=== PATIENT | female | born 1980 | race Caucasian/White ===

== ENCOUNTER 2022-05-20 01:23 | Emergency (ER) | payer OTHER, SELFPAY ==
[2022-05-20 01:31] VITALS: BP 125/90; PULSE 78; RESP 18; TEMP 36.8; O2SAT 99; BMI 31.7
--- NOTE | 2022-05-20 01:36 | ED_ITS ---
HPI - General Adult General Chief complaint: Sore Throat Stated complaint: Sore throat, lower back pain Time Seen by Provider: 05/20/22 01:31 History of Present Illness HPI narrative: Pt is a 41 year old woman well known to me who presents with pharyngitis and low back pain. Pt has close contacts who have recently tested positive for strep throat and are currently being treated. Pt's symptoms started in the past 24 hours. She also has a history of chronic pain in her back and has a nerve stimulator in place. Pt pain in the lumbar spine and throat are both severe. No fevers, chills, nausea or vomiting. No airway issues. Pt has no rash or neurological symptoms. Related Data Home Medications Medication Instructions Recorded Confirmed furosemide 20 mg tablet 20 mg PO DAILY 11/16/21 05/20/22 sertraline 100 mg tablet 100 mg PO DAILY 11/16/21 05/20/22 Previous Rx's Medication Instructions Recorded venlafaxine 150 mg tablet,extended 150 mg PO QAM Depression #90 tabs 11/16/21 release 24 hr Allergies Allergy/AdvReac Type Severity Reaction Status Date / Time codeine Allergy Severe hives, Verified 11/16/21 09:06 nausea, vomiting hydromorphone Allergy Mild itching Verified 11/16/21 09:06 ibuprofen Allergy Mild hx of Verified 11/16/21 09:06 gastric bypass Review of Systems Status of ROS: Reports: 10 or more systems reviewed and unremarkable except as noted in History and below [facility] Medical History Depression Eczema Rash Surgical History History of section History of cholecystectomy History of gastric bypass History of hysterectomy History of umbilical hernia repair Social History Little interest or pleasure in doing things: several days Feeling down, depressed, or hopeless: more than half the days Exam Narrative: Exam Narrative: EXAM GENERAL: Patient appears comfortable and well. EYES: No scleral icterus. ENT: Tympanic membranes normal with injected pharynx. No midline deviation or exudate. THYROID: no thyroid nodules or thyromegaly. LYMPH: No supraclavicular or cervical lymphadenopathy. SKIN: Visible skin seen during exam normal or with benign process only. EXT: No dependent lower extremity pedal edema. HEART: Regular rate and rhythm with no murmurs, rubs, or gallops. LUNGS: Clear to auscultation bilaterally with no crackles or wheezes. ABD: Soft, non tender, non distended. PSYCH: Good eye contact, speech is not pressured. Const: Vital Signs, click to edit/add: Vital Signs - 24 hr 05/20/22 01:31 Temperature 98.2 F Pulse Rate [Right Pulse Oximeter] 78 Respiratory Rate 18 Blood Pressure [Ri ght Upper Arm] 125/90 H Pulse Oximetry 99 Oxygen Delivery Me thod Room Air Course Course Hospital Course: Pt seen and examined. Vital Signs Vital signs: Initial Vital Signs Temperature 98.2 F 05/20/22 01:31 Temperature Source Temporal Artery Scan 05/20/22 01:31 Pulse Rate 78 05/20/22 01:31 Respiratory Rate 18 05/20/22 01:31 Blood Pressure 125/90 H 05/20/22 01:31 Blood Pressure Mean 101 05/20/22 01:31 Blood Pressure Position Sitting 05/20/22 01:31 Pulse Oximetry 99 05/20/22 01:31 Oxygen Delivery Method 05/20/22 01:31 Vital Signs Temperature 98.2 F 05/20/22 01:31 Pulse Rate 78 05/20/22 01:31 Respiratory Rate 18 05/20/22 01:31 Blood Pressure 125/90 H 05/20/22 01:31 Pulse Oximetry 99 05/20/22 01:31 Oxygen Delivery Method 05/20/22 01:31 Temperature 98.2 F 05/20/22 01:31 Pulse Rate 78 05/20/22 01:31 Respiratory Rate 18 05/20/22 01:31 Blood Pressure 125/90 H 05/20/22 01:31 Pulse Oximetry 99 05/20/22 01:31 Oxygen Delivery Method 05/20/22 01:31 Medical Decision Making MDM Narrative Medical decision making narrative: Pt is a 41 year old woman who sees me in primary care clinic who presents with pharyngitis. Pt has close contact with strep positive family members and I do not believe testing would be helpful. Worsening of chronic back pain also noted. Pt will be treated with amoxicillin plus norco and close follow up. Differential Diagnosis Differential Diagnosis: Strep Throat, Viral Pharyngitis, Sinusitis, Pneumonia, Abscess Discharge Plan Discharge Clinical Impression: Strep throat Patient Disposition: Home, Self-Care Condition: Stable Instructions: Strep Throat (ED) Additional Instructions: Amoxicillin and [facility] as directed Follow up as needed Activity Level: No Restrictions Discharge Diet: Regular Prescriptions: No Action sumatriptan succinate 100 mg tablet 100 mg PO .As Needed as needed PRN Rx Instructions: ONE TAB AT ONSET OF HEADACHE, MAY REPEAT ONCE IN 2 HRS, MAX 200 MG/24 HRS. Patient need f/u apt sertraline 100 mg tablet 100 mg PO DAILY furosemide 20 mg tablet 20 mg PO DAILY venlafaxine 150 mg tablet extended release 24 hr 150 mg PO QAM Qty: 90 3RF Follow Up/Referrals: Stone Martinez MD [Primary Care Provider] - Stand Alone Forms: [employer] Info Instructions
[2022-05-20 01:54] VITALS: BP 125/90; PULSE 78; RESP 18; TEMP 36.8
== END 2022-05-20 01:54 | disposition home or self-care (01) ==
PROVIDERS: Emergency Provider Internal Medicine; PCP Internal Medicine
DX: J02.0 Streptococcal pharyngitis (principal)
CPT/HCPCS: 99282; 99283

== ENCOUNTER 2022-06-26 16:02 | Outpatient (CLI) | payer OTHER, SELFPAY ==
--- OUTSIDE RECORDS SUMMARY | 2022-06-26 16:05 | XMS_ITS | Continuity of Care Document ---
:1980 Author Organization [facility] Address [address] [place] [address] Care Team Providers Name Role Phone [facility] Unavailable Unavailable Procedures Procedure Date INJ FORAMEN EPIDURAL L/S INJ FORAMEN EPIDURAL L/S Advance Directives Directive Yes / No Effective Date File Name No Information Encounters Encounter Practice Location Reason(s) Diagnoses Date Provider Provide rs Description For Visit Copied on Encounter [facility] Provider: Surgery Surgery Surgery [facility], [facility]. Brigette, [address] [place] [place], [place], [facility] [id number], , [place], , [place], [id number], [id number]. . tel:[phone] tel:[phone] Family History Family Member Type Diagnosis Age At Onset No Information Payers Payer name Insurance type Covered democrat ID Authorization(s ) No Information Social History Type Description Quantity Date Captured Comments Sex Female Smoking Status No Information Chief Complaint And Reason For Visit No Information Reason For Referral Reason For Referral No Information Plan Of Treatment Date Type Action Status No Information History Of Present Illness Encounter Date Complaint History Of Present I llness No Information Functional Status Date Functional Assessment No Information Instructions Date Instruction Additional Informati on No Information Assessments Type Assessment Date No Information Patient Care Teams Name Effective Dates (start - stop) Status M embers No Information
--- OUTSIDE RECORDS SUMMARY | 2022-06-26 16:05 | XMS_ITS | Continuity of Care Document ---
:1980 Author Organization [facility] Address [address] [place] [address] [place] [address] Care Team Providers Name Role Phone Ho Watson CRNA Unavailable Unavailable Procedures Procedure Date ANESTH, HEAD/NECK/PTRUNK Percutaneous Image guided neuromodulation or intra August Advance Directives Directive Yes / No Effective Date File Name No Information Encounters Encounter Practice Location Reason(s) Diagnoses Date Provider Provide rs Description For Visit Copied on Encounter [facility] Referring Anesthesia Surgery Information Ho. Provider: Carlos ARRINGTON [place] [address] [place] [address] Jeannie Membreno, [address] [id number], [facility], [facility] [place], [id number] . , [place]. tel:[phone] tel: [phone] [facility] No [facility] Referring Anesthesia Surgery Information Ho. Provider: Carlos ARRINGTON [place] [address] [place], [place] [address] [facility] Jeannie Membreno, [address] [id number], [facility], [facility] [place], [place], [id number] . , [place]. tel:[phone] tel:[phone] Family History Family Member Type Diagnosis Age At Onset No Information Payers Payer name Insurance type Covered libertarian ID Authorization(s ) No Information Social History [...] Effective Dates (start - stop) Status M [email or web address] No Information
--- OUTSIDE RECORDS SUMMARY | 2022-06-26 16:06 | XMS_ITS | Continuity of Care Document ---
:1980 Author Organization [facility] Address [address] [place] [address] Phone Care Team Providers Name Role Phone Darwin Walters Unavailable Unavailable Allergies, Adverse Reactions, Alerts Substance Reaction Status Criticality codeine Hives/Skin RashUpset stomach Active No Information Medications Medication Instructions Dosage Effective Dates Status Comment s (start - stop) oxycodone 5 mg Take 1 tablet every - Active tablet 4-6 hours as needed for post-operative pain ZOLOFT (unknown take 2 tablet by Not Available - Active strength) oral route every day Effexor XR 75 mg take 1 capsule by 75 MG - Active capsule,extended oral route every day release with food Lunesta 3 mg take 1 tablet by 3 MG - Active tablet oral route every day at bedtime Procedures Procedure Date ANALYZE NEUROSTIM, COMPLEX SCS Post Op Satellite OFFICE VISIT, EST TELEMEDICINE SCS Post Op Satellite IMPLANT NEUROELECTRODES [facility] IMPLANT NEUROELECTRODES [facility] INSRT/REDO SPINE N GENERATOR SCS Lead Pull Satellite ORTHOTIC MGMT AND TRAINING IMPLANT NEUROELECTRODES [facility] IMPLANT NEUROELECTRODES [facility] ANALYZE NEUROSTIM, COMPLEX Psych Dx Eval PT EVAL MOD COMPLEX 30 MIN Drug Urine Toxology With Chromatography Foll-up eval q3mo opiod tx OFFICE/OUTPATIENT VISIT, EST OFFICE VISIT, EST TELEMEDICINE Foll-up eval q3mo opiod tx Foll-up eval q3mo opiod tx OFFICE VISIT, EST TELEMEDICINE Foll-up eval q3mo opiod tx OFFICE/OUTPATIENT VISIT, EST INJ FORAMEN EPIDURAL L/S BILATERAL Foll-up eval q3mo opiod tx OFFICE VISIT, EST TELEMEDICINE OFFICE VISIT, EST TELEMEDICINE Foll-up eval q3mo opiod tx Foll-up eval q3mo opiod tx OFFICE VISIT, EST TELEMEDICINE Foll-up eval q3mo opiod tx OFFICE VISIT, EST TELEMEDICINE Foll-up eval q3mo opiod tx OFFICE VISIT, EST TELEMEDICINE Foll-up eval q3mo opiod tx OFFICE/OUTPATIENT VISIT, EST Drug test def 22+ classes Drug Urine Toxology With Chromatography OFFICE CONSULTATION Advance Directives Directive Yes / No Effective Date File Name No Information Encounters Encounter Practice Location Reason(s) Diagnoses Date Provider Provide rs Description For Visit Copied on Encounter Juan Antonio [facility], [facility]. [facility] [place] elsewhere 3 [address] Clinic, [address] [facility] [address] [facility] 11 [facility], 100, [place], [place], [place], [id number] , [place] , [place]. tel: tel: [phone] OFFICE VISIT, Juan Antonio Camacho [facility] (chief syndrome, not Darwin. TELEMEDICINE Pain [place] complaint) elsewhere 2 [address] Clinic, [address] [facility] [address] [place], [address], [place], [place], [place], [id number] , [place] , [place]. tel: tel: [phone] [facility] Postlaminectomy [facility] syndrome, not Tash. Provid er: Pain [place] elsewhere 2 [address] [facility], [address], [address] [place], [address], [place], [place], [place], [place], [place], [place], [place], [phone] , [place] , [place]. . tel: tel: tel: [phone] [facility] Postlaminectomy [facility] syndrome, not Neil. Provider: Pain Center elsewhere 2 [address] [facility], classified [place], Will J, [address] [place] [address] [place], is, [place], [place], [address], [id number] [place], , [place]. [place], [place], [id number] tel:[phone] , [place] [id number] . tel: tel: [phone] [facility] No Information [facility] Neil. [facility] [place] 2 [address] [facility] Clinic, [place], [address] [place], [place], [place], Court, [id number] [place], , [place]. [id number] tel: , [place] [id number] tel: [phone] [facility] Widespread Postlaminectomy August- Arriaga R [facility] pain (chief syndrome, not Darwin. Pr ovider: Pain [place] complaint) elsewhere 2 [address] [facility] [address], [address] back pain, [address] [place], unspecified 100, [place], [place], [place], [place], [place], [place], [place], [phone] , [place] , [place]. . tel: tel: tel: [phone] [facility] Postlaminectomy Nielson Refer [facility] Surgery syndrome, not Neil. Provider: Pain Center elsewhere 2 [address] [facility] Ori Clinic, classified [place], Will J, [address] [place] [address] [place], is, [place], [place], Court, [id number] [place], , [place]. [place], [place], [id number] tel: [phone] , [place] [id number] . 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 [address] [facility], [facility] [address] depressive [place], [place], disorder, [place], recurrent, in [place], [place], [place], partial remission [id number] , [place]. 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 Max [facility] Clinic, lumbar [address], [address] regionPostlaminec [place], [address] [place], gilda syndrome, [place], Court, not elsewhere [place], [place], [place], classified [id number] s, [place], [id number] , [place]. [phone] , [place] tel: . tel: [phone] tel: [phone] [facility] No Information Jul- [facility] Darwin. Pain [place] 2 [address] Clinic, [facility] [address] [place], [address], Court, [place], [place], [place], [id number] , [place] , [place]. tel: tel: [phone] OFFICE/OUTPAT [facility] Widespread Chronic pain Apr- Arriaga Referring IENT VISIT, [facility] pain (chief syndromeSpondylos Luis Angel mcdonald. Provider: EST Pain [place] complaint) is w/o myelopathy 2 1455 [facility], or radiculopathy, [address], [address] lumbar [address] [place], regionOther 100, [place], [place], intervertebral [place], disc [place], [place], [place], [place], [id number] degeneration, [phone] , [place] lumbar regionPain , [place]. . tel: in left kneePain tel: tel : [phone] in right kneeLong [phone] term (current) use of opiate analgesicPostlami nectomy syndrome, not elsewhere classified OFFICE VISIT, [facility] Widespread Other [facility] pain (chief intervertebral Daniel. Sarah gonzáles: TELEMEDICINE Pain [place] complaint) disc 0 1455 [facility], degeneration, [facility] [address] Will [address], [address] lumbar [address] [facility], regionChronic 100, [place], [place], pain syndromePain [place], in left kneePain e, [place], [place], [place], [id number] in right kneeLong [phone] , [place] term (current) , [place]. . tel: use of opiate tel: tel: [phone] analgesicSpondylo [phone] sis w/o myelopathy or radiculopathy, lumbar regionLow back pain OFFICE VISIT, [facility] Widespread Other Arriaga Ref erring [facility] pain (chief intervertebral Daniel. Sarah gonzáles: TELEMEDICINE Pain [place] complaint) disc 0 1455 [facility], degeneration, [facility] [address] [place], [address] lumbar [address] Sushil [place], regionChronic 100, Medical [place], pain syndromePain [place] Cent er [address] [place], in left kneePain e, [place], [place] [phone] in right kneeLong [phone] Dr sorenson , term (current) , [place]. [address] , tel: use of opiate tel: [place], [place], [phone] analgesicSpondylo [phone]. sis w/o tel:[phone] myelopathy or [phone] radiculopathy, lumbar regionLow back pain OFFICE/OUTPAT [facility] Widespread Other Sep-0 Arriaga Ref erring IENT VISIT, [facility] pain (chief intervertebral Edy margarito. Provider: EST Pain [place] complaint) disc 0 1455 [facility], degeneration, [address], [address] lumbar [address] [place], regionChronic [address], Court [place], pain syndromePain [place], in left kneePain e, [place], [place], [place], [id number] in right kneeLong [phone] , [place] term (current) , [place]. . tel: use of opiate tel: tel: [phone] analgesicSpondylo [phone] sis w/o myelopathy or radiculopathy, lumbar regionLow back pain [facility] Other [facility] Referring [facility] intervertebral Shilpa. Provider: Pain Center disc 0 [address] [facility], degeneration, [place], Will J, [address] lumbar region [place] [address] [place], is, [place], [place], [place], [id number] [place], , [place]. [place], [place], [id number] tel:[phone] , [place] [id number] . tel: tel: [phone] OFFICE VISIT, [facility] Widespread Chronic pain Aug Arriaga Referring [facility] pain (chief syndromePain in Darwin. Provider: TELEMEDICINE Pain [place] complaint) left kneePain in 0 1455 [facility], right kneeLong [facility] [address], [address] term (current) [address] [place], use of opiate 100, [place], Court, analgesicOther [place], intervertebral [place], [place], [place], [place], [id number] disc [id number] , [place] degeneration, , [place]. . tel: lumbar tel: tel: [phone] regionSpondylosis [phone] w/o myelopathy or radiculopathy, lumbar region OFFICE VISIT, [facility] Widespread Chronic pain Oct- Arriaga Referring [facility] pain (chief syndromeLow back 0-202 Darwin. Pro vider: TELEMEDICINE Pain complaint) painPain in left 0 1455 [facility], kneePain in right [address], [address] kneeLong term 11 [address] [place], (current) use of 100, [place], [place], opiate analgesic [place], [place], [place], [place], [place], [phone] , [place] , [place]. . tel: tel: tel: [phone] OFFICE VISIT, [facility] Widespread Chronic pain Sep- Arriaga Referring [facility] pain (chief syndromeLow back 2- Darwin. Pro vider: TELEMEDICINE Pain complaint) painPain in left 0 1455 [facility], kneePain in right [address], [address] kneeLong term 11 [address] [place], (current) use of 100, [place], [place], opiate analgesic [place], [place], [place], [place], [place], [phone] , [place] , [place]. . tel: tel: tel: [phone] OFFICE VISIT, [facility] Widespread Chronic pain August- Arriaga Referring [facility] pain (chief syndromeLow back 3- Darwin. Pro vider: TELEMEDICINE Pain complaint) painPain in left 0 1455 [facility], kneePain in right [address], [address] kneeLong term 11 [address] [place], (current) use of 100, [place], [place], opiate analgesic [place], [place], [place], [place], [place], [phone] , [place] , [place]. . tel: tel: tel: [phone] OFFICE VISIT, [facility] Widespread Chronic pain Apr- Arriaga Referring EST [facility] pain (chief syndromeLow back Darwin. Pro vider: TELEMEDICINE Pain complaint) painPain in left 0 1455 [facility], kneePain in right [address], [address] kneeLong term [address] [place], (current) use of 100, [place], Court, opiate analgesic [place], [place], [place], [place], [place], [phone] , [place] , [place]. . tel: tel: tel: [phone] OFFICE/OUTPAT [facility] Widespread Chronic pain Jun- Arriaga Referring IENT VISIT, [facility] pain (chief syndromeLow back 2- Bro iel. Provider: EST Pain [place] complaint) painPain in left [address] [facility], kneePain in right [address], [address] knee [address] [place], 100, [place], [place], [place], [place], [place], [place], [place], [phone] , [place] , [place]. . tel: tel: tel: [phone] OFFICE [facility] Widespread Chronic pain Feb-2 [facility] Refe rring CONSULTATION [facility] pain (chief syndromeLow back Da tamara. Provider: Pain [place] complaint) painPain in left [address] [facility] Clinic, kneePain in right [address], [address] knee [address] [place], 100, [place], [place], [place], [place], [place], [place], [place], [phone] , [place] , [place]. . tel: tel: tel: [phone] [facility] Widespread No Information Feb-2 [facility] pain (chief Darwin. Pain [place] complaint) [address] [place], 100, [place], [place], [place], [id number] , [place] , [place]. tel: tel: [phone] Family History Family Member Type Diagnosis Age At Onset No Information Payers Payer name Insurance type Covered constitution party ID Authorization(s ) [id number] Social History Type Description Quantity Date Captured Comments Alcohol Use Details Unknown Caffeine Use Details Unknown Tobacco Use Status No Information Smoking Status No Information Sex Female Chief Complaint And Reason For Visit No Information Reason For Referral Reason For Referral No Information Plan Of Treatment Date Type Action Status Goal AST (SGOT). Due on d ue Goal POLISHER IMPLANT Scanned. Due on due Goal Order Annual PT. Due on 023 due Goal CREDIT UNION TELLER Paperwork. Due on 3 due Goal ALT (SGPT). Due on d ue Goal UDT. Due on due Goal Creatinine. Due on d ue Goal OARS. Due on due Goal Weight. Due on due Goal PHQ-9. Due on due Goal Update Social History. Due on due Goal Review Allergy List. Due on due Goal Medication Reconciliation. Due o n due Goal Unhealthy drug use screening. Du e on due Goal Hepatitis C screening. Due on due Goal HPV. Due on due Goal Height. Due on due Goal Lipid panel. Due on due Goal Tobacco Use. Due on due Goal Order Annual PT. Due on 022 due Goal AST (SGOT). Due on d ue Goal CREDIT UNION TELLER Paperwork. Due on due Goal Creatinine. Due on d ue Goal UDT. Due on due Goal POLISHER IMPLANT Scanned. Due on due Goal OARS. Due on due Goal ALT (SGPT). Due on d ue Goal Review Allergy List. Due on due Goal Lipid panel. Due on due Goal Weight. Due on due Goal PHQ-9. Due on due Goal Medication Reconciliation. Due o n due Goal Unhealthy drug use screening. Du e on due Goal HPV. Due on due Goal Tobacco Use. Due on due Goal Height. Due on due Goal Hepatitis C screening. Due on due Goal Update Social History. Due on due Goal AST (SGOT). Due on d ue Goal POLISHER IMPLANT Scanned. Due on due Goal CREDIT UNION TELLER Paperwork. Due on due Goal OARS. Due on due Goal ALT (SGPT). Due on d ue Goal Creatinine. Due on d ue Goal Order Annual PT. Due on due Goal UDT. Due on due Goal HPV. Due on due Goal PHQ-9. Due on due Goal Hepatitis C screening. Due on due Goal Unhealthy drug use screening. Du e on due Goal Weight. Due on due Goal Review Allergy List. Due on due Goal Lipid panel. Due on due Goal Update Social History. Due on due Goal Medication Reconciliation. Due o n due Goal Height. Due on due Goal Tobacco Use. Due on due Goal POLISHER IMPLANT Scanned. Due on due Goal OARS. Due on due Goal Creatinine. Due on d ue Goal AST (SGOT). Due on d ue Goal UDT. Due on due Goal Order Annual PT. Due on due Goal ALT (SGPT). Due on d ue Goal CREDIT UNION TELLER Paperwork. Due on 2 due Goal HPV. Due on due Goal Lipid panel. Due on due Goal Height. Due on due Goal Review Allergy List. Due on due Goal Update Social History. Due on due Goal Medication Reconciliation. Due o n due Goal Unhealthy drug use screening. Du e on due Goal Hepatitis C screening. Due on Sandro due Goal Weight. Due on due Goal Tobacco Use. Due on due Goal PHQ-9. Due on due Goal OARS. Due on due Goal CREDIT UNION TELLER Paperwork. Due on 2 due Goal ALT (SGPT). Due on d ue Goal Order Annual PT. Due on 022 due Goal POLISHER IMPLANT Scanned. Due on due Goal Creatinine. Due on d ue Goal AST (SGOT). Due on d ue Goal UDT. Due on due Goal Height. Due on due Goal Weight. Due on due Goal Unhealthy drug use screening. Du e on due Goal HPV. Due on due Goal Hepatitis C screening. Due on due Goal Tobacco Use. Due on due Goal Medication Reconciliation. Due o n due Goal Lipid panel. Due on due Goal Review Allergy List. Due on due Goal PHQ-9. Due on due Goal Update Social History. Due on due Goal ALT (SGPT). Due on d ue Goal POLISHER IMPLANT Scanned. Due on due Goal Order Annual PT. Due on 022 due Goal Creatinine. Due on d ue Goal OARS. Due on due Goal AST (SGOT). Due on d ue Goal CREDIT UNION TELLER Paperwork. Due on due Goal UDT. Due on due Goal Hepatitis C screening. Due on due Goal Tobacco Use. Due on due Goal Weight. Due on due Goal Medication Reconciliation. Due o n due Goal Height. Due on due Goal PHQ-9. Due on due Goal Update Social History. Due on due Goal HPV. Due on due Goal Lipid panel. Due on due Goal Unhealthy drug use screening. Du e on due Goal Review Allergy List. Due on due Goal Creatinine. Due on d ue Goal OARS. Due on due Goal UDT. Due on due Goal Order Annual PT. Due on 022 due Goal ALT (SGPT). Due on d ue Goal CREDIT UNION TELLER Paperwork. Due on due Goal POLISHER IMPLANT Scanned. Due on due Goal AST (SGOT). Due on d ue Goal Medication Reconciliation. Due o n due Goal PHQ-9. Due on due Goal Height. Due on due Goal Review Allergy List. Due on due Goal Update Social History. Due on due Goal Tobacco Use. Due on due Goal Hepatitis C screening. Due on due Goal Weight. Due on due Goal Lipid panel. Due on due Goal Unhealthy drug use screening. Du e on due Goal HPV. Due on due Goal Medication Reconciliation. Due o n due Goal PHQ-9. Due on due Goal Height. Due on due Goal Review Allergy List. Due on due Goal Update Social History. Due on due Goal Tobacco Use. Due on due Goal Hepatitis C screening. Due on Ap due Goal Weight. Due on due Goal Lipid panel. Due on due Goal Unhealthy drug use screening. Du e on due Goal HPV. Due on due Goal Creatinine. Due on d ue Goal OARS. Due on due Goal UDT. Due on due Goal Order Annual PT. Due on 022 due Goal ALT (SGPT). Due on d ue Goal CREDIT UNION TELLER Paperwork. Due on due Goal POLISHER IMPLANT Scanned. Due on due Goal AST (SGOT). Due on d ue Referral Ordered: ordered X-RAY EXAM OF KNEE, 3 Bilateral knee Referral Ordered: ordered MRI LUMBAR SPINE W/O DYE Future Order: Lab Order Drug Test Def [address]+ [address] (G0483), Ordered Ordered on: History Of Present Illness Encounter Date Complaint History Of Present I llness Back Pain Severity level is 5. The problem is improving. It occurs intermittently. Location of pain is lower back. The client describes the pain a s an ache. Symptoms are aggravated by liftin g, twisting, movement and housework. Sympt oms are relieved by ice and spinal cord stim ulator. Comments: Rosio denson esents for virtual followup regarding l ower back pain with radiation into RLE. S/p decompression and fusion from the L4-S [address] Arboleda with [facility] on 02/12/20 20. States pain in lower back and radia ting down her R leg have persisted follo wing surgery. S/p [employer] jasbir harleyar SCS implant on 10/14/2021 with sign ificant pain relief. Not taking any medic ations.Of note she has tested positive for COVID. She is not accompanied and has no other concerns today. Comments: Patient pr esents for lead pull s/p SCS trial on 08/09 04/30. No s/s of infection are presen t or reported. See detailed wound asses sment. Patient reported significant pain imp rovement and was able to perform daily rou tines during the trial.Patient would like to move forward with the implant - o rder created and we will start the PA pr ocess. Widespread pain Duration: chronic. lumbago Patient is a 41 year old female presenting with complaints of c hronic low back pain that has been on goi ng for many years. She notes a history of a lumbar decompression and fusion L4-5 whic h occurred in 2019. She had improvement for around 6 months. She notes that she has h ad a return of many of her symptoms. She me t with Dr. Arboleda who stated that everythi ng is solid with her surgery. He did freddy mmend additional surgery, but she is not interested at this time. Patient's symp toms began insidiously without incident. He r current symptoms are constant across her low back and into her right hip and leg th at does radiate to her foot/ankle. Patient notes associated weakness and instabi lity that is intermittent. Her sy mptoms are constant, severe and are not i ncreased with any specific movement. S ymptoms are somewhat relieved with lying down and medication. She has tried multip le different interventions but lou s not had relief of her pain. She notes that her current level of discomfort limits ev erything she is able to do each day and is c urrently limiting her overall quality of l ac. She would like to decrease her overall discomfort to allow her to perform her d aily, functional activities with less limitation and an improved quality of life. Widespread pain Severity level is 5. Duration: chronic. Location of the pain is lower back and legs. The client aashish cribes it as achy. It occurs persistently. The problem is worsening. Symptom i s aggravated by bending, sitting, springer pine, lifting, housework and prolon ged positioning. Relieving factors in clude cold, changing positions and medica tions. Pertinent negatives include di arrhea, fatigue, fever and incontinence (ur inary). Comments: Rosio is here for follow-up last seen on 020. She is followed for widespread pain. Primary concern today is lower back pain w ith radiation into RLE. S/p decompression an d fusion from the L4-S1 with Dr. Arboleda with [facility] on 02/12/2020. States p ain in lower back and radiating down her R leg have persisted following surgery. M ost of today's OV was spent discussing amy n management options. Patient is intereste d in pain management options that will f ix her problem. Specifically discuss es SCS trial. Patient expresses interest i n [employer] trial and requests t he orders be placed to her insurance. Pre-t rial education was provided and [employer] ns were addresses. Additionally, she re quests a temporary script of pain medic ations whiles she awaits stim trial. S he is not accompanied and has no other con cerns today. Widespread pain (comments) Patient is he re for follow-up and medication refills. She presents with widespread pain most bothersome in her low back. She has an lum bar decompression and fusion from the L4-S [address] Arboleda with [facility] on 02/11. S he believes that Dr. Arboleda will be presc ribing post-procedural medication.Reports c urrent medication regimen provides at least 50% pain relief. Denies side effects from current medication regimen. No other co ncerns today. Widespread pain Duration: chronic. L ocation of the pain is lower back. It occur s persistently. The problem is stable. S ymptom is aggravated by bending, walking ups tairs, walking downstairs, sitting and standing. Relieving factors include rest , heat, cold and Rx Meds. Pertinent nega tives include diarrhea, fatigue, fever and i ncontinence (urinary). Widespread pain (comments) Rosio is he re for follow-up and medication refills. Ongoing back pain is worse. Reports the m edications are not managing her pain as well as they used to. Notes she had to mis s work yesterday d/t the severity of her pain. She is having a consult with [facility] cat on Sunday to discuss surgical options. Re ports current medication regimen p rovides less than 50% pain relief. Denies side effects from current medication r egimen. No other concerns today. Widespread pain Severity level is 7. Duration: chronic. Location of the pain is lower back. The patient describes it as achy. It occurs persistently. The pr oblem is worsening. Symptom is aggravate d by bending, walking upstairs, walking do wnstairs, sitting, standing and walking . Relieving factors include cold, Rx Med s and changing positions. Pertinent negatives include diarrhea, fatigue, f ever and incontinence (urinary). Widespread pain Severity level is 7. Duration: chronic. Location of the pain is lower back and hands. The patient d escribes it as sharp, achy and burning. It occurs persistently. The problem is worse lino. Symptom is aggravated by bendin g, lifting and movement. Relieving factors include heat, cold and Rx Meds. Pe rtinent negatives include diarrhea, fa tigue, fever and incontinence (urinar y). Widespread pain (comments) Rosio is he re for follow-up and medication refills. She presents with low back (L>R) and hands . Her pain is worse and occurs persistently. LISANDRA completed on 11/27 has not provided any relief. Inquire about if chiropractics wou ld be helpful. The current medication m anages her pain most of the time. Reports cu rrent medication regimen provides 50% pain relief. Denies side effects from cu rrent medication regimen. No other co ncerns today. Widespread pain (comments) Rosio is me eting with us today via [facility] for fo llowing up and medication refill. W idespread pain persists this month, tolerabl e with medication. The pain in her low back radiates down her left thigh.Reports curren t medication regimen provides 75% pain re lief and allows for increased functional ity. Denies side effects from current medication regimen.No other concerns today . Widespread pain Severity level is 6. Duration: chronic. Location of the pain is lower back and bilateral hand. The patient describes it as achy and burning. It occurs persistently. The problem is stabl e. Symptom is aggravated by bendin g, lifting. prolonged positioning and twis ting. Relieving factors include supine, rest , heat, cold, Rx Meds and changing positio ns. Pertinent negatives include diarrhea, fa tigue, fever and incontinence (urinar y). Widespread pain Severity level is 8. Duration: chronic. Location of the pain is BL hands, BL knees, BL feet and left shilpa ulder. The patient describes it as hien p, achy, burning and numbness. It occurs persistently. The problem is worsening . Pertinent negatives include diarrhea, fa tigue, fever and incontinence (urinar y). Widespread pain (comments) Patient is he re for follow-up and medication refills. Patient reports widespread pain whic h is most bothersome in BL hands and low larry k. Pain is stable in terms of location an d character.Reports current medication r egimen provides >75% pain relief. Denies side effects from current medication r egimen. No other concerns today. Widespread pain (comments) Rosio is he re today for follow up and medication managemen t. Reports >50% relief with their current r egimen and denies any side effects.Reports that her low back and bilateral hands have been stable this month with her medication regimen. Describes her hand pain has sharp and burning in her joints. She notes th at she is having difficulties schedul ing her lumbar MRI and requests an order to be faxed to [facility] today.Alma nt is not accompanied today and has no oth er questions or concerns. Widespread pain Severity level is 6. Duration: chronic. Location of the pain is lower back and BL hands. The patient d escribes it as sharp and burning. It occu rs intermittently. The problem is stable. S ymptom is aggravated by bending, overuse and lifting. Relieving factors include rest , heat and Rx Meds. Widespread pain Severity level is mi ld-moderate. Duration: chronic. Location of the pain is bilateral hand. The patient de scribes it as achy, burning and tingling . It occurs persistently. The pr oblem is stable. Symptom is aggravate d by lifting, movement and prolonged positi oning. Relieving factors include heat , cold, Rx Meds and changing positions. There are no associated symptoms. Widespread pain (comments) The patient r eturns for followup and medication refill fo r persistent back pain. Prescribed medicatio ns offer 70% pain relief. Denies SE. T he pain medication is working well for her . She uses oxycodone 5mg once at night wh ich greatly helps her pain, especially the pain in her hands. Her back pain persists a nd she states her clinic just reopened and she has a call out to get a lumbar MRI completed.She is not accompanied by anyon e today. No further questions or concern s.Patient presents with #1 oxycodone, 1 tab short. She admits to taking an extra tab after a dental procedure. Widespread pain Severity level is 8. Duration: chronic. The patient describes it as sharp, burning and numbness. It occurs persistently. The problem is fluctuati ng. Denies aggravating factors. Relieving f actors include rest and Rx Meds. Widespread pain (comments) Rosio retur ns for follow up regarding widespread pain.Repo rts she was able to complete bilateral k nee x-rays late last week, but has been u nable to schedule lumbar imaging d/t c urrent events. Recently completed an injecti on in both hands through rheumatology which has been helpful. Ongoing num bness persists. No further questions or concerns. Widespread pain (comments) Rosio is he re today for a followup after initial consult for widespread pain. States her pain today is wo rse, especially in the fingers of her bilat eral hands. States today would be a day she normally would call in sick to work because of the severity of her symp toms. Has rheumatology consult scheduled ea rly next month. States her son was recently sick so she has not been able to complet e imaging ordered last OV. Flexeril has bee n helpful, but causes significant drowsine ss so she only takes it at night. Regarding UDT, positive for THC, she reports having e dible while in [place], [place] a few weeks ago.Current medication regimen p rovides 25% relief and improves daily funct ion. Denies side effects from current medication regimen. Patient is not accom panied today and has no further questions or other concerns. Widespread pain Severity level is 8. Duration: chronic. Location of the pain is bilateral hand and bilateral knee. The patient describes it as achy, burning and ti ngling. It occurs persistently. The pr oblem is worsening. Symptom is aggravate d by bending, lifting, movement, twisting a nd walking. Relieving factors include heat , ice and medications. Pertinent negatives include diarrhea, fatigue, fever and i ncontinence (urinary). Widespread pain (comments) Rosio is he re for an initial consult for multiple sources of pain, referred by a family member/friend . Her primary complaint today is pain locate d in her BL hands, BL knees, and low back. States her pain onset about a year ago wit hout inciting event or injury. She reports no hx of imaging, injections, or physi dianelys therapy and has not consulted with rheum atology.Secondary concerns of abdomina l pain in the setting of multiple c-sectio n births, a cholecystectomy, gas tric bypass, gastric bypass revision, fou r hernia repair surgeries, and panni culectomy. Has been advised pain is like ly r/t adhesions and had some removed las t September. Pain is primarily located in RLQ. She has had several XR's and CT scans of her abdomen [facility]. Currently managing h er pain with ibuprofen and Tylenol. She als o takes amitriptyline for sleep. Has been prescribed hydrocodone, oxycodone, and morph ine in the past for surgeries and tooth pain. Rosio is interested in recomm ended tx modalities and would like [facility] to a [facility] management of pain care. Widespread pain Onset occurred gradu ally. Severity level is 7. Duration: chronic . Location of the pain is lower back, bilat eral hand, bilateral knee and abdomen. Th e patient describes it as achy, burning and numbness. It occurs persistently. Sympto m is aggravated by lifting, standing an d twisting. Relieving factors include heat , cold, rest and lying down. Pertinent nega tives include diarrhea, dyspnea, fever and i ncontinence (urinary). Widespread pain (comments) Rosio is he re for an initial consult for multiple sources of pain, referred by family/friend. Her p rimary pain is located in her abdomen in th e setting of multiple births, a cholecystectomy, gastric bypass, kamar columba bypass revision, four hernia repair s urgeries, and panniculectomy. She also experiences pain in her low back seco ndary to lumbar DDD and BL hands due to arth ritis. She has not undergone physical t herapy or trialed injections to treat her pain. She has had several XR's and CT scans through [facility]. Currently managed on for additional pain relief. Has previously trial ed and failed amitriptyline, NSAID S, Tylenol, hydrocodone, oxycdon e, and morphine. is interested in an d would like [facility] to assume management of pain care. Widespread pain Functional Status Date Functional Assessment No Information Instructions Date Instruction Additional Informati on No Information Assessments Type Assessment Date assessment Postlaminectomy syndrome, not elsewhere classified Patient Care Teams Name Effective Dates (start - stop) Status M sergo No Information
--- OUTSIDE RECORDS SUMMARY | 2022-06-26 16:06 | XMS_ITS | Continuity of Care Document ---
:1980 Author Organization [facility] Address [address] [place] [address] [address] Phone Care Team Providers Name Role Phone [facility] Unavailable Unavailable Procedures Procedure Date IMPLANT NEUROELECTRODES INSRT/REDO SPINE N GENERATOR Implt neurostim elctr each FLUOROGUIDE FOR SPINE INJECT Inj, bupivacaine liposome IMPLANT NEUROELECTRODES Imp neurosti pls gn any type IMPLANT NEUROELECTRODES IMPLANT NEUROELECTRODES Implt neurostim elctr each Advance Directives Directive Yes / No Effective Date File Name No Information Encounters Encounter Practice Location Reason(s) Diagnoses Date Provider Provide rs Description For Visit Copied on Encounter [facility] Surgery Information [facility] [facility] s 110, 11 [facility] 110, [facility], [place], [place], [place], [id number], [id number], [id number] [place]. . tel:[phone] tel:[phone] tel: [phone] [id number] [facility] Ref[facility] Surgery Information [facility] Provider: [facility]. [address] [facility] s 110, [address], [facility], [place], [place], [place], [id number], [id number], [id number] [place]. . tel:[phone] tel:[phone] tel: [phone] Family History Family Member Type Diagnosis Age At Onset No Information Payers Payer name Insurance type Covered alliance party ID Authorization(s ) No Information Social History [...]
== END 2022-06-26 16:03 | disposition home or self-care (01) ==
PROVIDERS: PCP Internal Medicine; Visit Provider Internal Medicine
DX: R61 Generalized hyperhidrosis (principal)
CPT/HCPCS: 80053; 84443

== ENCOUNTER 2022-08-03 17:44 | Emergency (ER) | payer BC, SELFPAY ==
[2022-08-03 18:11] VITALS: BP 123/81; PULSE 89; RESP 18; TEMP 36.2; O2SAT 98; BMI 33.2
--- NOTE | 2022-08-03 18:51 | ED_ITS ---
HPI - General Adult General Stated complaint: Back pain going into both legs Time Seen by Provider: 08/03/22 18:38 History of Present Illness HPI narrative: This 42-year-old female comes in with severe low back pain radiating down both legs now. She has a history of low back pain and has had surgery and the nerve stimulator. Pain is been present over the past 6 months but has worsened recently. She did see a doctor here and received a prescription for oxycodone which she states is not helping at all. She does not describe any recent injury event or strenuous activity. She had pain radiating down her right leg and now it is also radiating down her left leg. She was scheduled for an MRI of the low back today but was unable to sit still enough to complete this test. She does see a provider at a spine clinic and will be able to connect there once the MRI is done. Related Data Home Medications Medication Instructions Recorded Confirmed furosemide 20 mg tablet 20 mg PO DAILY 11/16/21 08/03/22 Previous Rx's Medication Instructions Recorded venlafaxine 150 mg tablet,extended 150 mg PO QAM Depression #90 tabs 11/16/21 release 24 hr sertraline 100 mg tablet 100 mg PO DAILY #90 tabs 06/01/22 cyclobenzaprine 10 mg tablet 10 mg PO TID #21 tabs 08/03/22 gabapentin 100 mg capsule 100 mg PO TID #45 caps 08/03/22 ketorolac 10 mg tablet 10 mg PO Q8H 5 days #15 tabs 08/03/22 Allergies Allergy/AdvReac Type Severity Reaction Status Date / Time codeine Allergy Severe hives, Verified 08/03/22 18:14 nausea, vomiting hydromorphone Allergy Mild itching Verified 08/03/22 18:14 ibuprofen Allergy Mild hx of Verified 08/03/22 18:14 gastric bypass Review of Systems Status of ROS: Reports: 10 or more systems reviewed and unremarkable except as noted in History and below Narrative: Constitutional: No fevers, no weight gain or loss. Eyes: No discharge. No vision changes. HENT: No congestion, no sore throat, no ear pain. Cardiovascular: No chest pain, no palpitations. Respiratory: No shortness of breath, no wheezes, no cough. Gastrointestinal: No abdominal pain, no vomiting, no diarrhea. Genitourinary: No dysuria, no hematuria. Musculoskeletal: Low back pain radiating down both legs now as described above. Skin: No rashes, no pruritis. Neurological: No dizziness, weakness, sensory change, speech change. Endo/Heme/Allergies: No bruising or bleeding. No polydipsia. Pysch: no suicidality, no anxiety, no insomnia. All other systems reviewed and are negative. [facility] Medical History (Updated 08/03/22 @ 18:56 by Carlos A Bravo MD) Back pain ?M54.9 - Dorsalgia, unspecified (ICD-10) Depression ?F32.A - Depression, unspecified (ICD-10) Eczema ?L30.9 - Dermatitis, unspecified (ICD-10) Night sweats ?R61 - Generalized hyperhidrosis (ICD-10) Rash ?R21 - Rash and other nonspecific skin eruption (ICD-10) Strep throat ?J02.0 - Streptococcal pharyngitis (ICD-10) Surgical History History of section ?Z98.891 - History of uterine scar from previous surgery (ICD-10) History of cholecystectomy ?Z90.49 - Acquired absence of other specified parts of digestive tract (ICD- 10) History of gastric bypass ?Z98.84 - Bariatric surgery status (ICD-10) History of hysterectomy ?Z90.710 - Acquired absence of both cervix and uterus (ICD-10) History of umbilical hernia repair ?Z98.890 - Other specified postprocedural states (ICD-10) ?Z87.19 - Personal history of other diseases of the digestive system (ICD-10) Social History Smoking Status: Never smoker Do you use any of these nicotine containing products: None Second hand tobacco smoke exposure: No How often do you have a drink containing alcohol: never How often do you have six or more drinks on one occasion: Never AUDIT-C Alcohol total score: 0 Non-prescribed substance use: denies use Little interest or pleasure in doing things: several days Feeling down, depressed, or hopeless: more than half the days Exam Narrative: Exam Narrative: Constitutional: Well-developed, well-nourished, no acute distress. HEENT: Normocephalic, atraumatic. Neck: Normal range of motion. Nontender. Supple. Heart: Intact distal pulses. Lungs: No chest discomfort. No wheezes, rhonchi, or rales. Abdomen: Nontender. Back: Severe low back pain radiating down both legs. Extremities: Normal range of motion. No injury. Skin: Intact. No rash. Warm. No erythema or pallor. Neurologic: No altered sensation. No weakness. Alert and oriented. Psychiatric: No suicidality. No anxiety or depression. No insomnia. Nursing notes and vitals signs are reviewed. Const: Vital Signs, click to edit/add: Vital Signs - 24 hr 08/03/22 18:11 Temperature 97.2 F L Pulse Rate [Pulse Oximeter] 89 Respiratory Rate 18 Blood Pressure [Ri ght Forearm] 123/81 Pulse Oximetry 98 Oxygen Delivery Me thod Room Air Course Vital Signs Vital signs: Initial Vital Signs Temperature 97.2 F L 08/03/22 18:11 Temperature Source Temporal Artery Scan 08/03/22 18:11 Pulse Rate 89 08/03/22 18:11 Respiratory Rate 18 08/03/22 18:11 Blood Pressure 123/81 08/03/22 18:11 Blood Pressure Mean 95 08/03/22 18:11 Blood Pressure Position Sitting 08/03/22 18:11 Pulse Oximetry 98 08/03/22 18:11 Oxygen Delivery Method Room Air 08/03/22 18:11 Vital Signs Temperature 97.2 F L 08/03/22 18:11 Pulse Rate 89 08/03/22 18:11 Respiratory Rate 18 08/03/22 18:11 Blood Pressure 123/81 08/03/22 18:11 Pulse Oximetry 98 08/03/22 18:11 Oxygen Delivery Method Room Air 08/03/22 18:11 Temperature 97.2 F L 08/03/22 18:11 Pulse Rate 89 08/03/22 18:11 Respiratory Rate 18 08/03/22 18:11 Blood Pressure 123/81 08/03/22 18:11 Pulse Oximetry 98 08/03/22 18:11 Oxygen Delivery Method Room Air 08/03/22 18:11 Medical Decision Making MDM Narrative Medical decision making narrative: This patient has acute on chronic symptoms of low back pain radiating down into the legs. She is in a process of diagnosis and will be seeing a specialist regarding these symptoms. She comes here because the oxycodone she has been taking is not providing any relief. She states that she did finish a steroid about a week ago and did not find any relief with this as well. The focus of the visit here today for this patient is relieve to hopefully better manage her symptoms as she is in the process of a workup and more definitive treatment options. I stated that we typically do not use narcotics but did offer a 1 time intramuscular injection. She agreed to this and did receive morphine 10 mg intramuscularly. I did provide prescriptions for gabapentin, Flexeril, and Toradol. The patient does have a history of gastric bypass and typically NSAIDs are contraindicated. I stated that she will probably be okay to use Toradol sparingly. She understands the risks and the benefits in this regard. Discharge Plan Discharge Clinical Impression: Acute lumbar radiculopathy Patient Disposition: Home w/ Parent or Adult Condition: Unchanged Additional Instructions: Take medication as needed and indicated. Follow up with [facility] for further evaluation and treatment. Return if worsening. Prescriptions: New cyclobenzaprine 10 mg tablet 10 mg PO TID Qty: 21 0RF ketorolac 10 mg tablet 10 mg PO Q8H 5 Days Qty: 15 0RF gabapentin 100 mg capsule 100 mg PO TID Qty: 45 2RF No Action furosemide 20 mg tablet 20 mg PO DAILY venlafaxine 150 mg tablet extended release 24 hr 150 mg PO QAM Qty: 90 3RF sertraline 100 mg tablet 100 mg PO DAILY Qty: 90 0RF Follow Up/Referrals: Stone Martinez MD [Primary Care Provider] - Stand Alone Forms: ReturnHauler Info Instructions
--- OUTSIDE RECORDS SUMMARY | 2022-08-03 19:04 | XMS_ITS | Continuity of Care Document ---
Author Name Unknown Organization [facility] Address [address] [place] [address] Care Team Providers Care Want Ad Clerk Name Role Phone Ho Watson CRNA Unavailable Unavailable Procedures Procedure Date ANESTH, HEAD/NECK/PTRUNK Percutaneous Image guided neuromodulatio n or intra Advance Directives Directive Yes / No Effective Date File Name No Information Encounters Encounter Description Practice Location Reason(s) For Visit Diagnoses Date Provider Providers Copied on Encounter [facility], [address] [place], [place], [id number], [facility] No Information 2 Walter Teague. [address] [place] [address], [id number] , . tel:[phone] Referring Provider: [facility] [employer] [facility] [address], [place], [address]. tel:[phone] [facility], [address], [place], [id number], [facility] No Information 2 Walter Teague. [address] [facility], [place], [place], [id number] , . tel:[phone] Referring Provider: Ben [facility]Loc[facility] [employer] [address], [place], [address]. tel:[phone] Family History Family Member Type Diagnosis Age At Onset No Information Payers Payer name Insurance type Covered constitution party ID Authoriza tion(s) No Information Social History Type Description Quantity Date Captured Comments Sex Female Smoking Status No Information Chief Complaint And Reason For Visit No Information Reason For Referral Reason For Referral No Information Plan Of Treatment Date Type Action Status No Information History Of Present Illness Encounter Date Complaint History Of Prese nt Illness No Information Functional Status Date Functional Assessmen t No Information Instructions Date Instruction Additional Infor mation No Information Assessments Type Assessment Date No Information Patient Care Teams Name Effective Dates (start - stop) Status Members No Information
--- OUTSIDE RECORDS SUMMARY | 2022-08-03 19:04 | XMS_ITS | Continuity of Care Document ---
Author Name Unknown Organization [facility] Address [address] [place] [phone] Phone Care Team Providers Care Customer Support Analyst Name Role Phone [facility] Unavailable Unava ilable Procedures Procedure Date IMPLANT NEUROELECTRODES INSRT/REDO SPINE N GENERATOR Implt neurostim elctr each FLUOROGUIDE FOR SPINE INJECT Inj, bupivacaine liposome IMPLANT NEUROELECTRODES Imp neurosti pls gn any type IMPLANT NEUROELECTRODES IMPLANT NEUROELECTRODES Implt neurostim elctr each Advance Directives Directive Yes / No Effective Date File Name No Information Encounters Encounter Description Practice Location Reason(s) For Visit Diagnoses Date Provider Providers Copied on Encounter [facility], [address] [place] [address], [id number], tel:[phone] [facility] No Information 2 [facility]. [address] [place] [address], [id number], [place]. tel:[phone] Referring Provider: Viviana Lucas [facility] Olga [facility] [address] [facility] [address], [place], [address]. tel:[phone] [facility], [address] [place] [address], [id number], tel:[phone] [facility] No Information 2 [facility]. [address] [place] [address] [address], [place], [place], [id number], [place]. tel:[phone] Referring Provider: Neil Nielson [address], [place], [address]. tel:[phone] Family History Family Member Type Diagnosis Age [...]
--- OUTSIDE RECORDS SUMMARY | 2022-08-03 19:04 | XMS_ITS | Continuity of Care Document ---
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 Name Role Phone Will Ori MARSHALL Unavailable Unavailabl e Allergies, Adverse Reactions, Alerts Substance Reaction Status Criticality codeine Hives/Skin RashUpset stomach Active No Information Medications Medication Instructions Dosage Effective Dates (start - stop) Status Comments oxycodone 5 mg tablet Take 1 tablet every 4-6 hours as needed for post-operative pain - Active ZOLOFT (unknown strength) take 2 tablet by oral route every day Not Available - Active Effexor XR 75 mg capsule,extended release take 1 capsule by oral route every day with food 75 MG - Active Lunesta 3 mg tablet take 1 tablet by oral route every day at bedtime 3 MG - Active Procedures Procedure Date ANALYZE NEUROSTIM, COMPLEX SCS Post Op Satellite OFFICE VISIT, EST TELEMEDICINE SCS Post Op Satellite IMPLANT NEUROELECTRODES [facility] IMPLANT NEUROELECTRODES [facility] INSRT/REDO SPINE N GENERATOR SCS Lead Pull Satellite ORTHOTIC MGMT AND TRAINING IMPLANT NEUROELECTRODES [facility] IMPLANT NEUROELECTRODES [facility] ANALYZE NEUROSTIM, COMPLEX Psych Dx Eval PT EVAL MOD COMPLEX 30 MIN Drug Urine Toxology With Chromatography Foll-up eval q3mo opiod tx OFFICE/OUTPATIENT VISIT, EST OFFICE VISIT, EST TELEMEDICINE Foll-up eval q3mo opiod tx Foll-up eval q3mo opiod tx OFFICE VISIT, EST TELEMEDICINE 20 Foll-up eval q3mo opiod tx OFFICE/OUTPATIENT VISIT, [...] Diagnoses Date Provider Providers Copied on Encounter [facility], [address] [place], [place], [id number] , [place] tel:[phone] [facility] [place] No Information 3 Nolan Rehman. [address] [facility] [place], [id number] , [place]. tel:[phone] [facility], [address] [facility] [place], [id number] , [place] tel:[phone] [facility] [place] Postlaminectomy syndrome, not elsewhere classified 3 Corina Granados. [address] [place] [address] [address], [place], [id number] , [place]. tel: [phone] OFFICE VISIT, EST TELEMEDICINE [facility], [address] [place] [address], [id number] , [place] tel: [phone] [facility] [place] Back Pain (chief complaint) Postlaminectomy syndrome, not elsewhere classified 2 Corina Granados. [address] [facility] [address], [facility], [place], [id number] , [place]. tel: [phone] [facility], [address] [place] [address], [id number] , [place] tel: [phone] [facility] Postlaminectomy syndrome, not elsewhere classified 2 Yosi Bianchi. [address] [facility] [address], [facility], [place], [id number] , [place]. tel: [phone] Referring Provider: Ori Galvan, [address] [place], [place] [address], [address] . tel:[phone] [facility], [address] [place] [address], [id number] , [place] tel: [phone] [facility] [place] Postlaminectomy syndrome, not elsewhere classified 2 Nielson Neil. [employer] [place], [address], [place], [address], [place]. tel: [phone] Referring Provider: Ori Galvan, [address] [place], [place] [address], [address] . tel:[phone] [facility], [address] [place] [address], [id number] , [place] tel: [phone] [facility] [place] No Information 2 Nielson Neil. [employer] [place], [address], [place], [address], [place]. tel: [phone] [facility], [address] [place] [address], [id number] , [place] tel: [phone] [facility] [place] Widespread pain (chief complaint) Postlaminectomy syndrome, not elsewhere classifiedLow back pain, unspecified [address] [facility] [facility] [address], [place], [id number] , [place]. tel: [phone] Referring Provider: Ori Galvan, [address] [place] [address] [place], [address] . tel:[phone] [facility], [address] [place] [address] [place], [id number] , [place] tel: [phone] [facility] Postlaminectomy syndrome, not elsewhere classified 2 Naga Trejo. [facility], [address], [place], [address], [place]. tel: [phone] Referring Provider: Ori Galvan, [address] [place] [address] [place], [address] . tel:[phone] Psych Dx Eval [facility], [address] [place] [address], [id number] , [place] tel: [phone] [facility] Pain disorder with related psychological factorsMajor depressive disorder, recurrent, in partial remission Jul- 2 Lydia Jeong. [address] [place], [place] [address], [place], [id number] , [place]. tel: [phone] [facility], [address] [place] [address], [id number] , [place] tel: [phone] [facility] [place] lumbago (chief complaint) Spondylosis w/o myelopathy or radiculopathy, lumbar regionPostlaminec gilda syndrome, not elsewhere classified Apr-2 2 Dedra Valentine. [address] [place] [address] [place], [id number] , [place]. tel: [phone] Referring Provider: Ori Galvan, [address] [place] [address] [place], [address] . tel:[phone] [facility], [address] [place] [address] [place], [id number] , [place] tel: [phone] [facility] [place] No Information 2 Corina Granados. [address] [place] [address] [address], [place], [id number] , [place]. tel: [phone] OFFICE/OUTPAT IENT VISIT, [facility], [address] [place] [address], [id number] , [place] tel: [phone] [facility] Widespread pain (chief complaint) Chronic pain syndromeSpondylos is w/o myelopathy or radiculopathy, lumbar regionOther intervertebral disc degeneration, lumbar regionPain in left kneePain in right kneeLong term (current) use of opiate analgesicPostlami nectomy syndrome, not elsewhere classified 2 Corina Granados. [address] [place] [address] [address], [place], [id number] , [place]. tel: [phone] Referring Provider: Ori Galvan, [address] [place] [address] [place], [address] . tel:[phone] OFFICE VISIT, [facility], [address] [place] [address], [id number] , [place] tel: [phone] [facility] Widespread pain (chief complaint) Other intervertebral disc degeneration, lumbar regionChronic pain syndromePain in left kneePain in right kneeLong term (current) use of opiate analgesicSpondylo sis w/o myelopathy or radiculopathy, lumbar regionLow back pain 0 Corina Granados. [address] [place] [address] [address], [place], [id number] , [place]. tel: [phone] Referring Provider: Ori Galvan, [address] [place] [address] [place], [address] . tel:[phone] OFFICE VISIT, EST TELEMEDICINE [facility], [address] [place] [address], [id number] , [place] tel: [phone] [facility] Widespread pain (chief complaint) Other intervertebral disc degeneration, lumbar regionChronic pain syndromePain in left kneePain in right kneeLong term (current) use of opiate analgesicSpondylo sis w/o myelopathy or radiculopathy, lumbar regionLow back pain Oct-0 - 0 Corina Granados. [address] [facility] [address], [place], [id number] , [place]. tel: [phone] Referring Provider: Freddie Shay, [facility] [address], [place], [address]. tel:[phone] OFFICE/OUTPAT IENT VISIT, EST [facility], [address], [place], [id number] , [place] tel: [phone] [facility] [place] Widespread pain (chief complaint) Other intervertebral disc degeneration, lumbar regionChronic pain syndromePain in left kneePain in right kneeLong term (current) use of opiate analgesicSpondylo sis w/o myelopathy or radiculopathy, lumbar regionLow back pain Sep-0 0 Arriagaloc Granados. [address] [facility] [address], [place], [id number] , [place]. tel: [phone] Referring Provider: Ori Galvan, [address] [facility] [place], [address] . tel:[phone] [facility], [address] [facility] [place], [place], [id number] , [place] tel: [phone] [facility] Other intervertebral disc degeneration, lumbar region Aug- 0 Vanna Massey. [address] [facility] [place], [place], [id number] , [place]. tel: [phone] Referring Provider: Ori Galvan, [address] [place] [address] [place], [address] . tel:[phone] OFFICE VISIT, EST TELEMEDICINE [facility], [address] [facility] [place], [place], [id number] , [place] tel: [phone] [facility] [place] Widespread pain (chief complaint) Chronic pain syndromePain in left kneePain in right kneeLong term (current) use of opiate analgesicOther intervertebral disc degeneration, lumbar regionSpondylosis w/o myelopathy or radiculopathy, lumbar region Nov- 0 Arriagaloc Granados. [address] [place] [address] [address], [place], [place], [id number] , [place]. tel:[phone] Referring Provider: Ori Galvan, [address] [place] [address] [place], [address] . tel:[phone] OFFICE VISIT, EST TELEMEDICINE [facility], [address] [place] [address], [id number] , [place] tel: [phone] [facility] Widespread pain (chief complaint) Chronic pain syndromeLow back painPain in left kneePain in right kneeLong term (current) use of opiate analgesic 0 Arriaga Darwin. [address] [place] [address] [address], [place], [id number] , [place]. tel: [phone] Referring Provider: Ori Galvan, [address] [place] [address] [place], [address] . tel:[phone] OFFICE VISIT, [facility], [address] [place] [address], [id number] , [place] tel: [phone] [facility] Widespread pain (chief complaint) Chronic pain syndromeLow back painPain in left kneePain in right kneeLong term (current) use of opiate analgesic 0 Corina Granados. [address] [place] [address] [address], [place], [id number] , [place]. tel:[phone] Referring Provider: Ori Galvan, [address] [place] [address] [place], [address] . tel:[phone] OFFICE VISIT, [facility], [address] [place] [address], [id number] , [place] [phone] [facility] Widespread pain (chief complaint) Chronic pain syndromeLow back painPain in left kneePain in right kneeLong term (current) use of opiate analgesic 0 Arriaga Darwin. [address] [place] [address] [address], [place], [id number] , [place]. [phone] Referring Provider: Ori Galvan, [address] [place], [address] . tel:[phone] OFFICE VISIT, [facility] TELEMEDICINE [facility], [address] [place] [address] [place], [place], [id number] , [place] [phone] [facility] Widespread pain (chief complaint) Chronic pain syndromeLow back painPain in left kneePain in right kneeLong term (current) use of opiate analgesic Apr- 0 Corina Granados. [address] [place] [address] [address], [place], [id number] , [place]. [phone] Referring Provider: Ori Galvan, [address] [place], [address] . tel:[phone] OFFICE/OUTPAT IENT VISIT, [facility], [address] [place] [address] [place], [place], [id number] , [place] [phone] [facility] [place] Widespread pain (chief complaint) Chronic pain syndromeLow back painPain in left kneePain in right knee Jun- 0 Corina Granados. [address] [place] [address] [address], [place], [id number] , [place]. [phone] Referring Provider: Ori Galvan, [address] [place] [address] [place], [address] . tel:[phone] OFFICE CONSULTATION [facility], [address] [place] [address] [place], [place], [id number] , [place] [phone] [facility] [place] Widespread pain (chief complaint) Chronic pain syndromeLow back painPain in left kneePain in right knee Fe- 0 Corina Granados. [address] [place] [address] [address], [place], [id number] , [place]. [phone] Referring Provider: Ori Galvan, [address], [address] . tel:[phone] [facility], [address] [place], [id number] , [place] tel: [phone] [facility] [place] Widespread pain (chief complaint) No Information [address] [facility] [facility] [address], [place], [id number] , [place]. tel: [phone] Family History Family Member Type Diagnosis Age At Onset No Information Payers Payer name Insurance type Covered alliance party ID Authoriza tibennie(s) Umr CI [id number] Social History Type Description Quantity Date Captured Comments Sex Female Smoking Status No Information Chief Complaint And Reason For Visit No Information Reason For Referral Reason For Referral No Information Plan Of Treatment Date Type Action Status Goal AST (SGOT). Due on due Goal STORAGE BATTERY CHARGER Scanned. Due on 023 due Goal Order Annual PT. Due on due Goal OSTEOPATHY DOCTOR Paperwork. Due on due Goal ALT (SGPT). Due on due Goal UDT. Due on due Goal Creatinine. Due on due Goal OARS. Due on due Goal Weight. Due on d ue Goal PHQ-9. Due on du e Goal Update Social History. Due o n due Goal Review Allergy List. Due on due Goal Medication Recon ciliation. Due on due Goal Unhealthy drug u se screening. Due on due Goal Hepatitis C screening. Due o n due Goal HPV. Due on due Goal Height. Due on d ue Goal Lipid panel. Due on due Goal Tobacco Use. Due on due Goal Order Annual PT. Due on due Goal AST (SGOT). Due on due Goal OSTEOPATHY DOCTOR Paperwork. Due on due Goal Creatinine. Due on due Goal UDT. Due on due Goal STORAGE BATTERY CHARGER Scanned. Due on due Goal OARS. Due on due Goal ALT (SGPT). Due on due Goal Review Allergy List. Due on due Goal Lipid panel. Due on due Goal Weight. Due on d ue Goal PHQ-9. Due on du e Goal Medication Recon ciliation. Due on due Goal Unhealthy drug u se screening. Due on due Goal HPV. Due on due Goal Tobacco Use. Due on due Goal Height. Due on d ue Goal Hepatitis C screening. Due o n due Goal Update Social History. Due o n due Goal AST (SGOT). Due on due Goal STORAGE BATTERY CHARGER Scanned. Due on due Goal OSTEOPATHY DOCTOR Paperwork. Due on due Goal OARS. Due on due Goal ALT (SGPT). Due on due Goal Creatinine. Due on due Goal Order Annual PT. Due on due Goal UDT. Due on due Goal HPV. Due on due Goal PHQ-9. Due on du e Goal Hepatitis C screening. Due o n due Goal Unhealthy drug u se screening. Due on due Goal Weight. Due on d ue Goal Review Allergy List. Due on due Goal Lipid panel. Due on due Goal Update Social History. Due o n due Goal Medication Recon ciliation. Due on due Goal Height. Due on d ue Goal Tobacco Use. Due on due Goal STORAGE BATTERY CHARGER Scanned. Due on due Goal OARS. Due on due Goal Creatinine. Due on due Goal AST (SGOT). Due on due Goal UDT. Due on due Goal Order Annual PT. Due on due Goal ALT (SGPT). Due on due Goal OSTEOPATHY DOCTOR Paperwork. Due on due Goal HPV. Due on due Goal Lipid panel. Due on due Goal Height. Due on d ue Goal Review Allergy List. Due on due Goal Update Social History. Due o n due Goal Medication Recon ciliation. Due on due Goal Unhealthy drug u se screening. Due on due Goal Hepatitis C screening. Due o n due Goal Weight. Due on d ue Goal Tobacco Use. Due on due Goal PHQ-9. Due on du e Goal OARS. Due on due Goal OSTEOPATHY DOCTOR Paperwork. Due on due Goal ALT (SGPT). Due on due Goal Order Annual PT. Due on due Goal STORAGE BATTERY CHARGER Scanned. Due on due Goal Creatinine. Due on due Goal AST (SGOT). Due on due Goal UDT. Due on due Goal Height. Due on d ue Goal Weight. Due on d ue Goal Unhealthy drug u se screening. Due on due Goal HPV. Due on due Goal Hepatitis C screening. Due o n due Goal Tobacco Use. Due on due Goal Medication Recon ciliation. Due on due Goal Lipid panel. Due on due Goal Review Allergy List. Due on due Goal PHQ-9. Due on du e Goal Update Social History. Due o n due Goal ALT (SGPT). Due on due Goal STORAGE BATTERY CHARGER Scanned. Due on due Goal Order Annual PT. Due on due Goal Creatinine. Due on due Goal OARS. Due on due Goal AST (SGOT). Due on due Goal OSTEOPATHY DOCTOR Paperwork. Due on due Goal UDT. Due on due Goal Hepatitis C screening. Due o n due Goal Tobacco Use. Due on due Goal Weight. Due on d ue Goal Medication Recon ciliation. Due on due Goal Height. Due on d ue Goal PHQ-9. Due on du e Goal Update Social History. Due o n due Goal HPV. Due on due Goal Lipid panel. Due on due Goal Unhealthy drug u se screening. Due on due Goal Review Allergy List. Due on due Goal Creatinine. Due on due Goal OARS. Due on due Goal UDT. Due on due Goal Order Annual PT. Due on due Goal ALT (SGPT). Due on due Goal OSTEOPATHY DOCTOR Paperwork. Due on due Goal STORAGE BATTERY CHARGER Scanned. Due on due Goal AST (SGOT). Due on due Goal Medication Recon ciliation. Due on due Goal PHQ-9. Due on du e Goal Height. Due on d ue Goal Review Allergy List. Due on due Goal Update Social History. Due o n due Goal Tobacco Use. Due on due Goal Hepatitis C screening. Due o n due Goal Weight. Due on d ue Goal Lipid panel. Due on due Goal Unhealthy drug u se screening. Due on due Goal HPV. Due on due Goal Medication Recon ciliation. Due on due Goal PHQ-9. Due on du e Goal Height. Due on d ue Goal Review Allergy List. Due on due Goal Update Social History. Due o n due Goal Tobacco Use. Due on due Goal Hepatitis C screening. Due o n due Goal Weight. Due on d ue Goal Lipid panel. Due on due Goal Unhealthy drug u se screening. Due on due Goal HPV. Due on due Goal Creatinine. Due on due Goal OARS. Due on due Goal UDT. Due on due Goal Order Annual PT. Due on due Goal ALT (SGPT). Due on due Goal OSTEOPATHY DOCTOR Paperwork. Due on due Goal STORAGE BATTERY CHARGER Scanned. Due on due Goal AST (SGOT). Due on due Referral Ordered: X-RAY EXAM OF KNEE, 3 Bilateral knee ordered Referral Ordered: MRI LUMBAR SPINE W/O DYE ordered Future Order: Lab Order Drug Nehal t Def 22+ Classes (G0483), Ordered on: Ordered History Of Present Illness Encounter Date Complaint History Of Prese nt Illness Back Pain Severity level i s 5. The problem is improving. It occurs intermittently. Location of pain is lower back. The client describes the pain as an ache. Symptoms are aggravated by lifting, twisting, movement and housework. Symptoms are relieved by ice and spinal cord stimulator. Comments: Anna bond presents for virtual followup regarding lower back pain with radiation into RLE. S/p decompression and fusion from the L4-S1 with Dr. Arboleda with [facility] on 02/12/2020. States pain in lower back and radiating down her R leg have persisted following surgery. S/p [employer] lumbar SCS implant on 10/14/2021 with significant pain relief. Not taking any medications.Of note she has tested positive for COVID. She is not accompanied and has no other concerns today. Comments: Ptera ledbetter presents for lead pull s/p SCS trial on 09/06/21. No s/s of infection are present or reported. See detailed wound assessment. Patient reported significant pain improvement and was able to perform daily routines during the trial.Patient would like to move forward with the implant - order created and we will start the PA process. Widespread pain Duration: chroni c. lumbago Patient is a 41 year old female presenting with complaints of chronic low back pain that has been on going for many years. She notes a history of a lumbar decompression and fusion L4-5 which occurred in 2019. She had improvement for around 6 months. She notes that she has had a return of many of her symptoms. She met with Dr. Arboleda who stated that everything is solid with her surgery. He did recommend additional surgery, but she is not interested at this time. Patient's symptoms began insidiously without incident. Her current symptoms are constant across her low back and into her right hip and leg that does radiate to her foot/ankle. Patient notes associated weakness and instability that is intermittent. Her symptoms are constant, severe and are not increased with any specific movement. Symptoms are somewhat relieved with lying down and medication. She has tried multiple different interventions but has not had relief of her pain. She notes that her current level of discomfort limits everything she is able to do each day and is currently limiting her overall quality of life. She would like to decrease her overall discomfort to allow her to perform her daily, functional activities with less limitation and an improved quality of life. Widespread pain Severity level i s 5. Duration: chronic. Location of the pain is lower back and legs. The client describes it as achy. It occurs persistently. The problem is worsening. Symptom is aggravated by bending, sitting, supine, lifting, housework and prolonged positioning. Relieving factors include cold, changing positions and medications. Pertinent negatives include diarrhea, fatigue, fever and incontinence (urinary). Comments: Anna bond is here for follow-up last seen on 02/03/2020. She is followed for widespread pain. Primary concern today is lower back pain with radiation into RLE. S/p decompression and fusion from the L4-S1 with Dr. Arboleda with [facility] on 02/12/2020. States pain in lower back and radiating down her R leg have persisted following surgery. Most of today's OV was spent discussing pain management options. Patient is interested in pain management options that will fix her problem. Specifically discusses SCS trial. Patient expresses interest in [employer] trial and requests the orders be placed to her insurance. Pre-trial education was provided and questions were addresses. Additionally, she requests a temporary script of pain medications whiles she awaits stim trial. She is not accompanied and has no other concerns today. Widespread pain (comments) Alma aguilar is here for follow-up and medication refills. She presents with widespread pain most bothersome in her low back. She has an lumbar decompression and fusion from the L4-S1 with Dr. Arboleda with [facility] on 02/11. She believes that Dr. Arboleda will be prescribing post-procedural medication.Reports current medication regimen provides at least 50% pain relief. Denies side effects from current medication regimen. No other concerns today. Widespread pain Duration: chroni c. Location of the pain is lower back. It occurs persistently. The problem is stable. Symptom is aggravated by bending, walking upstairs, walking downstairs, sitting and standing. Relieving factors include rest, heat, cold and Rx Meds. Pertinent negatives include diarrhea, fatigue, fever and incontinence (urinary). Widespread pain (comments) Maggie rhodes is here for follow-up and medication refills. Ongoing back pain is worse. Reports the medications are not managing her pain as well as they used to. Notes she had to miss work yesterday d/t the severity of her pain. She is having a consult with [facility] on Sunday to discuss surgical options. Reports current medication regimen provides less than 50% pain relief. Denies side effects from current medication regimen. No other concerns today. Widespread pain Severity level i s 7. Duration: chronic. Location of the pain is lower back. The patient describes it as achy. It occurs persistently. The problem is worsening. Symptom is aggravated by bending, walking upstairs, walking downstairs, sitting, standing and walking. Relieving factors include cold, Rx Meds and changing positions. Pertinent negatives include diarrhea, fatigue, fever and incontinence (urinary). Widespread pain Severity level i s 7. Duration: chronic. Location of the pain is lower back and hands. The patient describes it as sharp, achy and burning. It occurs persistently. The problem is worsening. Symptom is aggravated by bending, lifting and movement. Relieving factors include heat, cold and Rx Meds. Pertinent negatives include diarrhea, fatigue, fever and incontinence (urinary). Widespread pain (comments) Maggie rhodes is here for follow-up and medication refills. She presents with low back (L>R) and hands. Her pain is worse and occurs persistently. LISANDRA completed on 11/27 has not provided any relief. Inquire about if chiropractics would be helpful. The current medication manages her pain most of the time. Reports current medication regimen provides 50% pain relief. Denies side effects from current medication regimen. No other concerns today. Widespread pain (comments) Maggie rhodes is meeting with us today via [facility] for following up and medication refill. Widespread pain persists this month, tolerable with medication. The pain in her low back radiates down her left thigh.Reports current medication regimen provides 75% pain relief and allows for increased functionality. Denies side effects from current medication regimen.No other concerns today. Widespread pain Severity level i s 6. Duration: chronic. Location of the pain is lower back and bilateral hand. The patient describes it as achy and burning. It occurs persistently. The problem is stable. Symptom is aggravated by bending, lifting. prolonged positioning and twisting. Relieving factors include supine, rest, heat, cold, Rx Meds and changing positions. Pertinent negatives include diarrhea, fatigue, fever and incontinence (urinary). Widespread pain Severity level i s 8. Duration: chronic. Location of the pain is BL hands, BL knees, BL feet and left shoulder. The patient describes it as sharp, achy, burning and numbness. It occurs persistently. The problem is worsening. Pertinent negatives include diarrhea, fatigue, fever and incontinence (urinary). Widespread pain (comments) Alma jeff is here for follow-up and medication refills. Patient reports widespread pain which is most bothersome in BL hands and low back. Pain is stable in terms of location and character.Reports current medication regimen provides >75% pain relief. Denies side effects from current medication regimen. No other concerns today. Widespread pain (comments) Maggie rhodes is here today for follow up and medication management. Reports >50% relief with their current regimen and denies any side effects.Reports that her low back and bilateral hands have been stable this month with her medication regimen. Describes her hand pain has sharp and burning in her joints. She notes that she is having difficulties scheduling her lumbar MRI and requests an order to be faxed to [facility] today.Patient is not accompanied today and has no other questions or concerns. Widespread pain Severity level i s 6. Duration: chronic. Location of the pain is lower back and BL hands. The patient describes it as sharp and burning. It occurs intermittently. The problem is stable. Symptom is aggravated by bending, overuse and lifting. Relieving factors include rest, heat and Rx Meds. Widespread pain Severity level i s mild-moderate. Duration: chronic. Location of the pain is bilateral hand. The patient describes it as achy, burning and tingling. It occurs persistently. The problem is stable. Symptom is aggravated by lifting, movement and prolonged positioning. Relieving factors include heat, cold, Rx Meds and changing positions. There are no associated symptoms. Widespread pain (comments) Lalo rivas returns for followup and medication refill for persistent back pain. Prescribed medications offer 70% pain relief. Denies SE. The pain medication is working well for her. She uses oxycodone 5mg once at night which greatly helps her pain, especially the pain in her hands. Her back pain persists and she states her clinic just reopened and she has a call out to get a lumbar MRI completed.She is not accompanied by anyone today. No further questions or concerns.Patient presents with #1 oxycodone, 1 tab short. She admits to taking an extra tab after a dental procedure. Widespread pain Severity level i s 8. Duration: chronic. The patient describes it as sharp, burning and numbness. It occurs persistently. The problem is fluctuating. Denies aggravating factors. Relieving factors include rest and Rx Meds. Widespread pain (comments) Maggie rhodes returns for follow up regarding widespread pain.Reports she was able to complete bilateral knee x-rays late last week, but has been unable to schedule lumbar imaging d/t current events. Recently completed an injection in both hands through rheumatology which has been helpful. Ongoing numbness persists. No further questions or concerns. Widespread pain (comments) Maggie rhodes is here today for a followup after initial consult for widespread pain. States her pain today is worse, especially in the fingers of her bilateral hands. States today would be a day she normally would call in sick to work because of the severity of her symptoms. Has rheumatology consult scheduled early next month. States her son was recently sick so she has not been able to complete imaging ordered last . Flexeril has been helpful, but causes significant drowsiness so she only takes it at night. Regarding UDT, positive for THC, she reports having edible while in [place], [place] a few weeks ago.Current medication regimen provides 25% relief and improves daily function. Denies side effects from current medication regimen. Patient is not accompanied today and has no further questions or other concerns. Widespread pain Severity level i s 8. Duration: chronic. Location of the pain is bilateral hand and bilateral knee. The patient describes it as achy, burning and tingling. It occurs persistently. The problem is worsening. Symptom is aggravated by bending, lifting, movement, twisting and walking. Relieving factors include heat, ice and medications. Pertinent negatives include diarrhea, fatigue, fever and incontinence (urinary). Widespread pain (comments) Maggie rhodes is here for an initial consult for multiple sources of pain, referred by a family member/friend. Her primary complaint today is pain located in her BL hands, BL knees, and low back. States her pain onset about a year ago without inciting event or injury. She reports no hx of imaging, injections, or physical therapy and has not consulted with rheumatology.Secondary concerns of abdominal pain in the setting of multiple births, a cholecystectomy, gastric bypass, gastric bypass revision, four hernia repair surgeries, and panniculectomy. Has been advised pain is likely r/t adhesions and had some removed last September. Pain is primarily located in RLQ. She has had several XR's and CT scans of her abdomen through [facility]. Currently managing her pain with ibuprofen and Tylenol. She also takes amitriptyline for sleep. Has been prescribed hydrocodone, oxycodone, and morphine in the past for surgeries and tooth pain. Rosio is interested in recommended tx modalities and would like [facility] to assume management of pain care. Widespread pain Onset occurred g radually. Severity level is 7. Duration: chronic. Location of the pain is lower back, bilateral hand, bilateral knee and abdomen. The patient describes it as achy, burning and numbness. It occurs persistently. Symptom is aggravated by lifting, standing and twisting. Relieving factors include heat, cold, rest and lying down. Pertinent negatives include diarrhea, dyspnea, fever and incontinence (urinary). Widespread pain (comments) Maggie rhodes is here for an initial consult for multiple sources of pain, referred by family/friend. Her primary pain is located in her abdomen in the setting of multiple births, a cholecystectomy, gastric bypass, gastric bypass revision, four hernia repair surgeries, and panniculectomy. She also experiences pain in her low back secondary to lumbar DDD and BL hands due to arthritis. She has not undergone physical therapy or trialed injections to treat her pain. She has had several XR's and CT scans through [facility]. Currently managed on for additional pain relief. Has previously trialed and failed amitriptyline, NSAIDS, Tylenol, hydrocodone, oxycdone, and morphine. is interested in and would like [facility] to assume management of pain care. Widespread pain Functional Status Date Functional Assessmen t No Information Instructions Date Instruction Additional Infor mation No Information Assessments Type Assessment Date No Information Patient Care Teams Name Effective Dates (start - stop) Status Members No Information
--- OUTSIDE RECORDS SUMMARY | 2022-08-03 19:04 | XMS_ITS | Continuity of Care Document ---
Author Name Unknown Organization [facility] Address [address] [place] [id number] Care Team Providers Care Car Scrubber Name Role Phone [facility] Unavailable Unav ailable Procedures Procedure Date INJ FORAMEN EPIDURAL L/S INJ FORAMEN EPIDURAL L/S Advance Directives Directive Yes / No Effective Date File Name No Information Encounters Encounter Description Practice Location Reason(s) For Visit Diagnoses Date Provider Providers Copied on Encounter [facility], [address] [place] [address], [id number], [facility] No Information [facility]. [address] [place], [place], [id number], . tel:[phone] Referring Provider: Shilpa Prabhakar, [address] [place], [address]. tel:[phone] Family History Family Member Type Diagnosis Age At Onset No Information Payers Payer name Insurance type Covered republican ID Authoriza tion(s) No Information Social History [...]
[2022-08-03] MEDS: MORPHINE 10 MG/ML inj IM (19:08)
[2022-08-03 19:24] VITALS: PULSE 93; RESP 18; O2SAT 97
== END 2022-08-03 19:20 | disposition home or self-care (01) ==
LOC: ED 19:02
PROVIDERS: Emergency Provider Emergency Medicine Emergency Medical Services; PCP Internal Medicine
DX: M54.16 Radiculopathy, lumbar region (principal)
CPT/HCPCS: 96372; 99283; 99284; J2270

== ENCOUNTER 2022-10-13 13:04 | Outpatient (CLI) | payer SELFPAY ==
--- NOTE | 2022-10-13 13:00 | CRLHL7_ITS ---
For Patients: As a result of the Century Cures Act, medical imaging exams and procedure reports are released immediately into your electronic medical record. You may view this report before your referring provider. If you have questions, please contact your health care provider. INDICATION: Arthrodesis status. TECHNIQUE: Noncontrast CT images acquired through the lumbar spine. COMPARISON: MRI lumbar spine 08/17/2022. FINDINGS: Postsurgical changes of solid anterior and posterior fusion from L4 through S1. The posterior hardware construct consisting of paired pedicle screws and connecting rods is intact and well seated. The lumbar lordosis is preserved. Mild rightward lumbar curvature. Vertebral heights maintained. No acute fracture. Spinal stimulator lead enters the dorsal spinal canal at T12-L1. T12-L1 through L2-3: No spinal canal or neural foraminal narrowing L3-4: Mild retrolisthesis. Mild disc height loss. Left eccentric disc bulge. Mild facet arthropathy. No spinal canal narrowing. Mild left without right neural foraminal narrowing. L4-5: Postsurgical changes of spinal fusion. No spinal canal or neural foraminal stenosis. L5-S1: Postsurgical changes of spinal fusion and laminectomy. Grade 1 anterolisthesis, not significantly changed. Endplate spondylitic ridging. No spinal canal narrowing. Low-grade bilateral neural foraminal narrowing. Sacroiliac joint degenerative changes. Hypoattenuating lesion in the left kidney interpolar region, potentially representing a renal cyst. IMPRESSION: 1. Postsurgical changes of solid anterior and posterior fusion from L4 through S1. 2. At L5-S1, low-grade bilateral neural foraminal narrowing. 3. Stimulator lead enters the dorsal spinal canal at T12-L1 level. Please note that all CT scans at this facility use dose modulation, iterative reconstruction, and/or weight-based dosing when appropriate to reduce radiation dose to as low as reasonably achievable. Dictated by Serge Siddiqi MD @ 10/14/2022 1:22:15 PM (Electronically Signed)
--- OUTSIDE RECORDS SUMMARY | 2022-10-13 13:06 | XMS_ITS | Continuity of Care Document ---
Author Name Unknown Organization [facility] Address [address] [place] [address] Phone Care Team Providers Care Automotive Refinisher Name Role Phone Freddy Arboleda MD Unavailable Unavailable Allergies, Adverse Reactions, Alerts Substance Reaction Status Criticality codeine Everything Active No Information Medications Medication Instructions Dosage Effective Dates (start - stop) Status Comments EFFEXOR XR (unknown strength) Not Available - Active ZOLOFT (unknown strength) Not Available - Active VITAMIN B-12 (unknown strength) Not Available - Active IRON (unknown strength) Not Available - Ac tive CYCLOBENZAPRINE HCL (unknown strength) Not Available - Active Procedures Procedure Date Office/Outpatient Visit,Est, Mod 2022 Office/Outpatient Visit,Est, Mod 2020 Office/Outpatient Visit,Est, Mod 2020 Office/Outpatient Visit,Est, Mod 2020 Postop Followup Visit Postop Followup Visit PSF, Lumbar - PA PSF - Additional Level(s) - PA 20 Lami, Facetectomy/Foraminotomy, Lumbar ( Stenosis) Lami, Facetectomy/Foraminotomy - Additio nal Level(s) - PA Posterior Instrumentation, 3-6 Segments - PA PEEK/ Cage/ Implant, For Interbody Fusio n - PA PSF, Lumbar PSF - Additional Level(s) ALIF / OLIF Anterior Lumbar Interbody Fu lucia - Cosurgeon Anterior Interbody Fusion - Additional L evel(s) Lami, Facetectomy/Foraminotomy, Lumbar ( Stenosis) Lami, Facetectomy/Foraminotomy - Additio nal Level(s) Posterior Instrumentation, 3-6 Segments PEEK/ Cage/ Implant, For Interbody Fusio n Autograft, From Same Incision 0 Allograft, Morcelized, and/or BMP Office/Outpatient Visit,Est, Mod 2019 Office/Outpatient Visit,New, Mod 2019 Advance Directives Directive Yes / No Effective Date File Name No Information Encounters Encounter Description Practice Location Reason(s) For Visit Diagnoses Date Provider Providers Copied on Encounter Office/Outpa tient Visit,Est, Mod [facility], [address], [place], [place], [id number] , [place] [phone] [facility] Arthrodesis status 3 Robles Hayes. [facility], Critical access hospital [address] [place] [address], [address], [id number], [place]. tel:[phone] Referring Provider: Freddy Topete, [facility] [address] [place] [address], [address], [address]. tel:[phone] Office/Outpa tient Visit,Est, Mod [facility], [address], [place], [place], [id number] , [place] tel:[phone] [facility] Arthrodesis status 1 Robles Hayes. [facility], [address] [place] [address], [address], [id number], [place]. tel:[phone] Referring Provider: Stone Martinez, [facility] And [address], [address]. tel:[phone] Office/Outpa tient Visit,Est, Mod [facility], [address], [place], [place], [id number] , [place] tel:[phone] [facility] Arthrodesis status 1 Robles Hayes. [facility], [address], [place] [address], [place], [id number], [place]. tel:[phone] Referring Provider: Stone Martinez, [facility] [address] [place], [address]. tel:[phone] Office/Outpa tient Visit,Est, Mod [facility], [address], [place], [place], [id number] , [place] tel: [phone] [facility] Low back painArthrodes is status 1 No Information Referring [facility]: [facility] [address] [place], [address]. tel:[phone] [facility], [address], [place], [place], [id number] , [place] tel: [phone] [facility] Encounter for other specified surgical aftercare 1 Robles Hayes. [facility], [address], [address], [place], [place], [id number], [place]. tel:[phone] Referring [facility]: [facility] [address] [place], [address]. tel:[phone] [facility], [address], [place], [place], [id number] , [place] tel:[phone] [facility] Arthrodesis status 0 No Information Referring [facility]: [facility] [address] [place], [address]. tel:[phone] [facility], [address], [place], [id number] , [place] tel: [phone] [facility] No Information 0 No Information Referring [facility]: [facility] [address] [place], [address]. tel:[phone] [facility], [address], [place], [place], [id number] , [place] tel:[phone] [facility] No Information 0 Robles Hayes. [facility], [address] [place] [address], [address], [place], [place], [id number], [place]. tel:[phone] Referring Provider: [facility] [address] [place], [address]. tel:[phone] Office/Outpa tient Visit,Est, Mod [facility], [address], [place], [place], [id number] , [place] [phone] [facility] Spinal stenosis, lumbar region with neurogenic claudicationS pondylolisthe sis, lumbar region 0 Robles Freddy. [facility], [address] [place] [address], [facility] [address], [place], [id number], [place]. tel:[phone] Referring Provider: [facility] [address] [place], [address]. tel:[phone] Office/Outpa tient Visit,New, Mod [facility], [address], [place], [place], [id number] , [place] tel:[phone] [facility] Spinal stenosis, lumbar region with neurogenic claudicationS pondylolisthe sis, lumbar region 0 No Information Referring Provider: Stone [facility] [address] [place], [address]. tel:[phone] Family History Family Member Type Diagnosis Age At Onset No Information Payers Payer name Insurance type Covered alliance party ID Authoriza tibennie(s) BS [facility] [employer] [id number] Social History Type Description Quantity Date Captured Comments Alcohol Use Details Unknown Caffeine Use Details Unknown Tobacco Use Status No Information Smoking Status No Information Sex Female Vital Signs Date / Time: Height Weight BMI Pulse Rate Blood Pressure Temperature Respiratory Rate Body Surface Area Head Circumference Head Circ. Percentile Wt./[place]. Percentile BMI percentile Pulse Ox Inhaled Ox 3:27 PM 68.75 in 104.326 kg (230.00 lbs) 34.2 1 kg/m eter (2) Chief Complaint And Reason For Visit No Information Reason For Referral Reason For Referral No Information Plan Of Treatment Date Type Action Status No Information History Of Present Illness Encounter Date Complaint History Of Prese nt Illness No Information Functional Status Date Functional Assessmen t No Information Instructions Date Instruction Additional Infor mation No Information Assessments Type Assessment Date assessment Arthrodesis status Patient Care Teams Name Effective Dates (start - stop) Status Members No Information
--- OUTSIDE RECORDS SUMMARY | 2022-10-13 13:06 | XMS_ITS | Continuity of Care Document ---
Author Name Unknown Organization [facility] Address [address] [place] [address] Care Team Providers Care Hi Lo Driver Name Role Phone [facility] Unavailable Unav ailable Procedures Procedure Date INJ FORAMEN EPIDURAL L/S INJ FORAMEN EPIDURAL L/S Advance Directives Directive Yes / No Effective Date File Name No Information Encounters Encounter Description Practice Location Reason(s) For Visit Diagnoses Date Provider Providers Copied on Encounter [facility], [address] [place] [address], [id number], [facility] No Information [facility]. [address] [place], [place], [id number], . tel:[phone] Referring Provider: Shilpa Prabhakar, [address] [place], [address]. tel:[phone] Family History Family Member Type Diagnosis Age [...]
--- OUTSIDE RECORDS SUMMARY | 2022-10-13 13:06 | XMS_ITS | Continuity of Care Document ---
Author Name Unknown Organization [facility] Address [address] [place] [address] Care Team Providers Care Biomedical Equipment Specialist Name Role Phone Ho Watson CRNA Unavailable Unavailable Procedures Procedure Date ANESTH, HEAD/NECK/PTRUNK Percutaneous Image guided neuromodulatio n or intra Advance Directives Directive Yes / No Effective Date File Name No Information Encounters Encounter Description Practice Location Reason(s) For Visit Diagnoses Date Provider Providers Copied on Encounter [facility], [address] [place], [place], [id number], [facility] No Information 2 [facility]. [address] [place] [address], [id number] , . tel:[phone] Referring Provider: [facility] [address] [facility] [address], [place], [address]. tel:[phone] [facility], [address] [place], [place], [id number], [facility] No Information 2 Walter Teague. [address] [facility], [place], [place], [id number] , . tel:[phone] Referring Provider: [facility] [address], [place], [address]. tel:[phone] Family History Family Member Type Diagnosis Age At Onset No Information Payers Payer name Insurance type Covered alliance party ID Authoriza tion(s) No Information Social [...]
--- OUTSIDE RECORDS SUMMARY | 2022-10-13 13:06 | XMS_ITS | Continuity of Care Document ---
Author Name Unknown Organization [facility] Address [address] [place] [address] [address] [place] [address] Phone Care Team Providers Care Torch Heater Name Role Phone [facility] Unavailable Unava ilable Procedures Procedure Date IMPLANT [...] [facility], [address] [place] [address], [id number], tel:[phone] [place] [address] No Information 2 [facility]. [address] [place] [address], [id number], [place]. tel:[phone] Referring Provider: [facility] [address] [facility] [address], [place], [address]. tel:[phone] [facility], [address] [place] [address], [id number], tel:[phone] [place] [address] No Information 2 [facility]. [address] [facility] [address], [place], [place], [id number], [place]. tel:[phone] Referring Provider: Neil Nielson [facility] [address], [place], [address]. tel:[phone] Family History Family Member Type Diagnosis Age [...]
--- OUTSIDE RECORDS SUMMARY | 2022-10-13 13:07 | XMS_ITS | Continuity of Care Document ---
Author Name Unknown Organization [facility] Address [address] [place] [address] Phone Care Team Providers Care Furniture Sales Associate Name Role Phone Will Ori MARSHALL Unavailable [...] TELEMEDICINE SCS Post Op Satellite IMPLANT NEUROELECTRODES [facility] IMPLANT NEUROELECTRODES [facility] INSRT/REDO SPINE N GENERATOR SCS Lead Pull Satellite ORTHOTIC MGMT AND TRAINING IMPLANT NEUROELECTRODES [facility] IMPLANT NEUROELECTRODES [facility] ANALYZE NEUROSTIM, COMPLEX Psych Dx Eval [...] Diagnoses Date Provider Providers Copied on Encounter [facility], [address] [place], [place], [id number] , [place] tel:[phone] [facility] [place] No Information 3 Nolan Rehman. [address] [facility] [place], [id number] , [place]. tel:[phone] [facility], [address] [facility] [place], [place], [id number] , [place] tel:[phone] [facility] [place] Postlaminectomy syndrome, not elsewhere classified 3 Corina Granados. [address] [place] [address] [address], [place], [id number] , [place]. tel: [phone] OFFICE VISIT, EST TELEMEDICINE [facility], [address] [place] [address], [id number] , [place] tel: [phone] [facility] [place] Back Pain (chief complaint) Postlaminectomy syndrome, not elsewhere classified 2 Corina Granados. [address] [facility] [address], [facility], [place], [id number] , [place]. tel: [phone] [facility], [address] [place] [address], [id number] , [place] tel: [phone] [facility] Postlaminectomy syndrome, not elsewhere classified 2 Yosi Bianchi. [address] [facility] [address], [facility] [place], [place], [id number] , [place]. tel: [phone] Referring Provider: Ori Galvan, [address] [place], [place] [address], [address] . tel:[phone] [facility], [address] [place] [address], [id number] , [place] tel: [phone] [place] [place] Postlaminectomy syndrome, not elsewhere classified 2 Nielson Neil. [place], [address] [employer] [address], [place], [address], [place]. tel: [phone] Referring Provider: Ori Galvan, [address] [place], [place] [address], [address] . tel:[phone] [facility], [address] [place] [address], [id number] , [place] tel: [phone] [facility] [place] No Information 2 Nielson Neil. [place], [address] [employer] [address], [place], [address], [place]. tel: [phone] [facility], [address] [place] [address], [id number] , [place] tel: [phone] [facility] [place] Widespread pain (chief complaint) Postlaminectomy syndrome, not elsewhere classifiedLow back pain, unspecified 2 Corina Granados. [facility] [facility] [address], [place], [id number] , [place]. tel: [phone] Referring Provider: Ori Galvan, [address] [place] [address] [place], [address] . tel:[phone] [facility], [address] [place] [address] [place], [id number] , [place] tel: [phone] [facility] Postlaminectomy syndrome, not elsewhere classified 2 Naga Trejo. [facility], [address], [place], [address], [place]. tel: [phone] Referring Provider: Ori Galvan, [address] [place] [address] [place], [address] . tel:[phone] [facility], [address] [place] [address], [id number] , [place] tel: [phone] [facility] Pain disorder with related psychological factorsMajor depressive disorder, recurrent, in partial remission Jul- 2 Lydia Jeong. [address] [place], [place] [address], [place], [id number] , [place]. tel: [phone] [facility], [address] [place] [address], [id number] , [place] tel: [phone] [facility] [place] lumbago (chief complaint) Spondylosis w/o myelopathy or radiculopathy, lumbar regionPostlaminec gilda syndrome, not elsewhere classified Apr-2 2 Dedra Valentine. [address] [place] [address] [place], [id number] , [place]. tel: [phone] Referring Provider: Ori Galvan, [address] [place] [address] [place], [address] . tel:[phone] [facility], [address] [place] [address] [place], [id number] , [place] tel: [phone] [facility] [place] No Information 2 Corina Granados. [address] [place] [address] [address], [place], [id number] , [place]. tel: [phone] OFFICE/OUTPAT IENT VISIT, [facility], [address] [place] [address], [id number] , [place] tel: [phone] [facility] Widespread pain (chief complaint) Chronic pain syndromeSpondylos is w/o myelopathy or radiculopathy, lumbar regionOther intervertebral disc degeneration, lumbar regionPain in left kneePain in right kneeLong term (current) use of opiate analgesicPostlami nectomy syndrome, not elsewhere classified 2 Corina Granados. [address] [place] [address] [address], [place], [id number] , [place]. tel: [phone] Referring Provider: Ori Galvan, [address] [place] [address] [place], [address] . tel:[phone] OFFICE VISIT, [facility], [address] [place] [address], [id number] , [place] tel: [phone] [facility] Widespread pain (chief complaint) Other intervertebral disc degeneration, lumbar regionChronic pain syndromePain in left kneePain in right kneeLong term (current) use of opiate analgesicSpondylo sis w/o myelopathy or radiculopathy, lumbar regionLow back pain 0 Corina Granados. [address] [place] [address] [address], [place], [id number] , [place]. tel: [phone] Referring Provider: Ori Galvan, [address] [place] [address] [place], [address] . tel:[phone] OFFICE VISIT, EST TELEMEDICINE [facility], [address] [place] [address], [id number] , [place] tel: [phone] [facility] Widespread pain (chief complaint) Other intervertebral disc degeneration, lumbar regionChronic pain syndromePain in left kneePain in right kneeLong term (current) use of opiate analgesicSpondylo sis w/o myelopathy or radiculopathy, lumbar regionLow back pain Oct-0 - 0 Corina Granados. [address] [facility] [address], [place], [id number] , [place]. tel: [phone] Referring Provider: Freddie Shay, [facility] [address], [place], [address]. tel:[phone] OFFICE/OUTPAT IENT VISIT, EST [facility], [address] [place], [place], [id number] , [place] tel: [phone] [facility] [place] Widespread pain (chief complaint) Other intervertebral disc degeneration, lumbar regionChronic pain syndromePain in left kneePain in right kneeLong term (current) use of opiate analgesicSpondylo sis w/o myelopathy or radiculopathy, lumbar regionLow back pain Sep-0 0 Arriagaloc Granados. [address] [facility] [address], [place], [id number] , [place]. tel: [phone] Referring Provider: Ori Galvan, [address] [facility] [place], [address] . tel:[phone] [facility], [address] [facility] [place], [place], [id number] , [place] tel: [phone] [facility] Other intervertebral disc degeneration, lumbar region Aug- 0 Vanna Massey. [address] [facility] [place], [place], [id number] , [place]. tel: [phone] Referring Provider: Ori Galvan, [address] [place] [address] [place], [address] . tel:[phone] OFFICE VISIT, EST TELEMEDICINE [facility], [address] [facility] [place], [place], [id number] , [place] tel: [phone] [facility] [place] Widespread pain (chief complaint) Chronic pain syndromePain in left kneePain in right kneeLong term (current) use of opiate analgesicOther intervertebral disc degeneration, lumbar regionSpondylosis w/o myelopathy or radiculopathy, lumbar region Nov- 0 Arriagaloc Granados. [address] [place] [address] [address], [place], [place], [id number] , [place]. tel:[phone] Referring Provider: Ori Galvan, [address] [place] [address] [place], [address] . tel:[phone] OFFICE VISIT, EST TELEMEDICINE [facility], [address] [place] [address], [id number] , [place] tel: [phone] [facility] Widespread pain (chief complaint) Chronic pain syndromeLow back painPain in left kneePain in right kneeLong term (current) use of opiate analgesic 0 Arriaga Darwin. [address] [place] [address] [address], [place], [id number] , [place]. tel: [phone] Referring Provider: Ori Galvan, [address] [place] [address] [place], [address] . tel:[phone] OFFICE VISIT, [facility], [address] [place] [address], [id number] , [place] tel: [phone] [facility] Widespread pain (chief complaint) Chronic pain syndromeLow back painPain in left kneePain in right kneeLong term (current) use of opiate analgesic 0 Corina Granados. [address] [place] [address] [address], [place], [id number] , [place]. tel:[phone] Referring Provider: Ori Galvan, [address] [place] [address] [place], [address] . tel:[phone] OFFICE VISIT, [facility], [address] [place] [address], [id number] , [place] tel:[phone] [facility] Widespread pain (chief complaint) Chronic pain syndromeLow back painPain in left kneePain in right kneeLong term (current) use of opiate analgesic 0 Arriaga Darwin. [address] [place] [address] [address], [place], [id number] , [place]. [phone] Referring Provider: Ori Galvan, [facility] [place], [address] . tel:[phone] OFFICE VISIT, [facility] TELEMEDICINE [facility], [address] [place] [address] [place], [place], [id number] , [place] [phone] [facility] Widespread pain (chief complaint) Chronic pain syndromeLow back painPain in left kneePain in right kneeLong term (current) use of opiate analgesic Apr- 0 Corina Granados. [address] [place] [address] [address], [place], [id number] , [place]. [phone] Referring Provider: Ori Galvan, [address] [place], [address] . tel:[phone] OFFICE/OUTPAT IENT VISIT, [facility], [address] [place] [address] [place], [place], [id number] , [place] [phone] [facility] [place] Widespread pain (chief complaint) Chronic pain syndromeLow back painPain in left kneePain in right knee Jun- 0 Corina Granados. [address] [place] [address] [address], [place], [id number] , [place]. [phone] Referring Provider: Ori Galvan, [address] [place] [address] [place], [address] . tel:[phone] [facility], [address] [place] [address] [place], [place], [id number] , [place] [phone] [facility] [place] Widespread pain (chief complaint) Chronic pain syndromeLow back painPain in left kneePain in right knee Fe- 0 Corina Granados. [address] [place] [address] [address], [place], [id number] , [place]. [phone] Referring Provider: Ori Galvan, [address], [address] . tel:[phone] [facility], [address] [place], [id number] , [place] tel: [phone] [facility] [place] Widespread pain (chief complaint) No Information 0 Corina Granados. [address] [facility] [address], [place], [id number] , [place]. tel: [phone] Family History Family Member Type Diagnosis Age At Onset No Information Payers Payer name Insurance type Covered alliance party ID Authorizvarun luis(s) Umr CI [id number] Social History Type Description Quantity Date Captured Comments Sex Female Smoking Status No Information Chief Complaint And Reason For Visit No Information Reason For Referral Reason For Referral No Information Plan Of Treatment Date Type Action Status Goal Hepatitis C screening. Due o n due Goal Lipid panel. Due on due Goal AST (SGOT). Due on due Goal PHQ-9. Due on du e Goal ALT (SGPT). Due on due Goal Unhealthy drug u se screening. Due on due Goal Order Annual PT. Due on due Goal Medication Recon ciliation. Due on due Goal Update Social History. Due o n due Goal HPV. Due on due Goal Height. Due on d ue Goal Tobacco Use. 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 Due on due Goal UDT. 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 Due on due Goal Creatinine. Due on due Goal Review Allergy List. Due on due Goal Weight. Due on d ue Goal OARS. Due on due Goal AST (SGOT). Due on due Goal Update Social History. Due o n due Goal Hepatitis C screening. 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 Due on due Goal Order Annual PT. Due on due Goal OARS. Due on due Goal ALT (SGPT). Due on due Goal UDT. Due on due Goal Creatinine. Due on due Goal HPV. Due on due Goal Height. Due on d ue Goal Lipid panel. Due on due Goal Tobacco Use. Due on due Goal Unhealthy drug u se screening. Due on due Goal Review Allergy List. Due on due Goal PHQ-9. Due on du e Goal Medication Recon ciliation. Due on due Goal Weight. Due on d ue Goal Review Allergy List. Due on due Goal Lipid panel. Due on due Goal Weight. Due on d ue Goal PHQ-9. Due on du e Goal HPV. Due on due Goal Order Annual PT. Due on due Goal AST (SGOT). 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 Due on due Goal Unhealthy drug u se screening. Due on due Goal Creatinine. 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 Due on due Goal OARS. Due on due Goal ALT (SGPT). Due on due Goal Hepatitis C screening. Due o n due Goal UDT. Due on due Goal Update Social History. Due o n due Goal Height. Due on d ue Goal Tobacco Use. Due on due Goal Medication Recon ciliation. 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 Due on due Goal UDT. Due on due Goal Tobacco Use. Due on due Goal PHQ-9. Due on du e Goal ASSEMBLER W[employer] Paperwork. Due on due Goal Hepatitis C screening. Due o n due Goal Unhealthy drug u se screening. Due on due Goal Weight. Due on d ue Goal Review Allergy List. Due on due Goal Lipid panel. Due on due Goal Update Social History. Due o n due Goal OARS. Due on due Goal ALT (SGPT). Due on due Goal Creatinine. Due on due Goal Order Annual PT. Due on due Goal Medication Recon ciliation. Due on due Goal Height. Due on d ue Goal HPV. Due on due Goal AST (SGOT). 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 Due on due Goal OARS. Due on due Goal Creatinine. Due on due Goal AST (SGOT). Due on due Goal UDT. Due on due Goal ALT (SGPT). Due on due Goal Unhealthy drug u se screening. Due on due Goal Order Annual PT. Due on due Goal Hepatitis C screening. Due o n due Goal Weight. Due on d ue Goal Tobacco Use. 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 Due on due Goal HPV. Due on due Goal Height. Due on d ue Goal PHQ-9. Due on du e Goal Medication Recon ciliation. Due on due Goal Review Allergy List. Due on due Goal Update Social History. Due o n due Goal Lipid panel. Due on due Goal Height. Due on d ue Goal Review Allergy List. Due on due Goal PHQ-9. Due on du e Goal Update Social History. Due o n due Goal ALT (SGPT). Due on due Goal Weight. Due on d ue Goal Unhealthy drug u se screening. Due on due Goal Order Annual PT. Due on due Goal HPV. Due on due Goal Hepatitis C screening. 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 Due on due Goal Tobacco Use. Due on due Goal Medication Recon ciliation. Due on due Goal Creatinine. Due on due Goal AST (SGOT). Due on due Goal OARS. 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 Due on due Goal UDT. Due on due Goal Lipid panel. 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 Due on due Goal Hepatitis C screening. Due o n due Goal Tobacco Use. Due on due Goal Order Annual PT. Due on due Goal Weight. Due on d ue Goal Medication Recon ciliation. Due on due Goal Height. Due on d ue Goal PHQ-9. Due on du e Goal Creatinine. Due on due Goal Update Social History. Due o n due Goal HPV. Due on due Goal Lipid panel. Due on due Goal OARS. Due on due Goal AST (SGOT). Due on due Goal Unhealthy drug u se screening. 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 Due on due Goal UDT. Due on due Goal Review Allergy List. Due on due Goal ALT (SGPT). Due on due Goal Order Annual PT. Due on due Goal UDT. Due on due Goal OARS. Due on due Goal Creatinine. 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 Due on due Goal ALT (SGPT). Due on due Goal HPV. Due on due Goal Unhealthy drug u se screening. Due on due Goal Lipid panel. Due on due Goal AST (SGOT). Due on due Goal Weight. Due on d ue Goal Hepatitis C screening. Due o n due Goal Tobacco Use. 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 Due on due Goal Update Social History. Due o n due Goal Review Allergy List. Due on due Goal Height. Due on d ue Goal PHQ-9. Due on du e Goal Medication Recon ciliation. Due on due Referral Ordered: X-RAY EXAM OF KNEE, 3 Bilateral knee ordered Referral Ordered: MRI LUMBAR SPINE W/O DYE ordered Future Order: Lab Order Drug Nehal t Def 22+ Classes (G0483), Ordered on: Ordered History Of Present Illness Encounter Date Complaint History Of Prese nt Illness Comments: Anna bond presents for virtual followup regarding lower back pain with radiation into RLE. S/p decompression and fusion from the L4-S1 with Dr. Arboleda with [facility] on 02/12/2020. States pain in lower back and radiating down her R leg have persisted following surgery. S/p [employer] lumbar SCS implant on 10/14/2021 with significant pain relief. Not taking any medications.Of note she has tested positive for COVID. She is not accompanied and has no other concerns today. Back Pain Severity level i s 5. The problem is improving. It occurs intermittently. Location of pain is lower back. The client describes the pain as an ache. Symptoms are aggravated by lifting, twisting, movement and housework. Symptoms are relieved by ice and spinal cord stimulator. Widespread pain Duration: chroni c. Comments: Petra ledbetter presents for lead pull s/p SCS trial on 09/06/21. No s/s of infection are present or reported. See detailed wound assessment. Patient reported significant pain improvement and was able to perform daily routines during the trial.Patient would like to move forward with the implant - order created and we will start the PA process. lumbago Patient is a 41 year old [...] limitation and an improved quality of life. Comments: Anna bond is here for follow-up last seen on 02/03/2020. She is followed for widespread pain. Primary concern today is lower back pain with radiation into RLE. S/p decompression and fusion from the L4-S1 with Dr. Arboleda with Spine on 02/12/2020. States pain in lower back and radiating down her R leg have persisted following surgery. Most of today's OV was spent discussing pain management options. Patient is interested in pain management options that will fix her problem. Specifically discusses SCS trial. Patient expresses interest in [employer] trial and requests the orders be placed to her insurance. Pre-trial education was provided and questions were addresses. Additionally, she requests a temporary script of pain medications whiles she awaits stim trial. She is not accompanied and has no other concerns today. Widespread pain Severity level i s 5. [...] and incontinence (urinary). Widespread pain (comments) Alma aguilar is here [...] (urinary). Widespread pain Severity level i s 6. [...] (urinary). Widespread pain (comments) Maggie rhodes is meeting with us today via [facility] Virtual Visit for following up and medication refill. Widespread pain persists this month, tolerable with medication. The pain in her low back radiates down her left thigh.Reports current medication regimen provides 75% pain relief and allows for increased functionality. Denies side effects from current medication regimen.No other concerns today. Widespread pain Severity level i s 8. [...] rest, heat and Rx Meds. Widespread pain (comments) Maggie rhodes is here [...] no other questions or concerns. Widespread pain (comments) The celeste rivas returns for followup and medication refill [...] procedure. Widespread pain Severity level i s mild-moderate. Duration: chronic. Location of the pain is bilateral hand. The patient describes it as achy, burning and tingling. It occurs persistently. The problem is stable. Symptom is aggravated by lifting, movement and prolonged positioning. Relieving factors include heat, cold, Rx Meds and changing positions. There are no associated symptoms. Widespread pain (comments) Maggie rhodes returns for follow up regarding widespread pain.Reports she was able to complete bilateral knee x-rays late last week, but has been unable to schedule lumbar imaging d/t current events. Recently completed an injection in both hands through rheumatology which has been helpful. Ongoing numbness persists. No further questions or concerns. Widespread pain Severity level i s 8. Duration: chronic. The patient describes it as sharp, burning and numbness. It occurs persistently. The problem is fluctuating. Denies aggravating factors. Relieving factors include rest and Rx Meds. Widespread pain Severity level i s 8. [...] THC, she reports having edible while in [place], [place] a few weeks ago.Current medication regimen provides 25% relief and improves daily function. Denies side effects from current medication regimen. Patient is not accompanied today and has no further questions or other concerns. Widespread pain (comments) Maggie rhodes is [...] and CT scans of her abdomen through [facility]. Currently managing her pain with ibuprofen and Tylenol. She also takes amitriptyline for sleep. Has been prescribed hydrocodone, oxycodone, and morphine in the past for surgeries and tooth pain. Rosio is interested in recommended tx modalities and would like [facility] to assume management of pain care. Widespread [...] dyspnea, fever and incontinence (urinary). Widespread pain Widespread pain (comments) Maggie rhodes is here [...] had several XR's and CT scans through [facility]. Currently managed on for additional pain relief. Has previously trialed and failed amitriptyline, NSAIDS, Tylenol, hydrocodone, oxycdone, and morphine. is interested in and would like [facility] to assume management of pain care. Functional Status Date Functional Assessmen t No Information Instructions Date Instruction Additional Infor mation No Information Assessments Type Assessment Date No Information Patient Care Teams Name Effective Dates (start - stop) Status Members No Information
== END 2022-10-13 13:05 | disposition home or self-care (01) ==
LOC: CT 13:05
PROVIDERS: PCP Internal Medicine; Visit Provider Specialist
DX: Z98.1 Arthrodesis status (principal); M51.27 Other intervertebral disc displacement, lumbosacral region
CPT/HCPCS: 72131

== ENCOUNTER 2022-12-26 07:04 | Outpatient (CLI) | payer OTHER, SELFPAY ==
--- OUTSIDE RECORDS SUMMARY | 2022-12-26 07:07 | XMS_ITS | Continuity of Care Document ---
Author Name Unknown Organization [facility] Address [address] [place] [address] Care Team Providers Care Procurement Buyer Name Role Phone Ho Watson CRNA Unavailable Unavailable Procedures Procedure Date ANESTH, HEAD/NECK/PTRUNK Percutaneous Image guided neuromodulatio n or intra Advance Directives Directive Yes / No Effective Date File Name No Information Encounters Encounter Description Practice Location Reason(s) For Visit Diagnoses Date Provider Providers Copied on Encounter [facility], [address] [place], [place], [id number], [facility] No Information 2 Walter Teague. [address] [place], [place], [id number] , . [phone] Referring Provider: Neil Nielson [facility] [address] [employer] [address] [facility] [address], [address]. tel:[phone] [facility], [address], [place], [id number], [facility] No Information 2 Walter Teague. [address] [facility] [place], [place], [id number] , . tel:[phone] Referring Provider: Neil Nielson [facility] [address] [employer], [place], [address]. tel:[phone] Family History Family Member Type Diagnosis Age At Onset No Information Payers Payer name Insurance type Covered green party ID Authoriza tion(s) No Information Social History Type Description Quantity Date Captured Comments Sex Female Smoking Status No Information Chief Complaint And Reason For Visit No Information Reason For Referral Reason For Referral No Information History Of Present Illness Encounter Date Complaint History Of Prese nt Illness No Information Functional Status Date Functional Assessmen t No Information Instructions Date Instruction Additional Infor mation No Information Assessments Type Assessment Date No Information Patient Care Teams Name Effective Dates (start - stop) Status Members No Information
--- OUTSIDE RECORDS SUMMARY | 2022-12-26 07:07 | XMS_ITS | Continuity of Care Document ---
Author Name Unknown Organization [facility] enter Address [address] [place] [address] [address] [place] [address] Phone Care Team Providers Care Health And Safety Inspector Name Role Phone [facility] Unavailable Unava ilable Procedures Procedure Date IMPLANT [...] Diagnoses Date Provider Providers Copied on Encounter [facility], [address] [place] [address] 11 [facility] [address], [place], [id number], tel:[phone] [place] [address] [facility]. [address] [place] [address] 11 [facility] [address], [place], [id number], . tel:[phone] Referring Provider: Neil Nielson [address], [place], [address]. tel:[phone] [facility], [address] [place] [address] 11 [facility] [address], [place], [id number], tel:[phone] [facility] No Information 2 [facility]. [address] [facility] [address], [place], [place], [id number], [place]. tel:[phone] Referring Provider: Neil Nielson [address], [place], [address]. tel:[phone] Family History Family Member Type Diagnosis Age At Onset No Information Payers Payer name Insurance type Covered democrat ID Authoriza tion(s) No Information Social History [...]
--- OUTSIDE RECORDS SUMMARY | 2022-12-26 07:07 | XMS_ITS | Continuity of Care Document ---
Author Name Unknown Organization [facility] Address [address] [place] [address] Phone Care Team Providers Care Backwinder Name Role Phone Freddy Arboleda MD Unavailable [...] Procedures Procedure Date Office/Outpatient Visit,Est, Mod 2022 HOLD Office/Outpatient Visit,Est, Mod 2022 Office/Outpatient Visit,Est, Mod [...] Visit,Est, Mod [facility], [address], [place], [place], [id number] , tel:[phone] [facility] Radiculopathy , lumbar regionArthrod esis status 3 [address]. [facility], [facility] [address] [place] [address], [address], [id number], [place]. tel:[phone] Referring Provider: Freddy Topete, [facility] [address] [place] [address], [address], [address]. tel:[phone] Office/Outpa tient Visit,Est, Mod [facility], [address], [place], [place], [id number] , [place] tel:[phone] [facility] Arthrodesis status 3 [address]. [facility], [address] [place] [address], [address], [id number], [place]. tel:[phone] Referring Provider: Freddy Topete, [facility] [address] [place] [address], [address], [address]. tel:[phone] Office/Outpa tient Visit,Est, Mod [facility], [address], [place], [place], [id number] , [place] tel:[phone] [facility] Arthrodesis status 1 [address]. [facility], [address] [place] [address], [address], [id number], [place]. tel:[phone] Referring Provider: [facility] [address] [place], [address]. tel:[phone] Office/Outpa tient Visit,Est, Mod [facility], [address], [place], [place], [id number] , [place] tel:[phone] [facility] Arthrodesis status 1 [address]. [facility], [address] [place] [address], [address], [id number], [place]. tel:[phone] Referring Provider: [facility] [address] [place], [address]. tel:[phone] Office/Outpa tient Visit,Est, Mod [facility], [address], [place], [place], [id number] , [place] tel:[phone] [facility] Low back painArthrodes is status 1 No Information Referring Provider: [facility] [address] [place], [address]. tel:[phone] [facility], [address], [place], [place], [id number] , [place] tel:[phone] [facility] Encounter for other specified surgical aftercare 1 [address]. [facility], [address] [place], [address], [id number], [place]. tel:[phone] Referring Provider: [facility] [address] [place], [address]. tel:[phone] [facility], [address], [place], [id number] , [place] tel: [phone] [facility] Arthrodesis status 0 No Information Referring Provider: [facility] [address] [place], [address]. tel:[phone] [facility], [address], [place], [place], [id number] , [place] tel: [phone] [facility] No Information 0 No Information Referring Provider: Ritter [facility] [address] [place], [address]. tel:[phone] [facility], [address], [place], [place], [id number] , [place] tel: [phone] [facility] No Information 0 [address]. [facility], [address] [place] [address], [address], [id number], [place]. tel:[phone] Referring Provider: [facility] [address] [place], [address]. [phone] Office/Outpa tient Visit,Est, Mod [facility], [address], [place], [place], [id number] , [place] tel: [phone] [facility] Spinal stenosis, lumbar region with neurogenic claudicationS pondylolisthe sis, lumbar region 0 [place]. [facility], [address] [place] [address], [facility] [address], [place], [id number], [place]. tel:[phone] Referring Provider: Ritter [facility] [address] [place], [address]. tel:[phone] Office/Outpa tient Visit,New, Mod [facility], [address], [place], [id number] , [place] tel: [phone] [facility] Spinal stenosis, lumbar region with neurogenic claudicationS pondylolisthe sis, lumbar region 0 No Information Referring Provider: [facility] [address] [place], [address]. tel:[phone] Family History Family Member Type Diagnosis Age [...] Percentile BMI percentile Pulse Ox Inhaled Ox 3:57 PM 68.75 in 104.326 kg (230.00 lbs) 34.2 1 kg/m eter (2) Chief Complaint And Reason For Visit No Information Reason For Referral Reason For Referral No Information History Of Present Illness Encounter Date Complaint History Of Prese nt Illness No Information Functional Status Date Functional Assessmen t No Information Instructions Date Instruction Additional Infor mation No Information Assessments Type Assessment Date assessment Radiculopathy, lumbar region Dec assessment Arthrodesis status Patient Care Teams Name Effective Dates (start - stop) Status Members No Information
--- OUTSIDE RECORDS SUMMARY | 2022-12-26 07:07 | XMS_ITS | Continuity of Care Document ---
Author Name Unknown Organization [facility] Address [address] [place] [address] Care Team Providers Care Needle Maker Name Role Phone [facility] Unavailable Unav ailable Procedures Procedure Date INJ FORAMEN EPIDURAL L/S INJ FORAMEN EPIDURAL L/S Advance Directives Directive Yes / No Effective Date File Name No Information Encounters Encounter Description Practice Location Reason(s) For Visit Diagnoses Date Provider Providers Copied on Encounter [facility], [address] [place], [place], [id number], [place] [facility] No Information [facility]. [address] [place], [place], [id number], . tel:[phone] Referring Provider: Shilpa Prabhakar, [address] [place], [address]. tel:[phone] Family History Family Member Type Diagnosis Age [...]
--- OUTSIDE RECORDS SUMMARY | 2022-12-26 07:08 | XMS_ITS | Continuity of Care Document ---
Author Name Unknown Organization [facility] Address [address] [facility] [place] [address] Phone Care Team Providers Care Lpn Or Medical Assistant Name Role Phone Will Ori MARSHALL Unavailable [...] TELEMEDICINE SCS Post Op Satellite IMPLANT NEUROELECTRODES ASC IMPLANT NEUROELECTRODES ASC INSRT/REDO SPINE N GENERATOR SCS Lead Pull Satellite ORTHOTIC MGMT AND TRAINING IMPLANT NEUROELECTRODES ASC IMPLANT NEUROELECTRODES [facility] ANALYZE NEUROSTIM, COMPLEX Psych Dx Eval PT EVAL MOD COMPLEX 30 MIN Drug Urine Toxology With Chromatography Foll-up eval q3mo opiod tx OFFICE/OUTPATIENT VISIT, EST OFFICE VISIT, EST TELEMEDICINE 20 Foll-up eval q3mo opiod tx Foll-up eval [...] Diagnoses Date Provider Providers Copied on Encounter [facility], [address] [place] [address], [id number] , [place] tel:[phone] [facility] [place] No Information 3 Nolan Rehman. [address] [facility] [place], [place], [id number] , [place]. tel:[phone] [facility], [address] [place], [place], [id number] , [place] tel:[phone] [facility] [place] Postlaminectomy syndrome, not elsewhere classified 3 Corina Granados. [address], [place], [place], [id number] , [place]. tel: [phone] OFFICE VISIT, EST TELEMEDICINE [facility], [address] [facility] [place], [place], [id number] , [place] tel: [phone] [facility] [place] Back Pain (chief complaint) Postlaminectomy syndrome, not elsewhere classified 2 Corina Granados. [address] [facility] [address], [place], [place], [id number] , [place]. tel: [phone] [facility], [address] [facility] [place], [id number] , [place] tel: [phone] [facility] [place] Postlaminectomy syndrome, not elsewhere classified 2 Yosi Bianchi. [address] [facility] [address], [place], [place], [id number] , [place]. tel: [phone] Referring Provider: Ori Galvan, [address] [place], [place] [address], [address] . tel:[phone] [facility], [address] [place] [address], [id number] , [place] tel: [phone] [facility] [place] Postlaminectomy syndrome, not elsewhere classified 2 Nielson Neil. [employer], [address], [place], [address], [place]. tel: [phone] Referring Provider: Ori Galvan, [address] [place], [place] [address], [address] . tel:[phone] [facility], [address] [place] [address], [id number] , [place] tel: [phone] [facility] [place] No Information 2 Nielson Neil. [employer], [address], [place], [address], [place]. tel: [phone] [facility], [address] [place] [address], [id number] , [place] tel: [phone] [facility] [place] Widespread pain (chief complaint) Postlaminectomy syndrome, not elsewhere classifiedLow back pain, unspecified 2 Corina Granados. [facility], [place], [id number] , [place]. tel: [phone] Referring Provider: Ori Galvan, [address] [place], [place] [address], [address] . tel:[phone] [facility], [address] [place] [address] [place], [place], [id number] , [place] tel: [phone] [facility] [place] Postlaminectomy syndrome, not elsewhere classified 2 Naga Trejo. [facility], [address] [facility] [address], [place], [address], [place]. tel: [phone] Referring Provider: Ori Galvan, [address] [place] [address] [place], [address] . tel:[phone] Psych Dx Eval [facility], [address] [place] [address] [place], [place], [id number] , [place] tel: [phone] [facility] Pain disorder with related psychological factorsMajor depressive disorder, recurrent, in partial remission Jul- 2 Lydia Jeong. [address] [place], [place] [address], [id number] , [place]. tel: [phone] [facility], [address] [place] [address], [id number] , [place] tel: [phone] [facility] [place] lumbago (chief complaint) Spondylosis w/o myelopathy or radiculopathy, lumbar regionPostlaminec gilda syndrome, not elsewhere classified Jul-2 2 Dedra Valentine. [address] [place] [address] [place], [id number] , [place]. tel: [phone] Referring Provider: Ori Galvan, [address] [place], [place] [address], [address] . tel:[phone] [facility], [address] [place] [address], [id number] , [place] tel: [phone] [facility] [place] No Information 2 Corina Granados. [address] [place] [address] [address], [place], [id number] , [place]. tel: [phone] OFFICE/OUTPAT IENT VISIT, EST [facility], [address] [place] [address], [id number] , [place] tel: [phone] [facility] Widespread pain (chief complaint) Chronic pain syndromeSpondylos is w/o myelopathy or radiculopathy, lumbar regionOther intervertebral disc degeneration, lumbar regionPain in left kneePain in right kneeLong term (current) use of opiate analgesicPostlami nectomy syndrome, not elsewhere classified 2 Corina Granados. [address] [place] [address] [address], [place], [id number] , [place]. tel: [phone] Referring Provider: Ori Galvan, [address] [place], [place] [address], [address] . tel:[phone] OFFICE VISIT, [facility] TELEMEDICINE [facility], [address] [place] [address], [id number] , [place] tel: [phone] [facility] Widespread pain (chief complaint) Other intervertebral disc degeneration, lumbar regionChronic pain syndromePain in left kneePain in right kneeLong term (current) use of opiate analgesicSpondylo sis w/o myelopathy or radiculopathy, lumbar regionLow back pain 0 Corina Granados. [address] [place] [address] [address], [place], [id number] , [place]. tel: [phone] Referring Provider: Ori Galvan, [address] [place] [address] [place], [address] . tel:[phone] OFFICE VISIT, EST TELEMEDICINE [facility], [address] [place] [address], [id number] , [place] tel: [phone] [facility] Widespread pain (chief complaint) Other intervertebral disc degeneration, lumbar regionChronic pain syndromePain in left kneePain in right kneeLong term (current) use of opiate analgesicSpondylo sis w/o myelopathy or radiculopathy, lumbar regionLow back pain Oct-0 2-202 0 Corina Granados. [address], [place], [id number] , [place]. tel: [phone] Referring Provider: Freddie Shay, [facility] [address], [place], [address]. tel:[phone] OFFICE/OUTPAT IENT VISIT, EST [facility], [address] [place] [address], [id number] , [place] tel: [phone] [facility] Widespread pain (chief complaint) Other intervertebral disc degeneration, lumbar regionChronic pain syndromePain in left kneePain in right kneeLong term (current) use of opiate analgesicSpondylo sis w/o myelopathy or radiculopathy, lumbar regionLow back pain Sep-0 4-202 0 Corina Granados. [facility], [place], [id number] , [place]. tel: [phone] Referring Provider: Ori Galvan, [address] [place] [address] [place], [address] . tel:[phone] [facility], [address] [place] [address] [place], [id number] , [place] tel: [phone] [facility] [place] Other intervertebral disc degeneration, lumbar region Nov- 0 Vanna Massey. [address] [facility] [place] [employer] [place], [id number] , [place]. tel: [phone] Referring Provider: Ori Galvan, [address] [place] [address] [place], [address] . tel:[phone] OFFICE VISIT, EST TELEMEDICINE [facility], [address] [facility] [place], [id number] , [place] [phone] [facility] Widespread pain (chief complaint) Chronic pain syndromePain in left kneePain in right kneeLong term (current) use of opiate analgesicOther intervertebral disc degeneration, lumbar regionSpondylosis w/o myelopathy or radiculopathy, lumbar region Nov- 0 Corina Granados. [address] [place] [address] [address], [place], [place], [id number] , [place]. tel:[phone] Referring Provider: Ori Galvan, [address] [place] [address] [place], [address] . tel:[phone] OFFICE VISIT, EST TELEMEDICINE [facility], [address] [place] [address], [id number] , [place] tel:[phone] [facility] Widespread pain (chief complaint) Chronic pain syndromeLow back painPain in left kneePain in right kneeLong term (current) use of opiate analgesic Oct- 0- 0 Arriagaloc Granados. [address] [place] [address] [address], [place], [place], [id number] , [place]. tel:[phone] Referring Provider: Ori Galvan, [address] [place] [address] [place], [address] . tel:[phone] OFFICE VISIT, EST [facility], [address] [place] [address], [id number] , [place] tel:[phone] [facility] Widespread pain (chief complaint) Chronic pain syndromeLow back painPain in left kneePain in right kneeLong term (current) use of opiate analgesic 0 Arriagaloc Granados. [address] [place] [address] [address], [place], [place], [id number] , [place]. tel:[phone] Referring Provider: Ori Galvan, [address] [place] [address] [place], [address] . tel:[phone] OFFICE VISIT, EST [facility], [address] [place] [address], [id number] , [place] [phone] Tele[facility] Widespread pain (chief complaint) Chronic pain syndromeLow back painPain in left kneePain in right kneeLong term (current) use of opiate analgesic 0 Arriaga Darwin. [address] [place] [address] [address], [place], [place], [id number] , [place]. tel:[phone] Referring Provider: Ori Galvan, [address] [place], [address] . tel:[phone] OFFICE VISIT, [facility] TELEMEDICINE [facility], [address] [place] [address] [place], [place], [id number] , [place] tel: [phone] Tele[facility] Widespread pain (chief complaint) Chronic pain syndromeLow back painPain in left kneePain in right kneeLong term (current) use of opiate analgesic 0 Arriaga Darwin. [address] [place] [address] [address], [place], [id number] , [place]. tel: [phone] Referring Provider: Ori Galvan, [address] [place] [address] [place], [address] . tel:[phone] OFFICE/OUTPAT IENT VISIT, [facility], [address] [place] [address] [place], [place], [id number] , [place] tel: [phone] [facility] Widespread pain (chief complaint) Chronic pain syndromeLow back painPain in left kneePain in right knee 0 Arriaga Darwin. [address] [place] [address] [address], [place], [id number] , [place]. tel: [phone] Referring Provider: Ori Galvan, [address] [facility] [place], [address] . tel:[phone] OFFICE CONSULTATION [facility], [address] [place] [address] [place], [id number] , [place] tel:[phone] [facility] [place] Widespread pain (chief complaint) Chronic pain syndromeLow back painPain in left kneePain in right knee Feb- 0 Arriaga Darwin. [address] [place] [address] [address], [place], [place], [id number] , [place]. tel: [phone] Referring Provider: Ori Galvan, [address] [facility] [place], [address] . tel:[phone] [facility], [address] [facility] [address] [place], [id number] , [place] tel: [phone] [facility] Widespread pain (chief complaint) No Information 0 Corina Granados. [facility], [place], [id number] , [place]. tel: [phone] Family History Family Member Type Diagnosis Age At Onset No Information Payers Payer name Insurance type Covered constitution party ID Chet luis(s) Umr CI [id number] Social History Type Description Quantity Date Captured Comments Sex Female Smoking Status No Information Chief Complaint And Reason For Visit No Information Reason For Referral Reason For Referral No Information Plan Of Treatment Date Type Action Status Goal Order Annual PT. Due on due Goal SCOOP MACHINE OPERATOR Paperwork. Due on due Goal ALT (SGPT). [...] Goal Tobacco Use. Due on due Goal AST (SGOT). Due on due Goal RAT EXTERMINATOR Scanned. Due on due Goal AST (SGOT). Due on due Goal SCOOP MACHINE OPERATOR Paperwork. Due on due Goal Creatinine. Due on due Goal UDT. Due on due Goal RAT EXTERMINATOR Scanned. Due on due Goal OARS. Due [...] Goal Lipid panel. Due on due Goal Hepatitis C screening. Due o n due Goal Update Social History. Due o n due Goal SCOOP MACHINE OPERATOR Paperwork. Due on due Goal OARS. Due [...] Goal AST (SGOT). Due on due Goal RAT EXTERMINATOR Scanned. Due on due Goal Medication Recon ciliation. Due on due Goal Height. Due on d ue Goal Tobacco Use. Due on due Goal Update Social History. Due o n due Goal Weight. Due [...] C screening. Due o n due Goal RAT EXTERMINATOR Scanned. Due on due Goal OARS. Due on due Goal Creatinine. Due on due Goal AST (SGOT). Due on due Goal UDT. Due on due Goal Order Annual PT. Due on due Goal ALT (SGPT). Due on due Goal SCOOP MACHINE OPERATOR Paperwork. Due on due Goal HPV. Due on due Goal Lipid panel. Due on due Goal Order Annual PT. Due on due Goal RAT EXTERMINATOR Scanned. Due on due Goal Creatinine. Due on due Goal AST (SGOT). Due on due Goal UDT. Due on due Goal Height. Due on d ue Goal OARS. Due on due Goal Weight. Due on d ue Goal Unhealthy drug u se screening. Due on due Goal HPV. Due on due Goal Hepatitis C screening. Due o n due Goal Tobacco Use. Due on due Goal SCOOP MACHINE OPERATOR Paperwork. Due on due Goal ALT (SGPT). Due on due Goal Medication Recon ciliation. Due on due Goal Lipid panel. Due on due Goal Review Allergy List. Due on due Goal PHQ-9. Due on du e Goal Update Social History. Due o n due Goal Unhealthy drug u se screening. Due on due Goal Review Allergy List. Due on due Goal ALT (SGPT). Due on due Goal RAT EXTERMINATOR Scanned. Due on due Goal Order Annual PT. Due on due Goal Creatinine. Due on due Goal OARS. Due on due Goal AST (SGOT). Due on due Goal SCOOP MACHINE OPERATOR Paperwork. Due on due Goal UDT. Due [...] Goal Lipid panel. Due on due Goal Creatinine. Due on due Goal OARS. Due on due Goal UDT. Due on due Goal Order Annual PT. Due on due Goal ALT (SGPT). Due on due Goal SCOOP MACHINE OPERATOR Paperwork. Due on due Goal RAT EXTERMINATOR Scanned. Due on due Goal AST (SGOT). [...] due Goal HPV. Due on due Goal AST (SGOT). Due on due Goal RAT EXTERMINATOR Scanned. Due on due Goal SCOOP MACHINE OPERATOR Paperwork. Due on due Goal ALT (SGPT). [...] Goal Tobacco Use. Due on due Goal Update Social History. [...] R leg have persisted following surgery. S/p [employer] lumbar SCS implant on 10/14/2021 with [...] by ice and spinal cord stimulator. Comments: Petra ledbetter presents for lead pull [...] discusses SCS trial. Patient expresses interest in [employer] trial and requests the orders be placed to her insurance. Pre-trial education was provided and questions were addresses. Additionally, she requests a temporary script of pain medications whiles she awaits stim trial. She is not accompanied and has no other concerns today. Widespread pain Duration: chroni [...] medication regimen.No other concerns today. Widespread pain (comments) Alma jeff is here [...] heat and Rx Meds. Widespread pain (comments) The celeste rivas returns [...] There are no associated symptoms. Widespread pain Severity level i s 8. [...] been able to complete imaging ordered last OV. Flexeril has been helpful, but causes significant drowsiness so she only takes it at night. Regarding UDT, positive for THC, she reports having edible while in [place], [place] a few weeks ago.Current medication regimen provides 25% relief and improves daily function. Denies side effects from current medication regimen. Patient is not accompanied today and has no further questions or other concerns. Widespread pain Onset occurred g radually. Severity [...] and CT scans of her abdomen through [facility] and [facility]. Currently managing her pain with ibuprofen and Tylenol. She also takes amitriptyline for sleep. Has been prescribed hydrocodone, oxycodone, and morphine in the past for surgeries and tooth pain. Rosio is interested in recommended tx modalities and would like [facility] to assume management of pain care. Widespread pain Widespread pain (comments) Maggie rhodes [...] had several XR's and CT scans through [facility] and [facility]. Currently managed on for additional pain relief. Has previously trialed and failed amitriptyline, NSAIDS, Tylenol, hydrocodone, oxycdone, and morphine. is interested in and would like [facility] to assume management of pain care. Functional Status Date Functional Assessmen t No Information Instructions Date Instruction Additional Infor mation No Information Assessments Type Assessment Date No Information Patient Care Teams Name Effective Dates (start - stop) Status Members No Information
--- NOTE | 2022-12-26 07:15 | CRLHL7_ITS ---
For Patients: As a result of the Century Cures Act, medical imaging exams and procedure reports are released immediately into your electronic medical record. You may view this report before your referring provider. If you have questions, please contact your health care provider. INDICATION: Lower extremity pain. COMPARISON: None. TECHNIQUE: Sagittal T1, T2, and STIR sequences. Axial T2/gradient sequences. FINDINGS: Normal vertebral body facet alignment. No fractures. No vertebral body loss of height. No spondylolisthesis. No ligamentous injury. No suspicious osseous lesions. Normal cord signal. No intradural mass or lesion. Marrow edema of the articular process of T2, T3, T4 and T5 on the right (series 5 images 8-7) may be secondary to stress reaction or inflammation from facet arthritis. Normal cord signal. No intradural mass or lesion. Mild thoracic spondylosis. T5-6: Disc degeneration with a small central disc protrusion or disc osteophyte complex measured approximately 2 millimeters in short axis. Mild narrowing of spinal canal. No neural foraminal narrowing. Spina stimulator lead enters the dorsal epidural space at T12-L1 and extends cephalad and terminates at T7. No spinal canal or neural foraminal narrowing at remaining levels. IMPRESSION: 1. Normal alignment. No fractures. 2. Normal cord signal. 3. Marrow edema of the right articular processes of T2 through T5 may be secondary to stress reaction or inflammation. 4. Mild thoracic spondylosis. 5. Spinal stimulator in place. 6. At T5-6, small central disc protrusion or disc osteophyte complex. Mild narrowing of the spinal canal. No neural foraminal narrowing. 7. No spinal canal or neural foraminal narrowing at the remaining levels Dictated by Madi Ash MD @ 12/26/2022 1:02:01 PM (Electronically Signed)
== END 2022-12-26 07:05 | disposition home or self-care (01) ==
PROVIDERS: PCP Internal Medicine; Visit Provider Specialist
DX: M79.606 Pain in leg, unspecified (principal); M47.894 Other spondylosis, thoracic region; M51.24 Other intervertebral disc displacement, thoracic region
CPT/HCPCS: 72146

== ENCOUNTER 2023-06-20 08:34 | Outpatient (CLI) | payer OTHER, SELFPAY | END 2023-06-20 08:35 | disposition home or self-care (01) | PROVIDERS: PCP Internal Medicine; Visit Provider Internal Medicine | DX: R53.83 Other fatigue (principal) | CPT/HCPCS: 80053; 84443 ==

== ENCOUNTER 2023-07-10 15:19 | Outpatient (CLI) | payer OTHER, SELFPAY ==
--- NOTE | 2023-07-10 15:30 | MR_ITS ---
Patient: JESSICA ALVAREZ Facility:?[facility] Patient ID:?[id number] Site Patient ID:?[id number]. Site :?[id number] Study:?MRI-Spine Lumbar W/O-07/10/2023 5:20:54 PM Ordering Physician:ALEXIS JEFF Final Report: Indication: Radiculopathy Technique: Noncontrast sagittal and axial T1, T2, and sagittal STIR sequences are provided. Comparison: MRI 08/17/2022 Findings: Normal lumbar lordotic curvature. Vertebral body heights are maintained. No fractures. Stable grade 1 anterolisthesis at L5-S1 and slight retrolisthesis at L3-4. Postoperative changes of anterior cage and screw fixation at L4-5 and L5- S1, laminectomies at L5-S1 and posterior instrumented fusion at L4-S1 with pedicle screws on the left side at L4-S1 and on the right side at L4. Abandoned screw tracts noted in the right pedicles at L5 and S1. Benign intraosseous hemangioma in the L3 vertebral body. Bilateral renal cysts. T12-L1: No significant spinal canal stenosis or neural foramen narrowing. L1-2: No significant spinal canal stenosis or neural foramen narrowing. L2-3: No significant spinal canal stenosis or neural foramen narrowing. L3-4: Mild disc bulge and small left intraforaminal disc protrusion. Slight retrolisthesis. No spinal canal stenosis. Mild left neural foramen narrowing. No right neural foramen narrowing. L4-5: Postoperative changes. No significant spinal canal stenosis or neural foramen narrowing. L5-S1: Grade 1 anterolisthesis. Postoperative changes. The spinal canal and neural foramina are adequate. Impression: 1. No evidence of acute osseous or ligamentous abnormality. Stable alignment. Stable grade 1 anterolisthesis at L5-S1. 2. Chronic laminectomy changes at L5-S1. Anterior and posterior instrumented fusion at L4-S1. Interval removal of right-sided pedicle screws at L5 and S1 levels. 3. No significant spinal canal stenosis or neural foramen narrowing. Dictated by Zachariah Sneed MD @ 07/12/2023 10:14:22 AM Signed by:?Zachariah Sneed MD @07/12/2023 10:14:22 AM (Electronic Signature)
== END 2023-07-10 15:20 | disposition home or self-care (01) ==
LOC: MRI 15:19
PROVIDERS: PCP Internal Medicine; Visit Provider Internal Medicine
DX: M54.16 Radiculopathy, lumbar region (principal)
CPT/HCPCS: 72148

== ENCOUNTER 2023-07-29 20:09 | Outpatient (CLI) | payer OTHER, SELFPAY ==
--- OUTSIDE RECORDS SUMMARY | 2023-07-29 20:12 | XMS_ITS | Continuity of Care Document ---
Author Name Unknown Organization [facility] Address [address] [place] [address] Phone Care Team Providers Care Well Drill Operator Cable Tool Name Role Phone Darío Frost MD Unavailable Unavailable Allergies, Adverse Reactions, Alerts Substance Reaction Status Criticality codeine Everything Active No Information Medications Medication Instructions Dosage Effective Dates (start - stop) Status Comments CYCLOBENZAPRINE HCL (unknown strength) Not Available - Active IRON (unknown strength) Not Available - Ac tive VITAMIN B-12 (unknown strength) Not Available - Active ZOLOFT (unknown strength) Not Available - Active EFFEXOR XR (unknown strength) Not Available - Active Procedures Procedure Date Postop Followup Visit Lami, Facetectomy/Foraminotomy, Lumbar ( Stenosis) Lami, Facetectomy/Foraminotomy - Additio nal Level(s) - PA Remove Perc Electrode Lami, Facetectomy/Foraminotomy, Lumbar ( Stenosis) Lami, Facetectomy/Foraminotomy - Additio nal Level(s) Remove Perc Electrode Revise/Remove Spinal Neuroreceiver Feb- OFFICE/OUTPATIENT VISIT EST Phone Office/Outpatient Visit,Est, Mod 2022 Office/Outpatient Visit,Est, Mod 2022 Office/Outpatient Visit,Est, Mod [...] BMP Office/Outpatient Visit,Est, Mod 2019 Office/Outpatient Visit,New, [facility] 2019 Advance Directives Directive Yes / No Effective Date File Name No Information Encounters Encounter Description Practice Location Reason(s) For Visit Diagnoses Date Provider Providers Copied on Encounter [facility], [address], [place], [place], [id number] , [place] tel:[phone] [facility] No Information [address] [facility], [address], [address], [place], [address], [place]. tel:[phone] [facility], [address], [place], [place], [id number] , [place] tel:[phone] [facility] Encounter for other specified surgical aftercare [address] [facility], [address], [address], [place], [place], [id number], [place]. tel:[phone] Referring Provider: Freddy Topete, [facility] [address], [address], [place], [address]. tel:[phone] [facility], [address], [place], [place], [id number] , [place] [phone] [facility] No Information [address] [facility], [address] [place] [address], [facility], [place]. tel:[phone] Referring Provider: Freddy Topete, [facility] [address], [address] [place] [address], [address]. [phone] [facility], [address], [place], [id number] , [place] tel:[phone] [facility] No Information [address] [facility], [address], [address], [place], [place], [id number], [place]. tel:[phone] Referring Provider: Freddy Topete, [facility] [address], [address], [place], [address]. [phone] OFFICE/OUTPA TIENT VISIT EST Phone [facility], [address] [place] [id number] , [place] tel:[phone] [facility] No Information [address] [facility], [address], [address], [place], [id number], [place]. tel:[phone] Referring Provider: Freddy Topete, [facility] [address], [address], [place], [address]. tel:[phone] Office/Outpa tient Visit,Est, Mod [facility], [address], [place], [id number] , [place] [phone] [facility] Radiculopathy , lumbar regionArthrod esis status [address] [facility], [address], [address] [place] [address], [id number], [place]. tel:[phone] Referring Provider: Freddy Topete, [facility] [address], [address], [place], [address]. tel:[phone] Office/Outpa tient Visit,Est, Mod [facility], [address], [place], [place], [id number] , [place] tel:[phone] [facility] Arthrodesis status [address] [facility], [address], [address], [id number], [place]. tel:[phone] Referring Provider: Freddy Topete, [facility] [address], [address] [place] [address], [address]. tel:[phone] Office/Outpa tient Visit,Est, Mod [facility], [address], [place], [place], [id number] , [place] [phone] [facility] Arthrodesis status [address] [facility], [address], [address] [place] [address], [id number], [place]. tel:[phone] Referring Provider: Stone Martinez, [facility] [address] [place], [address]. tel:[phone] Office/Outpa tient Visit,Est, Mod [facility], [address], [place], [place], [id number] , [place] tel:[phone] [facility] Arthrodesis status [address] [facility], [address], [address] [place] [address], [id number], [place]. tel:[phone] Referring Provider: Stone Martinez [facility] [address] [place], [address]. tel:[phone] Office/Outpa tient Visit,Est, Mod [facility], [address], [place], [id number] , [place] tel: [phone] [facility] Low back painArthrodes is status 1 No Information Referring Provider: Ritter [facility] [address] [place], [address]. tel:[phone] [facility], [address], [place], [id number] , [place] tel: [phone] [facility] Encounter for other specified surgical aftercare Robles Hayes. [facility], [address] [place] [address], [address], [id number], [place]. tel:[phone] Referring Provider: Ritter [facility] [address] [place], [address]. tel:[phone] [facility], [address], [place], [id number] , [place] tel: [phone] [facility] Arthrodesis status 0 No Information Referring Provider: Ritter [facility] [address] [place], [address]. tel:[phone] [facility], [address], [place], [id number] , [place] tel: [phone] [facility] No Information 0 No Information Referring Provider: Ritter [facility] [address] [place], [address]. tel:[phone] [facility], [address], [place], [id number] , [place] tel: [phone] [facility] No Information [address] [facility], [facility] [address] [place] [address], [address], [id number], [place]. tel:[phone] Referring [facility]: [facility] [address] [place], [address]. tel:[phone] Office/Outpa tient Visit,Est, Mod [facility], [address], [place], [place], [id number] , [place] tel:[phone] [facility] Spinal stenosis, lumbar region with neurogenic claudicationS pondylolisthe sis, lumbar region [address] [facility], [address], [facility] [address], [place], [place], [id number], [place]. tel:[phone] Referring Provider: Ritter [facility] [address] [place], [address]. tel:[phone] Office/Outpa tient Visit,New, Mod [facility], [address], [place], [place], [id number] , [place] tel:[phone] [facility] Spinal stenosis, lumbar region with neurogenic claudicationS pondylolisthe sis, lumbar region 0 No Information Referring Provider: Ritter [facility] [address] [place], [address]. tel:[phone] Family History Family Member Type Diagnosis Age At Onset No Information Payers Payer name Insurance type Covered libertarian ID Authoriza tibennie(s) [employer] [id number] Social History Type Description Quantity Date Captured Comments Sex Female Smoking Status No Information Chief Complaint And Reason For Visit No Information Reason For Referral Reason For Referral No Information Plan Of Treatment Date Type Action Status Appointment Rosio Garcia BOOKED History Of Present Illness Encounter Date Complaint History Of Prese nt Illness No Information Functional Status Date Functional Assessmen t No Information Instructions Date Instruction Additional Infor mation No Information Assessments Type Assessment Date No Information Patient Care Teams Name Effective Dates (start - stop) Status Members No Information
--- OUTSIDE RECORDS SUMMARY | 2023-07-29 20:12 | XMS_ITS | Continuity of Care Document ---
Author Name Unknown Organization [facility] Address [address] [place] [address] Care Team Providers Care Neonatal Intensive Care Nurse Name Role Phone [facility] Unavailable Unav ailable Procedures Procedure Date INJ FORAMEN EPIDURAL L/S INJ FORAMEN EPIDURAL L/S Advance Directives Directive Yes / No Effective Date File Name No Information Encounters Encounter Description Practice Location Reason(s) For Visit Diagnoses Date Provider Providers Copied on Encounter [facility], [address] [place], [place], [id number], [place] [facility] No Information [facility]. [address] [place], [place], [id number], . tel:[phone] Referring Provider: Shilpa Prabhakar, [address] [place], [address]. tel:[phone] Family History Family Member Type Diagnosis Age [...]
--- OUTSIDE RECORDS SUMMARY | 2023-07-29 20:12 | XMS_ITS | Continuity of Care Document ---
Author Name Unknown Organization [facility] Address [address] [place] [address] Care Team Providers Care Telemetry Monitor Name Role Phone Ho Watson CRNA Unavailable Unavailable Procedures Procedure Date ANESTH, HEAD/NECK/PTRUNK Percutaneous Image guided neuromodulatio n or intra Advance Directives Directive Yes / No Effective Date File Name No Information Encounters Encounter Description Practice Location Reason(s) For Visit Diagnoses Date Provider Providers Copied on Encounter [facility], [address] [place], [place], [id number], [facility] No Information 2 Walter Teague. [address] [place], [place], [id number] , . tel:[phone] Referring Provider: Neil Nielson [facility] [address] [facility] [address], [place], [address]. tel:[phone] [facility], [address] [place], [place], [id number], [facility] No Information 2 Walter Teague. [address] [facility], [place], [place], [id number] , . tel:[phone] Referring Provider: Neil Nielson [facility] [address], [place], [address]. tel:[phone] Family History Family Member Type Diagnosis Age At Onset No Information Payers Payer name Insurance type Covered libertarian ID Authoriza tion(s) No Information Social History [...]
--- OUTSIDE RECORDS SUMMARY | 2023-07-29 20:12 | XMS_ITS | Continuity of Care Document ---
Author Name Unknown Organization [facility] enter Address [address] [place] [address] [address] [place] [address] Phone Care Team Providers Care Student Services Director Name Role Phone [facility] Unavailable Unava ilable Procedures Procedure [...] Diagnoses Date Provider Providers Copied on Encounter [facility], [address] [place] [address] 11 [facility] [address], [place], [id number], tel:[phone] [place] [address] No Information 2 [facility]. [address] [place] [address] 11 [facility] [address], [place], [id number], . tel:[phone] Referring Provider: Neil Nielson [address], [place], [address]. tel:[phone] [facility], [address] [place] [address] 11 [facility] [address], [place], [id number], tel:[phone] [facility] No Information 2 [facility]. [address] [facility] [address], [place], [place], [id number], [place]. tel:[phone] Referring Provider: Neil Nielson [address], [place], [address]. tel:[phone] Family History Family Member Type Diagnosis Age [...]
--- OUTSIDE RECORDS SUMMARY | 2023-07-29 20:13 | XMS_ITS | Referral Summary ---
Author Name Unknown Organization [facility] Address [address] [place] [address] Care Team Providers Care Specimen Processor Name Role Phone Stone Martinez MD Primary Care Provider Allergies Active Allergy Reactions Criticality Noted Date Comments Codeine Anaphylaxis,Hives,Na usea and Vomiting High 05/26/2002 Other reaction(s): GI intolerance, HIVES, NAUSEA, VOMITING Nsaids 02/10/2020 Other reaction(s): *Unknown Avoids D/T Hx GBP Medications Medication Sig Dispensed Refills Start Date End Date Status oxyCODONE (ROXICODONE) 5 MG tablet Take 1 tablet (5 mg) by mouth every 6 hours as needed for pain 5 tablet 08/17/2020 Active lidocaine (LIDODERM) 5 % patch Place 1 patch onto the skin every 24 hours To prevent lidocaine toxicity, patient should be patch free for 12 hrs daily. 10 patch 08/17/2020 Active Immunizations Name Administration Dates Next Due COVID-19 MONOVALENT 12+ (Pfizer) 01/10/2021 Social History Tobacco Use Types Packs/Day Years Used Date Smoking Tobacco: Never Assessed Adolescent Education Answer Date Record ed Getting School Help Needed Not on file 12/29 Sex and Gender Information Value Date Recorded Sex Assigned at Female 07/13/2022 10:41 AM CDT Gender Identity Female 07/13/2022 10:41 AM CDT Sexual Orientation Straight 07/13/2022 10 :41 AM CDT Last Filed Vital Signs Vital Sign Reading Time Taken Comments Blood Pressure 114/69 04/04/2021 11:30 PM SENIOR PHYSICAL THERAPIST Pulse 73 04/04/2021 11:30 PM SENIOR PHYSICAL THERAPIST Temperature 36.9 ??C (98.5 ??F) 04/04/2021 7:18 PM CS T Respiratory Rate 11 04/04/2021 10:35 PM SENIOR PHYSICAL THERAPIST Oxygen Saturation 99% 04/04/2021 10:35 PM SENIOR PHYSICAL THERAPIST Inhaled Oxygen Concentration - - Weight 95.4 kg (210 lb 6.4 oz) 04/04/2021 7:11 P M SENIOR PHYSICAL THERAPIST Height - - Body Mass Index - - Plan of Treatment Not on file Procedures Procedure Name Priority Date/Time Associated Diagnosis Comments GLUCOSE BY METER STAT 04/04/2021 7:09 PM SENIOR PHYSICAL THERAPIST LIPID PROFILE Routine 04/10/2018 from Last 3 Months or Most Recently Relevant to Health Maintenance Results * Glucose by meter (04/04/2021 7:09 PM SENIOR PHYSICAL THERAPIST) GLUCOSE BY METER POCT 80 70 - 99 mg/dL 04/04/2021 7:16 PM SENIOR PHYSICAL THERAPIST LABORATORY POC Blood BLOOD SPECIMEN / Unknown 04/04/2021 7:09 PM SENIOR PHYSICAL THERAPIST 04/04/2021 7:16 PM SENIOR PHYSICAL THERAPIST Linette Davies MD LAB - [facility] POC T LABORATORY POC [facility] [address] Lab (1st floor, no room number) [place] [address], [facility] [phone] * (ABNORMAL) Lipid Profile (04/10/2018) Cholesterol 163 90 - 200 mg/dL [facility] Triglycerides 193 40 - 197 mg/dL [facility] HDL Cholesterol 38(L) >=50 mg/dL [facility] LDL Cholesterol Calculated 86 <100 mg/dL [facility] Blood specimen (specimen) 04/10/[address] [facility] - 04/10/[address] [facility] Provider Outside LAB - BLOOD ORDERABL ES [facility] [address] [place] [address], [facility] [phone] from Last 3 Months or Most Recently Relevant to Health Maintenance Care Teams Specimen Processor Relationship Specialty Start Date End Date Stone Martinez MD [facility] [address] [place] [address] PCP - General Internal Medicine 12/07/15
--- OUTSIDE RECORDS SUMMARY | 2023-07-29 20:13 | XMS_ITS | Continuity of Care Document ---
Author Name Unknown Organization [facility] Address [address] [facility] [place] [address] Phone Care Team Providers Care Stars Coordinator Name Role Phone Will Ori MARSHALL Unavailable [...] route every day Not Available - Active Lunesta 3 mg tablet take 1 tablet by oral route every day at bedtime 3 MG - Active Effexor XR 75 mg capsule,extended release take 1 capsule by oral route every day with food 75 MG - Active Procedures Procedure Date ANALYZE NEUROSTIM, COMPLEX SCS Post Op Satellite OFFICE VISIT, EST TELEMEDICINE SCS Post Op Satellite IMPLANT NEUROELECTRODES ASC IMPLANT NEUROELECTRODES ASC INSRT/REDO SPINE N GENERATOR SCS Lead Pull Satellite ORTHOTIC MGMT AND TRAINING IMPLANT NEUROELECTRODES ASC IMPLANT NEUROELECTRODES [facility] ANALYZE NEUROSTIM, COMPLEX Psych Dx Eval [...] Diagnoses Date Provider Providers Copied on Encounter [facility], [address] [place] [address], [id number] , [place] tel:[phone] [facility] [place] No Information 3 Nolan Rehman. [address] [facility] [place], [place], [id number] , [place]. tel:[phone] [facility], [address] [place], [place], [id number] , [place] tel:[phone] [facility] [place] Postlaminectomy syndrome, not elsewhere classified 3 Corina Granados. [address], [place], [place], [id number] , [place]. tel: [phone] OFFICE VISIT, EST TELEMEDICINE [facility], [address] [facility] [place], [place], [id number] , [place] tel: [phone] [facility] [place] Back Pain (chief complaint) Postlaminectomy syndrome, not elsewhere classified 2 Corina Granados. [address] [facility] [address], [place], [place], [id number] , [place]. tel: [phone] [facility], [address] [facility] [place], [id number] , [place] tel: [phone] [facility] [place] Postlaminectomy syndrome, not elsewhere classified 2 Yosi Bianchi. [address] [facility] [address], [place], [place], [id number] , [place]. tel: [phone] Referring Provider: Ori Galvan, [address] [place], [place] [address], [address] . tel:[phone] [facility], [address] [place] [address], [id number] , [place] tel: [phone] [facility] [place] Postlaminectomy syndrome, not elsewhere classified 2 Nielson Neil. [employer], [address] [employer], [place], [address], [place]. tel: [phone] Referring Provider: Ori Galvan, [address] [place], [place] [address], [address] . tel:[phone] [facility], [address] [place] [address], [id number] , [place] tel: [phone] [facility] [place] No Information 2 Nielson Neil. [employer], [address], [place], [address], [place]. tel: [phone] [facility], [address] [place] [address], [id number] , [place] tel: [phone] [facility] [place] Widespread pain (chief complaint) Postlaminectomy syndrome, not elsewhere classifiedLow back pain, unspecified 2 Corina Granados. [facility] [facility] [address], [place], [id number] , [place]. tel: [phone] Referring Provider: Ori Galvan, [address] [place], [place] [address], [address] . tel:[phone] [facility], [address] [place] [address] [place], [place], [id number] , [place] tel: [phone] [facility] Postlaminectomy syndrome, not elsewhere classified 2 Naga Trejo. [facility], [address] [facility] [address], [place], [address], [place]. tel: [phone] Referring Provider: Ori Galvan, [address] [place] [address] [place], [address] . tel:[phone] Psych Dx Eval [facility], [address] [place] [address] [place], [place], [id number] , [place] tel: [phone] [facility] [address] Pain disorder with related psychological factorsMajor depressive disorder, recurrent, in partial remission Jul- 2 Lydia Jeong. [address] [place], [place] [address], [id number] , [place]. tel: [phone] [facility], [address] [place] [address], [id number] , [place] tel: [phone] [facility] [place] lumbago (chief complaint) Spondylosis w/o myelopathy or radiculopathy, lumbar regionPostlaminec gilda syndrome, not elsewhere classified Jul-2 2 Dedra Valentine. [address] [place] [address] [place], [id number] , [place]. tel: [phone] Referring Provider: Ori Galvan, [address] [place], [place] [address], [address] . tel:[phone] [facility], [address] [place] [address], [id number] , [place] tel: [phone] [facility] [place] No Information 2 Corina Granados. [address] [place] [address] [address], [place], [id number] , [place]. tel: [phone] OFFICE/OUTPAT IENT VISIT, EST [facility], [address] [place] [address], [id number] , [place] tel: [phone] [facility] Widespread pain (chief complaint) Chronic pain syndromeSpondylos is w/o myelopathy or radiculopathy, lumbar regionOther intervertebral disc degeneration, lumbar regionPain in left kneePain in right kneeLong term (current) use of opiate analgesicPostlami nectomy syndrome, not elsewhere classified 2 Corina Granados. [address] [place] [address] [address], [place], [id number] , [place]. tel: [phone] Referring Provider: Ori Galvan, [address] [place], [place] [address], [address] . tel:[phone] OFFICE VISIT, [facility] TELEMEDICINE [facility], [address] [place] [address], [id number] , [place] tel: [phone] [facility] Widespread pain (chief complaint) Other intervertebral disc degeneration, lumbar regionChronic pain syndromePain in left kneePain in right kneeLong term (current) use of opiate analgesicSpondylo sis w/o myelopathy or radiculopathy, lumbar regionLow back pain 0 Corina Granados. [address] [place] [address] [address], [place], [id number] , [place]. tel: [phone] Referring Provider: Ori Galvan, [address] [place] [address] [place], [address] . tel:[phone] OFFICE VISIT, EST TELEMEDICINE [facility], [address] [place] [address], [id number] , [place] tel: [phone] [facility] Widespread pain (chief complaint) Other intervertebral disc degeneration, lumbar regionChronic pain syndromePain in left kneePain in right kneeLong term (current) use of opiate analgesicSpondylo sis w/o myelopathy or radiculopathy, lumbar regionLow back pain Oct-0 2-202 0 Corina Granados. [address] [facility] [address], [place], [id number] , [place]. tel: [phone] Referring Provider: Freddie Shay, [facility] [address], [place], [address]. tel:[phone] OFFICE/OUTPAT IENT VISIT, EST [facility], [address] [place] [address], [id number] , [place] tel: [phone] [facility] Widespread pain (chief complaint) Other intervertebral disc degeneration, lumbar regionChronic pain syndromePain in left kneePain in right kneeLong term (current) use of opiate analgesicSpondylo sis w/o myelopathy or radiculopathy, lumbar regionLow back pain Sep-0 4-202 0 Corina Granados. [facility] [facility] [address], [place], [id number] , [place]. tel: [phone] Referring Provider: Ori Galvan, [address] [place] [address] [place], [address] . tel:[phone] [facility], [address] [place] [address] [place], [id number] , [place] tel: [phone] [facility] [place] Other intervertebral disc degeneration, lumbar region Nov- 0 Vanna Massey. [address] [facility] [place], [place], [id number] , [place]. tel: [phone] Referring Provider: Ori Galvan, [address] [place] [address] [place], [address] . tel:[phone] OFFICE VISIT, EST TELEMEDICINE [facility], [address] [facility] [place], [place], [id number] , [place] tel:[phone] [facility] Widespread pain (chief complaint) Chronic pain syndromePain in left kneePain in right kneeLong term (current) use of opiate analgesicOther intervertebral disc degeneration, lumbar regionSpondylosis w/o myelopathy or radiculopathy, lumbar region Nov- 0 Corina Granados. [address] [place] [address] [address], [place], [place], [id number] , [place]. tel:[phone] Referring Provider: Ori Galvan, [address] [place] [address] [place], [address] . tel:[phone] OFFICE VISIT, EST TELEMEDICINE [facility], [address] [place] [address], [id number] , [place] tel:[phone] Telehealth Widespread pain (chief complaint) Chronic pain syndromeLow back painPain in left kneePain in right kneeLong term (current) use of opiate analgesic Oct- 0- 0 Arriagaloc Granados. [address] [place] [address] [address], [place], [place], [id number] , [place]. tel:[phone] Referring Provider: Ori Galvan, [address] [place] [address] [place], [address] . tel:[phone] OFFICE VISIT, EST [facility], [address] [place] [address], [id number] , [place] tel:[phone] [facility] Widespread pain (chief complaint) Chronic pain syndromeLow back painPain in left kneePain in right kneeLong term (current) use of opiate analgesic 0 Arriagaloc Granados. [address] [place] [address] [address], [place], [place], [id number] , [place]. tel:[phone] Referring Provider: Ori Galvan, [address] [place] [address] [place], [address] . tel:[phone] OFFICE VISIT, EST [facility], [address] [place] [address], [id number] , [place] [phone] Tele[facility] Widespread pain (chief complaint) Chronic pain syndromeLow back painPain in left kneePain in right kneeLong term (current) use of opiate analgesic 0 Arriaga Darwin. [address] [place] [address] [address], [place], [place], [id number] , [place]. tel:[phone] Referring Provider: Ori Galvan, [address] [place], [address] . tel:[phone] OFFICE VISIT, [facility] TELEMEDICINE [facility], [address] [place] [address] [place], [id number] , [place] tel: [phone] Telehealth Widespread pain (chief complaint) Chronic pain syndromeLow back painPain in left kneePain in right kneeLong term (current) use of opiate analgesic 0 Arriaga Darwin. [address] [place] [address] [address], [place], [id number] , [place]. tel: [phone] Referring Provider: Ori Galvan, [address] [place] [address] [place], [address] . tel:[phone] OFFICE/OUTPAT IENT VISIT, [facility], [address] [place] [address] [place], [place], [id number] , [place] tel: [phone] [facility] [place] Widespread pain (chief complaint) Chronic pain syndromeLow back painPain in left kneePain in right knee 0 Arriaga Darwin. [address] [place] [address] [address], [place], [id number] , [place]. tel: [phone] Referring Provider: Ori Galvan, [address] [facility] [place], [address] . tel:[phone] OFFICE CONSULTATION [facility], [address] [place] [address] [place], [id number] , [place] [phone] [facility] [place] Widespread pain (chief complaint) Chronic pain syndromeLow back painPain in left kneePain in right knee Feb- 0 Arriaga Darwin. [address] [place] [address] [address], [place], [place], [id number] , [place]. tel: [phone] Referring Provider: Ori Galvan, [address] [facility] [place], [address] . tel:[phone] [facility], [address] [facility] [address] [place], [id number] , [place] tel: [phone] [facility] [place] Widespread pain (chief complaint) No Information 0 Corina Granados. [facility] [facility] [address], [place], [id number] , [place]. tel: [phone] Family History Family Member Type Diagnosis Age At Onset No Information Payers Payer name Insurance type Covered democrat ID Chet luis(s) Umr CI [id number] Social History Type Description Quantity Date Captured Comments Sex Female Smoking Status No Information Chief Complaint And Reason For Visit No Information Reason For Referral Reason For Referral No Information Plan Of Treatment Date Type Action Status Goal BOILING TUB OPERATOR Scanned. Due on 023 due Goal UDT. Due on due Goal AUTOMOTIVE DIAGNOSTIC TECHNICIAN Paperwork. Due on due Goal Tobacco Use. Due on 023 due Goal Height. Due on d ue Goal HPV. Due on due Goal Update Social History. Due o n due Goal OARS. Due on due Goal Weight. Due on d ue Goal Review Allergy List. Due on due Goal Creatinine. Due on 23 due Goal Medication Recon ciliation. Due on due Goal Order Annual PT. Due on due Goal Unhealthy drug u se screening. Due on due Goal ALT (SGPT). Due on due Goal PHQ-9. Due on du e Goal AST (SGOT). Due on due Goal Lipid panel. Due on due Goal Hepatitis C screening. Due o n due Goal AST (SGOT). Due on due Goal BOILING TUB OPERATOR Scanned. Due on due Goal AUTOMOTIVE DIAGNOSTIC TECHNICIAN Paperwork. Due on due Goal Order Annual [...] Goal Weight. Due on d ue Goal Update Social History. Due o n due Goal Hepatitis C screening. Due o n due Goal Review Allergy List. Due on due Goal Lipid panel. Due on due Goal Weight. Due on d ue Goal PHQ-9. Due on du e Goal HPV. Due on due Goal Order Annual PT. Due on due Goal AST (SGOT). Due on due Goal AUTOMOTIVE DIAGNOSTIC TECHNICIAN Paperwork. Due on due Goal Unhealthy drug u se screening. Due on due Goal Creatinine. Due on due Goal BOILING TUB OPERATOR Scanned. Due on due Goal OARS. Due on due Goal ALT (SGPT). Due on due Goal Hepatitis C screening. Due o n due Goal UDT. Due on due Goal Update Social History. Due o n due Goal Height. Due on d ue Goal Tobacco Use. Due on due Goal Medication Recon ciliation. Due on due Goal HPV. Due on due Goal AST (SGOT). Due on due Goal BOILING TUB OPERATOR Scanned. Due on due Goal PHQ-9. Due on du e Goal AUTOMOTIVE DIAGNOSTIC TECHNICIAN Paperwork. Due on due Goal Hepatitis C [...] Goal Height. Due on d ue Goal UDT. Due on due Goal Tobacco Use. Due on due Goal Height. Due on d ue Goal BOILING TUB OPERATOR Scanned. Due on due Goal OARS. Due [...] Goal Tobacco Use. Due on due Goal AUTOMOTIVE DIAGNOSTIC TECHNICIAN Paperwork. Due on due Goal HPV. Due [...] due Goal OARS. Due on due Goal AUTOMOTIVE DIAGNOSTIC TECHNICIAN Paperwork. Due on due Goal Height. Due on d ue Goal ALT (SGPT). Due on due Goal Weight. Due on d ue Goal Unhealthy drug u se screening. Due on due Goal Order Annual PT. Due on due Goal HPV. Due on due Goal Hepatitis C screening. Due o n due Goal BOILING TUB OPERATOR Scanned. Due on due Goal Tobacco Use. Due on due Goal Medication Recon ciliation. Due on due Goal Creatinine. Due on due Goal AST (SGOT). Due on due Goal UDT. Due on due Goal Lipid panel. Due on due Goal ALT (SGPT). Due on due Goal BOILING TUB OPERATOR Scanned. Due on due Goal Hepatitis C [...] u se screening. Due on due Goal AUTOMOTIVE DIAGNOSTIC TECHNICIAN Paperwork. Due on due Goal UDT. Due on due Goal Review Allergy List. Due on due Goal Medication Recon ciliation. Due on due Goal PHQ-9. Due on du e Goal Height. Due on d ue Goal Review Allergy List. Due on due Goal Update Social History. Due o n due Goal BOILING TUB OPERATOR Scanned. Due on due Goal Tobacco Use. Due on due Goal Hepatitis C screening. Due o n due Goal Weight. Due on d ue Goal AST (SGOT). Due on due Goal Lipid panel. Due on due Goal Unhealthy drug u se screening. Due on due Goal HPV. Due on due Goal ALT (SGPT). Due on due Goal AUTOMOTIVE DIAGNOSTIC TECHNICIAN Paperwork. Due on due Goal Creatinine. Due on due Goal OARS. Due on due Goal UDT. Due on due Goal Order Annual PT. Due on due Referral Ordered: X-RAY EXAM [...] R leg have persisted following surgery. S/p [employer] lumbar SCS implant on 10/14/2021 with significant pain relief. Not taking any medications.Of note she has tested positive for COVID. She is not accompanied and has no other concerns today. Widespread pain Duration: chroni c. Comments: Petra [...] discusses SCS trial. Patient expresses interest in [employer] trial and requests the orders be [...] fatigue, fever and incontinence (urinary). Widespread pain Duration: chroni c. Location of [...] concerns. Widespread pain Severity level i s mild-moderate. Duration: chronic. Location of the pain is bilateral hand. The patient describes it as achy, burning and tingling. It occurs persistently. The problem is stable. Symptom is aggravated by lifting, movement and prolonged positioning. Relieving factors include heat, cold, Rx Meds and changing positions. There are no associated symptoms. Widespread pain (comments) The celeste rivas returns [...] tab after a dental procedure. Widespread pain (comments) Maggie rhodes returns for [...] THC, she reports having edible while in [place], [place] a few weeks ago.Current medication regimen [...] and CT scans of her abdomen through [facility]. Currently managing her pain with ibuprofen and Tylenol. She also takes amitriptyline for sleep. Has been prescribed hydrocodone, oxycodone, and morphine in the past for surgeries and tooth pain. Rosio is interested in recommended tx modalities and would like [facility] to assume management of pain care. Widespread pain (comments) Maggie rhodes is here [...] had several XR's and CT scans through [facility]. Currently managed on for additional pain relief. Has previously trialed and failed amitriptyline, NSAIDS, Tylenol, hydrocodone, oxycdone, and morphine. is interested in and would like [facility] to assume management of pain care. Widespread pain Functional Status Date Functional Assessmen t No Information Instructions Date Instruction Additional Infor mation No Information Assessments Type Assessment Date No Information Patient Care Teams Name Effective Dates (start - stop) Status Members No Information
--- OUTSIDE RECORDS SUMMARY | 2023-07-29 20:13 | XMS_ITS | Clinical Summary ---
Author Name Unknown Organization [facility] Address [address] [place] [address] Care Team Providers Care Card Punching Machine Operator Name Role Phone Stone Martinez MD Primary [...] Comments Blood Pressure 114/69 04/04/2021 11:30 PM TEST AND TURN UP TECHNICIAN Pulse 73 04/04/2021 11:30 PM TEST AND TURN UP TECHNICIAN Temperature 36.9 ??C (98.5 ??F) 04/04/2021 7:18 PM CS T Respiratory Rate 11 04/04/2021 10:35 PM TEST AND TURN UP TECHNICIAN Oxygen Saturation 99% 04/04/2021 10:35 PM TEST AND TURN UP TECHNICIAN Inhaled Oxygen Concentration - - Weight 95.4 kg (210 lb 6.4 oz) 04/04/2021 7:11 P M TEST AND TURN UP TECHNICIAN Height - - Body Mass Index - - Plan of Treatment Health Maintenance Due Date Last Done Comments ADVANCE CARE PLANNING 1978 ANNUAL REVIEW OF HM ORDERS 1978 CT COLONOGRAPHY 1978 FIT 1978 FLEX SIG 1978 MAMMO SCREENING 1978 YEARLY PREVENTIVE VISIT 1978 sDNA (Cologuard) 1978 COLONOSCOPY 1988 COLORECTAL CANCER SCREENING 1988 HIV SCREENING 1993 HEPATITIS C SCREENING 1996 PAP 07/12/1999 HEPATITIS B IMMUNIZATION (2 of 3 - 19+ 3-dose series) 07/25/2010 06/27/2010, 06/27/2010 COVID-19 Vaccine ( season) 2022 01/10/2021, 04/20/2020, 03/31/2020 INFLUENZA VACCINE (#1) 2022 , 01/07/2020, 01/04/2019, Additional history exists DTAP/TDAP/TD IMMUNIZATION (6 - Td or Tdap) 12/22/2022 12/22/2012, 12/22/2012, 08/18/2005, Additional history exists PHQ-2 (once per calendar year) 2023 LIPID 04/10/2023 04/10/2018 GLUCOSE 04/04/2024 04/04/2021, 03/10, 08/17/2020, Additional history exists Pneumococcal Vaccine: Pediatrics (0 to 5 Years) and At-Risk Patients (6 to 64 Years) Aged Out 06/22/2010 No longer eligible based on patient's age to complete this topic HPV IMMUNIZATION Aged Out No longer e ligible based on patient's age to complete this topic IPV IMMUNIZATION Aged Out No longer e ligible based on patient's age to complete this topic MENINGITIS IMMUNIZATION Aged Out No l onger eligible based on patient's age to complete this topic RSV MONOCLONAL ANTIBODY Aged Out No l onger eligible based on patient's age to complete this topic Procedures Procedure Name Priority Date/Time Associated Diagnosis Comments GLUCOSE BY METER STAT 04/04/2021 7:09 PM TEST AND TURN UP TECHNICIAN LIPID PROFILE Routine 04/10/2018 from Last 3 Months or Most Recently Relevant to Health Maintenance Results * Glucose by meter (04/04/2021 7:09 PM TEST AND TURN UP TECHNICIAN) GLUCOSE BY METER POCT 80 70 - 99 mg/dL 04/04/2021 7:16 PM TEST AND TURN UP TECHNICIAN LABORATORY POC Blood BLOOD SPECIMEN / Unknown 04/04/2021 7:09 PM TEST AND TURN UP TECHNICIAN 04/04/2021 7:16 PM TEST AND TURN UP TECHNICIAN Linette Davies MD LAB - BEAKER POC T LABORATORY POC [facility] [address] Lab (1st floor, no room number) [place] [address], [facility] [phone] * (ABNORMAL) Lipid Profile (04/10/2018) Cholesterol 163 90 - 200 mg/dL [facility] Triglycerides 193 40 - 197 mg/dL [facility] HDL Cholesterol 38(L) >=50 mg/dL [facility] LDL Cholesterol Calculated 86 <100 mg/dL [facility] Blood specimen (specimen) 04/10/2018 Narrative [facility] - 04/10/[address] [facility] Provider Outside LAB - BLOOD ORDERABL ES [facility] [address] [place] [address], [facility] [phone] from Last 3 Months or Most Recently Relevant to Health Maintenance Care Teams Card Punching Machine Operator Relationship Specialty Start Date End Date Stone Martinez MD [facility] [address] [place] [address] PCP - General Internal Medicine 12/07/15
--- OUTSIDE RECORDS SUMMARY | 2023-07-29 20:13 | XMS_ITS | Encounter Summary ---
Author Name Unknown Organization [facility] Address [address] [place] [address]. [place] [address] Care Team Providers Care Fire Alarm Mechanic Name Role Phone Stone Martinez MD Primary Care Provider Encounter Details Date Type Department Care Team (Late st Contact Info) Description 04/05/2021 Documentation Only INTERFACED REPORT Unknown, Provider Social History Tobacco Use Types Packs/Day Years Used Date Smoking Tobacco: Never Assessed Sex and Gender Information Value Date Recorded Sex Assigned at Female 07/13/2022 10:41 AM CDT Gender Identity Female 07/13/2022 10:41 AM CDT Sexual Orientation Straight 07/13/2022 10 :41 AM CDT COVID-19 Exposure Response Date Recorded In the last month, have you been in contact with someone who was confirmed or suspected to have Coronavirus / COVID-19? No / Unsure 04/04/2021 7:09 PM LIVE TRUCK TECHNICIAN documented as of this encounter Plan of Treatment Not on file documented as of this encounter Visit Diagnoses Not on filedocumented in this encounter Care Teams Fire Alarm Mechanic Relationship Specialty Start Date End Date Stone Martinez MD [facility] [address] [place] [address] PCP - General Internal Medicine 12/07/15 documented as of this encounter
--- OUTSIDE RECORDS SUMMARY | 2023-07-29 20:13 | XMS_ITS | Clinical Summary ---
Author Name Unknown Organization [facility] Address [place], [place] [address] Care Team Providers Care Food Order Expediter Name Role Phone Glenys Agarwal MD Unavailable + Stone Martinez MD Primary Care Provider Allergies Active Allergy Reactions Criticality Noted Date Comments Codeine Anaphylaxis High 12/11/2014 Codeine Hives,Nausea And Vomiting 02/10/2020 Hydromorphone Itching 02/10/2020 Nsaids (Non-Steroidal Anti-Inflammatory Drug) *Unknown 02/10/2020 Avoids D/T Hx GBP Medications Medication Sig Dispensed Refills Start Date End Date Status SUMAtriptan (IMITREX) 100 mg tabletIndications:In tractable migraine with aura without status migrainosus Take 1 tablet by mouth every 2 hours if needed for Migraine. Max dose: 200mg per 24 hrs. 9 tablet 4 01/31/2016 Active cyanocobalamin, vitamin B-12, (CYANOCOBALAMIN SL) Place 500 mcg under the tongue once daily. Active venlafaxine extended release (VENLAFAXINE XR, [facility],) 150 mg extended release tablet Take 150 mg by mouth once daily with a meal. 07/22/2022 Active triamcinolone 0.5% (ARISTOCORT) 0.5 % cream APPLY TOPICALLY TO THE AFFECTED AREA EVERY DAY FOR RASH 11/16/2021 Active cyclobenzaprine (FLEXERIL) 10 mg tabletIndications:Mi dline low back pain without sciatica, unspecified chronicity Take 1 Tablet (10 mg) by mouth 3 times daily if needed for Muscle Spasm. 30 Tablet 08/02/2022 Active sertraline (ZOLOFT) 100 mg tabletIndications:Dy sthymia Take 1 Tablet (100 mg) by mouth once daily. 90 Tablet 3 09/12/2022 Active oxyCODONE (ROXICODONE) 5 mg immediate release tabletIndications:Ac [place] postoperative pain Take 1-2 Tablets (5-10 mg) by mouth every 4 hours. 30 Tablet 02/18/2023 Active acetaminophen (TYLENOL EXTRA STRGTH) 500 mg tabletIndications:Ac [place] postoperative pain Take 2 Tablets (1,000 mg) by mouth every 6 hours. Max acetaminophen dose: 4000mg in 24 hrs. 90 Tablet 02/18/2023 Active methocarbamoL (ROBAXIN) 500 mg tabletIndications:Ac [place] postoperative pain Take 1 Tablet (500 mg) by mouth every 6 hours. 30 Tablet 02/18/2023 Active ondansetron (ZOFRAN ODT) 4 mg disintegrating tabletIndications:Ac [place] postoperative pain Place 1 Tablet (4 mg) on the tongue every 8 hours if needed for Nausea/Vomiting. 20 Tablet 02/18/2023 Active sennosides-docusate (SENOKOT S) (8.6-50 mg) tabletIndications:Ac [place] postoperative pain Take 1-4 Tablets by mouth two times daily. 40 Tablet 02/18/2023 Active furosemide (LASIX) 20 mg tabletIndications:Ed randal, unspecified type Take 0.5 tablets every morning as needed for leg swelling 0 02/18/2023 Active Active Problems Problem Noted Date Diagnosed Date Back pain 02/16/2023 Depression, acute 02/16/2023 Polyarticular arthritis 02/16/2023 Sleep apnea 02/16/2023 Overview: mild, does not use CPAP MRSA (methicillin resistant staph aureus) cultur e positive 12/02/2015 Overview: abdominal wound History of gastric bypass 01/07/2015 Esophageal stricture 12/23/2014 Dysthymia 12/11/2014 Intractable migraine with aura without status mi grainosus 12/11/2014 Gastroesophageal reflux disease without esophagi tis 12/11/2014 Overview: With restrictions secondary to gastric surgery. Often has yearly dilation last was June 2013 Pyelonephritis 04/09/2014 Overview: Due to E coli with associated sepsis Immunizations Name Administration Dates Next Due COVID-19 vaccine (Imperator NT[employer]wired 30mcg/0.3mL) PF, MDV 01/10/2021,04/20/2020,03/31/2020 DTP 11/22/1983 Hepatitis B (Adult) 06/27/2010 Hepatitis B, Unspecified 06/27/2010 Influenza, IIV3 (Age 6-35 mos) 3,06/06/2012,01/17/2011,2009,02/17/2008 Influenza, IIV4 01/07/2022, 0,01/04/2019,2017,01/20/2017,01/31/2016,02/09/2015 Influenza, IIV4 (=>6mos) MDV 02/01/2021 MMR 08/11/1995 Pneumococcal Poly,23-Valent (Pneumovax) 06/22/2010 TD, UNSPECIFIED 1994 Td (Age >=7 Years) 12/22/2012,1994 Tdap 08/18/2005 Family History * Patient is adopted Medical History Relation Name Comments Good Health Daughter 1 Good Health Daughter 2 Unknown Father Unknown Mother Unknown Sister 1/2 sister Good Health Son Relation Name Status Comments Daughter 1 Daughter 2 Father Mother Sister Son Social History Tobacco Use Types Packs/Day Years Used Date Smoking Tobacco: Former Cigarettes Q uit: 07/08/2013 Smokeless Tobacco: Never Tobacco Cessation:Counseling Given: Yes Alcohol Use Standard Drinks/Week Comments Not Currently 0 (1 standard drink = 0.6 oz pur e alcohol) occ PHQ-2 Answer Date Recorded PHQ-2 TOTAL SCORE 1 07/26/2022 Social Connections Answer Date Recorded Frequency of Communication with Friends and Fami ly Not on file 07/28/2023 Financial Resource Strain Answer Date R ecorded Difficulty of Paying Living Expenses 3 07/25/2022 Difficulty of Paying Living Expenses Not on file 07/25/2022 Food Insecurity Answer Date Recorded Worried About Running Out of Food in the Last Ye ar 1 07/25/2022 Transportation Needs Answer Date Record ed Lack of Transportation (Medical) 1 07/25/2022 Housing Stability Answer Date Recorded Unable to Pay for Housing in the Last Year 1 07/25/2022 Sex and Gender Information Value Date Recorded Sex Assigned at Female 07/07/2022 11:17 AM CDT Gender Identity Female 07/07/2022 11:17 AM CDT Sexual Orientation Straight 07/07/2022 11 :17 AM CDT Obstetrics History Last Filed Vital Signs Vital Sign Reading Time Taken Comments Blood Pressure 110/70 02/18/2023 9:00 AM CRANE ASSEMBLER Pulse 70 02/18/2023 9:00 AM CRANE ASSEMBLER Temperature 36.7 ??C (98 ??F) 02/18/2023 9:00 AM CRANE ASSEMBLER Respiratory Rate 18 02/18/2023 9:00 AM CRANE ASSEMBLER Oxygen Saturation 98% 02/18/2023 9:00 AM CRANE ASSEMBLER Inhaled Oxygen Concentration - - Weight 99.7 kg (219 lb 12.8 oz) 02/16/2023 7:15 AM CRANE ASSEMBLER Height 175.3 cm (5' 9) 02/16/2023 7:15 AM CRANE ASSEMBLER Body Mass Index 32.46 02/16/2023 7:15 AM CRANE ASSEMBLER Plan of Treatment Health Maintenance Due Date Last Done Comments HIV for age 15-65 1993 COVID-19 vaccine series ( season) 2022 01/10/2021, 04/20/2020, 03/31/2020 Tetanus booster 12/22/2022 12/22/2012, 08/07, 1994, Additional history exists Lipids for age 45-75 07/12/2023 Mammogram for age 45-75 07/12/2023 2022 BMI (ht and wt on same day) for age 18+ 07/27/2023 07/26/2022, 01/31/2016 Depression screening for age 12+ 07/27/2023 07/26/2022, 03/20/2016, 01/31/2016, Additional history exists Influenza for age 9-49 12/09/2023 , 02/01/2021, 01/07/2020, Additional history exists Colonoscopy through age 75 01/04/2025 01/04/2015 Tdap Completed 08/18/2005 Pneumococcal series for age 6-64 Aged Out 06/22/2010 No longer eligible based on patient's age to complete this topic Hepatitis C screening for age 18-79 Completed 01/18/2015 Pap test for age 21-65 Discontinued Medical Devices Implanted Type Area International Controller Device Identifier Shelf Expiration Date Model / Serial / Lot Carmela Lmbr 60x5.5mm Tsrh 3d Cvd Titnm - [id number] Implanted:Qty: 2 on 02/12/2020 by Freddy Arboleda MD at [facility] Spine Implants N/A: Spine Medtronic Spine/Ortho [id number] / / [id number] one 1-4mm 30cc Medtronic Chips Canclls Freeze Dried Implanted:Qty: 1 on 02/12/2020 by Freddy Arboleda MD at [facility] Explanted:at [facility] (Quantity not on file) N/A: Spine Medtronic Spine/Ortho 08/06/2024 [id number] / [id number] / Connector 3d Medium Implanted:Qty: 2 on 02/12/2020 by Freddy Arboleda MD at [facility] N/A: Spine [id number] / / Description:CONNECTOR 3D MED IUM Bone Matrix Lg Infuse Bmp - [id number] Implanted:Qty: 1 on 02/12/2020 by Freddy Arboleda MD at [facility] N/A: Spine Medtronic Spine/Ortho 11/07/2020 [id number] / / [id number] A Spacer Lmbr 33x14t10ms 12deg Sm Sovereign Stand Alone - [id number] Implanted:Qty: 1 on 02/12/2020 by Freddy Arboleda MD at [facility] N/A: Spine Medtronic Spine/Ortho 03/19/2026 [id number] / / 68GW Spacer Lmbr [id number] 8 Deg Sm Sovereign Stand Alone - [id number] Implanted:Qty: 1 on 02/12/2020 by Freddy Arboleda MD at [facility] N/A: Spine Medtronic Spine/Ortho 12/23/2027 [id number] / / 38KM Screw Lmbr 5.5x20mm Sovereign Stand Alone - [id number] Implanted:Qty: 6 on 02/12/2020 by Freddy Arboleda MD at [facility] N/A: Spine Medtronic Spine/Ortho [id number] / / Set Screw Lmbr Tsrh 3dx - [id number] Implanted:Qty: 6 on 02/12/2020 by Freddy Arboleda MD at [facility] N/A: Spine Medtronic Spine/Ortho [id number] / / Screw Lmbr Post 6.5x35mm Tsrh 3dx Og Thin Va - [id number] Implanted:Qty: 2 on 02/12/2020 by Freddy Arboleda MD at [facility] N/A: Spine Medtronic Spine/Ortho [id number] / / Screw Lmbr Post 6.5x45mm Tsrh 3dx Og Thin Va - [id number] Implanted:Qty: 4 on 02/12/2020 by Freddy Arboleda MD at [facility] N/A: Spine Medtronic Spine/Ortho [id number] / / Connector 3d Small Implanted:Qty: 4 on 02/12/2020 by Freddy Arboleda MD at [facility] N/A: Spine [id number] / / Description:CONNECTOR 3D SMA LL Explanted Type Area International Controller Device Identifier Shelf Expiration Date Model / Serial / Lot Explant Explanted:Qty: 1 on 02/16/2023 at [facility] Description:SCREWS, SET SCRE WS 3, CARMELA 1, ADAPTER 2 Procedures Procedure Name Priority Date/Time Associated Diagnosis Comments XR MAMMO TISH BILAT SCREEN Routine 2022 4:48 PM CDT Encounter for screening mammogram for malignant neoplasm of breast ANTI HCV Routine 01/18/2015 8:55 AM CDT Need for hepatitis C screening test SCAN-COLONOSCOPY 01/04/2015 12:0 0 AM CDT from Last 3 Months or Most Recently Relevant to Health Maintenance Results * XR MAMMO TISH BILAT SCREEN (2022 4:48 PM CDT) Anatomical Region Laterality Modality BREASTS, Breast Left, Breast Right Bilateral Mammography Impressions 07/12/2022 3:37 PM CDT ??There is no radiographic evidence for malignancy. ??Recommend annual mammograms. MAMMOGRAM ASSESSMENT: ??ACR 1 Negative PATIENTS: You will also receive a letter with your examination results in an easy to read format. ??If you have questions about your results, please contact your referring provider. Narrative 07/12/2022 3:37 PM CDT For Patients: As a result of the Century Cures Act, medical imaging exams and procedure reports are released immediately into your electronic medical record. You may view this report before your referring provider. If you have questions, please contact your health care provider. XR MAMMO TISH BILAT SCREEN [[id number]] CLINICAL HISTORY: ??This is an asymptomatic 42 y.o. patient. INDICATION FOR EXAM: Mammogram Screening. TECHNIQUE: CC & MLO views were obtained. ??This study was evaluated with the assistance of Computer-Aided Detection. Breast Tomosynthesis was used in interpretation. COMPARISON FILM: This is a baseline study. ? FINDINGS: ??The breasts have scattered areas of fibroglandular density. There are no dominant masses, suspicious micro calcifications or areas of architectural distortion. Stone Martinez MD MAMMO * ANTI HCV (01/18/2015 8:55 AM CDT) HEPATITIS C ANTIBODY Non-Reacti ve Non-Reacti ve 01/18/2015 1:43 PM CDT [facility] [employer] [facility] Blood specimen (specimen) BLOOD SPECIMEN / Unknown Venipuncture / Unknown 01/18/2015 8:55 AM CDT 01/18/2015 8:55 AM CDT Narrative [facility] - 01/18/2015 1:43 PM CDT Antibodies to HCV not detected; does not exclude the possibility of exposure to HCV. Efren Eng MD SEND OUTS [facility] [address] [place] [address], [place] * SCAN-COLONOSCOPY (01/04/2015 12:00 AM CDT) Scanner OTHER from Last 3 Months or Most Recently Relevant to Health Maintenance Additional Health Concerns Infection Onset Date Last Indicated MRSA Clearance Comment:Infection Control Note: Hx of MRSA 12/02/15 abdominal wound, surveillance criteria met, no need for further testing or isolation precautions. Do not delete or resolve the infection flag. 02/11/2020 02/11/2020 Advance Directives * Full Code (Latest Code Status on File) Date Activated Date Inactivated Comments 02/16/2023 3:43 PM 02/18/2023 2:31 PM Question Answer Comments Code Status Discussion: Other * Full Code Date Activated Date Inactivated Comments 02/12/2020 7:33 PM 02/14/2020 1:48 PM Question Answer Comments Code Status Discussion: Not DiscussedPer Nicole lamb Order Care Teams Food Order Expediter Relationship Specialty Start Date End Date Stone Martinez MD [address] [place] [id number] PCP - General Internal Medicine 02/12/23 Glenys Agarwal MD [address] [place] [id number] Family Practice 01/23/20
--- NOTE | 2023-08-15 11:29 | W.PM.SLEEP ---
Sleep Study Details Details Interpreting Provider: Deyanira Date of Sleep Study: 07/29/23 Sleep Study Details: STUDY TYPE:? Hospital-based attended ? BMI:? 31.5 ORDERING PROVIDER:Stuart Martinez INDICATION:? Concerns about sleep apnea ? SLEEP SUMMARY:? 381 minutes total sleep time RESPIRATORY SUMMARY:? Mean oxygen awake 97 asleep 94, minimum 87 0.3 minutes oxygen between 80 and 88% AHI 16.5, supine 19.6, nonsupine 7.1 supine REM AHI 0 PERIODIC LIMB MOVEMENTS OF SLEEP:? None noted CARDIAC:? Awake 73, asleep 72. No arrhythmias noted IMPRESSION:? Moderate obstructive sleep apnea with supine position dependency RECOMMENDATION: Treatment options include CPAP AutoSet, dental appliance and/or airway expansion surgery.
== END 2023-07-29 20:10 | disposition home or self-care (01) ==
PROVIDERS: PCP Internal Medicine; Visit Provider Internal Medicine
DX: G47.33 Obstructive sleep apnea (adult) (pediatric) (principal)
CPT/HCPCS: 95810

== ENCOUNTER 2023-08-03 09:09 | Outpatient (CLI) | payer OTHER, SELFPAY ==
--- NOTE | 2023-08-03 10:02 | W.ANESCHARGE ---
Anesthesia Charges Start Date/Time Anesthesia Start Date: 08/03/23 Anesthesia Start Time: 10:15 Stop Date/Time Anesthesia Stop Date: 08/03/23 Anesthesia Stop Time: 10:44
--- NOTE | 2023-08-03 10:21 | W.ANESCHARGE ---
Anesthesia Charges Start Date/Time Anesthesia Start Date: 08/03/23 Stop Date/Time Anesthesia Stop Date: 08/03/23
== END 2023-08-03 09:10 | disposition home or self-care (01) ==
LOC: OP CLINIC 09:10
PROVIDERS: PCP Internal Medicine; Visit Provider Internal Medicine
DX: Z12.11 Encounter for screening for malignant neoplasm of colon (principal); K64.4 Residual hemorrhoidal skin tags; K63.5 Polyp of colon; K64.8 Other hemorrhoids
CPT/HCPCS: 00811; 45380; 88305; J2704

== ENCOUNTER 2023-09-24 12:42 | Emergency (ER) | payer BC, SELFPAY ==
[2023-09-24] VITALS (16 sets, daily range): BP systolic 111–127; BP diastolic 73–88; PULSE 71–101; RESP 16–18; TEMP 36.6; O2SAT 94–97; BMI 32.5
--- NOTE | 2023-09-24 13:11 | ED_ITS ---
HPI - Headache General Time Seen by Provider: 13:11 Date Seen: 09/24/23 Chief Complaint: Headache/Migraine Stated Complaint: Migraine Time Seen by Provider: 09/24/23 12:44 Source: patient and RN notes reviewed Mode of arrival: ambulatory Limitations: no limitations History of Present Illness HPI Narrative: This 43-year-old female is coming in with a migraine that she has had for 5 days now. She states she is just been in bed, gets up to go to the bathroom or get something to eat or drink. Otherwise is been going back to bed. She had 1 day where she had a low-grade temperature but only 1 time. She otherwise really is not been feeling ill. Maybe a little cough but nothing concerning. No subsequent fevers, no chills at all. She does have some photophobia and phonophobia. She has a history of migraines. This is behind her right eye like her normal migraines. No other neurologic symptoms with this. She did try her abortive medicine and it has not worked. She states it frequently does work. This is typical of a migraine for her except that they usually do not last this long. MD elicited complaint: migraine Related Data Previous Rx's ?Medication ?Instructions ?Recorded venlafaxine 150 mg 150 mg PO QAM Anxiety #90 caps 11/28/22 capsule,extended release 24 hr gabapentin 100 mg capsule 100 mg PO QHS #90 caps 04/10/23 nystatin 100,000 unit/gram topical 1 applic topical BID PRN itching 07/04/23 powder or burning perianal pain #60 grams meclizine 25 mg tablet 25 mg PO BID PRN dizziness #10 tabs 08/06/23 ondansetron 4 mg disintegrating 4 mg PO Q8H PRN nausea and 08/06/23 tablet vomiting #10 tabs sertraline 100 mg tablet 150 mg (1.5 x 100 mg) PO QDAY 08/24/23 Anxiety #90 tabs oxycodone 10 mg tablet 10 mg PO Q8H PRN pain #30 tabs 09/19/23 Allergies Allergy/AdvReac Type Severity Reaction Status Date / Time codeine Allergy Severe hives, Verified 08/06/23 12:23 nausea, vomiting hydromorphone Allergy Mild itching Verified 08/06/23 12:23 ibuprofen Allergy Mild hx of Verified 08/06/23 12:23 gastric bypass Review of Systems Status of ROS: Reports: 6 or more systems reviewed and unremarkable except as noted in History and below [facility] Medical History History of abdominal hernia ?Z87.19 - Personal history of other diseases of the digestive system (ICD-10) Radiculopathy ?M54.10 - Radiculopathy, site unspecified (ICD-10) Hemorrhoids ?K64.9 - Unspecified hemorrhoids (ICD-10) Fatigue ?R53.83 - Other fatigue (ICD-10) Sore throat ?J02.9 - Acute pharyngitis, unspecified (ICD-10) Anxiety ?F41.9 - Anxiety disorder, unspecified (ICD-10) Back pain ?M54.9 - Dorsalgia, unspecified (ICD-10) Night sweats ?R61 - Generalized hyperhidrosis (ICD-10) Strep throat ?J02.0 - Streptococcal pharyngitis (ICD-10) Eczema ?L30.9 - Dermatitis, unspecified (ICD-10) Rash ?R21 - Rash and other nonspecific skin eruption (ICD-10) Depression ?F32.A - Depression, unspecified (ICD-10) Surgical History History of umbilical hernia repair ?Z98.890 - Other specified postprocedural states (ICD-10) ?Z87.19 - Personal history of other diseases of the digestive system (ICD-10) History of hysterectomy ?Z90.710 - Acquired absence of both cervix and uterus (ICD-10) History of gastric bypass ?Z98.84 - Bariatric surgery status (ICD-10) History of cholecystectomy ?Z90.49 - Acquired absence of other specified parts of digestive tract (ICD- 10) History of section ?Z98.891 - History of uterine scar from previous surgery (ICD-10) Social History Smoking Status: Never smoker Do you use any of these nicotine containing products: None Second hand tobacco smoke exposure: No How often do you have a drink containing alcohol: never How often do you have six or more drinks on one occasion: Never AUDIT-C Alcohol total score: 0 Non-prescribed substance use: denies use Little interest or pleasure in doing things: nearly every day Feeling down, depressed, or hopeless: nearly every day Exam Const: Vital Signs, click to edit/add: Vital Signs - 24 hr 09/24/23 12:48 09/24/23 14:38 09/24/23 14:44 Temperature 97.9 F Pulse Rate 78 78 Pulse Rate [Right Pulse Oximeter] 101 H Respiratory Rate 18 18 Blood Pressure 116/79 Blood Pressure [Ri ght Upper Arm] 127/88 Pulse Oximetry 97 95 97 Oxygen Delivery Me thod Room Air 09/24/23 14:45 09/24/23 14:45 09/24/23 14:46 Temperature Pulse Rate 77 73 Pulse Rate [Right Pulse Oximeter] Respiratory Rate 16 Blood Pressure 111/76 Blood Pressure [Ri ght Upper Arm] Pulse Oximetry 96 97 96 Oxygen Delivery Me thod 09/24/23 14:47 09/24/23 15:00 09/24/23 15:01 Temperature Pulse Rate 73 75 71 Pulse Rate [Right Pulse Oximeter] Respiratory Rate 16 Blood Pressure 116/77 Blood Pressure [Ri ght Upper Arm] Pulse Oximetry 94 94 95 Oxygen Delivery Me thod 09/24/23 15:15 09/24/23 15:16 09/24/23 15:17 Temperature Pulse Rate 76 73 75 Pulse Rate [Right Pulse Oximeter] Respiratory Rate Blood Pressure 122/73 Blood Pressure [Ri ght Upper Arm] Pulse Oximetry 96 96 96 Oxygen Delivery Me thod 09/24/23 15:30 09/24/23 15:31 09/24/23 15:32 Temperature Pulse Rate 71 73 71 Pulse Rate [Right Pulse Oximeter] Respiratory Rate Blood Pressure 118/74 Blood Pressure [Ri ght Upper Arm] Pulse Oximetry 95 95 96 Oxygen Delivery Me thod 09/24/23 15:45 09/24/23 15:46 Temperature Pulse Rate 73 71 Pulse Rate [Right Pulse Oximeter] Respiratory Rate Blood Pressure 115/78 Blood Pressure [Ri ght Upper Arm] Pulse Oximetry 95 95 Oxygen Delivery Me thod Patient is seen in exam room 1, lytes are out. She is alert, interactive, no apparent distress but looks like she does not feel well. Pupils are equal round reactive, sclerae clear, conjugate gaze. Symmetrical facial function, speech normal. Neck supple, no adenopathy, no thyromegaly masses or nodules. Lungs are clear, good air entry, no wheezing crackles. CV regular rate and rhythm, no murmur, normal S1-S2, no S3-S4. She was ambulatory into the ED of her own accord. Strength is normal and symmetrical, no focal motor or sensory neurologic deficits noted. Documenting provider has reviewed patient's vital signs: yes Course Course ED Course: Patient has had a 5 day course of a migraine headache. There may have been a low-grade fever at the onset of this, do think we should look at some basic labs for her. She has no neurologic change, otherwise seems to be atypical but bad migraine for her. Would not recommend any neuro imaging at this point. Discussed with her that we will place an IV, give her L of IV fluids, start with Toradol, Reglan and Benadryl. We will see how she responds to this and get some basic labs. We did discuss doing a screening COVID test on her, she is in agreement to do so. This could be consistent with infective etiology if COVID. Reevaluation(s) Time of Reevaluation #1: 14:33 Reevaluation #1: Nursing staff notes headache not much improved with the initial medicines. Will add in IV ketamine 20 mg migraine protocol. Time of Reevaluation #2: 15:30 Reevaluation #2: Patient is had absolutely no improvement in her headache. In this case, discussed doing neuro imaging with noncontrast head CT. Patient is in agreement. Can talk to her more after head CT is done about further options. Time of Reevaluation #3: 17:19 Reevaluation #3: We reviewed normal head CT imaging. We really have not made much headway with her headache despite medicines given. Did offer her droperidol, did discuss QT interval monitoring and baseline EKG with this. She decline. She opted for steroids, will give her prednisone from [facility] and will give her a few tablets of oxycodone from [facility]. Vital Signs Vital signs: Initial Vital Signs Temperature 97.9 F 09/24/23 12:48 Temperature Source Temporal Artery Scan 09/24/23 12:48 Pulse Rate 101 H 09/24/23 12:48 Respiratory Rate 18 09/24/23 12:48 Blood Pressure 127/88 09/24/23 12:48 Blood Pressure Mean 101 09/24/23 12:48 Blood Pressure Position Sitting 09/24/23 12:48 Pulse Oximetry 97 09/24/23 12:48 Oxygen Delivery Method Room Air 09/24/23 12:48 Vital Signs Temperature 97.9 F 09/24/23 12:48 Pulse Rate 101 H 09/24/23 12:48 Respiratory Rate 18 09/24/23 12:48 Blood Pressure 127/88 09/24/23 12:48 Pulse Oximetry 97 09/24/23 12:48 Oxygen Delivery Method Room Air 09/24/23 12:48 Temperature 97.9 F 09/24/23 12:48 Pulse Rate 71 09/24/23 15:46 Respiratory Rate 16 09/24/23 15:01 Blood Pressure 115/78 09/24/23 15:46 Pulse Oximetry 95 09/24/23 15:46 Oxygen Delivery Method Room Air 09/24/23 12:48 Medications Administered Medications: Discontinued Medications Generic Name Dose Route Start Last Admin Trade Name Tigist PRN Reason Stop Dose Admin Diphenhydramine HCl 25 mg 09/24/23 13:14 09/24/23 13:43 Diphenhydramine 50 Mg/Ml Inj IVP 09/24/23 13:15 25 mg ONCE ONE Administration Sodium Chloride 1,000 mls @ 1,000 mls/hr 09/24/23 13:15 09/24/23 15:27 0.9 % Sodium Chloride 1000 Ml IV 09/24/23 14:14 Infused .Q1H CLAIRE Infusion Metoclopramide HCl 10 mg/ 102 mls @ 306 mls/hr 09/24/23 13:14 09/24/23 14:25 Sodium Chloride IVPB 09/24/23 13:15 Infused ONCE ONE Infusion Ketamine HCl 20 mg/ Sodium 100.2 mls @ 200.4 mls/hr 09/24/23 14:33 09/24/23 15:17 Chloride IVPB 09/24/23 14:34 Infused ONCE ONE Infusion Ketorolac Tromethamine 15 mg 09/24/23 13:14 09/24/23 13:43 Ketorolac 15 Mg/Ml Inj IVP 09/24/23 13:15 15 mg ONCE ONE Administration MDM - Headache Lab Data Attestation: I reviewed the patient's lab results. Labs: Lab Results 09/24/23 Range/Units 13:25 WBC 8.34 (4.50-11.00) K/uL RBC 4.29 (4.00-5.20) m/uL Hgb 14.7 (12.0-16.0) gm/dL Hct 43.4 (33.0-51.0) % MCV 101 H (80-100) fL MCH 34 (26-34) pg MCHC 34 (32-36) gm/dL RDW Coeff of Reyes 12.9 (11.5-15.5) % Plt Count 320 (140-440) K/uL Neut % (Auto) 83.7 H (42.0-72.0) % Lymph % (Auto) 12.4 L (20-44) % [place] % (Auto) 3.1 (0.0-11.0) % Eos % (Auto) 0.6 (0.0-7.0) % Baso % (Auto) 0.1 (0.0-3.0) % Neut # (Auto) 7.00 (1.7-7.0) K/uL Lymph # (Auto) 1.00 (0.90-2.90) K/uL [place] # (Auto) 0.30 (0.00-0.90) K/UL Eos # (Auto) 0.05 (0.00-0.50) K/uL Baso # (Auto) 0.01 (0.00-0.30) K/uL Abs Immat Gran (auto) 0.01 (0.00-0.30) K/uL Imm/Tot Granulo (auto) 0.1 % Sodium 140 (135-149) mmol/L Potassium 4.0 (3.6-5.1) mmol/L Chloride 103 (96-114) mmol/L Carbon Dioxide 29 (20-32) mmol/L Anion Gap 8 (7-15) mEq/L BUN 14 (5-24) mg/dL Creatinine 0.6 (0.5-1.5) mg/dL Estimated Creat Clear 123.74 Estimated GFR 113 ml/min Glucose 126 H (60-115) mg/dL Calcium 9.8 (8.4-10.6) mg/dL C-Reactive Protein 3.1 H (0.5-1.0) mg/dL SARS-CoV-2 (PCR) Negative SARS-CoV-2 (Negative) Imaging Data CT scan - head: Attestation: I have reviewed the pertinent imaging results. Radiologist's impression: Patient: JESSICA ALVAREZ Facility:?[facility] Patient ID:?[id number] Site Patient ID:?[id number]. Site :?[id number] Study:?CT-Head WITHOUT-09/24/2023 4:13:09 PM Ordering Physician:Narinder Montilla Final Report: Indication: acute on chronic neck pain Technique: CT of the head without contrast. Coronal and sagittal reformats. Bone and soft tissue windows. Comparison: No prior studies available for comparison at this institution. Findings: No acute intracranial hemorrhage or extra-axial collection. No evidence of acute cortical infarction. No mass effect or midline shift. Normal cerebral volume. The ventricles are normal in size, shape and contour. There is normal luna and white matter differentiation. The pituitary gland, optic chiasm, pineal gland, and cerebellar tonsils are unremarkable. The orbital contents are normal. No calvarial fractures. No lytic or sclerotic osseous lesions within the calvarium or skull base. Scalp and other imaged soft tissue structures are normal. Mastoid air cells are clear. Paranasal sinuses are well aerated. Leftward deviation of the nasal septum. Impression: No acute intracranial abnormality. Please note that all CT scans at this facility use dose modulation, iterative reconstruction, and/or weight-based dosing when appropriate to reduce radiation dose to as low as reasonably achievable. Dictated by Zachariah Sneed MD @ 09/24/2023 4:42:10 PM (Electronic Signature) Discharge Plan Discharge Clinical Impression: Migraine headache Qualifiers: Migraine type: unspecified Status migrainosus presence: with status migrainosus Intractability: intractable Qualified Code(s): G43.911 - Migraine, unspecified, intractable, with status migrainosus Patient Disposition: Home, Self-Care Condition: Stable Instructions: Migraine Headache (ED) Additional Instructions: Start prednisone and take as prescribed, take with food to protect your stomach. Can continue with Tylenol and ibuprofen per bottle directions as needed for subsequent pain management. Rest, drink plenty of fluids to stay hydrated. Did write for few tablets of oxycodone 5 mg, four provided. Follow prescription instructions. If you are not improving in the next couple days, feel you are worsening or have subsequent concerns, do recommend re-evaluation. If you are having worsening of your migraine headaches, may need to consider neurology referral through your primary care provider at some point. Activity Level: Activity as Tolerated Prescriptions: No Action nystatin 100,000 unit/gram powder 1 applic topical BID PRN (Reason: itching or burning perianal pain) Qty: 60 0RF meclizine 25 mg tablet 25 mg PO BID PRN (Reason: dizziness) Qty: 10 0RF ondansetron 4 mg tablet,disintegrating 4 mg PO Q8H PRN (Reason: nausea and vomiting) Qty: 10 0RF venlafaxine 150 mg capsule,extended release 24hr 150 mg PO QAM Qty: 90 2RF gabapentin 100 mg capsule 100 mg PO QHS Qty: 90 3RF sertraline 100 mg tablet 150 mg PO QDAY Qty: 90 3RF oxycodone 10 mg tablet 10 mg PO Q8H PRN (Reason: pain) Qty: 30 0RF Follow Up/Referrals: Stone Martinez MD [Primary Care Provider] - Stand Alone Forms: [employer] Info Instructions
[2023-09-24 13:37] LABS: Basophils Absolute Auto 0.01 K/uL (0.00-0.30); Basophils Percent Auto 0.1 % (0.0-3.0); Eosinophils Absolute Auto 0.05 K/uL (0.00-0.50); Eosinophils Percent Auto 0.6 % (0.0-7.0); Hematocrit 43.4 % (33.0-51.0); Hemoglobin* 14.7 gm/dL (12.0-16.0); Immature Granulocytes Abs Auto 0.01 K/uL (0.00-0.30); Immature Granulocytes Pct Auto 0.1 %; Lymphocytes Percent Auto 12.4 % (20-44); Mean Corpuscular HGB Conc 34 gm/dL (32-36); Mean Corpuscular Hemoglobin 34 pg (26-34); Mean Corpuscular Volume 101 fL (80-100); Monocytes Percent Auto 3.1 % (0.0-11.0); Neutrophils Percent Auto 83.7 % (42.0-72.0); Platelet Count* 320 K/uL (140-440); RDW Coefficient of Variation % 12.9 % (11.5-15.5); Red Blood Count 4.29 m/uL (4.00-5.20); White Blood Count* 8.34 K/uL (4.50-11.00)
[2023-09-24] MEDS: KETOROLAC 15 MG/ML inj IVP (13:43)
[2023-09-24] MEDS: diphenhydrAMINE 50 MG/ML inj 25 MG IVP (13:43)
[2023-09-24] MEDS: 0.9 % SODIUM CHLORIDE 1000 ml 1,000 ML IV (13:43)
[2023-09-24 13:44] LABS: Slide Review Reflex No
[2023-09-24] MEDS: METOCLOPRAMIDE HCL 10 MG in 0.9 % SODIUM CHLORIDE 100 ml 100 ML 306 MG IVPB (13:49)
[2023-09-24 13:51] LABS: Chloride* 103 mmol/L (96-114); Sodium* 140 mmol/L (135-149)
[2023-09-24 13:54] LABS: Creatinine* 0.6 mg/dL (0.5-1.5); Est. Creatinine Clearance* 123.74; Estimated Glomerular Filt Rate 113 ml/min
[2023-09-24 13:55] LABS: Anion Gap 8 mEq/L (7-15); Blood Urea Nitrogen* 14 mg/dL (5-24); Calcium* 9.8 mg/dL (8.4-10.6); Carbon Dioxide* 29 mmol/L (20-32); Glucose* 126 mg/dL (60-115)
[2023-09-24 13:59] LABS: C Reactive Protein* 3.1 mg/dL (0.5-1.0)
--- OUTSIDE RECORDS SUMMARY | 2023-09-24 14:01 | XMS_ITS | Continuity of Care Document ---
Author Organization [facility] Address [address] [place] [address] Care Team Providers Care Manager Vehicle Name Role Phone Ho Watson CRNA Unavailable Unavailable Procedures Procedure Date ANESTH, HEAD/NECK/PTRUNK Percutaneous Image guided neuromodulatio n or intra Advance Directives Directive Yes / No Effective Date File Name No Information Encounters Encounter Description Practice Location Reason(s) For Visit Diagnoses Date Provider Providers Copied on Encounter [facility], [address] [place], [place], [id number], [facility] No Information 2 Walter Teague. [address] [place], [place], [id number] , . tel:[phone] Referring Provider: Neil Nielson [facility] [address] [facility] [address], [place], [address]. tel:[phone] [facility], [address] [place], [place], [id number], [facility] No Information 2 Walter Teague. [address] [facility], [place], [place], [id number] , . tel:[phone] Referring Provider: Neil Nielson [facility] [address], [place], [address]. tel:[phone] Family History Family Member Type Diagnosis Age [...]
--- OUTSIDE RECORDS SUMMARY | 2023-09-24 14:01 | XMS_ITS | Continuity of Care Document ---
Author Organization [facility] Address [address] [place] [address] Care Team Providers Care Supervisor Dock Name Role Phone [facility] Unavailable Unav ailable Procedures Procedure Date INJ FORAMEN EPIDURAL L/S INJ FORAMEN EPIDURAL L/S Advance Directives Directive Yes / No Effective Date File Name No Information Encounters Encounter Description Practice Location Reason(s) For Visit Diagnoses Date Provider Providers Copied on Encounter [facility], [address] [place], [place], [id number], [place] [facility] No Information [facility]. [address] [place], [place], [id number], . tel:[phone] Referring Provider: Shilpa Prabhakar, [address] [place], [address]. tel:[phone] Family History Family Member Type Diagnosis Age [...]
--- OUTSIDE RECORDS SUMMARY | 2023-09-24 14:01 | XMS_ITS | Continuity of Care Document ---
Author Organization [facility] enter Address [address] [place] [address] [address] [facility] [address] [place] [address] Phone Care Team Providers Care Upholstery Trimmer Name Role Phone [facility] Unavailable Unava ilable Procedures Procedure Date [...] Diagnoses Date Provider Providers Copied on Encounter [facility], [address] [place] [address] [address] [facility] [address], [place], [id number], tel:[phone] [place] [address] No Information 2 [facility]. [address] [place] [address] [address] [facility] [address], [place], [id number], . tel:[phone] Referring Provider: Neil Nielson [address], [place], [address]. tel:[phone] [facility], [address] [place] [address] [address] [facility] [address], [place], [id number], tel:[phone] [facility] No Information 2 [facility]. [address] [facility] [address], [place], [place], [id number], [place]. tel:[phone] Referring Provider: Neil Nielson [address], [place], [address]. tel:[phone] Family History Family Member Type Diagnosis Age [...]
--- OUTSIDE RECORDS SUMMARY | 2023-09-24 14:02 | XMS_ITS | Continuity of Care Document ---
Author Organization [facility] blayne Address [address] [facility] [place] [address] Phone Care Team Providers Care Applications Instructor Name Role Phone Will Ori MARSHALL Unavailable [...] AND TRAINING IMPLANT NEUROELECTRODES ASC IMPLANT NEUROELECTRODES [facility] ANALYZE NEUROSTIM, COMPLEX Psych Dx Eval [...] Date Provider Providers Copied on Encounter [facility], [address] [place], [place], [id number] , [place] tel:[phone] [facility] [place] No Information 3 Nolan Ori. [address] [place], [place], [id number] , [place]. tel:[phone] [facility], [address] [place], [place], [id number] , [place] tel:[phone] [facility] [place] Postlaminectomy syndrome, not elsewhere classified 3 Corina Granados. [address] [facility] [address], [place], [place], [id number] , [place]. tel: [phone] OFFICE VISIT, EST TELEMEDICINE [facility], [address] [facility] [place], [place], [id number] , [place] tel: [phone] [facility] [place] Back Pain (chief complaint) Postlaminectomy syndrome, not elsewhere classified 2 Corina Granados. [address] [facility] [address], [place], [place], [id number] , [place]. tel: [phone] [facility], [address] [facility] [place], [place], [id number] , [place] tel: [phone] [facility] [place] Postlaminectomy syndrome, not elsewhere classified 2 Yosi Bianchi. [address] [facility] [address], [place], [place], [id number] , [place]. tel: [phone] Referring Provider: Ori Galvan, [address] [place], [place] [address], [address] . tel:[phone] [facility], [address] [place] [address], [id number] , [place] tel: [phone] [place] [facility] [place] Postlaminectomy syndrome, not elsewhere classified 2 Nielson Neil. [employer], [address], [place], [address], [place]. tel: [phone] Referring Provider: Ori Galvan, [address] [place], [place] [address], [address] . tel:[phone] [facility], [address] [place] [address], [id number] , [place] tel: [phone] [facility] [place] No Information 2 Nielson Neil. [employer], [address], [place], [address], [place]. tel: [phone] [facility], [address] [place], [place], [id number] , [place] tel: [phone] [facility] [place] Widespread pain (chief complaint) Postlaminectomy syndrome, not elsewhere classifiedLow back pain, unspecified 2 Corina Granados. [facility] [facility] [address] [facility] [address], [place], [id number] , [place]. tel: [phone] Referring Provider: Ori Galvan, [address] [place] [address] [place], [address] . tel:[phone] [facility], [address] [place] [address], [id number] , [place] tel: [phone] [place] [facility] Postlaminectomy syndrome, not elsewhere classified 2 Nielsonlele Trejo. [facility], [address] [facility] [address], [place], [address], [place]. tel: [phone] Referring Provider: Ori Galvan, [address] [place] [address] [place], [address] . tel:[phone] Psych Dx Eval [facility], [address] [place] [address], [id number] , [place] tel: [phone] [facility] [address] Pain disorder with related psychological factorsMajor depressive disorder, recurrent, in partial remission Jul- 2 Lydia Jeong. [address] [place], [place] [address], [id number] , [place]. tel: [phone] [facility], [address] [place] [address], [id number] , [place] tel: [phone] [facility] Court lumbago (chief complaint) Spondylosis w/o myelopathy or radiculopathy, lumbar regionPostlaminec gilda syndrome, not elsewhere classified Jul-2 2 Dedra Valentine. [address] [place] [address] [facility] [place] [place], [id number] , [place]. tel: [phone] Referring Provider: Ori Galvan, [address] [place], [place] [address], [address] . tel:[phone] [facility], [address] [place] [address], [id number] , [place] tel: [phone] [facility] [place] No Information 2 Corina Granados. [address] [place] [address] [address], [place], [id number] , [place]. tel: [phone] OFFICE/OUTPAT IENT VISIT, [facility], [address] [place] [address] [place], [id number] , [place] tel: [phone] [facility] Widespread pain (chief complaint) Chronic pain syndromeSpondylos is w/o myelopathy or radiculopathy, lumbar regionOther intervertebral disc degeneration, lumbar regionPain in left kneePain in right kneeLong term (current) use of opiate analgesicPostlami nectomy syndrome, not elsewhere classified 2 Corina Granados. [address] [place] [address] [address], [place], [place], [id number] , [place]. tel: [phone] Referring Provider: Ori Galvan, [address] [place], [place] [address], [address] . tel:[phone] OFFICE VISIT, [facility] TELEMEDICINE [facility], [address] [place] [address], [id number] , [place] tel: [phone] [facility] Widespread pain (chief complaint) Other intervertebral disc degeneration, lumbar regionChronic pain syndromePain in left kneePain in right kneeLong term (current) use of opiate analgesicSpondylo sis w/o myelopathy or radiculopathy, lumbar regionLow back pain 0 Corina Granados. [address] [place] [address] [address], [place], [id number] , [place]. tel: [phone] Referring Provider: Ori Galvan, [address] [place] [address] [place], [address] . tel:[phone] OFFICE VISIT, EST TELEMEDICINE [facility], [address] [place] [address], [id number] , [place] tel: [phone] [facility] Widespread pain (chief complaint) Other intervertebral disc degeneration, lumbar regionChronic pain syndromePain in left kneePain in right kneeLong term (current) use of opiate analgesicSpondylo sis w/o myelopathy or radiculopathy, lumbar regionLow back pain Oct-0 2-202 0 Corina Granados. [address] [facility] [address], [place], [id number] , [place]. tel: [phone] Referring Provider: Freddie Shay, [facility] [address], [place], [address]. tel:[phone] OFFICE/OUTPAT IENT VISIT, EST [facility], [address] [place] [address], [id number] , [place] tel: [phone] [facility] Widespread pain (chief complaint) Other intervertebral disc degeneration, lumbar regionChronic pain syndromePain in left kneePain in right kneeLong term (current) use of opiate analgesicSpondylo sis w/o myelopathy or radiculopathy, lumbar regionLow back pain Sep-0 4-202 0 Corina Granados. [facility] [facility] [address], [place], [id number] , [place]. tel: [phone] Referring Provider: Ori Galvan, [address] [facility] [place], [address] . tel:[phone] [facility], [address] [place] [address] [place], [id number] , [place] tel: [phone] [facility] Other intervertebral disc degeneration, lumbar region Nov- 0 Vanna Massey. [address] [facility] [place], [id number] , [place]. tel: [phone] Referring Provider: Ori Galvan, [address] [place] [address] [place], [address] . tel:[phone] OFFICE VISIT, EST TELEMEDICINE [facility], [address] [facility] [place], [id number] , [place] tel: [phone] [facility] Widespread pain (chief complaint) Chronic pain syndromePain in left kneePain in right kneeLong term (current) use of opiate analgesicOther intervertebral disc degeneration, lumbar regionSpondylosis w/o myelopathy or radiculopathy, lumbar region Nov- 0 Corina Granados. [address] [place] [address] [address], [place], [place], [id number] , [place]. tel:[phone] Referring Provider: Ori Galvan, [address] [place] [address] [place], [address] . tel:[phone] OFFICE VISIT, EST TELEMEDICINE [facility], [address] [place] [address], [id number] , [place] tel:[phone] [facility] Widespread pain (chief complaint) Chronic pain syndromeLow back painPain in left kneePain in right kneeLong term (current) use of opiate analgesic Oct- 0 0 Corina Granados. [address] [place] [address] [address], [place], [place], [id number] , [place]. tel:[phone] Referring Provider: Ori Galvan, [address] [place] [address] [place], [address] . tel:[phone] OFFICE VISIT, [facility], [address] [place] [address], [id number] , [place] tel:[phone] [facility] Widespread pain (chief complaint) Chronic pain syndromeLow back painPain in left kneePain in right kneeLong term (current) use of opiate analgesic 0 Corina Granados. [address] [place] [address] [address], [place], [place], [id number] , [place]. tel:[phone] Referring Provider: Ori Galvan, [address] [place] [address] [place], [address] . tel:[phone] OFFICE VISIT, EST [facility], [address] [place] [address], [id number] , [place] [phone] [facility] Widespread pain (chief complaint) Chronic pain syndromeLow back painPain in left kneePain in right kneeLong term (current) use of opiate analgesic 0 Arriagaloc Granados. [address] [place] [address] [address], [place], [place], [id number] , [place]. tel:[phone] Referring Provider: Ori Galvan, [address] [place], [address] . tel:[phone] OFFICE VISIT, [facility] TELEMEDICINE [facility], [address] [place] [address] [place], [id number] , [place] tel:[phone] [facility] Widespread pain (chief complaint) Chronic pain syndromeLow back painPain in left kneePain in right kneeLong term (current) use of opiate analgesic 0 Arriagaloc Granados. [address] [place] [address] [address], [place], [id number] , [place]. tel:[phone] Referring Provider: Ori Galvan, [address] [place], [address] . tel:[phone] OFFICE/OUTPAT IENT VISIT, [facility], [address] [place] [address], [place], [id number] , [place] [phone] [facility] [place] Widespread pain (chief complaint) Chronic pain syndromeLow back painPain in left kneePain in right knee Jun- 0 Arriagaloc Granados. [address] [place] [address] [address], [place], [id number] , [place]. tel:[phone] Referring Provider: Ori Galvan, [address] [facility] [place], [address] . tel:[phone] OFFICE CONSULTATION [facility], [address] [place] [address] [place], [id number] , [place] [phone] [facility] [place] Widespread pain (chief complaint) Chronic pain syndromeLow back painPain in left kneePain in right knee Feb- 0 Arriaga Darwin. [facility] [facility] [address], [place], [place], [id number] , [place]. tel:[phone] Referring Provider: Ori Galvan, [address] [facility] [place], [address] . tel:[phone] [facility], [address] [place], [id number] , [place] tel: [phone] [facility] [place] Widespread pain (chief complaint) No Information May- 0 Corina Granados. [facility] [facility] [address] [facility] [address], [place], [id number] , [place]. tel: [phone] Family History Family Member Type Diagnosis Age At Onset No Information Payers Payer name Insurance type Covered alliance party ID Authorjunaid luis(s) Umr [id number] Social History Type Description Quantity Date Captured Comments Sex Female Smoking Status No Information Chief Complaint And Reason For Visit No Information Reason For Referral Reason For Referral No Information Plan Of Treatment Date Type Action Status Goal Order Annual PT. Due on due Goal CAPTAIN AIRLINE PILOT Paperwork. Due on due Goal ALT (SGPT). [...] Goal AST (SGOT). Due on due Goal LEASE OPERATOR Scanned. Due on due Goal AST (SGOT). Due on due Goal CAPTAIN AIRLINE PILOT Paperwork. Due on due Goal Creatinine. Due on due Goal UDT. Due on due Goal LEASE OPERATOR Scanned. Due on due Goal OARS. [...] Goal Height. Due on d ue Goal CAPTAIN AIRLINE PILOT Paperwork. Due on due Goal OARS. Due [...] Goal AST (SGOT). Due on due Goal LEASE OPERATOR Scanned. Due on due Goal Update Social [...] Goal PHQ-9. Due on du e Goal LEASE OPERATOR Scanned. Due on due Goal OARS. Due on due Goal Creatinine. Due on due Goal AST (SGOT). Due on due Goal UDT. Due on due Goal Order Annual PT. Due on due Goal ALT (SGPT). Due on due Goal CAPTAIN AIRLINE PILOT Paperwork. Due on due Goal HPV. Due on due Goal Lipid panel. Due on due Goal Height. Due on d ue Goal Review Allergy List. Due on due Goal ALT (SGPT). Due on due Goal Order Annual PT. Due on due Goal LEASE OPERATOR Scanned. Due on due Goal Creatinine. Due on due Goal AST (SGOT). Due on due Goal UDT. Due on due Goal Height. Due on d ue Goal OARS. Due on due Goal CAPTAIN AIRLINE PILOT Paperwork. Due on due Goal Weight. Due on [...] Social History. Due o n due Goal Order Annual PT. Due on due Goal Unhealthy drug u se screening. Due on due Goal Review Allergy List. Due on due Goal Creatinine. Due on due Goal OARS. Due on due Goal AST (SGOT). Due on due Goal CAPTAIN AIRLINE PILOT Paperwork. Due on due Goal UDT. Due on due Goal Hepatitis C screening. Due o n due Goal Tobacco Use. Due on due Goal Weight. Due on d ue Goal Medication Recon ciliation. Due on due Goal Height. Due on d ue Goal PHQ-9. Due on du e Goal Update Social History. Due o n due Goal ALT (SGPT). Due on due Goal LEASE OPERATOR Scanned. Due on due Goal HPV. Due on due Goal Lipid panel. Due on due Goal Creatinine. Due on due Goal OARS. Due on due Goal UDT. Due on due Goal Order Annual PT. Due on due Goal ALT (SGPT). Due on due Goal CAPTAIN AIRLINE PILOT Paperwork. Due on due Goal LEASE OPERATOR Scanned. Due on due Goal AST (SGOT). [...] Goal AST (SGOT). Due on due Goal LEASE OPERATOR Scanned. Due on due Goal CAPTAIN AIRLINE PILOT Paperwork. Due on due Goal ALT (SGPT). [...] R leg have persisted following surgery. S/p [employer] lumbar SCS implant on 10/14/2021 with [...] discusses SCS trial. Patient expresses interest in [employer] trial and requests the orders be [...] associated symptoms. Widespread pain (comments) The celeste ataba returns for followup and medication refill for [...] THC, she reports having edible while in [place], [place] a few weeks ago.Current medication regimen [...] and CT scans of her abdomen through [facility]. Currently managing her pain with ibuprofen and Tylenol. She also takes amitriptyline for sleep. Has been prescribed hydrocodone, oxycodone, and morphine in the past for surgeries and tooth pain. Rosio is interested in recommended tx modalities and would like [facility] to assume management of pain care. [...] had several XR's and CT scans through [facility]. Currently managed on for additional pain relief. Has previously trialed and failed amitriptyline, NSAIDS, Tylenol, hydrocodone, oxycdone, and morphine. is interested in and would like [facility] to assume management of pain care. Widespread pain Functional Status Date Functional Assessmen t No Information Instructions Date Instruction Additional Infor mation No Information Assessments Type Assessment Date No Information Patient Care Teams Name Effective Dates (start - stop) Status Members No Information
--- OUTSIDE RECORDS SUMMARY | 2023-09-24 14:02 | XMS_ITS | Encounter Summary ---
Author Organization [place] Address [address] [place] [address]. [place] [address] Care Team Providers Care Ear Machine Operator Name Role Phone Stone Martinez [...] COVID-19? No / Unsure 04/04/2021 7:09 PM CHRONOGRAPH OPERATOR documented as of this encounter Plan of Treatment Not on file documented as of this encounter Visit Diagnoses Not on filedocumented in this encounter Care Teams Ear Machine Operator Relationship Specialty Start Date End Date Stone Martinez MD [facility] [address] [place] [address] PCP - General Internal Medicine 12/07/15 documented as of this encounter
--- OUTSIDE RECORDS SUMMARY | 2023-09-24 14:02 | XMS_ITS | Referral Summary ---
Author Organization [place] Address [address] [place] [address] Care Team Providers Care Territory Manager Name Role Phone Stone Martinez MD Primary [...] Comments Blood Pressure 114/69 04/04/2021 11:30 PM FIELD AUDITOR Pulse 73 04/04/2021 11:30 PM FIELD AUDITOR Temperature 36.9 ??C (98.5 ??F) 04/04/2021 7:18 PM CS T Respiratory Rate 11 04/04/2021 10:35 PM FIELD AUDITOR Oxygen Saturation 99% 04/04/2021 10:35 PM FIELD AUDITOR Inhaled Oxygen Concentration - - Weight 95.4 kg (210 lb 6.4 oz) 04/04/2021 7:11 P M FIELD AUDITOR Height - - Body Mass Index - - Plan of Treatment Not on file Procedures Procedure Name Priority Date/Time Associated Diagnosis Comments GLUCOSE BY METER STAT 04/04/2021 7:09 PM FIELD AUDITOR LIPID PROFILE Routine 04/10/2018 from Last 3 Months or Most Recently Relevant to Health Maintenance Results * Glucose by meter (04/04/2021 7:09 PM FIELD AUDITOR) GLUCOSE BY METER POCT 80 70 - 99 mg/dL 04/04/2021 7:16 PM FIELD AUDITOR LABORATORY POC Blood BLOOD SPECIMEN / Unknown 04/04/2021 7:09 PM FIELD AUDITOR 04/04/2021 7:16 PM FIELD AUDITOR Linette Davies MD LAB - BEAKER POC T LABORATORY POC [facility] Lab [address] [facility] Lab (1st floor, no room number) [place] [address], [place] [phone] * (ABNORMAL) Lipid Profile (04/10/2018) Cholesterol 163 90 - 200 mg/dL [facility] Triglycerides 193 40 - 197 mg/dL [facility] HDL Cholesterol 38(L) >=50 mg/dL [facility] LDL Cholesterol Calculated 86 <100 mg/dL [facility] Blood specimen (specimen) 04/10/2018 Narrative [facility] - 04/10/2018 LAB RESULT [facility] Provider Outside LAB - BLOOD ORDERABL ES [facility] [address] [place] [address], [place] [phone] from Last 3 Months or Most Recently Relevant to Health Maintenance Care Teams Territory Manager Relationship Specialty Start Date End Date Stone Martinez MD [facility] [address] [place] [address] PCP - General Internal Medicine 12/07/15
--- OUTSIDE RECORDS SUMMARY | 2023-09-24 14:02 | XMS_ITS | Continuity of Care Document ---
Author Organization [facility] Address [address] [place] [address] Phone Care Team Providers Care Center Sales And Service Associate Name Role Phone Freddy Arboleda MD Unavailable [...] on Encounter [facility], [address], [place], [place], [id number] , [place] tel:[phone] [facility] No Information 4 Robles Hayes. [facility], [address] [place] [address], [facility] [place] [address], [place], [id number], [place]. tel:[phone] [facility], [address], [place], [place], [id number] , [place] tel:[phone] [facility] Encounter for other specified surgical aftercare 3 Robles Hayes. [facility], [address] [place], [facility] [place] [address], [place], [id number], [place]. tel:[phone] Referring Provider: Freddy Topete, [facility] [address], [place], [place], [address]. tel:[phone] [facility], [address], [place], [id number] , [place] [phone] [facility] No Information 3 Darci Puentes. [facility], [address] [place] [address], [facility], [place]. tel:[phone] Referring Provider: Freddy Topete, [facility] [address], [place] [address] [place] [address], [address]. [phone] [facility], [address], [place], [place], [id number] , [place] tel:[phone] [facility] No Information 3 Robles Hayes. [facility], [address], [address], [place], [place], [id number], [place]. tel:[phone] Referring Provider: Freddy Topete, [facility] [address], [place], [place], [address]. [phone] OFFICE/OUTPA TIENT VISIT EST Phone [facility], [address], [facility] [place], [id number] , [place] tel:[phone] [facility] No Information 3 Robles Hayes. [facility], [address], [place], [place], [id number], [place]. tel:[phone] Referring Provider: Freddy Topete, [facility] [address], [place], [place], [address]. tel:[phone] Office/Outpa tient Visit,Est, Mod [facility], [address], [place], [id number] , [place] [phone] [facility] Radiculopathy , lumbar regionArthrod esis status 3 Robles Hayes. [facility], [address], [place] [address] [place] [address], [id number], [place]. tel:[phone] Referring Provider: Freddy Topete, [facility] [address], [place], [place], [address]. tel:[phone] Office/Outpa tient Visit,Est, Mod [facility], [address], [place], [place], [id number] , [place] tel:[phone] [facility] Arthrodesis status 3 Robles Hayes. [facility], [address], [address], [id number], [place]. tel:[phone] Referring Provider: Freddy Topete, [facility] [address], [place] [address] [place] [address], [address]. tel:[phone] Office/Outpa tient Visit,Est, Mod [facility], [address], [place], [place], [id number] , [place] [phone] [facility] Arthrodesis status 1 Robles Hayes. [facility], [address], [place] [address] [place] [address], [id number], [place]. tel:[phone] Referring Provider: Stone Martinez, [facility] [address] [place], [address]. tel:[phone] Office/Outpa tient Visit,Est, Mod [facility], [address], [place], [place], [id number] , [place] tel:[phone] [facility] Arthrodesis status 1 Robles Hayes. [facility], [address], [place] [address] [place] [address], [id number], [place]. tel:[phone] Referring Provider: Stone Martinez [facility] [address] [place], [address]. tel:[phone] Office/Outpa tient Visit,Est, Mod [facility], [address], [place], [id number] , [place] tel: [phone] [facility] Low back painArthrodes is status 1 No Information Referring Provider: Ritter [facility] [address] [place], [address]. tel:[phone] [facility], [address], [place], [id number] , [place] tel: [phone] [facility] Encounter for other specified surgical aftercare Robles Hayes. [facility], [address] [place] [address], [address], [id number], [place]. tel:[phone] Referring Provider: Ritter [facility] [address] [place], [address]. tel:[phone] [facility], [address], [place], [id number] , [place] tel: [phone] [facility] Arthrodesis status 0 No Information Referring Provider: Ritter [facility] [address] [place], [address]. tel:[phone] [facility], [address], [place], [id number] , [place] tel: [phone] [facility] No Information 0 No Information Referring Provider: Ritter [facility] [address] [place], [address]. tel:[phone] [facility], [address], [place], [id number] , [place] tel: [phone] [facility] No Information 0 Robles Hayes. [facility], [facility] [address] [place] [address], [address], [id number], [place]. tel:[phone] Referring Provider: [facility] [address] [place], [address]. tel:[phone] Office/Outpa tient Visit,Est, Mod [facility], [address], [place], [place], [id number] , [place] tel:[phone] [facility] Spinal stenosis, lumbar region with neurogenic claudicationS pondylolisthe sis, lumbar region 0 Robles Hayes. [facility], [address], [facility] [place] [address], [place], [place], [id number], [place]. tel:[phone] Referring Provider: [facility] [address] [place], [address]. tel:[phone] Office/Outpa tient Visit,New, Mod [facility], [address], [place], [place], [id number] , [place] tel:[phone] [facility] Spinal stenosis, lumbar region with neurogenic claudicationS pondylolisthe sis, lumbar region 0 No Information Referring Provider: Ritter [facility] [address] [place], [address]. tel:[phone] Family History Family Member Type Diagnosis Age At Onset No Information Payers Payer name Insurance type Covered democrat ID Authorchanoa darrylbennie(s) [employer] Individual [employer] Family Plans [id number] Social History Type Description Quantity Date [...]
--- OUTSIDE RECORDS SUMMARY | 2023-09-24 14:02 | XMS_ITS | Clinical Summary ---
Author Organization [facility] Address [place], [place] [address] Care Team Providers Care Drop Wire Operator Name Role Phone Glenys Agarwal MD Unavailable + Stone Martinez MD Primary Care Provider [phone] Allergies Active Allergy Reactions Criticality Noted Date [...] oxyCODONE (ROXICODONE) 5 mg immediate release tabletIndications:Ac [place] postoperative pain Take 1-2 Tablets (5-10 mg) by mouth every 4 hours. 30 Tablet 02/18/2023 Active acetaminophen (TYLENOL EXTRA STRGTH) 500 mg tabletIndications:Ac [place] postoperative pain Take 2 Tablets (1,000 mg) by mouth every 6 hours. Max acetaminophen dose: 4000mg in 24 hrs. 90 Tablet 02/18/2023 Active methocarbamoL (ROBAXIN) 500 mg tabletIndications:Ac [place] postoperative pain Take 1 Tablet (500 mg) by mouth every 6 hours. 30 Tablet 02/18/2023 Active ondansetron (ZOFRAN ODT) 4 mg disintegrating tabletIndications:Ac [place] postoperative pain Place 1 Tablet (4 mg) on the tongue every 8 hours if needed for Nausea/Vomiting. 20 Tablet 02/18/2023 Active sennosides-docusate (SENOKOT S) (8.6-50 mg) tabletIndications:Ac [place] postoperative pain Take 1-4 Tablets by mouth [...] Due to E coli with associated sepsis Encounters Date Type Department Care Team Description 08/03/2023 Lab Requisition [facility] [phone] Stone Martinez MD from Last 3 Months Immunizations Name Administration Dates Next Due COVID-19 vaccine (TDI Bassline NTech 30mcg/0.3mL) PF, MDV 01/10/2021,04/20/2020,03/31/2020 DTP 11/22/1983 Hepatitis [...] Comments Blood Pressure 110/70 02/18/2023 9:00 AM APRON WORKER Pulse 70 02/18/2023 9:00 AM APRON WORKER Temperature 36.7 ??C (98 ??F) 02/18/2023 9:00 AM APRON WORKER Respiratory Rate 18 02/18/2023 9:00 AM APRON WORKER Oxygen Saturation 98% 02/18/2023 9:00 AM APRON WORKER Inhaled Oxygen Concentration - - Weight 99.7 kg (219 lb 12.8 oz) 02/16/2023 7:15 AM APRON WORKER Height 175.3 cm (5' 9) 02/16/2023 7:15 AM APRON WORKER Body Mass Index 32.46 02/16/2023 7:15 AM APRON WORKER Plan of Treatment Health Maintenance Due Date [...] 21-65 Discontinued Medical Devices Implanted Type Area Silk Screen Printing Racker Device Identifier Shelf Expiration Date Model / Serial / Lot Carmela Lmbr 60x5.5mm Tsrh 3d Cvd Titnm - [id number] Implanted:Qty: 2 on 02/12/2020 by Freddy Arboleda MD at [facility] Spine Implants N/A: Spine Medtronic Spine/Ortho [id number] / / [id number] one 1-4mm 30cc Medtronic Chips Canclls Freeze Dried Implanted:Qty: 1 on 02/12/2020 by Freddy Arboleda MD at [facility] Explanted:at [facility] (Quantity not on file) N/A: Spine Medtronic Spine/Ortho 08/06/2024 [id number]# / [id number] / Connector 3d Medium Implanted:Qty: 2 on 02/12/2020 by Freddy Arboleda MD at [facility] N/A: Spine [id number] / / Description:CONNECTOR 3D MED IUM Bone Matrix Lg Infuse Bmp - [id number] Implanted:Qty: 1 on 02/12/2020 by Freddy Arboleda MD at [facility] N/A: Spine Medtronic Spine/Ortho 11/07/2020 [id number]# / / [id number] A Spacer Lmbr [id number] 12deg Sm Sovereign Stand Alone - [id number] Implanted:Qty: 1 on 02/12/2020 by Freddy Arboleda MD at [facility] N/A: Spine Medtronic Spine/Ortho 03/19/2026 [id number]# / / 68GW Spacer Lmbr [id number] 8 Deg Sm Sovereign Stand Alone - [id number] Implanted:Qty: 1 on 02/12/2020 by Freddy Arboleda MD at [facility] N/A: Spine Medtronic Spine/Ortho 12/23/2027 [id number]# / / 38KM Screw Lmbr 5.5x20mm Sovereign Stand Alone - [id number] Implanted:Qty: 6 on 02/12/2020 by Freddy Arboleda MD at [facility] N/A: Spine Medtronic Spine/Ortho [id number]# / / Set Screw Lmbr Tsrh 3dx - [id number] Implanted:Qty: 6 on 02/12/2020 by Freddy Arboleda MD at [facility] N/A: Spine Medtronic Spine/Ortho [id number]# / / Screw Lmbr Post 6.5x35mm Tsrh 3dx Og Thin Va - [id number] Implanted:Qty: 2 on 02/12/2020 by Freddy Arboleda MD at [facility] N/A: Spine Medtronic Spine/Ortho [id number]# / / Screw Lmbr Post 6.5x45mm Tsrh 3dx Og Thin Va - [id number] Implanted:Qty: 4 on 02/12/2020 by Freddy Arboleda MD at [facility] N/A: Spine Medtronic Spine/Ortho [id number] / / Connector 3d Small Implanted:Qty: 4 on 02/12/2020 by Freddy Arboleda MD at [facility] N/A: Spine [id number] / / Description:CONNECTOR 3D SMA LL Explanted Type Area Silk Screen Printing Racker Device Identifier Shelf Expiration Date Model / Serial / Lot Explant Explanted:Qty: 1 on 02/16/2023 at [facility] Description:SCREWS, SET SCRE WS 3, CARMELA 1, ADAPTER 2 Procedures Procedure Name Priority Date/Time Associated Diagnosis Comments LAB TRACKING EVENT Routine 08/03/2023 10 :30 AM CDT PATH TISSUE EXAM Routine 08/03/2023 10:3 0 AM CDT XR MAMMO TISH BILAT SCREEN Routine 2022 4:48 PM CDT Encounter for screening mammogram for malignant neoplasm of breast ANTI HCV Routine 01/18/2015 8:55 AM CDT Need for hepatitis C screening test SCAN-COLONOSCOPY 01/04/2015 12:0 0 AM CDT from Last 3 Months or Most Recently Relevant to Health Maintenance Results * LAB TRACKING EVENT (08/03/2023 10:30 AM CDT) Other (Other) Client Collect / Unknown 08/03/2023 10:30 AM CDT 08/03/2023 9:04 PM CDT Stone Martinez MD LAB BILL ONLY [facility] [address] [place] [address], * PATH TISSUE EXAM (08/03/2023 10:30 AM CDT) Case Report Pathology Report ?Case: [id number] ? Authorizing Provider: ??Stone Martinez MD ?Collected: ? 08/03/2023 1030 ? Ordering Location: ? [facility] ?Received: ?08/04/2023 0842 ? Pathologist: ? Isauro Steiner MD ? Specimen: ? 08/06/2023 11:09 AM CDT [facility] Final Diagnosis A) COLON, TRANSVERSE, POLYPECTOMY: 1. Sessile serrated adenoma 2. Negative for overt dysplasia 3. Per the colonoscopy report: ?? a. Polyp size: 5 mm ?? b. Resection: Complete ?? c. Retrieval: Complete 08/06/2023 11:09 AM CDT [facility] Clinical Information Ms. Garcia is a 43 y.o. who presents for screening colonoscopy. 08/06/2023 11:09 AM CDT [facility] Gross Description A) Received in formalin are 2 bowling mucosal fragments averaging 2 mm in greatest dimension, which are entirely submitted in one cassette. It is labeled with the patient's name and designated transverse colon biopsy. Chau Vizcarra 08/04/2023 10:58 AM 08/06/2023 11:09 AM CDT [facility] Microscopic Description The final diagnosis is based on microscopic examination of appropriate sections of all specimens. 08/06/2023 11:09 AM CDT [facility] Additional Information Interpreted at [facility] [place] [facility] - [address] [facility] [address], [place] [address] 08/06/2023 11:09 AM CDT [facility] Other 08/03/2023 10:3 0 AM CDT 08/04/2023 8:42 AM CDT Stone Martinez MD PATHOLOGY/CYTOLOGY [facility] [address] [place] [address], * XR MAMMO TISH BILAT SCREEN (2022 [...] care provider. XR MAMMO TISH BILAT SCREEN [[id number]] CLINICAL HISTORY: ??This is an asymptomatic 42 [...] ve Non-Reacti ve 01/18/2015 1:43 PM CDT [facility] Blood specimen (specimen) BLOOD SPECIMEN / Unknown Venipuncture / Unknown 01/18/2015 8:55 AM CDT 01/18/2015 8:55 AM CDT Narrative [facility] - 01/18/2015 1:43 PM CDT Antibodies to HCV not detected; does not exclude the possibility of exposure to HCV. Efren Eng MD SEND OUTS [facility] [address] [place] [address], [place] * SCAN-COLONOSCOPY (01/04/2015 12:00 AM CDT) [...] Answer Comments Code Status Discussion: Not DiscussedPer Existin g Order Care Teams Drop Wire Operator Relationship Specialty Start Date End Date Stone Martinez MD [address] [place] [address] PCP - General Internal Medicine 02/12/23 Glenys Agarwal MD [address] [place] [address] Family Practice 01/23/20
--- OUTSIDE RECORDS SUMMARY | 2023-09-24 14:02 | XMS_ITS | Clinical Summary ---
Author Organization [place] [facility] Address [address] [place] [address] Care Team Providers Care Command Center Officer Name Role Phone Stone Martinez MD Primary [...] Comments Blood Pressure 114/69 04/04/2021 11:30 PM CONSULTING PROPERTY MANAGER Pulse 73 04/04/2021 11:30 PM CONSULTING PROPERTY MANAGER Temperature 36.9 ??C (98.5 ??F) 04/04/2021 7:18 PM CS T Respiratory Rate 11 04/04/2021 10:35 PM CONSULTING PROPERTY MANAGER Oxygen Saturation 99% 04/04/2021 10:35 PM CONSULTING PROPERTY MANAGER Inhaled Oxygen Concentration - - Weight 95.4 kg (210 lb 6.4 oz) 04/04/2021 7:11 P M CONSULTING PROPERTY MANAGER Height - - Body Mass Index - [...] Vaccine ( season) 2022 01/10/2021, 04/20/2020, 03/31/2020 DTAP/TDAP/TD IMMUNIZATION (6 - Td or Tdap) 12/22/2022 12/22/2012, 12/22/2012, 08/18/2005, Additional history exists PHQ-2 (once per calendar year) 2023 LIPID 04/10/2023 04/10/2018 INFLUENZA VACCINE (Season Ended) 2023 02/01/2021, 01/07/2020, 01/04/2019, Additional history exists GLUCOSE 04/04/2024 04/04/2021, 1210/2020, 08/17/2020, Additional history exists Pneumococcal Vaccine: Pediatrics [...] GLUCOSE BY METER STAT 04/04/2021 7:09 PM CONSULTING PROPERTY MANAGER LIPID PROFILE Routine 04/10/2018 from Last 3 Months or Most Recently Relevant to Health Maintenance Results * Glucose by meter (04/04/2021 7:09 PM CONSULTING PROPERTY MANAGER) GLUCOSE BY METER POCT 80 70 - 99 mg/dL 04/04/2021 7:16 PM CONSULTING PROPERTY MANAGER LABORATORY POC Blood BLOOD SPECIMEN / Unknown 04/04/2021 7:09 PM CONSULTING PROPERTY MANAGER 04/04/2021 7:16 PM CONSULTING PROPERTY MANAGER Linette Davies MD LAB - BEAKER POC T LABORATORY POC [facility] [address] Lab (1st floor, no room number) [place] [address], [facility] [phone] * (ABNORMAL) Lipid Profile (04/10/2018) Cholesterol 163 90 - 200 mg/dL [facility] Triglycerides 193 40 - 197 mg/dL [facility] HDL Cholesterol 38(L) >=50 mg/dL [facility] LDL Cholesterol Calculated 86 <100 mg/dL [facility] Blood specimen (specimen) 04/10/2018 Narrative [facility] - 04/10/2018 LAB RESULT [facility] Provider Outside LAB - BLOOD ORDERABL ES [facility] [address] [place] [address], [facility] [phone] from Last 3 Months or Most Recently Relevant to Health Maintenance Care Teams Command Center Officer Relationship Specialty Start Date End Date Stone Martinez MD [facility] [address] [place] [address] PCP - General Internal Medicine 12/07/15
[2023-09-24 14:07] LABS: SARS PCR* Negative SARS-CoV-2 (Negative)
[2023-09-24] MEDS: KETAMINE 50 MG/0.5 ML 20 MG in 0.9 % SODIUM CHLORIDE 100 ml 100 ML 200.4 MG IVPB (14:44)
--- NOTE | 2023-09-24 15:31 | CRLHL7_ITS ---
For Patients: As a result of the Century Cures Act, medical imaging exams and procedure reports are released immediately into your electronic medical record. You may view this report before your referring provider. If you have questions, please contact your health care provider. Indication: acute on chronic neck pain Technique: CT of the head without contrast. Coronal and sagittal reformats. Bone and soft tissue windows. Comparison: No prior studies available for comparison at this institution. Findings: No acute intracranial hemorrhage or extra-axial collection. No evidence of acute cortical infarction. No mass effect or midline shift. Normal cerebral volume. The ventricles are normal in size, shape and contour. There is normal luna and white matter differentiation. The pituitary gland, optic chiasm, pineal gland, and cerebellar tonsils are unremarkable. The orbital contents are normal. No calvarial fractures. No lytic or sclerotic osseous lesions within the calvarium or skull base. Scalp and other imaged soft tissue structures are normal. Mastoid air cells are clear. Paranasal sinuses are well aerated. Leftward deviation of the nasal septum. Impression: No acute intracranial abnormality. Please note that all CT scans at this facility use dose modulation, iterative reconstruction, and/or weight-based dosing when appropriate to reduce radiation dose to as low as reasonably achievable. Dictated by Zachariah Sneed MD @ 09/24/2023 4:42:10 PM (Electronically Signed)
[2023-09-24] MEDS: LORazepam 1 MG TABLET PO (17:27)
== END 2023-09-24 17:33 | disposition home or self-care (01) ==
PROVIDERS: Emergency Provider Family Medicine; PCP Internal Medicine
DX: G43.911 Migraine, unspecified, intractable, with status migrainosus (principal)
CPT/HCPCS: 36415; 70450; 80048; 85025; 86140; 87635; 94761; 96365; 96366; 96375; 99284; A9270; J1200; J1885; J2765; J3490; J7030

== ENCOUNTER 2023-12-21 14:24 | Outpatient (RCR) | payer BC, SELFPAY | END 2024-04-19 23:59 | disposition home or self-care (01) | PROVIDERS: PCP Internal Medicine; Visit Provider Internal Medicine | DX: M54.16 Radiculopathy, lumbar region (principal); Z51.89 Encounter for other specified aftercare | CPT/HCPCS: 97110; 97163 ==

== ENCOUNTER 2024-04-13 14:33 | Emergency (ER) | payer BC, SELFPAY ==
[2024-04-13] VITALS (9 sets, daily range): BP systolic 143; BP diastolic 86; PULSE 75–85; RESP 18; TEMP 36.6; O2SAT 95–99; BMI 30.3
--- OUTSIDE RECORDS SUMMARY | 2024-04-13 14:35 | XMS_ITS | Clinical Summary ---
Author Organization [facility] Address [place], [place] [address] Care Team Providers Care Raw Material Planner Name Role Phone Glenys Agarwal MD Unavailable + Stone Martinez MD Primary Care Provider Allergies Active Allergy Reactions Criticality Noted Date Comments Codeine Anaphylaxis High 12/11/2014 Codeine Hives,Nausea And Vomiting 02/10/2020 Hydromorphone Itching 02/10/2020 Nsaids (Non-Steroidal Anti-Inflammatory Drug) *Unknown 02/10/2020 Avoids D/T Hx GBP Medications SUMAtriptan (IMITREX) 100 mg tabletIndications: Intractable migraine with aura without status migrainosus Take 1 tablet by mouth every 2 hours if needed for Migraine. Max dose: 200mg per 24 hrs. 9 tablet 4 01/31/20 16 Active cyanocobalamin, vitamin B-12, (CYANOCOBALAMIN SL) Place 500 mcg under the tongue once daily. Active venlafaxine extended release (VENLAFAXINE XR, [facility],) 150 mg extended release tablet Take 150 mg by mouth once daily with a meal. 07/23/19 23 Active triamcinolone 0.5% (ARISTOCORT) 0.5 % cream APPLY TOPICALLY TO THE AFFECTED AREA EVERY DAY FOR RASH 11/17/19 22 Active cyclobenzaprine (FLEXERIL) 10 mg tabletIndications: Midline low back pain without sciatica, unspecified chronicity Take 1 Tablet (10 mg) by mouth 3 times daily if needed for Muscle Spasm. 30 Tablet 08/03/19 23 Active sertraline (ZOLOFT) 100 mg tabletIndications: Dysthymia Take 1 Tablet (100 mg) by mouth once daily. 90 Tablet 3 09/13/19 23 Active oxyCODONE (ROXICODONE) 5 mg immediate release tabletIndications: Acute postoperative pain Take 1-2 Tablets (5-10 mg) by mouth every 4 hours. 30 Tablet 3 11:42 AM METER SETTER 02/19/20 23 Active acetaminophen (TYLENOL EXTRA STRGTH) 500 mg tabletIndications: Acute postoperative pain Take 2 Tablets (1,000 mg) by mouth every 6 hours. Max acetaminophen dose: 4000mg in 24 hrs. 90 Tablet 3 11:42 AM METER SETTER 02/19/20 23 Active methocarbamoL (ROBAXIN) 500 mg tabletIndications: Acute postoperative pain Take 1 Tablet (500 mg) by mouth every 6 hours. 30 Tablet 3 11:42 AM METER SETTER 02/19/20 23 Active ondansetron (ZOFRAN ODT) 4 mg disintegrating tabletIndications: Acute postoperative pain Place 1 Tablet (4 mg) on the tongue every 8 hours if needed for Nausea/Vomiting. 20 Tablet 3 11:42 AM METER SETTER 02/19/20 23 Active sennosides-docusat e (SENOKOT S) (8.6-50 mg) tabletIndications: Acute postoperative pain Take 1-4 Tablets by mouth two times daily. 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 Often has yearly dilation last was June 2013 Pyelonephritis 04/09/2014 Overview (02/16/2023): Due to E coli with associated sepsis Immunizations Name Administration Dates Next Due COVID-19 vaccine (E-Duction 30mcg/0.3mL) PF, MDV 01/10/2021,04/20/2020,03/31/2020 DTP 11/22/1983 Hepatitis [...] Housing in the Last Year 1 07/25/2022 Comments No Sex and Gender Information Value Date Recorded Sex Assigned at Female 07/07/2022 11:17 AM CDT Legal Sex Female 9:55 AM CDT Gender Identity Female 07/07/2022 11:17 AM CDT Sexual Orientation Straight 07/07/2022 11 :17 AM CDT Obstetrics History Last Filed Vital Signs Vital Sign Reading Time Taken Comments Blood Pressure 110/70 02/18/2023 9:00 AM METER SETTER Pulse 70 02/18/2023 9:00 AM METER SETTER Temperature 36.7 C (98 F) 02/18/2023 9:00 AM METER SETTER Respiratory Rate 18 02/18/2023 9:00 AM METER SETTER Oxygen Saturation 98% 02/18/2023 9:00 AM METER SETTER Inhaled Oxygen Concentration - - Weight 99.7 kg (219 lb 12.8 oz) 02/16/2023 7:15 AM METER SETTER Height 175.3 cm (5' 9) 02/16/2023 7:15 AM METER SETTER Body Mass Index 32.46 02/16/2023 7:15 AM METER SETTER Plan of Treatment Health Maintenance Due Date Last Done Comments HIV for age 15-65 1993 Tetanus booster 12/22/2022 12/22/2012, 08/07, 1994, Additional history exists Lipids for age 45-75 07/12/2023 Mammogram for age 45-75 07/12/2023 2022 BMI (ht and wt on same day) for age 18+ 07/27/2023 07/26/2022, 01/31/2016 Depression screening for age 12+ 07/27/2023 07/26/2022, 03/20/2016, 01/31/2016, Additional history exists COVID-19 vaccine series ( season) 2023 01/10/2021, 04/20/2020, 03/31/2020 Influenza for age 9-49 12/09/2023 , 02/01/2021, 01/07/2020, Additional history exists Colonoscopy through age 75 01/04/2025 01/04/2015 Tdap Completed 08/18/2005 Pneumococcal series for age 6-49 Aged Out 06/22/2010 No longer eligible based on patient's age to complete this topic Hepatitis C screening for age 18-79 Completed 01/18/2015 Pap test for age 21-65 Discontinued Medical Devices Implanted Type Area Resolution Manager Device Identifier Shelf Expiration Date Model / Serial / Lot Carmela Lmbr 60x5.5mm Tsrh 3d Cvd Titnm - [id number] Implanted:Qty: 2 on 02/12/2020 by Freddy Arboleda MD at [facility] Spine Implants N/A: Spine Medtronic Spine/Ortho [id number] / / [id number] one 1-4mm 30cc Medtronic Chips Canclls Freeze Dried Implanted:Qty: 1 on 02/12/2020 by Freddy Arboleda MD at [facility] Explanted:at [facility] (Quantity not on file) N/A: Spine Medtronic Spine/Ortho 08/06/2024 [id number] / [id number] / Connector 3d Medium Implanted:Qty: 2 on 02/12/2020 by Freddy Arboleda MD at [facility] N/A: Spine [id number] / / Description:CONNECTOR 3D MED IUM Bone Matrix Lg Infuse Bmp - [id number] Implanted:Qty: 1 on 02/12/2020 by Freddy Arboleda MD at [facility] N/A: Spine Medtronic Spine/Ortho 11/07/2020 [id number] / / [id number] Spacer Lmbr [id number] 12deg Sm Sovereign Stand Alone - [id number] Implanted:Qty: 1 on 02/12/2020 by Freddy Arboleda MD at [facility] N/A: Spine Medtronic Spine/Ortho 03/19/2026 [id number] / / 68GW Spacer Lmbr [id number] 8 Deg Sm Sovereign Stand Alone - [id number] Implanted:Qty: 1 on 02/12/2020 by Freddy Arboleda MD at [facility] N/A: Spine Medtronic Spine/Ortho 12/23/2027 [id number] / / 38KM Screw Lmbr 5.5x20mm Sovereign Stand Alone - [id number] Implanted:Qty: 6 on 02/12/2020 by Freddy Arboleda MD at [facility] N/A: Spine Medtronic Spine/Ortho [id number] / / Set Screw Lmbr Tsrh 3dx - [id number] Implanted:Qty: 6 on 02/12/2020 by Freddy Arboleda MD at [facility] N/A: Spine Medtronic Spine/Ortho [id number] / / Screw Lmbr Post 6.5x35mm Tsrh 3dx Og Thin Va - [id number] Implanted:Qty: 2 on 02/12/2020 by Freddy Arboleda MD at [facility] N/A: Spine Medtronic Spine/Ortho [id number] / / Screw Lmbr Post 6.5x45mm Tsrh 3dx Og Thin Va - [id number] Implanted:Qty: 4 on 02/12/2020 by Freddy Arboleda MD at [facility] N/A: Spine Medtronic Spine/Ortho [id number] / / Connector 3d Small Implanted:Qty: 4 on 02/12/2020 by Freddy Arboleda MD at [facility] N/A: Spine [id number] / / Description:CONNECTOR 3D SMA LL Explanted Type Area Resolution Manager Device Identifier Shelf Expiration Date Model / Serial / Lot Explant Explanted:Qty: 1 on 02/16/2023 at [facility] Description:SCREWS, SET SCRE WS 3, CARMELA 1, [...] Bilateral Mammography Impressions 07/12/2022 3:37 PM CDT There is no radiographic evidence for malignancy. Recommend annual mammograms. MAMMOGRAM ASSESSMENT: ACR 1 Negative PATIENTS: You will also receive a letter with your examination results in an easy to read format. If you have questions about your results, please contact your referring provider. Narrative 07/12/2022 3:37 PM CDT For Patients: As a result of the Cures Act, medical imaging exams and procedure reports are released immediately into your electronic medical record. You may view this report before your referring provider. If you have questions, please contact your health care provider. XR MAMMO TISH BILAT SCREEN [[id number]] CLINICAL HISTORY: This is an asymptomatic 42 y.o. patient. INDICATION FOR EXAM: Mammogram Screening. TECHNIQUE: CC & MLO views were obtained. This study was evaluated with the assistance of Computer-Aided Detection. Breast Tomosynthesis was used in interpretation. COMPARISON FILM: This is a baseline study. FINDINGS: The breasts have scattered areas of fibroglandular density. There are no dominant masses, suspicious micro calcifications or areas of architectural distortion. us Sotne Martinez MD MAMMO Final Result * ANTI HCV (01/18/2015 8:55 AM CDT) HEPATITIS C ANTIBODY Non-Reacti ve Non-Reacti ve 01/18/2015 1:43 PM CDT [facility] Blood specimen (specimen) BLOOD SPECIMEN / Unknown Venipuncture / Unknown 01/18/2015 8:55 AM CDT 01/18/2015 8:55 AM CDT Narrative [facility] - 01/18/2015 1:43 PM CDT Antibodies to HCV not detected; does not exclude the possibility of exposure to HCV. Efren Eng MD SEND OUTS Final Res ult [facility] [address] [place] [address], [place] * SCAN-COLONOSCOPY (01/04/2015 12:00 AM CDT) us Scanner OTHER Final Result from Last 3 Months or Most Recently Relevant to Health Maintenance Additional Health Concerns Infection Onset Date Last Indicated MRSA Clearance Comment:Infection Control Note: Hx of MRSA 12/02/15 abdominal wound, surveillance criteria met, no need for further testing or isolation precautions. Do not delete or resolve the infection flag. 02/11/2020 02/11/2020 Insurance INDIVIDUAL AND FAMILY PLANS Advance Directives * Full Code (Latest Code Status on File) Date Activated Date Inactivated Comments 02/16/2023 3:43 PM 02/18/2023 2:31 PM Question Answer Comments Code Status Discussion: Other * Full Code Date Activated Date Inactivated Comments 02/12/2020 7:33 PM 02/14/2020 1:48 PM Question Answer Comments Code Status Discussion: Not DiscussedPer Nicole lamb Order Care Teams Raw Material Planner Relationship Specialty Start Date End Date Stone Martinez MD [address] [place] [address] PCP - General Internal Medicine 02/12/23 Glenys Agarwal MD [address] [place] [address] Family Practice 01/23/20
--- OUTSIDE RECORDS SUMMARY | 2024-04-13 14:35 | XMS_ITS | Continuity of Care Document ---
Author Name [email or web address] Address Unknown Organization Unknown Address Unknown Procedures FILTER APPLIED:Only known Procedures with Onset Date within the last 5 years Procedure Date Procedure Provider Additional Inform ation Status COLONOSCOPY AND BIOPSY (12610) Completed ANES LWR INTST NDSC NOS (91839) Completed POLYSOM 6/> YRS 4/> SABI (05507) Completed MRI LUMBAR SPINE W/O DYE (04210) Completed COMPREHEN METABOLIC PANEL (51491) Completed ASSAY THYROID STIM HORMONE (91207) Completed MRI CHEST SPINE W/O DYE (32087) Completed Encounters FILTER APPLIED:Only known Encounters with Admission Date within the last 5 years Encounter Location Admission Discharge Billing Code Parking Inspector [facility] Out[facility] Out[facility] Ritter [facility] Outpatient [facility] Outpatient Leigha Camejo
--- OUTSIDE RECORDS SUMMARY | 2024-04-13 14:35 | XMS_ITS | Encounter Summary ---
Author Organization [facility] Address [address] [place] [address] Care Team Providers Care Trimming Press Operator Name Role Phone Stone Martinez MD Primary Care Provider Encounter Details Date Type Department Care Team ([facility] st Contact Info) Description 04/05/2021 Documentation Only INTERFACED REPORT Unknown, Provider Social History Tobacco Use Types Packs/Day Years Used Date Smoking Tobacco: Never Assessed Comments No Sex and Gender Information Value Date Recorded Sex Assigned at Female 07/13/2022 10:41 AM CDT Legal Sex Female 10:44 AM CDT Gender Identity Female 07/13/2022 10:41 AM CDT Sexual Orientation Straight 07/13/2022 10 :41 AM CDT COVID-19 Exposure Response Date Recorded In the last month, have you been in contact with someone who was confirmed or suspected to have Coronavirus / COVID-19? No / Unsure 04/04/2021 7:09 PM TICKET DISPENSER CHANGER documented as of this encounter Plan of Treatment Not on file documented as of this encounter Visit Diagnoses Not on filedocumented in this encounter Care Teams Trimming Press Operator Relationship Specialty Start Date End Date Stone Martinez MD [facility] [address] [place] [address] PCP - General Internal Medicine 12/07/15 documented as of this encounter
--- OUTSIDE RECORDS SUMMARY | 2024-04-13 14:35 | XMS_ITS | Clinical Summary ---
Author Organization [facility] Address [address] [place] [address] Care Team Providers Care Plater Supervisor Name Role Phone Stone Martinez MD Primary Care Provider Allergies Active Allergy Reactions Criticality Noted Date Comments Codeine Anaphylaxis,Hives,Na usea and Vomiting High 05/26/2002 Other reaction(s): GI intolerance, HIVES, NAUSEA, VOMITING Nsaids 02/10/2020 Other reaction(s): *Unknown Avoids D/T Hx GBP Medications oxyCODONE (ROXICODONE) 5 MG tablet Take 1 tablet (5 mg) by mouth every 6 hours as needed for pain 5 tablet 1 Active lidocaine (LIDODERM) 5 % patch Place 1 patch onto the skin every 24 hours To prevent lidocaine toxicity, patient should be patch free for 12 hrs daily. 10 patch 1 Active Immunizations Name Administration Dates Next Due COVID-19 MONOVALENT 12+ (Pfizer) 01/10/2021 Social History Tobacco Use Types Packs/Day Years Used Date Smoking Tobacco: Never Assessed Adolescent Education Answer Date Record ed Getting School Help Needed Not on file 12/29 Comments No Sex and Gender Information Value Date Recorded Sex Assigned at Female 07/13/2022 10:41 AM CDT Legal Sex Female 10:44 AM CDT Gender Identity Female 07/13/2022 10:41 AM CDT Sexual Orientation Straight 07/13/2022 10 :41 AM CDT Last Filed Vital Signs Vital Sign Reading Time Taken Comments Blood Pressure 114/69 04/04/2021 11:30 PM CERTIFIED SURGICAL FIRST ASSISTANT Pulse 73 04/04/2021 11:30 PM CERTIFIED SURGICAL FIRST ASSISTANT Temperature 36.9 C (98.5 F) 04/04/2021 7:18 PM CERTIFIED SURGICAL FIRST ASSISTANT Respiratory Rate 11 04/04/2021 10:35 PM CERTIFIED SURGICAL FIRST ASSISTANT Oxygen Saturation 99% 04/04/2021 10:35 PM CERTIFIED SURGICAL FIRST ASSISTANT Inhaled Oxygen Concentration - - Weight 95.4 kg (210 lb 6.4 oz) 04/04/2021 7:11 P M CERTIFIED SURGICAL FIRST ASSISTANT Height - - Body Mass Index - - Plan of Treatment Health Maintenance Due Date Last Done Comments ADVANCE CARE PLANNING 1978 ANNUAL REVIEW OF HM ORDERS 1978 CT COLONOGRAPHY 1978 FIT 1978 FLEX SIG 1978 MAMMO SCREENING 1978 sDNA (Cologuard) 1978 YEARLY PREVENTIVE VISIT 1981 COLONOSCOPY 1988 COLORECTAL CANCER SCREENING 1988 HIV SCREENING 1993 HEPATITIS C SCREENING 1996 PAP 07/12/1999 HEPATITIS B IMMUNIZATION (2 of 3 - 19+ 3-dose series) 07/25/2010 06/27/2010, 06/27/2010 DTAP/TDAP/TD IMMUNIZATION (6 - Td or Tdap) 12/22/2022 12/22/2012, 12/22/2012, 08/18/2005, Additional history exists PHQ-2 (once per calendar year) 2023 LIPID 04/10/2023 04/10/2018 COVID-19 Vaccine ( season) 2023 01/10/2021, 04/20/2020, 03/31/2020 INFLUENZA VACCINE (#1) 2023 , 01/07/2020, 01/04/2019, Additional history exists GLUCOSE 04/04/2024 04/04/2021, 03/10, 08/17/2020, Additional history exists RSV VACCINE (1 - 1-dose 75+ series) 2053 Pneumococcal Vaccine: Pediatrics (0 to 5 Years) and At-Risk Patients (6 to 49 Years) Aged Out 06/22/2010 No longer eligible [...] GLUCOSE BY METER STAT 04/04/2021 7:09 PM CERTIFIED SURGICAL FIRST ASSISTANT LIPID PROFILE Routine 04/10/2018 from Last 3 Months or Most Recently Relevant to Health Maintenance Results * Glucose by meter (04/04/2021 7:09 PM CERTIFIED SURGICAL FIRST ASSISTANT) GLUCOSE BY METER POCT 80 70 - 99 mg/dL 04/04/2021 7:16 PM CERTIFIED SURGICAL FIRST ASSISTANT LABORATORY POC Blood BLOOD SPECIMEN / Unknown 04/04/2021 7:09 PM CERTIFIED SURGICAL FIRST ASSISTANT 04/04/2021 7:16 PM CERTIFIED SURGICAL FIRST ASSISTANT us Linette Davies MD LAB - BEAKER POCT Final Result LABORATORY POC [facility] Acute Care Lab [address] Lab (1st floor, no room number) [place] [address], [place] [phone] * (ABNORMAL) Lipid Profile (04/10/2018) Cholesterol 163 90 - 200 mg/dL [facility] Triglycerides 193 40 - 197 mg/dL [facility] HDL Cholesterol 38(L) >=50 mg/dL [facility] LDL Cholesterol Calculated 86 <100 mg/dL [facility] Blood specimen (specimen) 04/10/2018 Narrative [facility] - 04/10/2018 LAB RESULT [facility] us Provider Outside LAB - BLOOD ORDERABLES Final Re sult [facility] [address] [place] [address], [facility] [phone] from Last 3 Months or Most Recently Relevant to Health Maintenance Care Teams Plater Supervisor Relationship Specialty Start Date End Date Stone Martinez MD [facility] [address] [place] [address] PCP - General Internal Medicine 12/07/15
--- OUTSIDE RECORDS SUMMARY | 2024-04-13 14:35 | XMS_ITS | Referral Summary ---
Author Organization [facility] Address [address] [place] [address] Care Team Providers Care Sail Finisher Hand Name Role Phone Stone Martinez MD Primary [...] Comments Blood Pressure 114/69 04/04/2021 11:30 PM RESIDENTIAL MENTAL HEALTH WORKER Pulse 73 04/04/2021 11:30 PM RESIDENTIAL MENTAL HEALTH WORKER Temperature 36.9 C (98.5 F) 04/04/2021 7:18 PM RESIDENTIAL MENTAL HEALTH WORKER Respiratory Rate 11 04/04/2021 10:35 PM RESIDENTIAL MENTAL HEALTH WORKER Oxygen Saturation 99% 04/04/2021 10:35 PM RESIDENTIAL MENTAL HEALTH WORKER Inhaled Oxygen Concentration - - Weight 95.4 kg (210 lb 6.4 oz) 04/04/2021 7:11 P M RESIDENTIAL MENTAL HEALTH WORKER Height - - Body Mass Index - - Plan of Treatment Not on file Procedures Procedure Name Priority Date/Time Associated Diagnosis Comments GLUCOSE BY METER STAT 04/04/2021 7:09 PM RESIDENTIAL MENTAL HEALTH WORKER LIPID PROFILE Routine 04/10/2018 from Last 3 Months or Most Recently Relevant to Health Maintenance Results * Glucose by meter (04/04/2021 7:09 PM RESIDENTIAL MENTAL HEALTH WORKER) GLUCOSE BY METER POCT 80 70 - 99 mg/dL 04/04/2021 7:16 PM RESIDENTIAL MENTAL HEALTH WORKER LABORATORY POC Blood BLOOD SPECIMEN / Unknown 04/04/2021 7:09 PM RESIDENTIAL MENTAL HEALTH WORKER 04/04/2021 7:16 PM RESIDENTIAL MENTAL HEALTH WORKER us Linette Davies MD LAB - BEAKER POCT Final Result LABORATORY POC [facility] Acute Care Lab [address] Lab (1st floor, no room number) [place] [address], [facility] [phone] * (ABNORMAL) Lipid Profile (04/10/2018) Cholesterol 163 90 - 200 mg/dL [facility] Triglycerides 193 40 - 197 mg/dL [facility] HDL Cholesterol 38(L) >=50 mg/dL [facility] LDL Cholesterol Calculated 86 <100 mg/dL [facility] Blood specimen (specimen) 04/10/2018 Narrative [facility] - 04/10/2018 LAB RESULT [facility] us Provider Outside LAB - BLOOD ORDERABLES Final Re sult [facility] [address] [place] [address], [facility] [phone] from Last 3 Months or Most Recently Relevant to Health Maintenance Care Teams Sail Finisher Hand Relationship Specialty Start Date End Date Stone Martinez MD [facility] [address] [place] [address] PCP - General Internal Medicine 12/07/15
--- NOTE | 2024-04-13 16:01 | CRLHL7_ITS ---
For Patients: As a result of the Century Cures Act, medical imaging exams and procedure reports are released immediately into your electronic medical record. You may view this report before your referring provider. If you have questions, please contact your health care provider. INDICATION: Small. Lower back pain. Right parietal quadrant elbow pain. TECHNIQUE: Axial intravenously infused CT cuts performed from above the diaphragm to the ischial tuberosities. 101 mL slightly 370 was injected intravenously. COMPARISON: 10/04/2021. Findings : There is a small hiatal hernia. Gastric bypass changes are noted. There is no evidence solid organ injury. There has been a cholecystectomy. The liver, spleen, pancreas, adrenals appear normal. There are a few renal cysts. The largest is on the left measuring up to 2.8 x 1.9 cm. There are no enlarged retroperitoneal or mesenteric lymph nodes. The colon and small bowel appear normal. The appendix is not inflamed. There has been a hysterectomy. The urinary bladder appears normal. There are no enlarged iliac or inguinal adenopathy. There is been an anterior and posterior fusion from the L4 to the sacrum. There have been wide L5 laminectomies. No fractures are identified. There are no nodules masses at the lung bases. IMPRESSION: 1. Small hiatal hernia with gastric bypass changes. 2. Cholecystectomy and hysterectomy. 3. No acute traumatic abnormality identified 4. Anterior and posterior fusion from L4 to the sacrum with decompressive laminectomies at L5. Please note that all CT scans at this facility use dose modulation, iterative reconstruction, and/or weight-based dosing when appropriate to reduce radiation dose to as low as reasonably achievable. Dictated by Rick Chavis MD @ 04/13/2024 4:57:31 PM (Electronically Signed)
--- NOTE | 2024-04-13 16:02 | CRLHL7_ITS ---
For Patients: As a result of the Century Cures Act, medical imaging exams and procedure reports are released immediately into your electronic medical record. You may view this report before your referring provider. If you have questions, please contact your health care provider. Indication: Fall Technique: Noncontrast axial CT of the cervical spine with coronal and sagittal reformats are provided. Comparison: No prior studies available for comparison at this institution. Findings: Reversal of normal cervical lordosis. No fractures. The craniocervical junction is unremarkable. Mild cerumen in the left external ear canal. No aggressive osseous lesions. No prevertebral or paraspinal edema. The lung apices are clear. C1-2: No spinal canal stenosis. C2-3: No significant spinal canal stenosis or neural foramen narrowing. C3-4: No significant spinal canal stenosis or neural foraminal narrowing. C4-5: No significant spinal canal stenosis or neural foraminal narrowing. C5-6: Moderate interspace narrowing. Shallow disc osteophyte complex. Uncovertebral joint hypertrophy. Moderate neural foramina narrowing bilaterally. No significant spinal canal stenosis. C6-7: No significant spinal canal stenosis or neural foraminal narrowing. C7-T1: No significant spinal canal stenosis or neural foraminal narrowing. Impression: 1. No convincing radiographic evidence of acute osseous injury. 2. Uncovertebral joint hypertrophy at C5-6 results in moderate neural foraminal narrowing bilaterally. No significant spinal canal stenosis. Please note that all CT scans at this facility use dose modulation, iterative reconstruction, and/or weight-based dosing when appropriate to reduce radiation dose to as low as reasonably achievable. Dictated by Zachariah Sneed MD @ 04/13/2024 4:52:13 PM (Electronically Signed)
--- NOTE | 2024-04-13 16:02 | CRLHL7_ITS ---
For Patients: As a result of the Century Cures Act, medical imaging exams and procedure reports are released immediately into your electronic medical record. You may view this report before your referring provider. If you have questions, please contact your health care provider. Indication: FALL Technique: CT of the head without contrast. Coronal and sagittal reformats. Bone and soft tissue windows. Comparison: No prior studies available for comparison at this institution. Findings: No acute intracranial hemorrhage or extra-axial collection. No evidence of acute cortical infarction. No mass effect or midline shift. Normal cerebral volume. The ventricles are normal in size, shape and contour. There is normal luna and white matter differentiation. Partially empty sella. The orbital contents are normal. No calvarial fractures. No lytic or sclerotic osseous lesions within the calvarium or skull base. Scalp and other imaged soft tissue structures are normal. Mastoid air cells are clear. Paranasal sinuses are well aerated. Cerumen in the left external ear canal. Leftward deviation of the nasal septum. Impression: 1. No evidence of acute intracranial abnormality. 2. Partially empty sella raises the possibility of idiopathic intracranial hypertension in the appropriate clinical setting. Please note that all CT scans at this facility use dose modulation, iterative reconstruction, and/or weight-based dosing when appropriate to reduce radiation dose to as low as reasonably achievable. Dictated by Zachariah Sneed MD @ 04/13/2024 4:50:12 PM (Electronically Signed)
--- NOTE | 2024-04-13 16:06 | CRLHL7_ITS ---
For Patients: As a result of the Century Cures Act, medical imaging exams and procedure reports are released immediately into your electronic medical record. You may view this report before your referring provider. If you have questions, please contact your health care provider. INDICATION: Trauma. TECHNIQUE: Right wrist radiographs, 3 views. COMPARISON: None. FINDINGS: No acute fractures or dislocation. The joint spaces are preserved. The scaphoid appears intact. No significant soft tissue edema or radiopaque foreign bodies. IMPRESSION: No acute fractures or dislocation. Dictated by Christian Victoria MD @ 04/13/2024 4:50:46 PM (Electronically Signed)
--- OUTSIDE RECORDS SUMMARY | 2024-04-13 16:09 | XMS_ITS | Clinical Summary ---
Author Organization [facility] Address [place], [place] [address] Care Team Providers Care Die Set Up Worker Name Role Phone Glenys Agarwal MD Unavailable [...] 4 hours. 30 Tablet 3 11:42 AM BOBBIN DUMPER 02/19/20 23 Active acetaminophen (TYLENOL EXTRA STRGTH) 500 mg tabletIndications: Acute postoperative pain Take 2 Tablets (1,000 mg) by mouth every 6 hours. Max acetaminophen dose: 4000mg in 24 hrs. 90 Tablet 3 11:42 AM BOBBIN DUMPER 02/19/20 23 Active methocarbamoL (ROBAXIN) 500 mg tabletIndications: Acute postoperative pain Take 1 Tablet (500 mg) by mouth every 6 hours. 30 Tablet 3 11:42 AM BOBBIN DUMPER 02/19/20 23 Active ondansetron (ZOFRAN ODT) 4 mg disintegrating tabletIndications: Acute postoperative pain Place 1 Tablet (4 mg) on the tongue every 8 hours if needed for Nausea/Vomiting. 20 Tablet 3 11:42 AM BOBBIN DUMPER 02/19/20 23 Active sennosides-docusat e (SENOKOT S) (8.6-50 mg) tabletIndications: Acute postoperative pain Take 1-4 Tablets by mouth two times daily. 40 Tablet 3 11:42 AM BOBBIN DUMPER 02/19/20 23 Active furosemide (LASIX) 20 mg [...] Name Administration Dates Next Due COVID-19 vaccine ([email or web address] 30mcg/0.3mL) PF, MDV 01/10/2021,04/20/2020,03/31/2020 DTP 11/22/1983 Hepatitis [...] Comments Blood Pressure 110/70 02/18/2023 9:00 AM BOBBIN DUMPER Pulse 70 02/18/2023 9:00 AM BOBBIN DUMPER Temperature 36.7 C (98 F) 02/18/2023 9:00 AM BOBBIN DUMPER Respiratory Rate 18 02/18/2023 9:00 AM BOBBIN DUMPER Oxygen Saturation 98% 02/18/2023 9:00 AM BOBBIN DUMPER Inhaled Oxygen Concentration - - Weight 99.7 kg (219 lb 12.8 oz) 02/16/2023 7:15 AM BOBBIN DUMPER Height 175.3 cm (5' 9) 02/16/2023 7:15 AM BOBBIN DUMPER Body Mass Index 32.46 02/16/2023 7:15 AM BOBBIN DUMPER Plan of Treatment Health Maintenance Due Date [...] 21-65 Discontinued Medical Devices Implanted Type Area Manager Completions Device Identifier Shelf Expiration Date Model / Serial / Lot Carmela Lmbr 60x5.5mm Tsrh 3d Cvd Titnm - [id number] Implanted:Qty: 2 on 02/12/2020 by Freddy Arboleda MD at [facility] Spine Implants N/A: Spine Medtronic Spine/Ortho [id number] / / [id number] one 1-4mm 30cc Medtronic Chips Canclls Freeze Dried Implanted:Qty: 1 on 02/12/2020 by Freddy Arboleda MD at [facility] Explanted:at [facility] (Quantity not on file) N/A: Spine Medtronic Spine/Ortho 08/06/2024 [id number] / [id number] / Connector 3d Medium Implanted:Qty: 2 on 02/12/2020 by Freddy Arboleda MD at [facility] N/A: Spine [id number] / / Description:CONNECTOR 3D MED IUM Bone Matrix Lg Infuse Bmp - [id number] Implanted:Qty: 1 on 02/12/2020 by Freddy Arboleda MD at [facility] N/A: Spine Medtronic Spine/Ortho 11/07/2020 [id number] / / [id number] A Spacer Lmbr [id number] 12deg Sm Sovereign Stand Alone - [id number] Implanted:Qty: 1 on 02/12/2020 by Freddy Arboleda MD at [facility] N/A: Spine Medtronic Spine/Ortho 03/19/2026 [id number]# / / 68GW Spacer Lmbr [id number] 8 Deg Sm Sovereign Stand Alone - [id number] Implanted:Qty: 1 on 02/12/2020 by Freddy Arboleda MD at [facility] N/A: Spine Medtronic Spine/Ortho 12/23/2027 [id number] / / 38KM Screw Lmbr 5.5x20mm Sovereign Stand Alone - [id number] Implanted:Qty: 6 on 02/12/2020 by Freddy Arboleda MD at [facility] N/A: Spine Medtronic Spine/Ortho [id number] / / Set Screw Lmbr Tsrh 3dx - [id number] Implanted:Qty: 6 on 02/12/2020 by Freddy Arboleda MD at [facility] N/A: Spine Medtronic Spine/Ortho [id number] / / Screw Lmbr Post 6.5x35mm Tsrh 3dx Og Thin Va - [id number] Implanted:Qty: 2 on 02/12/2020 by Freddy Arboleda MD at [facility] N/A: Spine Medtronic Spine/Ortho [id number] / / Screw Lmbr Post 6.5x45mm Tsrh 3dx Og Thin Va - [id number] Implanted:Qty: 4 on 02/12/2020 by Freddy Arboleda MD at [facility] N/A: Spine Medtronic Spine/Ortho [id number] / / Connector 3d Small Implanted:Qty: 4 on 02/12/2020 by Freddy Arboleda MD at [facility] N/A: Spine [id number] / / Description:CONNECTOR 3D SMA LL Explanted Type Area Manager Completions Device Identifier Shelf Expiration Date Model / Serial / Lot Explant Explanted:Qty: 1 on 02/16/2023 at [facility] Description:SCREWS, SET SCRE WS 3, CARMELA 1, [...] care provider. XR MAMMO TISH BILAT SCREEN [[id number]] CLINICAL HISTORY: This is an asymptomatic 42 [...] calcifications or areas of architectural distortion. us Stone Martinez MD MAMMO Final Result * ANTI HCV (01/18/2015 8:55 AM CDT) HEPATITIS C ANTIBODY Non-Reacti ve Non-Reacti ve 01/18/2015 1:43 PM CDT [facility] Blood specimen (specimen) BLOOD SPECIMEN / Unknown Venipuncture / Unknown 01/18/2015 8:55 AM CDT 01/18/2015 8:55 AM CDT Narrative [facility] - 01/18/2015 1:43 PM CDT Antibodies to HCV not detected; does not exclude the possibility of exposure to HCV. Efren Eng MD SEND OUTS Final Res ult [facility] [address] [place] [address], [place] * SCAN-COLONOSCOPY (01/04/2015 12:00 AM CDT) [...] Not DiscussedPer Nicole lamb Order Care Teams Die Set Up Worker Relationship Specialty Start Date End Date Stone Martinez MD [address] [place] [address] PCP - General Internal Medicine 02/12/23 Glenys Agarwal MD [address] [place] [address] Family Practice 01/23/20
--- OUTSIDE RECORDS SUMMARY | 2024-04-13 16:09 | XMS_ITS | Referral Summary ---
Author Organization [facility] Address [address] [place] [address] Care Team Providers Care Outside Machinist Helper Name Role Phone Stone Martinez MD Primary [...] Comments Blood Pressure 114/69 04/04/2021 11:30 PM FENCE POST DRIVER Pulse 73 04/04/2021 11:30 PM FENCE POST DRIVER Temperature 36.9 C (98.5 F) 04/04/2021 7:18 PM FENCE POST DRIVER Respiratory Rate 11 04/04/2021 10:35 PM FENCE POST DRIVER Oxygen Saturation 99% 04/04/2021 10:35 PM FENCE POST DRIVER Inhaled Oxygen Concentration - - Weight 95.4 kg (210 lb 6.4 oz) 04/04/2021 7:11 P M FENCE POST DRIVER Height - - Body Mass Index - - Plan of Treatment Not on file Procedures Procedure Name Priority Date/Time Associated Diagnosis Comments GLUCOSE BY METER STAT 04/04/2021 7:09 PM FENCE POST DRIVER LIPID PROFILE Routine 04/10/2018 from Last 3 Months or Most Recently Relevant to Health Maintenance Results * Glucose by meter (04/04/2021 7:09 PM FENCE POST DRIVER) GLUCOSE BY METER POCT 80 70 - 99 mg/dL 04/04/2021 7:16 PM FENCE POST DRIVER LABORATORY POC Blood BLOOD SPECIMEN / Unknown 04/04/2021 7:09 PM FENCE POST DRIVER 04/04/2021 7:16 PM FENCE POST DRIVER us Linette Davies MD LAB - BEAKER POCT Final Result LABORATORY POC [facility] [address] Lab (1st floor, no room number) [place] [address], [facility] [phone] * (ABNORMAL) Lipid Profile (04/10/2018) Cholesterol 163 90 - 200 mg/dL [facility] Triglycerides 193 40 - 197 mg/dL [facility] HDL Cholesterol 38(L) >=50 mg/dL [facility] LDL Cholesterol Calculated 86 <100 mg/dL [facility] Blood specimen (specimen) 04/10/2018 Narrative [facility] - 04/10/2018 LAB RESULT [facility] us Provider Outside LAB - BLOOD ORDERABLES Final Re sult [facility] [address] [place] [address], [facility] [phone] from Last 3 Months or Most Recently Relevant to Health Maintenance Care Teams Outside Machinist Helper Relationship Specialty Start Date End Date Stone Martinez MD [facility] [address] [place] [address] PCP - General Internal Medicine 12/07/15
--- OUTSIDE RECORDS SUMMARY | 2024-04-13 16:09 | XMS_ITS | Continuity of Care Document ---
Author Name [email or web address] Address Unknown Organization Unknown Address Unknown Procedures FILTER APPLIED:Only known Procedures with Onset Date within the last 5 years Procedure Date Procedure Provider Additional Inform ation Status COLONOSCOPY AND BIOPSY (68166) Completed ANES LWR INTST NDSC NOS (29913) Completed POLYSOM 6/> YRS 4/> SABI (61311) Completed MRI LUMBAR SPINE W/O DYE (23663) Completed COMPREHEN METABOLIC PANEL (78462) Completed ASSAY THYROID STIM HORMONE (93236) Completed MRI CHEST SPINE W/O DYE (37028) Completed Encounters FILTER APPLIED:Only known Encounters with Admission Date within the last 5 years Encounter Location Admission Discharge Billing Code Jammer Hooker A [facility] Outpatient Philip Arboleda Outpatient Rando lph Reister Outpatient [facility] Outpatient Ritter Reister Outpatient [facility] Outpatient [facility] Outpatient Leigha Camejo
--- OUTSIDE RECORDS SUMMARY | 2024-04-13 16:09 | XMS_ITS | Encounter Summary ---
Author Organization [facility] Address [address] [place] [address] Care Team Providers Care Thermite Bomb Loader Name Role Phone Stone Martinez MD Primary Care Provider Encounter Details Date Type Department Care Team ([facility] st Contact Info) Description 04/05/2021 Documentation Only [...] COVID-19? No / Unsure 04/04/2021 7:09 PM SENIOR CATERING SALES MANAGER documented as of this encounter Plan of Treatment Not on file documented as of this encounter Visit Diagnoses Not on filedocumented in this encounter Care Teams Thermite Bomb Loader Relationship Specialty Start Date End Date Stone Martinez MD [facility] [address] [place] [address] PCP - General Internal Medicine 12/07/15 documented as of this encounter
--- OUTSIDE RECORDS SUMMARY | 2024-04-13 16:09 | XMS_ITS | Clinical Summary ---
Author Organization [facility] Address [address] [place] [address] Care Team Providers Care Plant Engineering Manager Name Role Phone Stone Martinez MD [...] Comments Blood Pressure 114/69 04/04/2021 11:30 PM STEM LEAD FORMER Pulse 73 04/04/2021 11:30 PM STEM LEAD FORMER Temperature 36.9 C (98.5 F) 04/04/2021 7:18 PM STEM LEAD FORMER Respiratory Rate 11 04/04/2021 10:35 PM STEM LEAD FORMER Oxygen Saturation 99% 04/04/2021 10:35 PM STEM LEAD FORMER Inhaled Oxygen Concentration - - Weight 95.4 kg (210 lb 6.4 oz) 04/04/2021 7:11 P M STEM LEAD FORMER Height - - Body Mass Index - [...] GLUCOSE BY METER STAT 04/04/2021 7:09 PM STEM LEAD FORMER LIPID PROFILE Routine 04/10/2018 from Last 3 Months or Most Recently Relevant to Health Maintenance Results * Glucose by meter (04/04/2021 7:09 PM STEM LEAD FORMER) GLUCOSE BY METER POCT 80 70 - 99 mg/dL 04/04/2021 7:16 PM STEM LEAD FORMER LABORATORY POC Blood BLOOD SPECIMEN / Unknown 04/04/2021 7:09 PM STEM LEAD FORMER 04/04/2021 7:16 PM STEM LEAD FORMER us Linette Davies MD LAB - BEAKER POCT Final Result LABORATORY POC [facility] Acute Care Lab [address] Lab (1st floor, no room number) [place] [address], [place] [phone] * (ABNORMAL) Lipid Profile (04/10/2018) Cholesterol 163 90 - 200 mg/dL [facility] Triglycerides 193 40 - 197 mg/dL [facility] HDL Cholesterol 38(L) >=50 mg/dL [facility] LDL Cholesterol Calculated 86 <100 mg/dL [facility] Blood specimen (specimen) 04/10/2018 Narrative [facility] - 04/10/2018 LAB RESULT [facility] us Provider Outside LAB - BLOOD ORDERABLES Final Re sult [facility] [address] [place] [address], [facility] [phone] from Last 3 Months or Most Recently Relevant to Health Maintenance Care Teams Plant Engineering Manager Relationship Specialty Start Date End Date Stone Martinez MD [facility] [address] [place] [address] PCP - General Internal Medicine 12/07/15
[2024-04-13] MEDS: MORPHINE 4 MG/ML INJ IVP (16:18)
--- NOTE | 2024-04-13 16:44 | ED_ITS ---
HPI - Fall General Date Seen: 04/13/24 Chief Complaint: Fall/Minor Trauma Stated Complaint: Fell down stairs Time Seen by Provider: 04/13/24 15:55 Source: patient Mode of arrival: ambulatory Limitations: no limitations History of Present Illness HPI Narrative: Patient is a 43-year-old female presenting to emergency department after a fall. She slipped down about 6 steps she states while she was holding her granddaughter. States she is not sure if she hit her head or not. The granddaughter was uninjured. This occurred about 2 hours prior to arrival. States most her pain seems to be in her tailbone. She is also having pain in her low back and right hip. Has noticed some tenderness to her right wrist to. States she feels like she is having black spots in her vision. She spoke to her primary care provider who told her to come in to get a head CT. She is on oxycodone for chronic back pain. Denies fevers, chills, diarrhea, constipation, headache, vision changes, chest pain, shortness of breath. Has not noticed any abdominal pain until I palpated her right lower quadrant. Denies any nausea or vomiting. No other concerns noted. Related Data Previous Rx's ?Medication ?Instructions ?Recorded nystatin 100,000 unit/gram topical 1 applic topical BID PRN itching 07/04/23 powder or burning perianal pain #60 grams meclizine 25 mg tablet 25 mg PO BID PRN dizziness #10 tabs 08/06/23 ondansetron 4 mg disintegrating 4 mg PO Q8H PRN nausea and 08/06/23 tablet vomiting #10 tabs sertraline 100 mg tablet 150 mg (1.5 x 100 mg) PO QDAY 08/24/23 Anxiety #90 tabs sumatriptan succinate 50 mg tablet 50 mg PO ONCE PRN migraine 09/26/23 (Imitrex) headache #30 tabs hydrocortisone acetate 25 mg 25 mg CA BID #24 ea 11/29/23 rectal suppository (Anusol-HC) buspirone 5 mg tablet 5 mg PO BID #60 tabs 01/08/24 venlafaxine 150 mg 150 mg PO QAM Anxiety #90 caps 02/19/24 capsule,extended release 24 hr oxycodone 10 mg tablet 10 mg PO Q8H PRN pain #30 tabs 04/04/24 Allergies Allergy/AdvReac Type Severity Reaction Status Date / Time codeine Allergy Severe hives, Verified 04/13/24 14:43 nausea, vomiting hydromorphone Allergy Mild itching Verified 04/13/24 14:43 ibuprofen Allergy Mild hx of Verified 04/13/24 14:43 gastric bypass Review of Systems Status of ROS: Reports: 10 or more systems reviewed and unremarkable except as noted in History and below PFSH PFSH Medical History Obstructive sleep apnea ?G47.33 - Obstructive sleep apnea (adult) (pediatric) (ICD-10) History of abdominal hernia ?Z87.19 - Personal history of other diseases of the digestive system (ICD-10) Radiculopathy ?M54.10 - Radiculopathy, site unspecified (ICD-10) Hemorrhoids ?K64.9 - Unspecified hemorrhoids (ICD-10) Fatigue ?R53.83 - Other fatigue (ICD-10) Sore throat ?J02.9 - Acute pharyngitis, unspecified (ICD-10) Anxiety ?F41.9 - Anxiety disorder, unspecified (ICD-10) Back pain ?M54.9 - Dorsalgia, unspecified (ICD-10) Night sweats ?R61 - Generalized hyperhidrosis (ICD-10) Strep throat ?J02.0 - Streptococcal pharyngitis (ICD-10) Eczema ?L30.9 - Dermatitis, unspecified (ICD-10) Rash ?R21 - Rash and other nonspecific skin eruption (ICD-10) Depression ?F32.A - Depression, unspecified (ICD-10) Surgical History History of umbilical hernia repair ?Z98.890 - Other specified postprocedural states (ICD-10) ?Z87.19 - Personal history of other diseases of the digestive system (ICD-10) History of hysterectomy ?Z90.710 - Acquired absence of both cervix and uterus (ICD-10) History of gastric bypass ?Z98.84 - Bariatric surgery status (ICD-10) History of cholecystectomy ?Z90.49 - Acquired absence of other specified parts of digestive tract (ICD- 10) History of section ?Z98.891 - History of uterine scar from previous surgery (ICD-10) Social History Smoking Status: Never smoker Do you use any of these nicotine containing products: None Second hand tobacco smoke exposure: No How often do you have a drink containing alcohol: 2-3 times a week How often do you have six or more drinks on one occasion: Never AUDIT-C Alcohol total score: 3 Non-prescribed substance use: denies use Exam Narrative: Exam Narrative: Const: Well-nourished, Well-developed, in mild distress Eyes: PERRL, no conjunctival injection, and symmetrical lids HENT: Atraumatic external nose and ears. Moist mucous membranes. Neck: Symmetric, trachea midline, No thyromegaly. No cervical spine tenderness CVS: RRR, No murmurs or gallops. Peripheral pulses 2+ and equal in all extremities RESP: Unlabored respiratory effort. Clear to auscultation bilaterally. GI: Tenderness right lower quadrant, Nondistended, No rebound or guarding. MSK:Extremities w/o deformity, Normal Active ROM, tenderness to right hip and right wrist. Tenderness to lumbar spine worse around L4 and coccyx. No other tenderness noted Skin: Warm, Dry. No rashes or lesions. Neuro: Normal Muscle tone, No focal neurological deficits. Psych: Awake, Alert, & Oriented x3. Appropriate mood and affect. Const: Vital Signs, click to edit/add: Vital Signs - 24 hr 04/13/24 14:39 04/13/24 16:58 04/13/24 17:00 Temperature 97.9 F Pulse Rate 85 76 Pulse Rate [Right Pulse Oximeter] 79 Respiratory Rate 18 Blood Pressure [Ri ght Upper Arm] 143/86 H Pulse Oximetry 98 95 99 Oxygen Delivery Me thod Room Air 04/13/24 17:15 04/13/24 17:30 04/13/24 17:45 Temperature Pulse Rate 75 77 79 Pulse Rate [Right Pulse Oximeter] Respiratory Rate Blood Pressure [Ri ght Upper Arm] Pulse Oximetry 98 99 98 Oxygen Delivery Me thod 04/13/24 18:00 04/13/24 18:15 Temperature Pulse Rate 80 82 Pulse Rate [Right Pulse Oximeter] Respiratory Rate Blood Pressure [Ri ght Upper Arm] Pulse Oximetry 99 99 Oxygen Delivery Me thod Course Vital Signs Vital signs: Initial Vital Signs Temperature 97.9 F 04/13/24 14:39 Temperature Source Temporal Artery Scan 04/13/24 14:39 Pulse Rate 79 04/13/24 14:39 Pulse Rhythm Regular 04/13/24 14:39 Pulse Strength 3+ Normal 04/13/24 14:39 Respiratory Rate 18 04/13/24 14:39 Blood Pressure 143/86 H 04/13/24 14:39 Blood Pressure Mean 105 04/13/24 14:39 Blood Pressure Position Sitting 04/13/24 14:39 Pulse Oximetry 98 04/13/24 14:39 Oxygen Delivery Method Room Air 04/13/24 14:39 Vital Signs Temperature 97.9 F 04/13/24 14:39 Pulse Rate 79 04/13/24 14:39 Respiratory Rate 18 04/13/24 14:39 Blood Pressure 143/86 H 04/13/24 14:39 Pulse Oximetry 98 04/13/24 14:39 Oxygen Delivery Method Room Air 04/13/24 14:39 Temperature 97.9 F 04/13/24 14:39 Pulse Rate 82 04/13/24 18:15 Respiratory Rate 18 04/13/24 14:39 Blood Pressure 143/86 H 04/13/24 14:39 Pulse Oximetry 99 04/13/24 18:15 Oxygen Delivery Method Room Air 04/13/24 14:39 Medications Administered Medications: Discontinued Medications Generic Name Dose Route Start Last Admin Trade Name Freq PRN Reason Stop Dose Admin Hydromorphone HCl 0.5 mg 04/13/24 17:08 04/13/24 17:15 Hydromorphone 0.5 Mg/0.5 Ml Inj IVP 04/13/24 17:09 0.5 mg ONCE ONE Administration Morphine Sulfate 4 mg 04/13/24 16:01 04/13/24 16:18 Morphine 4 Mg/Ml Inj IVP 04/13/24 16:02 4 mg ONCE ONE Administration MDM - Fall MDM Narrative Medical decision making narrative: Patient is a 43-year-old female presenting after a fall. Morphine given for pain. Since she does not know she had her head and does have some mild visual disturbance I will do a CT scan of her head and cervical spine. Will also do a CT scan of her abdomen and pelvis as this will see both the abdominal pain, the low back, coccyx, and right hip. Will x-ray right wrist. Patient is still having pain after the morphine and 0.5 of Dilaudid was given. Imaging all reviewed by myself and the radiologist shows no concerning abnormalities. She does have a partially empty sella that could be responsible to idiopathic intracranial hypertension. This seems like the with the concerning the fall. At this point she is feeling well and feels comfortable with discharge. No other concerns. Will be discharged. Lab Data Labs: 1. No evidence of acute intracranial abnormality. 2. Partially empty sella raises the possibility of idiopathic intracranial hypertension in the appropriate clinical setting. Please note that all CT scans at this facility use dose modulation, iterative reconstruction, and/or weight-based dosing when appropriate to reduce radiation dose to as low as reasonably achievable. Dictated by Zachariah Sneed MD @ 04/13/2024 4:50:[address] scan head: Attestation: I have reviewed the pertinent imaging results. Radiologist's impression: 1. No evidence of acute intracranial abnormality. 2. Partially empty sella raises the possibility of idiopathic intracranial hypertension in the appropriate clinical setting. Please note that all CT scans at this facility use dose modulation, iterative reconstruction, and/or weight-based dosing when appropriate to reduce radiation dose to as low as reasonably achievable. Dictated by Zachariah Sneed MD @ 04/13/2024 4:50:[address] scan cervical spine: Attestation: I have reviewed the pertinent imaging results. Radiologist's impression: 1. No convincing radiographic evidence of acute osseous injury. 2. Uncovertebral joint hypertrophy at C5-6 results in moderate neural foraminal narrowing bilaterally. No significant spinal canal stenosis. Please note that all CT scans at this facility use dose modulation, iterative reconstruction, and/or weight-based dosing when appropriate to reduce radiation dose to as low as reasonably achievable. Dictated by Zachariah Sneed MD @ 04/13/2024 4:52:[address] scan abdomen pelvis: Attestation: I have reviewed the pertinent imaging results. Radiologist's impression: 1. Small hiatal hernia with gastric bypass changes. 2. Cholecystectomy and hysterectomy. 3. No acute traumatic abnormality identified 4. Anterior and posterior fusion from L4 to the sacrum with decompressive laminectomies at L5. Please note that all CT scans at this facility use dose modulation, iterative reconstruction, and/or weight-based dosing when appropriate to reduce radiation dose to as low as reasonably achievable. Dictated by Rick Chavis MD @ 04/13/2024 4:57:31 PM X-ray right wrist: Attestation: I have reviewed the pertinent imaging results. Radiologist's impression: No acute fractures or dislocation. Dictated by Christian Victoria MD @ 04/13/2024 4:50:46 PM Discharge Plan Discharge Clinical Impression: Lumbar strain Qualifiers: Encounter type: initial encounter Qualified Code(s): S39.012A - Strain of muscl e, fascia and tendon of lower back, initial encounter Patient Disposition: Home, Self-Care Condition: Stable Instructions: Low Back Strain (ED) Additional Instructions: Continue to take your home pain medication. Return for new or worsening symptoms. Prescriptions: No Action nystatin 100,000 unit/gram powder 1 applic topical BID PRN (Reason: itching or burning perianal pain) Qty: 60 0RF meclizine 25 mg tablet 25 mg PO BID PRN (Reason: dizziness) Qty: 10 0RF ondansetron 4 mg tablet,disintegrating 4 mg PO Q8H PRN (Reason: nausea and vomiting) Qty: 10 0RF sumatriptan succinate [Imitrex] 50 mg tablet 50 mg PO ONCE PRN (Reason: migraine headache) Qty: 30 0RF hydrocortisone acetate [Anusol-HC] 25 mg suppository 25 mg CA BID Qty: 24 0RF buspirone 5 mg tablet 5 mg PO BID Qty: 60 3RF sertraline 100 mg tablet 150 mg PO QDAY Qty: 90 3RF venlafaxine 150 mg capsule,extended release 24hr 150 mg PO QAM Qty: 90 0RF Rx Instructions: Follow up appt needed prior to next refill. oxycodone 10 mg tablet 10 mg PO Q8H PRN (Reason: pain) Qty: 30 0RF Follow Up/Referrals: Stone Martinez MD [Primary Care Provider] - Stand Alone Forms: [employer] Info Instructions
[2024-04-13] MEDS: HYDROmorphone 0.5 mg/0.5 ml inj IVP (17:15)
== END 2024-04-13 18:50 | disposition home or self-care (01) ==
PROVIDERS: Emergency Provider Student in an Organized Health Care Education/Training Program; PCP Internal Medicine
DX: S39.012A Strain of muscle, fascia and tendon of lower back, initial encounter (principal); W10.9XXA Fall (on) (from) unspecified stairs and steps, initial encounter
CPT/HCPCS: 70450; 72125; 73110; 74177; 94761; 96374; 96375; 99284; J1171; J2270; Q9967

== ENCOUNTER 2024-05-05 07:31 | Outpatient (CLI) | payer BC, SELFPAY ==
--- NOTE | 2024-05-05 08:49 | P.ANES_ITS ---
Anesthesia Charges Start Date/Time Anesthesia Start Date: 05/05/24 Anesthesia Start Time: 08:30 Stop Date/Time Anesthesia Stop Date: 05/05/24 Anesthesia Stop Time: 08:41 Coding CPT Codes CPT Codes: ANES UPR GI NDSC PX NOS - 84689 ([id number]) P2 - PATIENT W/MILD SYST DISEASE, QK - DOCUMENT CONTROL COORDINATOR 2-4 CNCRNT ANES PROC, QX - CRANE CHASER SVC W/ MD MED DIRECTION
--- NOTE | 2024-05-05 08:49 | W.ANESCHARGE ---
Anesthesia Charges Start Date/Time Anesthesia Start Date: 05/05/24 Anesthesia Start Time: 08:30 Stop Date/Time Anesthesia Stop Date: 05/05/24 Anesthesia Stop Time: 08:41 Coding CPT Codes CPT Codes: ANES UPR GI NDSC PX NOS - 27634 ([id number]) P2 - PATIENT W/MILD SYST DISEASE, QK - HIGH SCHOOL VICE PRINCIPAL 2-4 CNCRNT ANES PROC, QX - MANAGER CATEGORY SVC W/ MD MED DIRECTION
--- NOTE | 2024-05-05 09:07 | P.ANES_ITS ---
Anesthesia Charges Start Date/Time Anesthesia Start Date: 05/05/24 Anesthesia Start Time: 08:30 Stop Date/Time Anesthesia Stop Date: 05/05/24 Anesthesia Stop Time: 08:41 Coding CPT Codes CPT Codes: ANES UPR GI NDSC PX NOS - 87472 ([id number]) QK - CARD SORTER 2-4 CNCRNT ANES PROC, QX - TOY ELECTRIC TRAIN REPAIRER SVC W/ MD MED DIRECTION, P2 - PATIENT W/MILD SYST DISEASE
--- NOTE | 2024-05-05 09:07 | W.ANESCHARGE ---
Anesthesia Charges Start Date/Time Anesthesia Start Date: 05/05/24 Anesthesia Start Time: 08:30 Stop Date/Time Anesthesia Stop Date: 05/05/24 Anesthesia Stop Time: 08:41 Coding CPT Codes CPT Codes: ANES UPR GI NDSC PX NOS - 65780 ([id number]) QK - CARTOONIST SPECIAL EFFECTS 2-4 CNCRNT ANES PROC, QX - DENTIST SVC W/ MD MED DIRECTION, P2 - PATIENT W/MILD SYST DISEASE
== END 2024-05-05 07:32 | disposition home or self-care (01) ==
PROVIDERS: PCP Internal Medicine; Visit Provider Internal Medicine
DX: R13.10 Dysphagia, unspecified (principal); Z98.84 Bariatric surgery status
CPT/HCPCS: 00731; 43239; 88305; 88312; 88341; 88342; J2704; J3490

== ENCOUNTER 2024-06-18 11:00 | Outpatient (CLI) | payer BC, SELFPAY | END 2024-06-18 11:01 | disposition home or self-care (01) | LOC: NFLDREF 06-21 08:50 | PROVIDERS: PCP Internal Medicine; Referring Provider Internal Medicine; Visit Provider Internal Medicine | DX: Z11.1 Encounter for screening for respiratory tuberculosis (principal) | CPT/HCPCS: 86480 ==

== ENCOUNTER 2024-07-08 19:32 | Inpatient (IN) | payer BC, SELFPAY ==
--- OUTSIDE RECORDS SUMMARY | 2024-07-08 19:34 | XMS_ITS | Clinical Summary ---
Author Organization [facility] Address [address] [place] [address] Care Team Providers Care Director Of Pediatric Rehabilitation Name Role Phone Unavailable Primary Care Provider Unavailabl e Source Comments You are receiving this document as you are listed as the primary care provider,follow-up provider, or the patient has been referred to you for consultation.This is in compliance with the Medicare andSelect [facility] Hospital[facility]id EHR Incentive Program,which states Providers who transition their patient to another setting of careor provider of care or refers their patient to another provider of care shouldprovide summary care record for each transition of care or referral. [facility] Allergies Active Allergy Reactions Criticality Noted Date Comments Codeine 06/13/2019 Medications diclofenac (VOLTAREN) 1 % gel Apply 2 g to skin 4 times daily as needed for Other (hand, knee, other joint pain). 100 g 3 07/16/2019 Active sertraline (ZOLOFT) 50 MG tablet Take 50 mg by mouth. Active venlafaxine (EFFEXORXR) 75 MG 24 hour release capsule Take 1 Capsule by mouth. 01/29/2017 Active cyclobenzaprine (FLEXERIL) 10 MG tablet Take 1 Tablet by mouth at bedtime as needed for Muscle Spasms. 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 04/06/2011 Attention deficit hyperactivity disorder (ADHD) 03/13/2007 Immunizations Immunization Administration Dates Next Due HepB, Unspecified Formulation 06/27/2010 MMR 08/11/1995 PPSV23 (Pneumovax) 06/22/2010 Social History Tobacco Use Types Packs/Day Years Used Date Smoking Tobacco: Never Smokeless Tobacco: Never Alcohol Use Standard Drinks/Week Comments Yes 0 (1 standard drink = 0.6 oz pur e alcohol) Comments Unknown Sex and Gender Information Value Date Recorded Sex Assigned at Not on file 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 Gender Identity Not on file Sexual Orientation Not on file Last Filed Vital Signs Vital Sign Reading Time Taken Comments Blood Pressure 125/82 07/21/2019 3:01 PM CDT Pulse 88 07/21/2019 3:01 PM CDT Temperature 36.7 C (98.1 F) 07/21/2019 3:01 PM CDT Respiratory Rate - - Oxygen Saturation - - Inhaled Oxygen Concentration - - Weight 93.9 kg (207 lb) 07/21/2019 3:01 PM CDT Height - - Body Mass Index - - Plan of Treatment Health Maintenance Due Date Last Done Comments Cervical Cancer Screening Due 1978 Colon Cancer Screening Plan Due 1978 Mammogram 1978 HIV Screening (Preventive Services) 1994 Adult Preventive Visit 1996 HepB (2) 07/25/2010 06/27/2010 DTaP/Tdap/Td (4 - Tdap) 08/19/2015 08/19/19 06, 1994, 11/22/1983 Cholesterol 07/12/2023 COVID-19 Vaccine ( season) 2023 Influenza (#1) 2023 01/20/2017, 01/08, 02/27/2013, Additional history exists Zoster/Shingles (1 of 2) 2028 Pneumococcal Aged Out 06/22/2010 No longer eligi ble based on patient's age to complete this topic Hep C Screening (Preventive Services) Completed 07/16/2019 HPV Vaccine Aged Out No longer eligi ble based on patient's age to complete this topic HepA Aged Out No longer eligi ble based on patient's age to complete this topic Hib Aged Out No longer eligi ble based on patient's age to complete this topic IPV (Polio) Aged Out No longer eligi ble based on patient's age to complete this topic MCV4 Aged Out No longer eligi ble based on patient's age to complete this topic Meningococcal B Aged Out No longer el igible based on patient's age to complete this topic Procedures Procedure Name Priority Date/Time Associated Diagnosis Comments HEPATITIS C ANTIBODY, WITH REFLEX Routine 07/16/2019 2:47 PM CDT Multiple joint pain from Last 3 Months or Most Recently Relevant to Health Maintenance Results * [facility] - Hepatitis C Virus Connie with Reflex In-House (07/16/2019 2:47 PM CDT) Hepatitis C Antibody Negative (Non Reactive) Negative (Non Reactive) 07/16/2019 7:10 PM CDT [facility] Comment:Antibodies to HCV no t detected. Does not exclude the possiblity of exposure to HCV. Blood Venipuncture / Unknown 07/16/2019 2:47 PM CDT 07/16/2019 2:47 PM CDT us Madi Montero MD LAB_1 Final Result [facility] [address] from Last 3 Months or Most Recently Relevant to Health Maintenance
--- OUTSIDE RECORDS SUMMARY | 2024-07-08 19:34 | XMS_ITS | Encounter Summary ---
Author Organization [facility] Address [address] [place] [id number] Care Team Providers Care Application Designer Name Role Phone Stone Martinez MD Primary Care Provider Encounter Details Date Type Department Care Team ([facility] st Contact Info) Description 04/05/2021 Documentation [...] COVID-19? 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 [address] [place] [address] PCP - General Internal Medicine 12/07/15 documented as of this encounter
--- OUTSIDE RECORDS SUMMARY | 2024-07-08 19:34 | XMS_ITS | Clinical Summary ---
Author Organization [facility] Address Formerly [facility] [place] [address] Care Team Providers Care Lunchroom Operator Name Role Phone Glenys Agarwal MD [...] 4 hours. 30 Tablet 3 11:42 AM CEMENT GRINDING MILL OPERATOR 02/19/20 23 Active acetaminophen (TYLENOL EXTRA STRGTH) 500 mg tabletIndications: Acute postoperative pain Take 2 Tablets (1,000 mg) by mouth every 6 hours. Max acetaminophen dose: 4000mg in 24 hrs. 90 Tablet 3 11:42 AM CEMENT GRINDING MILL OPERATOR 02/19/20 23 Active methocarbamoL (ROBAXIN) 500 mg tabletIndications: Acute postoperative pain Take 1 Tablet (500 mg) by mouth every 6 hours. 30 Tablet 3 11:42 AM CEMENT GRINDING MILL OPERATOR 02/19/20 23 Active ondansetron (ZOFRAN ODT) 4 mg disintegrating tabletIndications: Acute postoperative pain Place 1 Tablet (4 mg) on the tongue every 8 hours if needed for Nausea/Vomiting. 20 Tablet 3 11:42 AM CEMENT GRINDING MILL OPERATOR 02/19/20 23 Active sennosides-docusat e (SENOKOT S) (8.6-50 mg) tabletIndications: Acute postoperative pain Take 1-4 Tablets by mouth two times daily. 40 Tablet 3 11:42 AM CEMENT GRINDING MILL OPERATOR 02/19/20 23 Active furosemide (LASIX) 20 mg [...] to E coli with associated sepsis Immunizations Immunization Administration Dates Next Due COVID-19 vaccine ([employer] 30mcg/0.3mL) PF, MDV 01/10/2021,04/20/2020,03/31/2020 DTP 11/22/1983 Hepatitis [...] Comments Blood Pressure 110/70 02/18/2023 9:00 AM CEMENT GRINDING MILL OPERATOR Pulse 70 02/18/2023 9:00 AM CEMENT GRINDING MILL OPERATOR Temperature 36.7 C (98 F) 02/18/2023 9:00 AM CEMENT GRINDING MILL OPERATOR Respiratory Rate 18 02/18/2023 9:00 AM CEMENT GRINDING MILL OPERATOR Oxygen Saturation 98% 02/18/2023 9:00 AM CEMENT GRINDING MILL OPERATOR Inhaled Oxygen Concentration - - Weight 99.7 kg (219 lb 12.8 oz) 02/16/2023 7:15 AM CEMENT GRINDING MILL OPERATOR Height 175.3 cm (5' 9) 02/16/2023 7:15 AM CEMENT GRINDING MILL OPERATOR Body Mass Index 32.46 02/16/2023 7:15 AM CEMENT GRINDING MILL OPERATOR Plan of Treatment Upcoming Encounters Date Type Department Care Team (Latest Contact Info) Description 07/31/2024 8:05 AM CDT Hospital Encounter [facility] [address] [place], [place] [id number] Delvin Khan MD [address] [facility] [address] [place] [address] 07/31/2024 9:05 AM CDT - 07/31/2024 10:[address] 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 07/31/2024 9:05 AM CDT Health Maintenance Due Date Last Done Comments [...] ( season) 2023 01/10/2021, 04/20/2020, 03/31/2020 Influenza Vaccine (#1) 2023 , 02/01/2021, 01/07/2020, Additional history exists Colonoscopy through age 75 01/04/2025 01/04/2015 Tdap Completed 08/18/2005 Pneumococcal series for age 6-49 Aged Out 06/22/2010 No longer eligible based on patient's age to complete this topic Hepatitis C screening for age 18-79 Completed 01/18/2015 Pap test for age 21-65 Discontinued Medical Devices Implanted Type Area Independent Living Specialist Device Identifier Shelf Expiration Date Model / Serial / Lot Carmela Lmbr 60x5.5mm Tsrh 3d Cvd Titnm - [id number] Implanted:Qty: 2 on 02/12/2020 by Freddy Arboleda MD at [facility] Spine Implants N/A: Spine Medtronic Spine/Ortho [id number] / / [id number] one 1-4mm 30cc Medtronic Chips Canclls Freeze Dried Implanted:Qty: 1 on 02/12/2020 by Freddy Arboleda MD at [facility] Explanted:at [facility] (Quantity not on file) N/A: Spine Medtronic Spine/Ortho 08/06/2024 [id number] / [id number] / Connector 3d Medium Implanted:Qty: 2 on 02/12/2020 by Freddy Arboleda MD at [facility] N/A: Spine [id number] / / Description:CONNECTOR 3D MED IUM Bone Matrix Lg Infuse Bmp - [id number] Implanted:Qty: 1 on 02/12/2020 by Freddy Arboleda MD at [facility] N/A: Spine Medtronic Spine/Ortho 11/07/2020 [id number] / / [id number] A Spacer Lmbr [id number] 12deg Sm Sovereign Stand Alone - [id number] Implanted:Qty: 1 on 02/12/2020 by Freddy Arboleda MD at [facility] N/A: Spine Medtronic Spine/Ortho 03/19/2026 [id number] / / 68GW Spacer Lmbr [id number] 8 Deg Sm Sovereign Stand Alone - [id number] Implanted:Qty: 1 on 02/12/2020 by Freddy Arboleda MD at [facility] N/A: Spine Medtronic Spine/Ortho 12/23/2027 [id number] / / 38KM Screw Lmbr 5.5x20mm Sovereign Stand Alone - [id number] Implanted:Qty: 6 on 02/12/2020 by Freddy Arboleda MD at [facility] N/A: Spine Medtronic Spine/Ortho [id number] / / Set Screw Lmbr Tsrh 3dx - [id number] Implanted:Qty: 6 on 02/12/2020 by Freddy Arboleda MD at [facility] N/A: Spine Medtronic Spine/Ortho [id number] / / Screw Lmbr Post 6.5x35mm Tsrh 3dx Og Thin Va - [id number] Implanted:Qty: 2 on 02/12/2020 by Freddy Arboleda MD at [facility] N/A: Spine Medtronic Spine/Ortho [id number] / / Screw Lmbr Post 6.5x45mm Tsrh 3dx Og Thin Va - [id number] Implanted:Qty: 4 on 02/12/2020 by Freddy Arboleda MD at [facility] N/A: Spine Medtronic Spine/Ortho [id number] / / Connector 3d Small Implanted:Qty: 4 on 02/12/2020 by Freddy Arboleda MD at [facility] N/A: Spine [id number] / / Description:CONNECTOR 3D SMA LL Explanted Type Area Independent Living Specialist Device Identifier Shelf Expiration Date Model / Serial / Lot Explant Explanted:Qty: 1 on 02/16/[address] [facility] Description:SCREWS, SET SCRE WS 3, CARMELA 1, [...] care provider. XR MAMMO TISH BILAT SCREEN [[id number]] CLINICAL HISTORY: This is an asymptomatic 42 [...] ve Non-Reacti ve 01/18/2015 1:43 PM CDT [facility] Blood specimen (specimen) BLOOD SPECIMEN / Unknown Venipuncture / Unknown 01/18/2015 8:55 AM CDT 01/18/2015 8:55 AM CDT Narrative [facility] - 01/18/2015 1:43 PM CDT Antibodies to HCV not detected; does not exclude the possibility of exposure to HCV. Efren Eng MD SEND OUTS Final Res [facility] [address] [place] [address], [place] * SCAN-COLONOSCOPY (01/04/2015 12:00 AM CDT) [...] resolve the infection flag. 02/11/2020 02/11/2020 Insurance [facility] [employer]ILY [employer] Advance Directives * Full Code (Latest Code Status on File) Date Activated Date Inactivated Comments 02/16/2023 3:43 PM 02/18/2023 2:31 PM Question Answer Comments Code Status Discussion: Other * Full Code Date Activated Date Inactivated Comments 02/12/2020 7:33 PM 02/14/2020 1:48 PM Question Answer Comments Code Status Discussion: Not DiscussedPer Existin g Order Care Teams Lunchroom Operator Relationship Specialty Start Date End Date Stone Martinez MD [address] [place] [address] PCP - General Internal Medicine 02/12/23 Glenys Agarwal MD [address] [place] [address] Family Practice 01/23/20
--- OUTSIDE RECORDS SUMMARY | 2024-07-08 19:34 | XMS_ITS | Clinical Summary ---
Author Organization [facility] Address [address] [place] [id number] Care Team Providers Care Balance Sheet Analyst Name Role Phone Stone Martinez MD Primary [...] Comments Blood Pressure 114/69 04/04/2021 11:30 PM [employer]PH[employer] Pulse 73 04/04/2021 11:30 PM CLE[employer] UPH[employer]STERY Temperature 36.9 C (98.5 F) 04/04/2021 7:18 PM CLEANER CARPET AND UPHOLSTERY Respiratory Rate 11 04/04/2021 10:35 PM CLEANER CARPET AND UPHOLSTERY Oxygen Saturation 99% 04/04/2021 10:35 PM CLEANER [employer]PET AND UPHOLSTERY Inhaled Oxygen Concentration - - Weight 95.4 kg (210 lb 6.4 oz) 04/04/2021 7:11 P M [employer] UPHOLSTERY Height - - Body Mass Index - - Plan of Treatment Not on file Care Teams Balance Sheet Analyst Relationship Specialty Start Date End Date Stone Martinez MD [facility] [address] [place] [address] PCP - General Internal Medicine 12/07/15
[2024-07-08 19:35] VITALS: BP 120/82; PULSE 118; RESP 18; TEMP 36.5; O2SAT 82; BMI 29.5
--- NOTE | 2024-07-08 19:49 | ED_ITS ---
HPI - General Adult General Chief complaint: Headache/Migraine Stated complaint: migraine, sore throat, nausea Time Seen by Provider: 07/08/24 19:48 History of Present Illness HPI narrative: Patient presents to the [facility] department complaining of a headache. Patient states she has been sick x4 days. Her headache she describes as a migraine which she has a history of. Patient also has been experiencing a sore throat and a cough. Family states over night he thinks the patient was breathing abnormally. 43-year-old woman presenting to the emergency department with concern of headache and some cough. mentions otherwise some difficulty breathing but is describing this as related to sleep apnea. Occurs usually on the heels of an episode of torso itching/pruritus and will take some Benadryl and still have trouble sleeping for a night or 2 subsequently with marked fatigue and poor cognition and then finally crashes into a deep sleep; he said this last night he even counted an episode of 40 seconds of not breathing then she pops awake or kicks her legs. Has actually lost some jobs because of this problematic cycle. This episode occurs maybe once every 2, maybe once every 4 weeks. She has been taking Lunesta regularly for sleep but apparently that is not enough with these episodes. Otherwise has had some cough and some sore throat recently. Does have a history of migraines. Currently still with some residual frontal headache though may have improved a little bit with her Imitrex. She is quite thirsty. Hurts all over. Records show sleep apnea in diagnoses however seems to indicate that not formally diagnosed with this. Does not use CPAP. Related Data Previous Rx's ?Medication ?Instructions ?Recorded nystatin 100,000 unit/gram topical 1 applic topical BID PRN itching 07/04/23 powder or burning perianal pain #60 grams meclizine 25 mg tablet 25 mg PO BID PRN dizziness #10 tabs 08/06/23 ondansetron 4 mg disintegrating 4 mg PO Q8H PRN nausea and 08/06/23 tablet vomiting #10 tabs sumatriptan succinate 50 mg tablet 50 mg PO ONCE PRN migraine 09/26/23 (Imitrex) headache #30 tabs buspirone 5 mg tablet 5 mg PO BID #60 tabs 01/08/24 venlafaxine 150 mg 150 mg PO QAM Anxiety #90 caps 04/29/24 capsule,extended release 24 hr oxycodone 10 mg tablet 10 mg PO Q8H PRN pain #60 tabs 06/30/24 sertraline 100 mg tablet 150 mg (1.5 x 100 mg) PO QDAY 07/03/24 Anxiety #90 tabs [id number]-zqzdojima 3.5 3 drp otic (ear) TID #10 mL 07/05/24 mg-10,000 unit/mL-1 % ear drops,susp eszopiclone 2 mg tablet (Lunesta) 2 mg PO QHS #30 tabs 07/07/24 Allergies Allergy/AdvReac Type Severity Reaction Status Date / Time codeine Allergy Severe hives, Verified 07/08/24 22:25 nausea, vomiting hydromorphone Allergy Mild itching Verified 07/08/24 22:25 ibuprofen Allergy Mild hx of Verified 07/08/24 22:25 gastric bypass Review of Systems Status of ROS: Reports: 6 or more systems reviewed and unremarkable except as noted in History and below PFSH [facility] Medical History Insomnia ?G47.00 - Insomnia, unspecified (ICD-10) Granular cell tumor ?D21.9 - Benign neoplasm of connective and other soft tissue, unspecified (ICD-10) Dysphagia ?R13.10 - Dysphagia, unspecified (ICD-10) Obstructive sleep apnea ?G47.33 - Obstructive sleep apnea (adult) (pediatric) (ICD-10) History of abdominal hernia ?Z87.19 - Personal history of other diseases of the digestive system (ICD-10) Hemorrhoids ?K64.9 - Unspecified hemorrhoids (ICD-10) Anxiety ?F41.9 - Anxiety disorder, unspecified (ICD-10) Back pain ?M54.9 - Dorsalgia, unspecified (ICD-10) Eczema ?L30.9 - Dermatitis, unspecified (ICD-10) Depression ?F32.A - Depression, unspecified (ICD-10) Surgical History History of umbilical hernia repair ?Z98.890 - Other specified postprocedural states (ICD-10) ?Z87.19 - Personal history of other diseases of the digestive system (ICD-10) History of hysterectomy ?Z90.710 - Acquired absence of both cervix and uterus (ICD-10) History of gastric bypass ?Z98.84 - Bariatric surgery status (ICD-10) History of cholecystectomy ?Z90.49 - Acquired absence of other specified parts of digestive tract (ICD- 10) History of section ?Z98.891 - History of uterine scar from previous surgery (ICD-10) Social History Smoking Status: Never smoker Do you use any of these nicotine containing products: None Second hand tobacco smoke exposure: No How often do you have a drink containing alcohol: monthly or less How many standard drinks containing alcohol do you have on a typical day: 1 or 2 How often do you have six or more drinks on one occasion: Never AUDIT-C Alcohol total score: 1 Non-prescribed substance use: denies use service: No Exam Narrative: Exam Narrative: Does appear quite tired. Cranial nerves 2-12 are intact. Subtly slurring her words. Lips and oropharynx are quite dry. Lungs are clear. She is oxygenating 82% on room air and yet is not tachypneic. Heart is with elevated rate in a regular rhythm without murmur. Abdomen is soft nontender. Lower extremities are well perfused without edema. Const: Vital Signs, click to edit/add: Vital Signs - 24 hr 07/08/24 19:35 07/08/24 22:05 07/08/24 23:47 Temperature 97.7 F 98.6 F Pulse Rate [Pulse Oximeter] 118 H 102 H 106 H Respiratory Rate 18 18 16 Blood Pressure [Ri t Upper Arm] 120/82 104/81 116/98 H Pulse Oximetry 82 L 90 96 Oxygen Delivery Me thod Room Air Nasal Cannula Nasal Cannula Oxygen Flow Rate 1 2 Documenting provider has reviewed patient's vital signs: yes Course Vital Signs Vital signs: Initial Vital Signs Temperature 97.7 F 07/08/24 19:35 Temperature Source Temporal Artery Scan 07/08/24 19:35 Pulse Rate 118 H 07/08/24 19:35 Pulse Rhythm Regular 07/08/24 19:35 Pulse Strength 3+ Normal 07/08/24 19:35 Respiratory Rate 18 07/08/24 19:35 Blood Pressure 120/82 07/08/24 19:35 Blood Pressure Mean 94 07/08/24 19:35 Blood Pressure Position Sitting 07/08/24 19:35 Pulse Oximetry 82 L 07/08/24 19:35 Oxygen Delivery Method Room Air 07/08/24 19:35 Vital Signs Temperature 97.7 F 07/08/24 19:35 Pulse Rate 118 H 07/08/24 19:35 Respiratory Rate 18 07/08/24 19:35 Blood Pressure 120/82 07/08/24 19:35 Pulse Oximetry 82 L 07/08/24 19:35 Oxygen Delivery Method Room Air 07/08/24 19:35 Temperature 98.6 F 07/08/24 23:47 Pulse Rate 106 H 07/08/24 23:47 Respiratory Rate 16 07/08/24 23:47 Blood Pressure 116/98 H 07/08/24 23:47 Pulse Oximetry 96 07/08/24 23:47 Oxygen Delivery Method Nasal Cannula 07/08/24 23:47 Oxygen Flow Rate 2 07/08/24 23:47 Medications Administered Medications: Discontinued Medications Generic Name Dose Route Start Last Admin Trade Name Freq PRN Reason Stop Dose Admin Sodium Chloride 1,000 mls @ 1,000 mls/hr 07/08/24 20:11 07/08/24 20:38 0.9 % Sodium Chloride 1000 Ml IV 07/08/24 21:10 1,000 mls/hr .Q1H ONE Administration Lactated Ringer's 1,000 mls @ 1,000 mls/hr 07/08/24 22:45 07/08/24 21:45 Lactated Ringers 1000 Ml IV 07/08/24 23:44 1,000 mls/hr .Q1H ONE Administration Ketorolac Tromethamine 30 mg 07/08/24 20:11 07/08/24 20:37 Ketorolac 30 Mg/Ml Inj IVP 07/08/24 20:12 30 mg ONCE ONE Administration Ondansetron HCl 4 mg 07/08/24 20:11 07/08/24 20:35 Ondansetron 2 Mg/Ml Inj IVP 07/08/24 20:12 4 mg ONCE ONE Administration Medical Decision Making MDM Narrative Medical decision making narrative: She would appreciate treatment to finish off her headache. Will be treating initially with Toradol and Zofran. IV hydration. With all-over body aches/myalgias cough I would presume nonspecific viral etiology. Considering community prevalence recently would screen for COVID but also influenza and RSV. Chest x-ray for pneumonia, pneumothorax. Pulmonary embolus remains in differential though I do not think this explains myalgias. Chest x-ray independently reviewed by me looks to be negative for infiltrate. Maybe a little vascular congestion. Labs returned RSV positive. Creatinine has also bumped to 2.2 from 0.6 about 10 months ago. Presuming some prerenal component - appears to have suffered acute kidney injury. On reassessment headache is improved. Still though noted to be hypoxic. Not tachypneic. Added VBGs do show some uncompensated acidosis CT scan independently reviewed by me shows some right greater than left infiltrate/opacity Radiology over-read below Indication: Hypoxia, high D-dimer, RSV positive Technique: Postcontrast CTA of the chest following 95 mL Isovue 370 IV contrast. Axial MIP images obtained. Comparison: None Findings: Pulmonary arteries: No pulmonary embolism appreciated. Lungs: Patchy pulmonary opacities. Small right effusion. Mediastinum: No acute abnormality appreciated. Lymph nodes: No gross lymphadenopathy. Upper abdomen: Peyton-en-Y gastric bypass. Soft tissues: No acute abnormality appreciated. Bones: No acute abnormality appreciated. Impression: Patchy pulmonary opacities and small right effusion are noted, most consistent with viral pneumonia given reported history of RSV. Please note that all CT scans at this facility use dose modulation, iterative reconstruction, and/or weight-based dosing when appropriate to reduce radiation dose to as low as reasonably achievable. Dictated by Miguel Bateman MD @ 07/08/2024 10:39:10 PM Ambulation with oximetry at 82% on room air. 2 L nasal cannula brings oxygen saturations to 96%. On 1 L is 90% Enquiring about admission. I have discussed this case with our hospitalist though still involved with a few other cases at the moment. Recheck the vbgs - has been on nasal cannula oxygen for 2-1/2 hours. I would anticipate admission for oxygen support and improvement in renal function/status. With these episodes of itching that are limiting sleep I wonder if might benefit from lorazepam however would be concerned without concurrent treatment for sleep apnea. Does have chronic back pain for which she receives an opiate pain medication in the form of oxycodone 10 mg tabs. On review of [facility] 5 days ago did receive a prescription for 60. Discussed with nursing that she has not taken any yet. Certainly these medications could be contributing to this suppressed or altered mental status she is demonstrating as well. Slight improvement in blood gas Urine tox screen consistent only with THC Discussed with on-call hospitalist for admission. Medical Records Medical records reviewed: Yes I reviewed the patient's medical records Lab Data Lab results reviewed: Yes I reviewed the patient's lab results Labs: Lab Results 07/08/24 07/08/24 07/08/24 Range/Units 19:52 20:30 21:10 WBC 7.14 (4.50-11.00) K/uL RBC 4.11 (4.00-5.20) m/uL Hgb 14.2 (12.0-16.0) gm/dL Hct 43.0 (33.0-51.0) % MCV 105 H (80-100) fL MCH 35 H (26-34) pg MCHC 33 (32-36) gm/dL RDW Coeff of Reyes 12.9 (11.5-15.5) % Plt Count 231 (140-440) K/uL Neut % (Auto) 78.4 H (42.0-72.0) % Lymph % (Auto) 12.7 L (20-44) % [place] % (Auto) 7.8 (0.0-11.0) % Eos % (Auto) 0.0 (0.0-7.0) % Baso % (Auto) 0.1 (0.0-3.0) % Neut # (Auto) 5.60 (1.7-7.0) K/uL Lymph # (Auto) 0.90 (0.90-2.90) K/uL [place] # (Auto) 0.60 (0.00-0.90) K/UL Eos # (Auto) 0.00 (0.00-0.50) K/uL Baso # (Auto) 0.01 (0.00-0.30) K/uL Abs Immat Gran (auto) 0.07 (0.00-0.30) K/uL Imm/Tot Granulo (auto) 1.0 % D-Dimer Quant (PE/DVT) 1.63 H (0.00-0.50) ug/ml VBG pH (7.32-7.43) VBG pCO2 (40-50) mmHG VBG pO2 (25-47) mmHG VBG HCO3 (21-28) mmol/L Sodium 139 (135-149) mmol/L Potassium 4.6 (3.6-5.1) mmol/L Chloride 100 (96-114) mmol/L Carbon Dioxide 27 (20-32) mmol/L Anion Gap 12 (7-15) mEq/L BUN 41 H (5-24) mg/dL Creatinine 2.2 H (0.5-1.5) mg/dL Estimated Creat Clear 33.75 Estimated GFR 27 ml/min Glucose 159 H (60-115) mg/dL Lactate (0.5-1.9) mmol/L Calcium 9.9 (8.4-10.6) mg/dL C-Reactive Protein 8.6 H (0.5-1.0) mg/dL Urine Opiates Screen (Negative) Ur Oxycodone Screen (Negative) Urine Methadone Screen (Negative) Ur Barbiturates Screen (Negative) U Tricyclic Antidepress (Negative) Ur Phencyclidine Scrn (Negative) Ur Amphetamines Screen (Negative) U Methamphetamines Scrn (Negative) U Benzodiazepines Scrn (Negative) Urine Cocaine Screen (Negative) U Marijuana (THC) Screen (Negative) Ur Drug Screen Comment Ethyl Alcohol < 0.01 (0.01-0.03) % SARS-CoV-2 (PCR) Negative SARS-CoV-2 (Negative) Influenza Type A (PCR) Negative PCR FLU A (Negative) Influenza Type B (PCR) Negative PCR FLU B (Negative) RSV (PCR) POSITIVE PCR RSV A (Negative) Lab Acknowledgement Test Added 07/08/24 07/08/24 07/08/24 Range/Units 21:20 22:58 23:47 WBC (4.50-11.00) K/uL RBC (4.00-5.20) m/uL Hgb (12.0-16.0) gm/dL Hct (33.0-51.0) % MCV (80-100) fL MCH (26-34) pg MCHC (32-36) gm/dL RDW Coeff of Reyes (11.5-15.5) % Plt Count (140-440) K/uL Neut % (Auto) (42.0-72.0) % Lymph % (Auto) (20-44) % [place] % (Auto) (0.0-11.0) % Eos % (Auto) (0.0-7.0) % Baso % (Auto) (0.0-3.0) % Neut # (Auto) (1.7-7.0) K/uL Lymph # (Auto) (0.90-2.90) K/uL [place] # (Auto) (0.00-0.90) K/UL Eos # (Auto) (0.00-0.50) K/uL Baso # (Auto) (0.00-0.30) K/uL Abs Immat Gran (auto) (0.00-0.30) K/uL Imm/Tot Granulo (auto) % D-Dimer Quant (PE/DVT) (0.00-0.50) ug/ml VBG pH 7.235 L* (7.32-7.43) VBG pCO2 58 H (40-50) mmHG VBG pO2 50.9 H (25-47) mmHG VBG HCO3 25 (21-28) mmol/L Sodium (135-149) mmol/L Potassium (3.6-5.1) mmol/L Chloride (96-114) mmol/L Carbon Dioxide (20-32) mmol/L Anion Gap (7-15) mEq/L BUN (5-24) mg/dL Creatinine (0.5-1.5) mg/dL Estimated Creat Clear Estimated GFR ml/min Glucose (60-115) mg/dL Lactate 1.3 (0.5-1.9) mmol/L Calcium (8.4-10.6) mg/dL C-Reactive Protein (0.5-1.0) mg/dL Urine Opiates Screen Negative (Negative) Ur Oxycodone Screen Negative (Negative) Urine Methadone Screen Negative (Negative) Ur Barbiturates Screen Negative (Negative) U Tricyclic Antidepress Negative (Negative) Ur Phencyclidine Scrn Negative (Negative) Ur Amphetamines Screen Negative (Negative) U Methamphetamines Scrn Negative (Negative) U Benzodiazepines Scrn Negative (Negative) Urine Cocaine Screen Negative (Negative) U Marijuana (THC) Screen POSITIVE A (Negative) Ur Drug Screen Comment See Note Ethyl Alcohol (0.01-0.03) % SARS-CoV-2 (PCR) (Negative) Influenza Type A (PCR) (Negative) Influenza Type B (PCR) (Negative) RSV (PCR) (Negative) Lab Acknowledgement Test Added 07/09/24 Range/Units 00:04 WBC (4.50-11.00) K/uL RBC (4.00-5.20) m/uL Hgb (12.0-16.0) gm/dL Hct (33.0-51.0) % MCV (80-100) fL MCH (26-34) pg MCHC (32-36) gm/dL RDW Coeff of Reyes (11.5-15.5) % Plt Count (140-440) K/uL Neut % (Auto) (42.0-72.0) % Lymph % (Auto) (20-44) % [place] % (Auto) (0.0-11.0) % Eos % (Auto) (0.0-7.0) % Baso % (Auto) (0.0-3.0) % Neut # (Auto) (1.7-7.0) K/uL Lymph # (Auto) (0.90-2.90) K/uL [place] # (Auto) (0.00-0.90) K/UL Eos # (Auto) (0.00-0.50) K/uL Baso # (Auto) (0.00-0.30) K/uL Abs Immat Gran (auto) (0.00-0.30) K/uL Imm/Tot Granulo (auto) % D-Dimer Quant (PE/DVT) (0.00-0.50) ug/ml VBG pH 7.291 L (7.32-7.43) VBG pCO2 52 H (40-50) mmHG VBG pO2 53.0 H (25-47) mmHG VBG HCO3 25 (21-28) mmol/L Sodium (135-149) mmol/L Potassium (3.6-5.1) mmol/L Chloride (96-114) mmol/L Carbon Dioxide (20-32) mmol/L Anion Gap (7-15) mEq/L BUN (5-24) mg/dL Creatinine (0.5-1.5) mg/dL Estimated Creat Clear Estimated GFR ml/min Glucose (60-115) mg/dL Lactate (0.5-1.9) mmol/L Calcium (8.4-10.6) mg/dL C-Reactive Protein (0.5-1.0) mg/dL Urine Opiates Screen (Negative) Ur Oxycodone Screen (Negative) Urine Methadone Screen (Negative) Ur Barbiturates Screen (Negative) U Tricyclic Antidepress (Negative) Ur Phencyclidine Scrn (Negative) Ur Amphetamines Screen (Negative) U Methamphetamines Scrn (Negative) U Benzodiazepines Scrn (Negative) Urine Cocaine Screen (Negative) U Marijuana (THC) Screen (Negative) Ur Drug Screen Comment Ethyl Alcohol (0.01-0.03) % SARS-CoV-2 (PCR) (Negative) Influenza Type A (PCR) (Negative) Influenza Type B (PCR) (Negative) RSV (PCR) (Negative) Lab Acknowledgement Discharge Plan Discharge Clinical Impression: RSV infection, Respiratory failure, Acute kidney injury Patient Disposition: Admitted As Observation Condition: Improved
--- NOTE | 2024-07-08 20:11 | CRLHL7_ITS ---
For Patients: As a result of the Century Cures Act, medical imaging exams and procedure reports are released immediately into your electronic medical record. You may view this report before your referring provider. If you have questions, please contact your health care provider. INDICATION: Cough. TECHNIQUE: Chest radiograph, 1 view. COMPARISON: None. FINDINGS: Cardiovascular/Mediastinum: Normal heart size. Unremarkable. Lungs: No focal consolidation. Airways: Trachea remains midline. Pleura: No pleural effusions or pneumothorax. Bones: No acute osseous abnormalities. Upper abdomen: Unremarkable. IMPRESSION: No acute cardiopulmonary process. Dictated by Pedrito Ribera MD @ 07/09/2024 11:39:08 AM (Electronically Signed)
[2024-07-08] MEDS: ONDANSETRON 2 MG/ML inj 4 MG IVP (20:35)
[2024-07-08] MEDS: KETOROLAC 30 MG/ML inj IVP (20:37)
[2024-07-08 20:38] LABS: Basophils Absolute Auto 0.01 K/uL (0.00-0.30); Basophils Percent Auto 0.1 % (0.0-3.0); Hemoglobin* 14.2 gm/dL (12.0-16.0); Immature Granulocytes Abs Auto 0.07 K/uL (0.00-0.30); Lymphocytes Percent Auto 12.7 % (20-44); Mean Corpuscular HGB Conc 33 gm/dL (32-36); Mean Corpuscular Hemoglobin 35 pg (26-34); Mean Corpuscular Volume 105 fL (80-100); Monocytes Percent Auto 7.8 % (0.0-11.0); Neutrophils Percent Auto 78.4 % (42.0-72.0); Platelet Count* 231 K/uL (140-440); RDW Coefficient of Variation % 12.9 % (11.5-15.5); Red Blood Count* 4.11 m/uL (4.00-5.20); White Blood Count* 7.14 K/uL (4.50-11.00)
[2024-07-08] MEDS: 0.9 % SODIUM CHLORIDE 1000 ml 1,000 ML IV (20:38)
[2024-07-08 20:39] LABS: Slide Review Reflex No
[2024-07-08 20:43] LABS: PCR FLU A Negative PCR FLU A (Negative); PCR FLU B Negative PCR FLU B (Negative); PCR RSV POSITIVE PCR RSV (Negative); SARS PCR* Negative SARS-CoV-2 (Negative)
[2024-07-08 20:55] LABS: Chloride* 100 mmol/L (96-114)
[2024-07-08 20:56] LABS: Potassium* 4.6 mmol/L (3.6-5.1); Sodium* 139 mmol/L (135-149)
--- OUTSIDE RECORDS SUMMARY | 2024-07-08 20:58 | XMS_ITS | Encounter Summary ---
Author Organization [place] Address [address] [place] [id number] Care Team Providers Care Concrete Pipe Machine Operator Name Role Phone Stone Martinez MD Primary Care Provider Encounter Details Date Type Department Care Team ([facility] st Contact Info) Description 04/05/2021 Documentation Only [...] COVID-19? No / Unsure 04/04/2021 7:09 PM COMMERCIAL LINES ACCOUNT MANAGER documented as of this encounter Plan of Treatment Not on file documented as of this encounter Visit Diagnoses Not on filedocumented in this encounter Care Teams Concrete Pipe Machine Operator Relationship Specialty Start Date End Date Stone Martinez MD [facility] [address] [place] [address] PCP - General Internal Medicine 12/07/15 documented as of this encounter
--- OUTSIDE RECORDS SUMMARY | 2024-07-08 20:58 | XMS_ITS | Clinical Summary ---
Author Organization [facility] Address [address] [place] [address] Care Team Providers Care Enterprise Business Architect Name Role Phone Unavailable Primary Care Provider Unavailabl e Source Comments You are receiving this document as you are listed as the primary care provider,follow-up provider, or the patient has been referred to you for consultation.This is in compliance with the Medicare and[facility] Hospital[facility] EHR Incentive Program,which states Providers who transition their patient to another setting of careor provider of care or refers their patient to another provider of care shouldprovide summary care record for each transition of care or referral. 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
--- OUTSIDE RECORDS SUMMARY | 2024-07-08 20:58 | XMS_ITS | Clinical Summary ---
Author Organization [place] Address [address] [place] [address] Care Team Providers Care Low Vision Therapist Name Role Phone Stone Martinez MD Primary [...] Comments Blood Pressure 114/69 04/04/2021 11:30 PM WATER JET OPERATOR Pulse 73 04/04/2021 11:30 PM WATER JET OPERATOR Temperature 36.9 C (98.5 F) 04/04/2021 7:18 PM WATER JET OPERATOR Respiratory Rate 11 04/04/2021 10:35 PM WATER JET OPERATOR Oxygen Saturation 99% 04/04/2021 10:35 PM WATER JET OPERATOR Inhaled Oxygen Concentration - - Weight 95.4 kg (210 lb 6.4 oz) 04/04/2021 7:11 P M WATER JET OPERATOR Height - - Body Mass Index - - Plan of Treatment Not on file Care Teams Low Vision Therapist Relationship Specialty Start Date End Date Stone Martinez MD [facility] [address] [place] [address] PCP - General Internal Medicine 12/07/15
--- OUTSIDE RECORDS SUMMARY | 2024-07-08 20:58 | XMS_ITS | Clinical Summary ---
Author Organization [facility] Address [facility] [place] [address] Care Team Providers Care Geoscientist Name Role Phone Glenys Agarwal MD Unavailable [...] 4 hours. 30 Tablet 3 11:42 AM AUTO BODY SERVICE MECHANIC 02/19/20 23 Active acetaminophen (TYLENOL EXTRA STRGTH) 500 mg tabletIndications: Acute postoperative pain Take 2 Tablets (1,000 mg) by mouth every 6 hours. Max acetaminophen dose: 4000mg in 24 hrs. 90 Tablet 3 11:42 AM AUTO BODY SERVICE MECHANIC 02/19/20 23 Active methocarbamoL (ROBAXIN) 500 mg tabletIndications: Acute postoperative pain Take 1 Tablet (500 mg) by mouth every 6 hours. 30 Tablet 3 11:42 AM AUTO BODY SERVICE MECHANIC 02/19/20 23 Active ondansetron (ZOFRAN ODT) 4 mg disintegrating tabletIndications: Acute postoperative pain Place 1 Tablet (4 mg) on the tongue every 8 hours if needed for Nausea/Vomiting. 20 Tablet 3 11:42 AM AUTO BODY SERVICE MECHANIC 02/19/20 23 Active sennosides-docusat e (SENOKOT S) (8.6-50 mg) tabletIndications: Acute postoperative pain Take 1-4 Tablets by mouth two times daily. 40 Tablet 3 11:42 AM AUTO BODY SERVICE MECHANIC 02/19/20 23 Active furosemide (LASIX) 20 mg [...] Immunization Administration Dates Next Due COVID-19 vaccine (Gotuit 30mcg/0.3mL) PF, MDV 01/10/2021,04/20/2020,03/31/2020 DTP 11/22/1983 Hepatitis [...] Comments Blood Pressure 110/70 02/18/2023 9:00 AM AUTO BODY SERVICE MECHANIC Pulse 70 02/18/2023 9:00 AM AUTO BODY SERVICE MECHANIC Temperature 36.7 C (98 F) 02/18/2023 9:00 AM AUTO BODY SERVICE MECHANIC Respiratory Rate 18 02/18/2023 9:00 AM AUTO BODY SERVICE MECHANIC Oxygen Saturation 98% 02/18/2023 9:00 AM AUTO BODY SERVICE MECHANIC Inhaled Oxygen Concentration - - Weight 99.7 kg (219 lb 12.8 oz) 02/16/2023 7:15 AM AUTO BODY SERVICE MECHANIC Height 175.3 cm (5' 9) 02/16/2023 7:15 AM AUTO BODY SERVICE MECHANIC Body Mass Index 32.46 02/16/2023 7:15 AM AUTO BODY SERVICE MECHANIC Plan of Treatment Upcoming Encounters Date Type Department Care Team (Latest Contact Info) Description 07/31/2024 8:05 AM CDT Hospital Encounter [facility] [address] [place], [place] [id number] Delvin Khan MD [address] [facility] [address] [place] [address] 07/31/2024 9:05 AM CDT - 07/31/2024 10:05 AM CDT Surgery [facility] [address] [place] [address] Delvin Khan MD [address] [facility] [address] [place], [place] [address] ESOPHAGOGASTRODUODENOSCOPY WITH ENDOSCOPIC RESECTION MUCOSA Scheduled Procedures [...] 21-65 Discontinued Medical Devices Implanted Type Area Business Intelligence Analyst Device Identifier Shelf Expiration Date Model / Serial / Lot Carmela Lmbr 60x5.5mm Tsrh 3d Cvd Titnm - [id number] Implanted:Qty: 2 on 02/12/2020 by Freddy Arboleda MD at [facility] Spine Implants N/A: Spine Medtronic Spine/Ortho [id number]# / / [id number] one 1-4mm 30cc Medtronic Chips Canclls Freeze Dried Implanted:Qty: 1 on 02/12/2020 by Freddy Arboleda MD at [facility] Explanted:at [facility] (Quantity not on file) N/A: Spine Medtronic Spine/Ortho 08/06/2024 [id number]# / [id number] / Connector 3d Medium Implanted:Qty: 2 on 02/12/2020 by Freddy Arboleda MD at [facility] N/A: Spine [id number] / / Description:CONNECTOR 3D MED IUM Bone Matrix Lg Infuse Bmp - [id number] Implanted:Qty: 1 on 02/12/2020 by Freddy Arboleda MD at [facility] N/A: Spine Medtronic Spine/Ortho 11/07/2020 [id number]# / / [id number] A Spacer Lmbr [id number] 12deg Sm Sovereign Stand Alone - [id number] Implanted:Qty: 1 on 02/12/2020 by Freddy Arboleda MD at [facility] N/A: Spine Medtronic Spine/Ortho 03/19/2026 [id number]# / / 68GW Spacer Lmbr [id number] 8 Deg Sm Sovereign Stand Alone - [id number] Implanted:Qty: 1 on 02/12/2020 by Freddy Arboleda MD at [facility] N/A: Spine Medtronic Spine/Ortho 12/23/2027 [id number]# / / 38KM Screw Lmbr 5.5x20mm Sovereign Stand Alone - [id number] Implanted:Qty: 6 on 02/12/2020 by Freddy Arboleda MD at [facility] N/A: Spine Medtronic Spine/Ortho [id number]# / / Set Screw Lmbr Tsrh 3dx - [id number] Implanted:Qty: 6 on 02/12/2020 by Freddy Arboleda MD at [facility] N/A: Spine Medtronic Spine/Ortho [id number]# / / Screw Lmbr Post 6.5x35mm Tsrh 3dx Og Thin Va - [id number] Implanted:Qty: 2 on 02/12/2020 by Freddy Arboleda MD at [facility] N/A: Spine Medtronic Spine/Ortho [id number]# / / Screw Lmbr Post 6.5x45mm Tsrh 3dx Og Thin Va - [id number] Implanted:Qty: 4 on 02/12/2020 by Freddy Arboleda MD at [facility] N/A: Spine Medtronic Spine/Ortho [id number] / / Connector 3d Small Implanted:Qty: 4 on 02/12/2020 by Freddy Arboleda MD at [facility] N/A: Spine [id number] / / Description:CONNECTOR 3D SMA LL Explanted Type Area Business Intelligence Analyst Device Identifier Shelf Expiration Date Model / Serial / Lot Explant Explanted:Qty: 1 on 02/16/2023 at [facility] Description:SCREWS, SET SCRE WS 3, CARMELA 1, [...] care provider. XR MAMMO TISH BILAT SCREEN [[id number]] CLINICAL HISTORY: This is an asymptomatic 42 [...] ve 01/18/2015 1:43 PM CDT [facility] Blood specimen (specimen) BLOOD SPECIMEN / Unknown Venipuncture / Unknown 01/18/2015 8:55 AM CDT 01/18/2015 8:55 AM CDT Narrative [facility] - 01/18/2015 1:43 PM CDT Antibodies to HCV not detected; does not exclude the possibility of exposure to HCV. Efren Eng MD SEND OUTS Final Res ult [facility] [address] [place] [address], [place] * SCAN-COLONOSCOPY (01/04/2015 12:00 AM CDT) [...] resolve the infection flag. 02/11/2020 02/11/2020 Insurance [facility] [employer]ILY [employer] Advance Directives * Full Code (Latest Code Status on File) Date Activated Date Inactivated Comments 02/16/2023 3:43 PM 02/18/2023 2:31 PM Question Answer Comments Code Status Discussion: Other * Full Code Date Activated Date Inactivated Comments 02/12/2020 7:33 PM 02/14/2020 1:48 PM Question Answer Comments Code Status Discussion: Not DiscussedPer Existin g Order Care Teams Geoscientist Relationship Specialty Start Date End Date Stone Martinez MD [address] [place] [address] PCP - General Internal Medicine 02/12/23 Glenys Agarwal MD [address] [place] [address] Family Practice 01/23/20
[2024-07-08 20:59] LABS: Anion Gap 12 mEq/L (7-15); Blood Urea Nitrogen* 41 mg/dL (5-24); Calcium* 9.9 mg/dL (8.4-10.6); Carbon Dioxide* 27 mmol/L (20-32); Creatinine* 2.2 mg/dL (0.5-1.5); Est. Creatinine Clearance* 33.75; Estimated Glomerular Filt Rate 27 ml/min; Glucose* 159 mg/dL (60-115)
[2024-07-08 21:00] LABS: D Dimer Quantitative* 1.63 ug/ml (0.00-0.50)
[2024-07-08 21:02] LABS: C Reactive Protein* 8.6 mg/dL (0.5-1.0)
[2024-07-08 21:27] LABS: HCO3 VBG 25 mmol/L (21-28); PCO2 VBG 58 mmHG (40-50); PO2 VBG 50.9 mmHG (25-47)
--- NOTE | 2024-07-08 21:28 | CRLHL7_ITS ---
For Patients: As a result of the Cures Act, medical imaging exams and procedure reports are released immediately into your electronic medical record. You may view this report before your referring provider. If you have questions, please contact your health care provider. Indication: Hypoxia, high D-dimer, RSV positive Technique: Postcontrast CTA of the chest following 95 mL Isovue 370 IV contrast. Axial MIP images obtained. Comparison: None Findings: Pulmonary arteries: No pulmonary embolism appreciated. Lungs: Patchy pulmonary opacities. Small right effusion. Mediastinum: No acute abnormality appreciated. Lymph nodes: No gross lymphadenopathy. Upper abdomen: Peyton-en-Y gastric bypass. Soft tissues: No acute abnormality appreciated. Bones: No acute abnormality appreciated. Impression: Patchy pulmonary opacities and small right effusion are noted, most consistent with viral pneumonia given reported history of RSV. Please note that all CT scans at this facility use dose modulation, iterative reconstruction, and/or weight-based dosing when appropriate to reduce radiation dose to as low as reasonably achievable. Dictated by Miguel Bateman MD @ 07/08/2024 10:39:10 PM (Electronically Signed)
[2024-07-08 21:39] LABS: pH VBG 7.235 (7.32-7.43)
[2024-07-08] MEDS: LACTATED RINGERS 1000 ML 1,000 ML IV (21:45)
[2024-07-08 21:55] LABS: Lactate* 1.3 mmol/L (0.5-1.9)
[2024-07-08 22:05] VITALS: BP 104/81; PULSE 102; RESP 18; O2SAT 90
[2024-07-08 23:47] VITALS: BP 116/98; PULSE 106; RESP 16; TEMP 37; O2SAT 96
[2024-07-09] VITALS (8 sets, daily range): BP systolic 110–139; BP diastolic 79–93; PULSE 82–96; RESP 15–20; TEMP 36.6–36.9; O2SAT 90–96; BMI 31.4
[2024-07-09 00:01] LABS: Amphetamine Screen Urine Negative (Negative); Barbiturate Screen Urine Negative (Negative); Benzodiazepines Screen Urine Negative (Negative); Cannabinoid Screen Urine POSITIVE (Negative); Cocaine Screen Urine Negative (Negative); Methadone Screen Urine Negative (Negative); Methamphetamines Screen Urine Negative (Negative); Opiate Screen Urine Negative (Negative); Oxycodone Screen Urine Negative (Negative); Phencyclidine Screen Urine Negative (Negative); Tricyclic Antidepressant Urine Negative (Negative)
[2024-07-09 00:08] LABS: HCO3 VBG 25 mmol/L (21-28); PCO2 VBG 52 mmHG (40-50); pH VBG 7.291 (7.32-7.43)
[2024-07-09 00:10] LABS: Ethanol* < 0.01 % (0.01-0.03)
--- NOTE | 2024-07-09 01:59 | W.PM.THH&P_ITS ---
Telehealth- H&P: HPI History of Present Illness Date Seen: 07/09/24 Chief complaint: migraine, sore throat, nausea Narrative: Rosio Garcia is seen as an Interactive Telehealth visit. Rosio Garcia is a 43 year old female who is [facility]. Patient is a 43-year-old female with a past medical history significant for chronic who was brought to the emergency room by her and during she essentially did not have any she denied any chest pain or shortness of breath. She denied any nausea vomiting or diarrhea. Patient noted that she was having increasing weakness and fatigue over the past 24 hours. She denied any fevers or chills. The patient's noted that she had an episode of apnea that lasted approximately 40 seconds. This made him concerned and brought the patient to the emergency room. When she was brought to the emergency room, she was noted to be hypoxic with respiratory rate in the 20s and O2 saturations in the low 80s. She underwent lab evaluation which showed a elevated WBC, elevated creatinine, elevated BUN. She.denies any NSAID use she subsequently underwent a CT of the chest to rule out pulmonary embolism. Patient did not have any evidence of pulmonary embolism but did have patchy infiltrates in the lung. The rest of her CT was negative. Due to persistent hypoxia and elevated creatinine, I was requested to admit this patient to the hospital. Review of Systems Status of ROS: Reports: 10 or more systems reviewed and unremarkable except as noted in History and below Const: Denies: fever or chills ENMT: Denies: throat pain, difficulty swallowing or hoarseness Cardio: Reports: shortness of breath with exertion; Denies: chest pain Resp: Reports: shortness of breath GI: Denies: difficulty swallowing Musculo: Reports: back pain; Denies: extremity swelling Neuro: Reports: headache PFSH PFS Medical History Insomnia ?G47.00 - Insomnia, unspecified (ICD-10) Granular cell tumor ?D21.9 - Benign neoplasm of connective and other soft tissue, unspecified (ICD-10) Dysphagia ?R13.10 - Dysphagia, unspecified (ICD-10) Obstructive sleep apnea ?G47.33 - Obstructive sleep apnea (adult) (pediatric) (ICD-10) History of abdominal hernia ?Z87.19 - Personal history of other diseases of the digestive system (ICD-10) Hemorrhoids ?K64.9 - Unspecified hemorrhoids (ICD-10) Anxiety ?F41.9 - Anxiety disorder, unspecified (ICD-10) Back pain ?M54.9 - Dorsalgia, unspecified (ICD-10) Eczema ?L30.9 - Dermatitis, unspecified (ICD-10) Depression ?F32.A - Depression, unspecified (ICD-10) Surgical History History of umbilical hernia repair ?Z98.890 - Other specified postprocedural states (ICD-10) ?Z87.19 - Personal history of other diseases of the digestive system (ICD-10) History of hysterectomy ?Z90.710 - Acquired absence of both cervix and uterus (ICD-10) History of gastric bypass ?Z98.84 - Bariatric surgery status (ICD-10) History of cholecystectomy ?Z90.49 - Acquired absence of other specified parts of digestive tract (ICD- 10) History of section ?Z98.891 - History of uterine scar from previous surgery (ICD-10) Social History Smoking Status: Never smoker Do you use any of these nicotine containing products: None Second hand tobacco smoke exposure: No How often do you have a drink containing alcohol: monthly or less How many standard drinks containing alcohol do you have on a typical day: 1 or 2 How often do you have six or more drinks on one occasion: Never AUDIT-C Alcohol total score: 1 Non-prescribed substance use: denies use service: No Meds Home Medications and Allergies Allergies Allergy/AdvReac Type Severity Reaction Status Date / Time codeine Allergy Severe hives, Verified 07/08/24 22:25 nausea, vomiting hydromorphone Allergy Mild itching Verified 07/08/24 22:25 ibuprofen Allergy Mild hx of Verified 07/08/24 22:25 gastric bypass Exam Narrative Exam Narrative: Physical Exam GENERAL: ?vital signs reviewed, well developed and nourished, in no distress HEENT: pupils are equal round and reactive to light, extraocular movements are grossly within normal limits and oral mucosa is moist. NECK: Supple without lymphadenopathy or thyromegaly according to nursing staff examination observation HEART: Regular rate and rhythm without any rubs, murmurs, or gallops. LUNGS: Clear to auscultation bilaterally with good air movement throughout ABDOMEN: Observation from nurse assisted exam, abdomen appears soft, nontender, and nondistended with Positive bowel sounds noted. EXTREMITIES: Strength and sensation is observed to be grossly within normal limits in the upper and lower extremities.? No focal strength deficit is observed. SKIN:? Observed warm and dry with color normal Const Vital Signs, click to edit/add: Vital Signs - 24 hr 07/08/24 19:35 07/08/24 22:05 07/08/24 23:47 Temperature 97.7 F 98.6 F Pulse Rate [Pulse Oximeter] 118 H 102 H 106 H Respiratory Rate 18 18 16 Blood Pressure [Right Arm] Blood Pressure [Right Upper Arm] 120/82 104/81 116/98 H Pulse Oximetry 82 L 90 96 Oxygen Delivery Method Room Air Nasal Cannula Nasal Cannula Oxygen Flow Rate 1 2 07/09/24 01:05 Temperature Pulse Rate [Pulse Oximeter] 96 Respiratory Rate 18 Blood Pressure [Right Arm] 110/79 Blood Pressure [Right Upper Arm] Pulse Oximetry 96 Oxygen Delivery Method Room Air Oxygen Flow Rate Hospitalist - H&P: Result Labs Labs: Short CBC 07/08/24 Range/Units 20:30 WBC 7.14 (4.50-11.00) K/uL Hgb 14.2 (12.0-16.0) gm/dL Hct 43.0 (33.0-51.0) % Plt Count 231 (140-440) K/uL BMP 07/08/24 20:30 Sodium 139 Potassium 4.6 Chloride 100 Carbon Dioxide 27 BUN 41 H Creatinine 2.2 H Glucose 159 H Calcium 9.9 Assessment and Plan Assessment and plan (1) Acute kidney injury: Status: Acute (2) Respiratory failure: Status: Acute (3) RSV infection: Status: Acute (4) Insomnia: Status: Acute (5) Obstructive sleep apnea: Status: Acute (6) Back pain: Status: Acute Plan This patient appears to have acute kidney injury. Etiology is most likely due to dehydration. Patient does state that she has not been eating or drinking very well. She was given 2 L of normal saline. I will continue normal saline at 125 mL/h. Please note that the patient did receive Toradol and CTA contrast prior. I will provide her methylprednisolone, already being treated for RSV bronchiolitis. I looked at her CT scan I did not see that it reviewed the kidneys. Therefore I will order an ultrasound of the kidneys to rule out any obstruction. Respiratory failure: This patient has acute hypoxic and hypercapnic. Etiology is not clear although I am giving her methylprednisolone and DuoNebs. Etiology is thought to be related to RSV bronchiolitis. RSV bronchiolitis: Supportive cares, methylprednisolone, DuoNebs. Questionable apnea episode: Patient had episode of apnea witnessed by . She has had a formal sleep study done in 2023 that was completely normal. I reviewed this study. In particular there was no evidence of Mikhail-Meade breathing. Will continue to monitor. DVT prophylaxis heparin Code level 1 Chronic pain: Will continue her home medication Telehealth Visit: Todays History and Physical is via interactive telehealth by Dr Matthew Ramsey MD The Patient is located [place] -Physician is located at [facility]. Nursing staff assisted in the patient's exam. The visit being done today meets criteria for a telehealth visit and the patient or patient's parent/guardian is aware the visit is a telehealth visit. Camera Start time 130 Camera End time 200 Telehealth: Statement Statement Telehealth Visit: Today's History and Physical is provided via interactive telehealth by Matthew Ramsey MD.? Patient is located at [facility].? Provider is located at [facility].? Nursing staff assisted with the patient's exam. The visit being done today meets criteria for a telehealth visit and the patient or patient?s parent/guardian is aware the visit is a telehealth visit.
[2024-07-09] MEDS: IPRAT-ALBUT 0.5-2.5 MG/3 ML NEB 1 NEB IH ×4 (02:35→21:02)
[2024-07-09] MEDS: 0.9 % SODIUM CHLORIDE 1000 ml 1,000 ML 125 ML IV ×4 (02:35→19:31)
[2024-07-09] MEDS: METHYLPREDNISOLONE SOD SUCC 40 MG/ML IVP ×2 (02:35→14:23)
--- NOTE | 2024-07-09 06:30 | CRLHL7_ITS ---
For Patients: As a result of the Century Cures Act, medical imaging exams and procedure reports are released immediately into your electronic medical record. You may view this report before your referring provider. If you have questions, please contact your health care provider. Indication: Acute renal injury Technique: Sonography of the kidneys and bladder was performed. Comparison: No prior ultrasounds of this area available for comparison Findings: The kidneys are normal in size. The right kidney measures 11.5 x 6.2 x 6.1 centimeters and the left kidney measures 12.1 by 6.2 x 6.4 centimeters. No hydronephrosis, calculus or solid mass. The cortex on the right measures 1.7 centimeters and the cortex on the left measures 2.1 centimeters. There is a simple cyst on the left measuring 2.1 centimeters in greatest dimension. The bladder volume is 198 milliliters. No endoluminal mass. Wall thickness is normal at 2 millimeters. A right ureteral jet was observed. A left ureteral jet was not identified. Impression: 1. Morphologically normal kidneys other than an incidental simple cyst on the left. Normal echogenicity. No hydronephrosis. 2. A right ureteral jet was observed. A left ureteral jet was not identified. Dictated by Darwin Carlson MD @ 07/09/2024 7:31:26 AM (Electronically Signed)
--- NOTE | 2024-07-09 07:31 | PC.NURSE ---
Pt arrived to floor at 0105, alert, oriented and vitally stable. Pt on 2L o2 due to desats to low 80s without (90s and above with). Cough present though pt states no sputum. Pt states pain rated 7/10 in head and back. Pt NPO prior to ultrasound, tolerates well. Denies nausea. Pt in bed, appears to be resting, call light within reach. ?
[2024-07-09] MEDS: BUSPIRONE 10 MG TABLET 5 MG PO ×2 (08:27→21:02)
[2024-07-09] MEDS: ACETAMINOPHEN 325 MG TABLET 1000 MG PO (08:28)
[2024-07-09] MEDS: VENLAFAXINE ER 75 MG CAPSULE 150 MG PO (08:28)
[2024-07-09] MEDS: SERTRALINE 100 MG TABLET 150 MG PO (08:29)
[2024-07-09] MEDS: HEPARIN 5,000 UNIT/0.5 ML INJ 5000 UNIT SUBCUT ×2 (08:30→21:02)
[2024-07-09 10:18] LABS: Hematocrit* 37.7 % (33.0-51.0); Hemoglobin* 12.2 gm/dL (12.0-16.0); Lymphocytes Percent Auto 6.5 % (20-44); Mean Corpuscular HGB Conc 32 gm/dL (32-36); Mean Corpuscular Hemoglobin 34 pg (26-34); Mean Corpuscular Volume 106 fL (80-100); Monocytes Percent Auto 2.5 % (0.0-11.0); Platelet Count* 159 K/uL (140-440); Red Blood Count* 3.57 m/uL (4.00-5.20); White Blood Count* 3.54 K/uL (4.50-11.00)
[2024-07-09 10:27] LABS: Slide Review Reflex No
[2024-07-09 10:39] LABS: Albumin* 3.8 g/dL (3.3-5.0); Chloride* 102 mmol/L (96-114)
[2024-07-09 10:40] LABS: Potassium* 4.4 mmol/L (3.6-5.1); Sodium* 138 mmol/L (135-149)
[2024-07-09 10:42] LABS: Alanine Aminotransferase* 429 U/L (4-35); Alkaline Phosphatase* 117 U/L (40-150); Anion Gap 7 mEq/L (7-15); Aspartate Amino Transferase* 251 U/L (12-35); Bilirubin Total* 0.6 mg/dL (0.1-1.5); Blood Urea Nitrogen* 26 mg/dL (5-24); Carbon Dioxide* 29 mmol/L (20-32); Creatinine* 0.9 mg/dL (0.5-1.5); Est. Creatinine Clearance* 82.49; Estimated Glomerular Filt Rate 80 ml/min; Glucose* 242 mg/dL (60-115); Total Protein* 6.5 g/dL (6.0-8.3)
--- NOTE | 2024-07-09 12:03 | P.IMPN_ITS ---
Assessment and Plan Assessment and plan (1) Acute hypercapnic respiratory failure: Problem comment: VBG showing elevated CO2 retention, pCO2 at admission was 58 Patient denies any history of cardiac or pulmonary disease, denies alcohol intoxication or illicit drug use, no new medications Will use oxygen as needed Will monitor RT consult Steroids for RSV infection Discussed with the patient the need for complete workup as an outpatient preferably with farm loan inspector to rule out BETZAIDA or any other lung diseases as it seems patient has had in the past multiple episodes of apnea while she is asleep. Status: Acute (2) Acute kidney injury: Problem comment: Improving, likely secondary to dehydration Status: Acute (3) RSV infection: Problem comment: Steroids ordered for treatment of RSV bronchiolitis Status: Acute (4) Elevated liver enzymes: Problem comment: Patient denies alcohol use disorder Trend liver function Ordered right upper quadrant ultrasound and hepatitis panel Status: Acute (5) Insomnia: Status: Acute (6) Obstructive sleep apnea: Problem comment: Discussed with the patient the need for complete workup as an outpatient preferably with farm loan inspector to rule out BETZAIDA or any other lung diseases as it seems patient has had in the past multiple episodes of apnea while she is asleep. Status: Acute (7) Back pain: Status: Acute Total Time Spent Total Time Spent: Today I spent 50 minutes seeing the patient, reviewing Expanse and EPIC notes/diagnostics, discussing the care plan with our care time that includes social work, PT/OT, pharmacy, RT, senior care and documenting my impressions and plan in the medical record. Subjective Date Seen: 07/09/24 Interval history: Patient seen and examined at bedside. She states that she feels much better. She denies chest pain, shortness of breath, abdominal pain, nausea or vomiting, urinary or bowel movement issues. She states that maybe twice a week she would have about 6 beers but no hard liquor. She denies illicit drugs use. Patient denies any history of cardiac, pulmonary or liver disease. She said she had a sleep study here in our hospital and it was normal. Exam Narrative: Exam Narrative: Physical exam GENERAL: Comfortable, no acute distress. HEAD AND NECK: Atraumatic, normocephalic CARDIOVASCULAR: RRR. Normal S1, S2. No murmurs. RESPIRATORY: Clear to auscultation B/L. Reduced air entry on the right side. No wheezes or rhonchi. O2 sat about 88 on room air/off oxygen at rest GASTROINTESTINAL: Not distended, not tender to palpation. NEUROLOGY: Alert, awake, oriented X 3. Normal speech. PSYCH: Normal mood, normal affect. Const: Vital Signs, click to edit/add: Vital Signs - 24 hr 07/08/24 19:35 07/08/24 22:05 07/08/24 23:47 Temperature 97.7 F 98.6 F Pulse Rate [Pulse Oximeter] 118 H 102 H 106 H Respiratory Rate 18 18 16 Blood Pressure [Ri ght Arm] Blood Pressure [Ri ght Upper Arm] 120/82 104/81 116/98 H Pulse Oximetry 82 L 90 96 Oxygen Delivery Me thod Room Air Nasal Cannula Nasal Cannula Oxygen Flow Rate 1 2 07/09/24 01:05 07/09/24 01:05 07/09/24 01:54 Temperature Pulse Rate [Pulse Oximeter] 96 Respiratory Rate 18 18 Blood Pressure [Ri ght Arm] 110/79 Blood Pressure [Ri ght Upper Arm] Pulse Oximetry 96 96 96 Oxygen Delivery Me thod Room Air Room Air Oxygen Flow Rate 2 07/09/24 07:57 07/09/24 07:57 07/09/24 12:00 Temperature 98.5 F 97.8 F Pulse Rate [Pulse Oximeter] 86 87 Respiratory Rate 16 16 Blood Pressure [Ri ght Arm] 114/83 Blood Pressure [Ri ght Upper Arm] Pulse Oximetry 94 90 94 Oxygen Delivery Me thod Nasal Cannula Room Air Room Air Oxygen Flow Rate 1 Labs Labs: Laboratory Results - last 24 hr 07/08/24 07/08/24 07/08/24 19:52 20:30 21:10 WBC 7.14 RBC 4.11 Hgb 14.2 Hct 43.0 MCV 105 H MCH 35 H MCHC 33 RDW Coeff of Reyes 12.9 Plt Count 231 Neut % (Auto) 78.4 H Lymph % (Auto) 12.7 L Gooding % (Auto) 7.8 Eos % (Auto) 0.0 Baso % (Auto) 0.1 Neut # (Auto) 5.60 Lymph # (Auto) 0.90 Gooding # (Auto) 0.60 Eos # (Auto) 0.00 Baso # (Auto) 0.01 Abs Immat Gran (auto) 0.07 Imm/Tot Granulo (auto) 1.0 D-Dimer Quant (PE/DVT) 1.63 H VBG pH VBG pCO2 VBG pO2 VBG HCO3 Sodium 139 Potassium 4.6 Chloride 100 Carbon Dioxide 27 Anion Gap 12 BUN 41 H Creatinine 2.2 H Estimated Creat Clear 33.75 Estimated GFR 27 Glucose 159 H Lactate Calcium 9.9 Magnesium Total Bilirubin AST ALT Alkaline Phosphatase C-Reactive Protein 8.6 H Total Protein Albumin Urine Opiates Screen Ur Oxycodone Screen Urine Methadone Screen Ur Barbiturates Screen U Tricyclic Antidepress Ur Phencyclidine Scrn Ur Amphetamines Screen U Methamphetamines Scrn U Benzodiazepines Scrn Urine Cocaine Screen U Marijuana (THC) Screen Ur Drug Screen Comment Ethyl Alcohol < 0.01 SARS-CoV-2 (PCR) Negative SARS-CoV-2 Influenza Type A (PCR) Negative PCR FLU A Influenza Type B (PCR) Negative PCR FLU B RSV (PCR) POSITIVE PCR RSV A Lab Acknowledgement Test Added 07/08/24 07/08/24 07/08/24 21:20 22:58 23:47 WBC RBC Hgb Hct MCV MCH MCHC RDW Coeff of Reyes Plt Count Neut % (Auto) Lymph % (Auto) Gooding % (Auto) Eos % (Auto) Baso % (Auto) Neut # (Auto) Lymph # (Auto) Gooding # (Auto) Eos # (Auto) Baso # (Auto) Abs Immat Gran (auto) Imm/Tot Granulo (auto) D-Dimer Quant (PE/DVT) VBG pH 7.235 L* VBG pCO2 58 H VBG pO2 50.9 H VBG HCO3 25 Sodium Potassium Chloride Carbon Dioxide Anion Gap BUN Creatinine Estimated Creat Clear Estimated GFR Glucose Lactate 1.3 Calcium Magnesium Total Bilirubin AST ALT Alkaline Phosphatase C-Reactive Protein Total Protein Albumin Urine Opiates Screen Negative Ur Oxycodone Screen Negative Urine Methadone Screen Negative Ur Barbiturates Screen Negative U Tricyclic Antidepress Negative Ur Phencyclidine Scrn Negative Ur Amphetamines Screen Negative U Methamphetamines Scrn Negative U Benzodiazepines Scrn Negative Urine Cocaine Screen Negative U Marijuana (THC) Screen POSITIVE A Ur Drug Screen Comment See Note Ethyl Alcohol SARS-CoV-2 (PCR) Influenza Type A (PCR) Influenza Type B (PCR) RSV (PCR) Lab Acknowledgement Test Added 07/09/24 07/09/24 00:04 09:58 WBC 3.54 L RBC 3.57 L Hgb 12.2 Hct 37.7 MCV 106 H MCH 34 MCHC 32 RDW Coeff of Reyes 13.0 Plt Count 159 Neut % (Auto) 91.0 H Lymph % (Auto) 6.5 L Gooding % (Auto) 2.5 Eos % (Auto) 0.0 Baso % (Auto) 0.0 Neut # (Auto) 3.20 Lymph # (Auto) 0.20 L Gooding # (Auto) 0.10 Eos # (Auto) 0.00 Baso # (Auto) 0.00 Abs Immat Gran (auto) 0.00 Imm/Tot Granulo (auto) 0.0 D-Dimer Quant (PE/DVT) VBG pH 7.291 L VBG pCO2 52 H VBG pO2 53.0 H VBG HCO3 25 Sodium 138 Potassium 4.4 Chloride 102 Carbon Dioxide 29 Anion Gap 7 BUN 26 H Creatinine 0.9 Estimated Creat Clear 82.49 Estimated GFR 80 Glucose 242 H Lactate Calcium 9.0 Magnesium 2.0 Total Bilirubin 0.6 AST 251 H ALT 429 H Alkaline Phosphatase 117 C-Reactive Protein Total Protein 6.5 Albumin 3.8 Urine Opiates Screen Ur Oxycodone Screen Urine Methadone Screen Ur Barbiturates Screen U Tricyclic Antidepress Ur Phencyclidine Scrn Ur Amphetamines Screen U Methamphetamines Scrn U Benzodiazepines Scrn Urine Cocaine Screen U Marijuana (THC) Screen Ur Drug Screen Comment Ethyl Alcohol SARS-CoV-2 (PCR) Influenza Type A (PCR) Influenza Type B (PCR) RSV (PCR) Lab Acknowledgement
[2024-07-09] MEDS: OMEPRAZOLE 20 MG CAPSULE DR PO (12:54)
--- NOTE | 2024-07-09 15:00 | CRLHL7_ITS ---
For Patients: As a result of the Century Cures Act, medical imaging exams and procedure reports are released immediately into your electronic medical record. You may view this report before your referring provider. If you have questions, please contact your health care provider. INDICATION: Transaminitis. TECHNIQUE: Limited right upper quadrant ultrasound examination of the abdomen was performed. Grayscale and color Doppler images were obtained. COMPARISON: CT abdomen pelvis 04/13/2024. FINDINGS: Liver: Normal in size and contour. Increased hepatic echogenicity, compatible with diffuse hepatic steatosis. No suspicious hepatic masses. Gallbladder: Cholecystectomy. Common bile duct: Measures 3 mm. Pancreas: Visualized portions unremarkable. Right kidney: Normal in size. No hydronephrosis. No suspicious renal masses or obstructive urinary calculus. Vascular: Visualized aorta and IVC are unremarkable. Other: Incompletely imaged simple appearing cystic structure adjacent to the left hepatic lobe, poorly evaluated without color Doppler imaging. No measurements were obtained on this structure. IMPRESSION: 1. Mild diffuse hepatic steatosis. 2. Suboptimal examination limits evaluation of a questionable simple appearing cystic structure adjacent to the left hepatic lobe. Consider CT for further evaluation. 3. Status post cholecystectomy. Dictated by Christian Victoria MD @ 07/09/2024 4:12:37 PM (Electronically Signed)
--- NOTE | 2024-07-09 15:01 | PC.NURSE ---
End of shift note: Patient has been up in chair all day. Has walked in room X3 and in rojas X1. Oxygen was removed this morning and patient has maintained an oxygen saturation of >90%. Has dipped a few times when falling asleep, but recovers right away. Used pulse oximeter in hallways and patient went down to 80% but the pleph was not consistent. patient also has acrylic nails. Attempted to get them off but unsuccessful. Unsure how much this is contributing to low saturations or not. Patient denied shortness of breath and dizziness when walking. Patient ate breakfast but has been NPO for RUQ ultrasound. Had US of kidneys this morning, now has elevated liver enzymes so doing ultrasound to look at liver. PIVs are patent and intact. Has NS at 125/hr. Patient is voiding. Urine is dark orange in color. VSS. Lung sounds are diminished. LBM was Sunday. Voiding without difficulty.
--- NOTE | 2024-07-09 19:40 | PC.NURSE ---
Patient alert and oriented all shift. Denied SOB on room air. Vital signs stable.
[2024-07-09] MEDS: OXYCODONE 5 MG TABLET 10 MG PO (21:21)
[2024-07-10 01:54] VITALS: O2SAT 94
[2024-07-10] MEDS: METHYLPREDNISOLONE SOD SUCC 40 MG/ML IVP (02:47)
[2024-07-10] MEDS: IPRAT-ALBUT 0.5-2.5 MG/3 ML NEB 1 NEB IH ×2 (02:48→09:30)
[2024-07-10] MEDS: 0.9 % SODIUM CHLORIDE 1000 ml 1,000 ML 125 ML IV (02:48)
[2024-07-10 03:00] VITALS: BP 143/102; PULSE 74; RESP 16; TEMP 36.7; O2SAT 94
--- NOTE | 2024-07-10 06:12 | PC.NURSE ---
End of shift report [id number]: Pleasant and cooperative with cares. Patient reports chronic back pain that has been exacerbated by continued coughing, pain well managed with current regimen. Denies any shortness of breath or chest pain. Lung sounds diminished in bilateral bases with coarse breath sounds in right mid lobe and expiratory wheezing that is cleared after use of nebulizer. Continuous pulse oximetry with O2 sats 94-98% on room air. Intermittent coarse, productive cough that patient is swallowing sputum. Denies any nausea or vomiting. Transfers and ambulates independently.
[2024-07-10] MEDS: OMEPRAZOLE 20 MG CAPSULE DR PO (06:29)
[2024-07-10 06:37] LABS: Hematocrit* 34.9 % (33.0-51.0); Hemoglobin* 11.5 gm/dL (12.0-16.0); Mean Corpuscular HGB Conc 33 gm/dL (32-36); Mean Corpuscular Hemoglobin 35 pg (26-34); Mean Corpuscular Volume 105 fL (80-100); Platelet Count* 174 K/uL (140-440); Red Blood Count* 3.32 m/uL (4.00-5.20)
[2024-07-10 06:58] LABS: Albumin* 3.5 g/dL (3.3-5.0); Chloride* 107 mmol/L (96-114); Sodium* 140 mmol/L (135-149)
[2024-07-10 07:01] LABS: Alanine Aminotransferase* 339 U/L (4-35); Alkaline Phosphatase* 103 U/L (40-150); Anion Gap 5 mEq/L (7-15); Aspartate Amino Transferase* 119 U/L (12-35); Bilirubin Total* 0.6 mg/dL (0.1-1.5); Blood Urea Nitrogen* 15 mg/dL (5-24); Calcium* 8.7 mg/dL (8.4-10.6); Carbon Dioxide* 28 mmol/L (20-32); Creatinine* 0.6 mg/dL (0.5-1.5); Est. Creatinine Clearance* 123.74; Estimated Glomerular Filt Rate 113 ml/min; Glucose* 165 mg/dL (60-115); Total Protein* 6.3 g/dL (6.0-8.3)
[2024-07-10 07:21] LABS: Slide Review Reflex No
[2024-07-10 07:41] LABS: INR 1.04 (0.91-1.10); Prothrombin Time 14.4 Seconds
[2024-07-10 07:52] VITALS: BP 128/92; PULSE 63; RESP 16; TEMP 36.7; O2SAT 94
[2024-07-10] MEDS: HEPARIN 5,000 UNIT/0.5 ML INJ 5000 UNIT SUBCUT (09:30)
[2024-07-10] MEDS: BUSPIRONE 10 MG TABLET 5 MG PO (09:30)
[2024-07-10] MEDS: SERTRALINE 100 MG TABLET 150 MG PO (09:31)
[2024-07-10] MEDS: VENLAFAXINE ER 75 MG CAPSULE 150 MG PO (09:32)
[2024-07-10] MEDS: SODIUM CHLORIDE 0.9 % (FLUSH) 10 ML SYRINGE 5 ML IVF (09:33)
[2024-07-10 11:00] VITALS: BP 141/93; PULSE 62; RESP 16; TEMP 36.7; O2SAT 94
--- NOTE | 2024-07-10 12:19 | P.DS_ITS ---
DS: Providers Provider Date Seen: 07/10/24 Date of admission: 07/09/24 01:49 Primary care physician: Stone Martinez MD Admitting Clinician: Matthew Ramsey MD Consults: 07/09/24 01:53 Consult to Respiratory Therapy [CONS] Routine Comment: Reason(s) for RT Consult:: Consult Attending Physician on discharge: Vy Mccabe MD DS: Diagnosis Discharge Diagnosis (1) Acute hypercapnic respiratory failure: Status: Resolved Problem details: VBG showing elevated CO2 retention, pCO2 at admission was 58 Patient denies any history of cardiac or pulmonary disease, denies alcohol intoxication or illicit drug use, no new medications Will use oxygen as needed Will monitor RT consult DC Steroids for RSV infection Discussed with the patient the need for complete workup as an outpatient preferably with threat monitoring analyst to rule out BETZAIDA or any other lung diseases as it seems patient has had in the past multiple episodes of apnea while she is asleep. (2) Acute kidney injury: Status: Resolved Problem details: Improving, likely secondary to dehydration (3) RSV infection: Status: Acute Problem details: D/C Steroids (4) Elevated liver enzymes: Status: Acute Problem details: now down trending Patient denies alcohol use disorder Trend liver function Ordered right upper quadrant ultrasound and hepatitis panel Need to follow-up with primary care physician in 1 week to repeat liver function test, now down trending, with unremarkable right upper quadrant ultrasound. (5) Insomnia: Status: Acute (6) Obstructive sleep apnea: Status: Acute Problem details: Discussed with the patient the need for complete workup as an outpatient preferably with threat monitoring analyst to rule out BEZTAIDA or any other lung diseases as it seems patient has had in the past multiple episodes of apnea while she is asleep. (7) Back pain: Status: Acute DS: Summary Hospital Course Hospital Course: Pt presented w/ respiratory distress. VBG showing elevated CO2 /retention. Patient denies any history of cardiac or pulmonary disease, denies alcohol intoxication or illicit drug use, no new medications. Pt received Steroids for RSV bronchiolitis. Liver enz elevated but downtrending. RUQ unremarkable. Pt improved and ready for DC. Discussed with the patient the need for complete workup as an outpatient preferably with threat monitoring analyst to rule out BETZAIDA or any other lung diseases as it seems patient has had in the past multiple episodes of apnea while she is asleep. F/up liver enz w/ PCP in 1 wk. Status at Discharge Functional status at discharge: independent ambulation Overall status at discharge: patient is progressing back to baseline Time Spent with Patient Time attestation: Total time spent providing and/or coordinating discharge services: 52 min Exam Narrative: Exam Narrative: Physical exam GENERAL: Comfortable, no acute distress. HEAD AND NECK: Atraumatic, normocephalic CARDIOVASCULAR: RRR. Normal S1, S2. No murmurs. RESPIRATORY: Clear to auscultation B/L. Good air entry B/L. No wheezes or rhonchi. NEUROLOGY: Alert, awake, oriented X 3. Normal speech. PSYCH: Normal mood, normal affect. Const: Vital Signs, click to edit/add: Vital Signs - 24 hr 07/09/24 15:00 07/09/24 16:08 07/09/24 19:00 Temperature 98.0 F Pulse Rate [Pulse Oximeter] 82 82 Respiratory Rate 15 15 16 Blood Pressure [Ri ght Arm] 118/82 Pulse Oximetry 90 Oxygen Delivery Me thod Room Air 07/09/24 23:00 07/09/24 23:00 07/10/24 01:54 Temperature 98.1 F Pulse Rate [Pulse Oximeter] 85 85 Respiratory Rate 20 20 Blood Pressure [Ri ght Arm] 129/88 Pulse Oximetry 96 94 Oxygen Delivery Me thod Room Air 07/10/24 03:00 07/10/24 07:52 07/10/24 11:00 Temperature 98.0 F 98.0 F 98.1 F Pulse Rate [Pulse Oximeter] 74 63 62 Respiratory Rate 16 16 16 Blood Pressure [Ri ght Arm] 143/102 H 128/92 H 141/93 H Pulse Oximetry 94 94 94 Oxygen Delivery Me thod Room Air Room Air Room Air DS: Data Data Completed and Pending Labs on day of discharge: Labs from last 24 hours 07/10/24 07/09/24 07/09/24 06:14 15:43 09:58 WBC 4.10 L RBC 3.32 L Hgb 11.5 L Hct 34.9 MCV 105 H MCH 35 H MCHC 33 Plt Count 174 INR 1.04 Sodium 140 Potassium 4.0 Chloride 107 Carbon Dioxide 28 Anion Gap 5 L BUN 15 Creatinine 0.6 Estimated Creat Clear 123.74 Estimated GFR 113 Glucose 165 H Calcium 8.7 Total Bilirubin 0.6 AST 119 H ALT 339 H Alkaline Phosphatase 103 Total Protein 6.3 Albumin 3.5 Hepatitis A IgM Ab Pending Hep Bs Antigen Pending Hep B Core IgM Ab Pending Hep C Ab Index (AARON) Pending Hep C Ab Interp AARON Pending Hepatitis Interpret Pending Lab Acknowledgement Test Added Discharge Plan Discharge Disposition: Home, Self-Care Date of Admission: 07/09/24 01:49 Attending Provider on Discharge: Vy Mccabe Primary Care Provider: Stone Martinez Condition: Improved Anticipated Discharge Date/Time: 07/10/24 12:11 Discharge Medications: Continued nystatin 100,000 unit/gram powder 1 applic topical BID PRN (Reason: itching or burning perianal pain) Qty: 60 0RF meclizine 25 mg tablet 25 mg PO BID PRN (Reason: dizziness) Qty: 10 0RF ondansetron 4 mg tablet,disintegrating 4 mg PO Q8H PRN (Reason: nausea and vomiting) Qty: 10 0RF sumatriptan succinate [Imitrex] 50 mg tablet 50 mg PO ONCE PRN (Reason: migraine headache) Qty: 30 0RF buspirone 5 mg tablet 5 mg PO BID Qty: 60 3RF oxlnbejs-[id number]-JE 3.5-10,000-1 mg/mL-unit/mL-% drops,suspension 3 drp otic (ear) BID Rx Instructions: LEFT EAR venlafaxine 150 mg capsule,extended release 24hr 150 mg PO QAM Qty: 90 3RF oxycodone 10 mg tablet 10 mg PO Q8H PRN (Reason: pain) Qty: 60 0RF sertraline 100 mg tablet 150 mg PO QDAY Qty: 90 0RF eszopiclone [Lunesta] 2 mg tablet 2 mg PO QHS Qty: 30 0RF Discharge Orders: Discharge Order (Routine); Ordered 07/10/24 Ordered By: Vy Mccabe Patient Education: RSV (Respiratory Syncytial Virus) Infection (IP) Additional Instructions: -you need to follow-up with your primary care physician in 1 week to repeat liver function test as it was elevated but then started down trending, with unremarkable right upper quadrant ultrasound. -you need to discuss with your primary care physician the need For referral to a threat monitoring analyst for further workup of your witnessed apnea. Activity Level: Activity as Tolerated Discharge Diet: Regular Follow Up Appointments: Stone Martinez MD [Primary Care Provider] - 07/15/24 4:15 pm ([facility] for hospital follow-up.) Forms: [employer] Info Instructions
--- NOTE | 2024-07-10 15:42 | PC.NURSE ---
Pt tolerating room air and activity well. VSS. Denies pain. Pt discharged to home via . Patient belongings and discharge instructions signed. No further questions or concerns at this time.
[2024-07-12 18:21] LABS: Hep A Ab, IgM Negative (Negative); Hep B Core Ab, IgM Negative (Negative); Hep B Surface Antigen Negative (Negative); Hep C Ab by CIA Index 0.05 IV; Hep C Ab by CIA Interp Negative (Negative)
== END 2024-07-10 15:44 | disposition home or self-care (01) | DRG 138 ==
LOC: ED 07-09 00:43 → MEDSURG 07-09 01:00
PROVIDERS: Physician Assistant; Student in an Organized Health Care Education/Training Program; Admitting Provider Student in an Organized Health Care Education/Training Program; Emergency Provider Family Medicine; PCP Internal Medicine; Visit Provider Student in an Organized Health Care Education/Training Program
DX: J21.0 Acute bronchiolitis due to respiratory syncytial virus (principal); J96.22 Acute and chronic respiratory failure with hypercapnia; J96.21 Acute and chronic respiratory failure with hypoxia; N17.9 Acute kidney failure, unspecified; E86.0 Dehydration; R74.01 Elevation of levels of liver transaminase levels; G47.33 Obstructive sleep apnea (adult) (pediatric); G47.00 Insomnia, unspecified; M54.9 Dorsalgia, unspecified; F41.9 Anxiety disorder, unspecified; F32.A Depression, unspecified; Z98.84 Bariatric surgery status
CPT/HCPCS: 36415; 71045; 71275; 76705; 76770; 80048; 80053; 80074; 80306; 82077; 82803; 83605; 83735; 85025; 85027; 85379; 85610; 86140; 87637; 99284; 99285; A9270; J1644; J1885; J2405; J2919; J7030; J7120; Q9967

== ENCOUNTER 2024-07-11 09:08 | Emergency (ER) | payer BC, SELFPAY ==
--- OUTSIDE RECORDS SUMMARY | 2024-07-11 09:11 | XMS_ITS | Clinical Summary ---
Author Organization [employer] Address [address] [place] [address] Care Team Providers Care Health Service Worker Name Role Phone Unavailable Primary Care Provider Unavailabl e Source Comments You are receiving this document as you are listed as the primary care provider,follow-up provider, or the patient has been referred to you for consultation.This is in compliance with the Medicare and[facility] Cent[facility] EHR Incentive Program,which states Providers who transition their patient to another setting of careor provider of care or refers their patient to another provider of care shouldprovide summary care record for each transition of care or referral. 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 Does not exclude the possiblity of exposure to HCV. Blood Venipuncture / Unknown 07/16/2019 2:47 PM CDT 07/16/2019 2:47 PM CDT us Madi Montero MD LAB_1 Final Result [facility] [id number] from Last 3 Months or Most Recently Relevant to Health Maintenance
--- OUTSIDE RECORDS SUMMARY | 2024-07-11 09:11 | XMS_ITS | Encounter Summary ---
Author Organization [facility] Address [address] [place] [id number] Care Team Providers Care Die Repairer Forging Name Role Phone Stone Martinez MD Primary Care Provider Encounter Details Date Type Department Care Team ([facility] st Contact Info) Description 04/05/2021 Documentation [...] COVID-19? No / Unsure 04/04/2021 7:09 PM SITE SURVEYOR documented as of this encounter Plan of Treatment Not on file documented as of this encounter Visit Diagnoses Not on filedocumented in this encounter Care Teams Die Repairer Forging Relationship Specialty Start Date End Date Stone Martinez MD [facility] [address] [place] [address] PCP - General Internal Medicine 12/07/15 documented as of this encounter
--- OUTSIDE RECORDS SUMMARY | 2024-07-11 09:11 | XMS_ITS | Clinical Summary ---
Author Organization [facility] Address [address] [place] [id number] Care Team Providers Care Senior Clinical Data Analyst Name Role Phone Stone Martinez MD [...] Comments Blood Pressure 114/69 04/04/2021 11:30 PM [employer] Pulse 73 04/04/2021 11:30 PM [employer] Temperature 36.9 C (98.5 F) 04/04/2021 7:18 PM [employer] Respiratory Rate 11 04/04/2021 10:35 PM [employer] Oxygen Saturation 99% 04/04/2021 10:35 PM [employer]ER [employer] Inhaled Oxygen Concentration - - Weight 95.4 kg (210 lb 6.4 oz) 04/04/2021 7:11 P M [employer] Height - - Body Mass Index - - Plan of Treatment Not on file Care Teams Senior Clinical Data Analyst Relationship Specialty Start Date End Date Stone Martinez MD [facility] [address] [place] [address] PCP - General Internal Medicine 12/07/15
--- OUTSIDE RECORDS SUMMARY | 2024-07-11 09:11 | XMS_ITS | Clinical Summary ---
Author Organization [facility] Address [facility] [place] [address] Care Team Providers Care Automotive Vehicle Inspector Name Role Phone Glenys Agarwal MD Unavailable [...] 4 hours. 30 Tablet 3 11:42 AM CYBER SECURITY ENGINEER 02/19/20 23 Active acetaminophen (TYLENOL EXTRA STRGTH) 500 mg tabletIndications: Acute postoperative pain Take 2 Tablets (1,000 mg) by mouth every 6 hours. Max acetaminophen dose: 4000mg in 24 hrs. 90 Tablet 3 11:42 AM CYBER SECURITY ENGINEER 02/19/20 23 Active methocarbamoL (ROBAXIN) 500 mg tabletIndications: Acute postoperative pain Take 1 Tablet (500 mg) by mouth every 6 hours. 30 Tablet 3 11:42 AM CYBER SECURITY ENGINEER 02/19/20 23 Active ondansetron (ZOFRAN ODT) 4 mg disintegrating tabletIndications: Acute postoperative pain Place 1 Tablet (4 mg) on the tongue every 8 hours if needed for Nausea/Vomiting. 20 Tablet 3 11:42 AM CYBER SECURITY ENGINEER 02/19/20 23 Active sennosides-docusat e (SENOKOT S) (8.6-50 mg) tabletIndications: Acute postoperative pain Take 1-4 Tablets by mouth two times daily. 40 Tablet 3 11:42 AM CYBER SECURITY ENGINEER 02/19/20 23 Active furosemide (LASIX) 20 mg [...] Immunization Administration Dates Next Due COVID-19 vaccine (Sensum 30mcg/0.3mL) PF, MDV 01/10/2021,04/20/2020,03/31/2020 DTP 11/22/1983 Hepatitis [...] Comments Blood Pressure 110/70 02/18/2023 9:00 AM CYBER SECURITY ENGINEER Pulse 70 02/18/2023 9:00 AM CYBER SECURITY ENGINEER Temperature 36.7 C (98 F) 02/18/2023 9:00 AM CYBER SECURITY ENGINEER Respiratory Rate 18 02/18/2023 9:00 AM CYBER SECURITY ENGINEER Oxygen Saturation 98% 02/18/2023 9:00 AM CYBER SECURITY ENGINEER Inhaled Oxygen Concentration - - Weight 99.7 kg (219 lb 12.8 oz) 02/16/2023 7:15 AM CYBER SECURITY ENGINEER Height 175.3 cm (5' 9) 02/16/2023 7:15 AM CYBER SECURITY ENGINEER Body Mass Index 32.46 02/16/2023 7:15 AM CYBER SECURITY ENGINEER Plan of Treatment Upcoming Encounters Date Type Department Care Team (Latest Contact Info) Description 07/31/2024 8:05 AM CDT Hospital Encounter [facility] [address] [place], [place] [id number] Delvin Khan MD [address] [facility] [address] [place] [address] 07/31/2024 9:05 AM CDT - 07/31/2024 10:05 AM CDT Surgery [facility] [address] [place], [place] [id number] Delvin Khan MD [address] [facility] [address] [place], [place] [address] ESOPHAGOGASTRODUODENOSCOPY WITH ENDOSCOPIC RESECTION MUCOSA Scheduled Procedures [...] season) 2023 01/10/2021, 04/20/2020, 03/31/2020 Influenza Vaccine (Season Ended) 2024 01/07/2022, 02/01/2021, 01/07/2020, Additional history exists Colonoscopy through age 75 01/04/2025 01/04/2015 Tdap Completed 08/18/2005 Pneumococcal series for age 6-49 Aged Out 06/22/2010 No longer eligible based on patient's age to complete this topic Hepatitis C screening for age 18-79 Completed 01/18/2015 Pap test for age 21-65 Discontinued Medical Devices Implanted Type Area Faculty Neuropsychologist Device Identifier Shelf Expiration Date Model / Serial / Lot Carmela Lmbr 60x5.5mm Tsrh 3d Cvd Titnm - [id number] Implanted:Qty: 2 on 02/12/2020 by Freddy Arboleda MD at [facility] Spine Implants N/A: Spine Medtronic Spine/Ortho [id number] / / [id number] one 1-4mm 30cc Medtronic Chips Canclls Freeze Dried Implanted:Qty: 1 on 02/12/2020 by Freddy Arboleda MD at [facility] Explanted:at [facility] (Quantity not on file) N/A: Spine Medtronic Spine/Ortho 08/06/2024 [id number] / [id number] / Connector 3d Medium Implanted:Qty: 2 on 02/12/2020 by Freddy Arboleda MD at [facility] N/A: Spine [id number] / / Description:CONNECTOR 3D MED IUM Bone Matrix Lg Infuse Bmp - [id number] Implanted:Qty: 1 on 02/12/2020 by Freddy Arboleda MD at [facility] N/A: Spine Medtronic Spine/Ortho 11/07/2020 [id number] / / [id number] A Spacer Lmbr [id number] 12deg Sm Sovereign Stand Alone - [id number] Implanted:Qty: 1 on 02/12/2020 by Freddy rAboleda MD at [facility] N/A: Spine Medtronic Spine/Ortho 03/19/2026 [id number]# / / 68GW Spacer Lmbr [id number] 8 Deg Sm Sovereign Stand Alone - [id number] Implanted:Qty: 1 on 02/12/2020 by Freddy Arboleda MD at [facility] N/A: Spine Medtronic Spine/Ortho 12/23/2027 [id number] / / 38KM Screw Lmbr 5.5x20mm Sovereign Stand Alone - [id number] Implanted:Qty: 6 on 02/12/2020 by Freddy Arboleda MD at [facility] N/A: Spine Medtronic Spine/Ortho [id number] / / Set Screw Lmbr Tsrh 3dx - [id number] Implanted:Qty: 6 on 02/12/2020 by Freddy Arboleda MD at [facility] N/A: Spine Medtronic Spine/Ortho [id number] / / Screw Lmbr Post 6.5x35mm Tsrh 3dx Og Thin Va - [id number] Implanted:Qty: 2 on 02/12/2020 by Freddy Arboleda MD at [facility] N/A: Spine Medtronic Spine/Ortho [id number] / / Screw Lmbr Post 6.5x45mm Tsrh 3dx Og Thin Va - [id number] Implanted:Qty: 4 on 02/12/2020 by Freddy Arboleda MD at [facility] N/A: Spine Medtronic Spine/Ortho [id number] / / Connector 3d Small Implanted:Qty: 4 on 02/12/2020 by Freddy Arboleda MD at [facility] N/A: Spine [id number] / / Description:CONNECTOR 3D SMA LL Explanted Type Area Faculty Neuropsychologist Device Identifier Shelf Expiration Date Model / Serial / Lot Explant Explanted:Qty: 1 on 02/16/2023 at [facility] Description:SCREWS, SET SCRE WS 3, CARMELA 1, [...] care provider. XR MAMMO TISH BILAT SCREEN [[id number]] CLINICAL HISTORY: This is an asymptomatic 42 [...] ve Non-Reacti ve 01/18/2015 1:43 PM CDT [facility] Blood specimen (specimen) BLOOD SPECIMEN / Unknown Venipuncture / Unknown 01/18/2015 8:55 AM CDT 01/18/2015 8:55 AM CDT Narrative [facility] - 01/18/2015 1:43 PM CDT Antibodies to HCV not detected; does not exclude the possibility of exposure to HCV. Efren Eng MD SEND OUTS Final Res ult [facility] [address] [place] [address], [place] * SCAN-COLONOSCOPY (01/04/2015 12:00 AM CDT) [...] resolve the infection flag. 02/11/2020 02/11/2020 Insurance [facility] [employer] [facility] [employer] [employer] Advance Directives * Full Code (Latest Code Status on File) Date Activated Date Inactivated Comments 02/16/2023 3:43 PM 02/18/2023 2:31 PM Question Answer Comments Code Status Discussion: Other * Full Code Date Activated Date Inactivated Comments 02/12/2020 7:33 PM 02/14/2020 1:48 PM Question Answer Comments Code Status Discussion: Not DiscussedPer Existin g Order Care Teams Automotive Vehicle Inspector Relationship Specialty Start Date End Date Stone Martinez MD [address] [place] [address] PCP - General Internal Medicine 02/12/23 Glenys Agarwal MD [address] [place] [address] Family Practice 01/23/20
[2024-07-11 09:19] VITALS: BMI 31.2
[2024-07-11 09:23] VITALS: BP 134/89; PULSE 66; RESP 18; TEMP 36.2; O2SAT 91
--- NOTE | 2024-07-11 09:49 | CRLHL7_ITS ---
For Patients: As a result of the Century Cures Act, medical imaging exams and procedure reports are released immediately into your electronic medical record. You may view this report before your referring provider. If you have questions, please contact your health care provider. Indication: Shortness of breath Technique: PA/lateral chest Comparison: Frontal chest 07/08/2024 Findings/impression : No interval focal consolidation, pneumothorax or pleural effusion. Trachea is midline. Cardiac silhouette is normal. Bones and soft tissues are stable. Dictated by Butch Seymour MD @ 07/11/2024 10:30:05 AM (Electronically Signed)
--- NOTE | 2024-07-11 09:58 | ED.GENADULT ---
HPI - General Adult General Chief complaint: Cough Stated complaint: Pneumonia, RSV--chest pain, short of breath Time Seen by Provider: 07/11/24 09:21 History of Present Illness HPI narrative: Patient is a 44-year-old woman who was recently hospitalized for RSV with respiratory compromise in acute kidney failure. Also the elevated liver function tests at that time. She went home yesterday and does not eating or drinking well. She is not hypoxic but still has a nonproductive cough. She has had no fevers no chills no night sweats. She has had no dysuria no change in her bowel or bladder. No abdominal pain. She overall feels terrible and wonders if she can keep up with her home care. Related Data Home Medications ?Medication ?Instructions ?Recorded ?Confirmed qajxrmdv-ssfgshcdl-rcqmvaywz 3.5 3 drp otic (ear) BID 07/09/24 07/09/24 mg-10,000 unit/mL-1 % ear drops,susp Previous Rx's ?Medication ?Instructions ?Recorded nystatin 100,000 unit/gram topical 1 applic topical BID PRN itching 07/04/23 powder or burning perianal pain #60 grams meclizine 25 mg tablet 25 mg PO BID PRN dizziness #10 tabs 08/06/23 ondansetron 4 mg disintegrating 4 mg PO Q8H PRN nausea and 08/06/23 tablet vomiting #10 tabs sumatriptan succinate 50 mg tablet 50 mg PO ONCE PRN migraine 09/26/23 (Imitrex) headache #30 tabs buspirone 5 mg tablet 5 mg PO BID #60 tabs 01/08/24 venlafaxine 150 mg 150 mg PO QAM Anxiety #90 caps 04/29/24 capsule,extended release 24 hr oxycodone 10 mg tablet 10 mg PO Q8H PRN pain #60 tabs 06/30/24 sertraline 100 mg tablet 150 mg (1.5 x 100 mg) PO QDAY 07/03/24 Anxiety #90 tabs eszopiclone 2 mg tablet (Lunesta) 2 mg PO QHS #30 tabs 07/07/24 Allergies Allergy/AdvReac Type Severity Reaction Status Date / Time codeine Allergy Severe hives, Verified 07/08/24 22:25 nausea, vomiting hydromorphone Allergy Mild itching Verified 07/08/24 22:25 ibuprofen Allergy Mild hx of Verified 07/08/24 22:25 gastric bypass Review of Systems Status of ROS: Reports: 10 or more systems reviewed and unremarkable except as noted in History and below [facility] Medical History Insomnia ?G47.00 - Insomnia, unspecified (ICD-10) Granular cell tumor ?D21.9 - Benign neoplasm of connective and other soft tissue, unspecified (ICD-10) Dysphagia ?R13.10 - Dysphagia, unspecified (ICD-10) Obstructive sleep apnea ?G47.33 - Obstructive sleep apnea (adult) (pediatric) (ICD-10) History of abdominal hernia ?Z87.19 - Personal history of other diseases of the digestive system (ICD-10) Hemorrhoids ?K64.9 - Unspecified hemorrhoids (ICD-10) Anxiety ?F41.9 - Anxiety disorder, unspecified (ICD-10) Back pain ?M54.9 - Dorsalgia, unspecified (ICD-10) Eczema ?L30.9 - Dermatitis, unspecified (ICD-10) Depression ?F32.A - Depression, unspecified (ICD-10) Surgical History History of umbilical hernia repair ?Z98.890 - Other specified postprocedural states (ICD-10) ?Z87.19 - Personal history of other diseases of the digestive system (ICD-10) History of hysterectomy ?Z90.710 - Acquired absence of both cervix and uterus (ICD-10) History of gastric bypass ?Z98.84 - Bariatric surgery status (ICD-10) History of cholecystectomy ?Z90.49 - Acquired absence of other specified parts of digestive tract (ICD-10) History of section ?Z98.891 - History of uterine scar from previous surgery (ICD-10) Social History What is your current living situation?: I presently have a place to live Problems where you live: no known problems Problems where you live details: na In the past 12 months, utilities in danger of being shut off: no In past 12 months, lack of transportation kept you from medical appts, meetings, work, or getting things needed for daily living: no In the past 12 mos, have been you worried that your food would run out before you had money to buy more?: never true In the past 12 mos, the food you bought just didn't last and you didn't have money to buy more?: never true Highest level of school completed/degree received: some college, no degree Smoking Status: Never smoker Do you use any of these nicotine containing products: None Second hand tobacco smoke exposure: No How often do you have a drink containing alcohol: monthly or less How many standard drinks containing alcohol do you have on a typical day: 1 or 2 How often do you have six or more drinks on one occasion: Never AUDIT-C Alcohol total score: 1 Non-prescribed substance use: denies use and marijuana (any form) Caffeine: Yes How often does anyone, including family, friends and others, physically hurt you: never How often does anyone, including family, friends and others, insult or talk down to you: never How often does anyone, including family, friends and others, threaten you with harm: never How often does anyone, including family, friends and others, scream or curse at you: never service: No Exam Narrative: Exam Narrative: EXAM GENERAL: Patient appears mildly uncomfortable. EYES: No scleral icterus. ENT: Tympanic membranes and oropharynx normal. THYROID: no thyroid nodules or thyromegaly. LYMPH: No supraclavicular or cervical lymphadenopathy. SKIN: Visible skin seen during exam normal or with benign process only. EXT: No dependent lower extremity pedal edema. HEART: Regular rate and rhythm with no murmurs, rubs, or gallops. LUNGS: Clear to auscultation bilaterally with no crackles or wheezes. ABD: Soft, non tender, non distended. PSYCH: Good eye contact, speech is not pressured. Const: Vital Signs, click to edit/add: Vital Signs - 24 hr 07/11/24 09:23 07/11/24 10:31 07/11/24 11:06 Temperature 97.1 F L Pulse Rate [Pulse Oximeter] 66 69 70 Respiratory Rate 18 18 16 Blood Pressure [Ri ght Upper Arm] 134/89 129/79 129/61 Pulse Oximetry 91 91 92 Oxygen Delivery Me thod Room Air Room Air Room Air Course Course ED Course: Chest x-ray repeat laboratory studies pending. Saline lock placed 1 L normal saline 4 mg of IV Zofran given. Vital Signs Vital signs: Initial Vital Signs Temperature 97.1 F L 07/11/24 09:23 Temperature Source Temporal Artery Scan 07/11/24 09:23 Pulse Rate 66 07/11/24 09:23 Pulse Rhythm Regular 07/11/24 09:23 Respiratory Rate 18 07/11/24 09:23 Blood Pressure 134/89 07/11/24 09:23 Blood Pressure Mean 104 07/11/24 09:23 Blood Pressure Position Supine 07/11/24 09:23 Pulse Oximetry 91 07/11/24 09:23 Oxygen Delivery Method Room Air 07/11/24 09:23 Vital Signs Temperature 97.1 F L 07/11/24 09:23 Pulse Rate 66 07/11/24 09:23 Respiratory Rate 18 07/11/24 09:23 Blood Pressure 134/89 07/11/24 09:23 Pulse Oximetry 91 07/11/24 09:23 Oxygen Delivery Method Room Air 07/11/24 09:23 Temperature 97.1 F L 07/11/24 09:23 Pulse Rate 70 07/11/24 11:06 Respiratory Rate 16 07/11/24 11:06 Blood Pressure 129/61 07/11/24 11:06 Pulse Oximetry 92 07/11/24 11:06 Oxygen Delivery Method Room Air 07/11/24 11:06 Medications Administered Medications: Generic Name Dose Route Start Last Admin Trade Name Freq PRN Reason Stop Dose Admin Ondansetron HCl 4 mg 07/11/24 09:49 07/11/24 10:04 Ondansetron 2 Mg/Ml Inj IVP 4 mg ONCE PRN Administration Discontinued Medications Generic Name Dose Route Start Last Admin Trade Name Freq PRN Reason Stop Dose Admin Sodium Chloride 1,000 mls @ 1,000 mls/hr 07/11/24 09:50 07/11/24 11:02 0.9 % Sodium Chloride 1000 Ml IV 07/11/24 10:49 Infused .Q1H CLAIRE Infusion Medical Decision Making MDM Narrative Medical decision making narrative: Patient is a 44-year-old woman who recently was hospitalized for RSV with respiratory compromise. She had acute hepatitis and acute renal insufficiency at that time. She comes in today not feeling well. She has normal vital signs normal exam but does feel quite fatigued. Chest x-ray is unremarkable labs were reassuring and improving. This time I did offer reassurance rest fluids Tylenol Motrin in moderation follow-up. Patient is my PCP patient and she does have my cell phone number will follow-up with me. No Other changes to care. Lab Data Labs: Lab Results 07/11/24 Range/Units 10:00 WBC 5.86 (4.50-11.00) K/uL RBC 3.37 L (4.00-5.20) m/uL Hgb 11.7 L (12.0-16.0) gm/dL Hct 35.6 (33.0-51.0) % MCV 106 H (80-100) fL MCH 35 H (26-34) pg MCHC 33 (32-36) gm/dL RDW Coeff of Reyes 13.0 (11.5-15.5) % Plt Count 181 (140-440) K/uL Neut % (Auto) 76.1 H (42.0-72.0) % Lymph % (Auto) 16.0 L (20-44) % Mcclain % (Auto) 7.2 (0.0-11.0) % Eos % (Auto) 0.2 (0.0-7.0) % Baso % (Auto) 0.3 (0.0-3.0) % Neut # (Auto) 4.50 (1.7-7.0) K/uL Lymph # (Auto) 0.90 (0.90-2.90) K/uL Mcclain # (Auto) 0.40 (0.00-0.90) K/UL Eos # (Auto) 0.01 (0.00-0.50) K/uL Baso # (Auto) 0.02 (0.00-0.30) K/uL Abs Immat Gran (auto) 0.01 (0.00-0.30) K/uL Imm/Tot Granulo (auto) 0.2 % Sodium 141 (135-149) mmol/L Potassium 4.1 (3.6-5.1) mmol/L Chloride 106 (96-114) mmol/L Carbon Dioxide 32 (20-32) mmol/L Anion Gap 3 L (7-15) mEq/L BUN 13 (5-24) mg/dL Creatinine 0.7 (0.5-1.5) mg/dL Estimated Creat Clear 104.95 Estimated GFR 108 ml/min Glucose 97 (60-115) mg/dL Calcium 8.7 (8.4-10.6) mg/dL Total Bilirubin 0.9 (0.1-1.5) mg/dL AST 91 H (12-35) U/L ALT 224 H (4-35) U/L Alkaline Phosphatase 68 (40-150) U/L Total Protein 6.4 (6.0-8.3) g/dL Albumin 3.6 (3.3-5.0) g/dL Discharge Plan Discharge Clinical Impression: Respiratory syncytial virus (RSV) infection Patient Disposition: Home, Self-Care Condition: Stable Instructions: RSV (Respiratory Syncytial Virus) Infection (ED) Additional Instructions: Continue current care. Follow up with Dr. Martinez as discussed. Activity Level: No Restrictions Discharge Diet: Regular Prescriptions: No Action nystatin 100,000 unit/gram powder 1 applic topical BID PRN (Reason: itching or burning perianal pain) Qty: 60 0RF meclizine 25 mg tablet 25 mg PO BID PRN (Reason: dizziness) Qty: 10 0RF ondansetron 4 mg tablet,disintegrating 4 mg PO Q8H PRN (Reason: nausea and vomiting) Qty: 10 0RF sumatriptan succinate [Imitrex] 50 mg tablet 50 mg PO ONCE PRN (Reason: migraine headache) Qty: 30 0RF buspirone 5 mg tablet 5 mg PO BID Qty: 60 3RF ulrqudaw-soxhutrgt-ZI 3.5-10,000-1 mg/mL-unit/mL-% drops,suspension 3 drp otic (ear) BID Rx Instructions: LEFT EAR venlafaxine 150 mg capsule,extended release 24hr 150 mg PO QAM Qty: 90 3RF oxycodone 10 mg tablet 10 mg PO Q8H PRN (Reason: pain) Qty: 60 0RF sertraline 100 mg tablet 150 mg PO QDAY Qty: 90 0RF eszopiclone [Lunesta] 2 mg tablet 2 mg PO QHS Qty: 30 0RF Follow Up/Referrals: Stone Martinez MD [Primary Care Provider] - Stand Alone Forms: [facility] Inst[facility]
--- OUTSIDE RECORDS SUMMARY | 2024-07-11 10:00 | XMS_ITS | Clinical Summary ---
Author Organization [facility] Address [facility] [place] [address] Care Team Providers Care Data Security Administrator Name Role Phone Glenys Agarwal MD Unavailable [...] 4 hours. 30 Tablet 3 11:42 AM HOT PLATE PRESS OPERATOR 02/19/20 23 Active acetaminophen (TYLENOL EXTRA STRGTH) 500 mg tabletIndications: Acute postoperative pain Take 2 Tablets (1,000 mg) by mouth every 6 hours. Max acetaminophen dose: 4000mg in 24 hrs. 90 Tablet 3 11:42 AM HOT PLATE PRESS OPERATOR 02/19/20 23 Active methocarbamoL (ROBAXIN) 500 mg tabletIndications: Acute postoperative pain Take 1 Tablet (500 mg) by mouth every 6 hours. 30 Tablet 3 11:42 AM HOT PLATE PRESS OPERATOR 02/19/20 23 Active ondansetron (ZOFRAN ODT) 4 mg disintegrating tabletIndications: Acute postoperative pain Place 1 Tablet (4 mg) on the tongue every 8 hours if needed for Nausea/Vomiting. 20 Tablet 3 11:42 AM HOT PLATE PRESS OPERATOR 02/19/20 23 Active sennosides-docusat e (SENOKOT S) (8.6-50 mg) tabletIndications: Acute postoperative pain Take 1-4 Tablets by mouth two times daily. 40 Tablet 3 11:42 AM HOT PLATE PRESS OPERATOR 02/19/20 23 Active furosemide (LASIX) 20 [...] Immunization Administration Dates Next Due COVID-19 vaccine ([employer] 30mcg/0.3mL) PF, MDV 01/10/2021,04/20/2020,03/31/2020 DTP 11/22/1983 Hepatitis [...] Comments Blood Pressure 110/70 02/18/2023 9:00 AM HOT PLATE PRESS OPERATOR Pulse 70 02/18/2023 9:00 AM HOT PLATE PRESS OPERATOR Temperature 36.7 C (98 F) 02/18/2023 9:00 AM HOT PLATE PRESS OPERATOR Respiratory Rate 18 02/18/2023 9:00 AM HOT PLATE PRESS OPERATOR Oxygen Saturation 98% 02/18/2023 9:00 AM HOT PLATE PRESS OPERATOR Inhaled Oxygen Concentration - - Weight 99.7 kg (219 lb 12.8 oz) 02/16/2023 7:15 AM HOT PLATE PRESS OPERATOR Height 175.3 cm (5' 9) 02/16/2023 7:15 AM HOT PLATE PRESS OPERATOR Body Mass Index 32.46 02/16/2023 7:15 AM HOT PLATE PRESS OPERATOR Plan of Treatment Upcoming Encounters Date Type Department Care Team (Latest Contact Info) Description 07/31/2024 8:05 AM CDT Hospital Encounter [facility] [address] [place], [place] [id number] Delvin Khan MD [address] [facility] [address] [place] [address] 07/31/2024 9:05 AM CDT - 07/31/2024 10:05 AM CDT Surgery [facility] [address] [place], [place] [phone] Delvin Khan MD [address] [facility] [address] [place], [place] [address] ESOPHAGOGASTRODUODENOSCOPY WITH ENDOSCOPIC RESECTION MUCOSA Scheduled Procedures [...] 21-65 Discontinued Medical Devices Implanted Type Area Senior Infrastructure Architect Device Identifier Shelf Expiration Date Model / Serial / Lot Carmela Lmbr 60x5.5mm Tsrh 3d Cvd Titnm - [id number] Implanted:Qty: 2 on 02/12/2020 by Freddy Arboleda MD at [facility] Spine Implants N/A: Spine Medtronic Spine/Ortho [id number]# / / [id number] 1-4mm 30cc Medtronic Chips Canclls Freeze Dried Implanted:Qty: 1 on 02/12/2020 by Freddy Arboleda MD at [facility] Explanted:at [facility] (Quantity not on file) N/A: Spine Medtronic Spine/Ortho 08/06/2024 [id number] / [id number] / Connector 3d Medium Implanted:Qty: 2 on 02/12/2020 by Freddy Arboleda MD at [facility] N/A: Spine [id number] / / Description:CONNECTOR 3D MED IUM Bone Matrix Lg Infuse Bmp - [id number] Implanted:Qty: 1 on 02/12/2020 by Freddy Arboleda MD at [facility] N/A: Spine Medtronic Spine/Ortho 11/07/2020 [id number] / / [id number] A Spacer Lmbr [id number] 12deg Sm Sovereign Stand Alone - [id number] Implanted:Qty: 1 on 02/12/2020 by Freddy Arboleda MD at [facility] N/A: Spine Med[employer]onic Spine/Ortho 03/19/2026 [id number]# / / 68GW Spacer Lmbr [id number] 8 Deg Sm Sovereign Stand Alone - [id number] Implanted:Qty: 1 on 02/12/2020 by Freddy Arboleda MD at [facility] N/A: Spine [employer]onic Spine/Ortho 12/23/2027 [id number] / / 38KM Screw Lmbr 5.5x20mm Sovereign Stand Alone - [id number] Implanted:Qty: 6 on 02/12/2020 by Freddy Arboleda MD at [facility] N/A: Spine Med[employer]onic Spine/Ortho [id number]# / / Set Screw Lmbr Tsrh 3dx - [id number] Implanted:Qty: 6 on 02/12/2020 by Freddy Arboleda MD at [facility] N/A: Spine Med[employer]onic Spine/Ortho [id number]# / / Screw Lmbr Post 6.5x35mm Tsrh 3dx Og Thin Va - [id number] Implanted:Qty: 2 on 02/12/2020 by Freddy Arboleda MD at [facility] N/A: Spine Med[employer]onic Spine/Ortho [id number] / / Screw Lmbr Post 6.5x45mm Tsrh 3dx Og Thin Va - [id number] Implanted:Qty: 4 on 02/12/2020 by Freddy Arboleda MD at [facility] N/A: Spine Medtronic Spine/Ortho [id number] / / Connector 3d Small Implanted:Qty: 4 on 02/12/2020 by Freddy Arboleda MD at [facility] N/A: Spine [id number] / / Description:CONNECTOR 3D SMA [employer] Explanted Type Area Senior Infrastructure Architect Device Identifier Shelf Expiration Date Model / Serial / Lot Explant Explanted:Qty: 1 on 02/16/2023 at [facility] Description:SCREWS, SET SCRE WS 3, CARMELA 1, [...] care provider. XR MAMMO TISH BILAT SCREEN [[id number]] CLINICAL HISTORY: This is an asymptomatic 42 [...] ve Non-Reacti ve 01/18/2015 1:[address] [facility] Blood specimen (specimen) BLOOD SPECIMEN / Unknown Venipuncture / Unknown 01/18/2015 8:55 AM CDT 01/18/2015 8:55 AM CDT Narrative [facility] - 01/18/2015 1:43 PM CDT Antibodies to HCV not detected; does not exclude the possibility of exposure to HCV. Efren Eng MD SEND OUTS Final Res ult [facility] [address] [place] [address], [place] * SCAN-COLONOSCOPY (01/04/2015 12:00 AM CDT) [...] resolve the infection flag. 02/11/2020 02/11/2020 Insurance [facility] Advance Directives * Full Code (Latest Code Status on File) Date Activated Date Inactivated Comments 02/16/2023 3:43 PM 02/18/2023 2:31 PM Question Answer Comments Code Status Discussion: Other * Full Code Date Activated Date Inactivated Comments 02/12/2020 7:33 PM 02/14/2020 1:48 PM Question Answer Comments Code Status Discussion: Not DiscussedPer Existin g Order Care Teams Data Security Administrator Relationship Specialty Start Date End Date Stone Martinez MD [address] [place] [address] PCP - General Internal Medicine 02/12/23 Glenys Agarwal MD [address] [place] [address] Family Practice 01/23/20
--- OUTSIDE RECORDS SUMMARY | 2024-07-11 10:00 | XMS_ITS | Clinical Summary ---
Author Organization [facility] Address [address] [place] [address] Care Team Providers Care Photograph Tinter Name Role Phone Unavailable Primary Care Provider Unavailabl e Source Comments You are receiving this document as you are listed as the primary care provider,follow-up provider, or the patient has been referred to you for consultation.This is in compliance with the Medicare and[facility] Hospital[facility] EHR Incentive Program,which states Providers who transition their patient to another setting of careor provider of care or refers their patient to another provider of care shouldprovide summary care record for each transition of care or referral. 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
--- OUTSIDE RECORDS SUMMARY | 2024-07-11 10:00 | XMS_ITS | Encounter Summary ---
Author Organization [facility] Address [address] [place] [address] Care Team Providers Care Sewing Machinist Name Role Phone Stone Martinez MD Primary Care Provider Encounter Details Date Type Department Care Team ([facility] st Contact Info) Description 04/05/2021 Documentation Only [...] COVID-19? No / Unsure 04/04/2021 7:09 PM DIRECTOR RECREATION [facility] documented as of this encounter Plan of Treatment Not on file documented as of this encounter Visit Diagnoses Not on filedocumented in this encounter Care Teams Sewing Machinist Relationship Specialty Start Date End Date Stone Martinez MD [facility] [address] [place] [address] PCP - General Internal Medicine 12/07/15 documented as of this encounter
--- OUTSIDE RECORDS SUMMARY | 2024-07-11 10:00 | XMS_ITS | Clinical Summary ---
Author Organization [facility] Address [address] [place] [address] Care Team Providers Care Mechanical Manufacturing Engineer Name Role Phone Stone Martinez MD Primary [...] Comments Blood Pressure 114/69 04/04/2021 11:30 PM AOC DIRECTOR COMBAT OPERATIONS OFFICER Pulse 73 04/04/2021 11:30 PM AOC DIRECTOR COMBAT OPERATIONS OFFICER Temperature 36.9 C (98.5 F) 04/04/2021 7:18 PM AOC DIRECTOR COMBAT OPERATIONS OFFICER Respiratory Rate 11 04/04/2021 10:35 PM AOC DIRECTOR COMBAT OPERATIONS OFFICER Oxygen Saturation 99% 04/04/2021 10:35 PM AOC DIRECTOR COMBAT OPERATIONS OFFICER Inhaled Oxygen Concentration - - Weight 95.4 kg (210 lb 6.4 oz) 04/04/2021 7:11 P M AOC DIRECTOR COMBAT OPERATIONS OFFICER Height - - Body Mass Index - - Plan of Treatment Not on file Care Teams Mechanical Manufacturing Engineer Relationship Specialty Start Date End Date Stone Martinez MD [facility] [address] [place] [address] PCP - General Internal Medicine 12/07/15
[2024-07-11] MEDS: ONDANSETRON 2 MG/ML inj 4 MG IVP (10:04)
[2024-07-11] MEDS: 0.9 % SODIUM CHLORIDE 1000 ml 1,000 ML IV (10:04)
[2024-07-11 10:08] LABS: Basophils Absolute Auto 0.02 K/uL (0.00-0.30); Basophils Percent Auto 0.3 % (0.0-3.0); Eosinophils Absolute Auto 0.01 K/uL (0.00-0.50); Eosinophils Percent Auto 0.2 % (0.0-7.0); Hematocrit 35.6 % (33.0-51.0); Hemoglobin* 11.7 gm/dL (12.0-16.0); Immature Granulocytes Abs Auto 0.01 K/uL (0.00-0.30); Immature Granulocytes Pct Auto 0.2 %; Mean Corpuscular HGB Conc 33 gm/dL (32-36); Mean Corpuscular Hemoglobin 35 pg (26-34); Mean Corpuscular Volume 106 fL (80-100); Monocytes Percent Auto 7.2 % (0.0-11.0); Neutrophils Percent Auto 76.1 % (42.0-72.0); Platelet Count* 181 K/uL (140-440); Red Blood Count 3.37 m/uL (4.00-5.20); White Blood Count* 5.86 K/uL (4.50-11.00)
[2024-07-11 10:23] LABS: Albumin* 3.6 g/dL (3.3-5.0); Chloride* 106 mmol/L (96-114); Sodium* 141 mmol/L (135-149)
[2024-07-11 10:26] LABS: Alanine Aminotransferase* 224 U/L (4-35); Alkaline Phosphatase* 68 U/L (40-150); Anion Gap 3 mEq/L (7-15); Aspartate Amino Transferase* 91 U/L (12-35); Bilirubin Total* 0.9 mg/dL (0.1-1.5); Blood Urea Nitrogen* 13 mg/dL (5-24); Calcium* 8.7 mg/dL (8.4-10.6); Carbon Dioxide* 32 mmol/L (20-32); Creatinine* 0.7 mg/dL (0.5-1.5); Est. Creatinine Clearance* 104.95; Estimated Glomerular Filt Rate 108 ml/min; Glucose* 97 mg/dL (60-115); Total Protein* 6.4 g/dL (6.0-8.3)
[2024-07-11 10:31] VITALS: BP 129/79; PULSE 69; RESP 18; O2SAT 91
[2024-07-11 10:34] LABS: Potassium* 4.1 mmol/L (3.6-5.1)
[2024-07-11 10:55] LABS: Slide Review Reflex No
[2024-07-11 11:06] VITALS: BP 129/61; PULSE 70; RESP 16; O2SAT 92
== END 2024-07-11 11:21 | disposition home or self-care (01) ==
PROVIDERS: Emergency Provider Internal Medicine; PCP Internal Medicine
DX: R05.9 Cough, unspecified (principal); B97.4 Respiratory syncytial virus as the cause of diseases classified elsewhere
CPT/HCPCS: 36415; 71046; 80053; 85025; 96374; 99283; 99284; J2405; J7030

== ENCOUNTER 2024-07-15 16:18 | Outpatient (CLI) | payer BC, SELFPAY | END 2024-07-15 16:19 | disposition home or self-care (01) | LOC: NFLDREF 16:20 | PROVIDERS: PCP Internal Medicine; Visit Provider Internal Medicine | DX: B33.8 Other specified viral diseases (principal); R74.8 Abnormal levels of other serum enzymes | CPT/HCPCS: 80053 ==

== ENCOUNTER 2024-08-19 11:53 | Outpatient (CLI) | payer BC, SELFPAY | END 2024-08-19 11:54 | disposition home or self-care (01) | LOC: NFLDREF 11:54 | PROVIDERS: PCP Internal Medicine; Visit Provider Internal Medicine | DX: R53.83 Other fatigue (principal); R74.8 Abnormal levels of other serum enzymes | CPT/HCPCS: 84443 ==

== ENCOUNTER 2024-09-18 15:27 | Outpatient (CLI) | payer BC, SELFPAY ==
--- NOTE | 2024-09-18 16:00 | CRLHL7_ITS ---
For Patients: As a result of the Century Cures Act, medical imaging exams and procedure reports are released immediately into your electronic medical record. You may view this report before your referring provider. If you have questions, please contact your health care provider. Indication: MIDLINE HERNIA Technique: Noncontrast CT abdomen and pelvis. Please note that all CT scans at this facility use dose modulation, iterative reconstruction, and/or weight-based dosing when appropriate to reduce radiation dose to as low as reasonably achievable. Comparison: CT abdomen and pelvis 04/13/2024 and 09/14/2021 Findings: Ill-defined density within the left lower lobe measures 1.1 cm. No pleural effusion. Additional ill-defined density in the right lower lobe measures 1.1 cm. Noncontrast enhanced liver appears normal. Status post cholecystectomy. Spleen is normal. Normal adrenal glands. Simple cyst within the left kidney is stable. Normal right kidney. Pancreas is normal. Postop changes of gastric bypass with gastrojejunostomy. Similar appearance of the upper anterior abdominal wall with soft tissue density measuring approximately 4 cm. This is confined to the subcutaneous tissues superficial to the abdominal wall fascia. No timo hernia. No bowel obstruction or free air. Normal bladder. No pelvic mass. No adenopathy. Postop changes of anterior/posterior lumbar fusion L4 through S1. Impression: Similar appearance of the anterior abdominal wall with soft tissue density measuring up to approximately 4 cm. No hernia defect within the abdominal wall. Please note that all CT scans at this facility use dose modulation, iterative reconstruction, and/or weight-based dosing when appropriate to reduce radiation dose to as low as reasonably achievable. Dictated by Zachariah Lima MD @ 09/21/2024 6:06:46 PM (Electronically Signed)
== END 2024-09-18 15:28 | disposition home or self-care (01) ==
LOC: CT 15:27
PROVIDERS: PCP Internal Medicine; Visit Provider Internal Medicine
DX: K46.9 Unspecified abdominal hernia without obstruction or gangrene (principal)
CPT/HCPCS: 74176

== ENCOUNTER 2024-10-09 13:45 | Outpatient (CLI) | payer BC, SELFPAY | END 2024-10-09 13:46 | disposition home or self-care (01) | LOC: NFLDREF 10-14 01:30 | PROVIDERS: PCP Internal Medicine; Referring Provider Internal Medicine; Visit Provider Surgery | DX: L03.311 Cellulitis of abdominal wall (principal); L02.211 Cutaneous abscess of abdominal wall | CPT/HCPCS: 87070; 87186 ==

== ENCOUNTER 2024-11-06 06:11 | Day surgery (SDC) | payer BC, SELFPAY ==
[2024-11-06] MEDS: SODIUM CHLORIDE 0.9 % (FLUSH) 10 ML SYRINGE IVF (06:40)
[2024-11-06] MEDS: LACTATED RINGERS 1000 ML 1,000 ML 100 ML IV (06:40)
[2024-11-06] MEDS: VANCOMYCIN 1.5 GM/300 ML 1.5 GM/300 ML PIGGYBACK IVPB (06:50)
[2024-11-06 06:56] VITALS: BP 115/88; PULSE 87; RESP 20; TEMP 36.6; O2SAT 94
[2024-11-06 06:58] VITALS: BMI 27.9
[2024-11-06] MEDS: BUPIVACAINE 0.25% 30 ML INJECTION (07:42)
--- NOTE | 2024-11-06 08:14 | P.ANES_ITS ---
Anesthesia Charges Start Date/Time Anesthesia Start Date: 11/06/24 Anesthesia Start Time: 07:27 Stop Date/Time Anesthesia Stop Date: 11/06/24 Anesthesia Stop Time: 08:17 Coding CPT Codes CPT Codes: ANESTH SKIN EXT/PER/ATRUNK - 14677 ([id number]) P2 - PATIENT W/MILD SYST DISEASE, QZ - CARPENTER INSPECTOR SVC W/O MANAGER CLINIC BY
--- NOTE | 2024-11-06 08:14 | W.ANESCHARGE ---
Anesthesia Charges Start Date/Time Anesthesia Start Date: 11/06/24 Anesthesia Start Time: 07:27 Stop Date/Time Anesthesia Stop Date: 11/06/24 Anesthesia Stop Time: 08:17 Coding CPT Codes CPT Codes: ANESTH SKIN EXT/PER/ATRUNK - 48139 ([id number]) P2 - PATIENT W/MILD SYST DISEASE, QZ - BREAD WRAPPING MACHINE FEEDER SVC W/O WET ROLLER BY
[2024-11-06 08:17] VITALS: BP 112/68; PULSE 80; RESP 16; TEMP 36.8; O2SAT 98
--- NOTE | 2024-11-06 08:26 | PM.GSPRC ---
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 She has been seen in clinic for a chronic wound of the abdomen with evidence of mesh in permanent suture within the wound bed. Recommendations were to proceed to the operating room for excisional debridement. Risks and benefits were discussed at length with the patient. Risks included, but were not limited to: Bleeding, infection, risk of damage to surrounding structures, possible need for additional procedures and anesthesia complication. All questions and concerns were addressed with patient agreeing to proceed. Procedure Description: After discussing the risks and benefits of the procedure, the patient signed informed consent.? The operative site was marked and the patient was brought to the operating room and placed on the operating table in supine position.? Care was taken to pad the patient's pressure points.?? The patient was then given sedation by anesthesia.?? The operative site was then prepped and draped in the usual sterile fashion.? A time-out was then performed. 1% lidocaine with Marcaine was used to anesthetize the surgical field. An opening in the upper abdomen was seen measuring 7 mm x 5 mm. Using a mosquito this was interrogated with evidence of tunneling to the right side of the abdomen into a pocket of purulent fluid that was evacuated. The overlying skin was incised with a 15 blade scalpel. Dissection was carried down through subcutaneous tissue to the chronic abscess cavity. Some surrounding scar tissue was excised and removed. Several Prolene sutures were identified at the base of the cavity. These were removed. A small amount of mesh was also present within the wound bed and sharply excised. The wound was scrubbed with Betadine. Hemostasis was assured with cautery. A defect in anterior fascia versus scar tissue was closed with interrupted 2 0 Vicryl stitches, covering the area where the mesh was removed. The resulting cavity measured 4 x 3 x 1 cm in size. Copious amount of irrigation was used to clean the wound. Packing of Vashe soaked 4 x 4 gauze and outer dry dressing was applied. The patient was then woken and transported to the recovery area in stable condition. ? The patient tolerated the procedure well. Findings: Chronic abscess cavity with removal of permanent suture and mesh. Anesthesia: MAC and local Surgeon: Antonia Jameson MD Estimated blood loss (mL): 5 Condition: stable Disposition: same day
[2024-11-06 08:32] VITALS: BP 110/69; PULSE 75; RESP 16; O2SAT 97
--- NOTE | 2024-11-06 08:33 | W.PM.H&PU ---
History & Physical Update History & Physical Update H&P Reviewed and patient assessed: No changes noted
[2024-11-06 08:49] VITALS: BP 112/69; PULSE 78; RESP 16; O2SAT 95
[2024-11-06 09:00] VITALS: BP 119/73; PULSE 85; RESP 20; TEMP 36.7; O2SAT 99
== END 2024-11-06 09:22 | disposition home or self-care (01) ==
PROVIDERS: PCP Internal Medicine; Visit Provider Surgery
PROC: (CPT 11005; principal; 2024-11-06 07:30)
DX: T81.43XA Infection following a procedure, organ and space surgical site, initial encounter (principal); L02.211 Cutaneous abscess of abdominal wall
CPT/HCPCS: 11005; 11008; 00400; 81025; J0665; J1100; J2250; J2312; J2405; J2704; J3010; J3375; J3490; J7120

== ENCOUNTER 2024-12-12 14:36 | Outpatient (CLI) | payer BC, SELFPAY ==
--- NOTE | 2024-12-12 14:40 | CRLHL7_ITS ---
For Patients: As a result of the Century Cures Act, medical imaging exams and procedure reports are released immediately into your electronic medical record. You may view this report before your referring provider. If you have questions, please contact your health care provider. INDICATION: BILATERAL SCREENING MAMMOGRAM, ASYMPTOMATIC 44 Y/O FEMALE COMPARISON: 07/11/2022 TECHNIQUE: Digital mammogram in CC and MLO projections including computer-aided detection (CAD) and tomosynthesis. BREAST COMPOSITION: There are scattered areas of fibroglandular density. FINDINGS: No suspicious findings. ASSESSMENT: BI-RADS 1 Negative RECOMMENDATION: Annual screening mammogram. A lay language report of this examination will be provided to the patient. Dictated by: Zachariah Lima MD @ 12/17/2024 10:55:13 (Electronically Signed)
== END 2024-12-12 14:37 | disposition home or self-care (01) ==
LOC: MAMMO 14:36
PROVIDERS: PCP Internal Medicine; Visit Provider Internal Medicine
DX: Z12.31 Encounter for screening mammogram for malignant neoplasm of breast (principal)
CPT/HCPCS: 77063; 77067

== ENCOUNTER 2025-01-21 14:13 | Outpatient (CLI) | payer BC, SELFPAY | END 2025-01-21 14:14 | disposition home or self-care (01) | LOC: NFLDUCREF 14:14 | PROVIDERS: PCP Internal Medicine; Visit Provider Physician Assistant Surgical | DX: L08.9 Local infection of the skin and subcutaneous tissue, unspecified (principal) | CPT/HCPCS: 87070; 87186 ==

== ENCOUNTER 2025-03-23 15:20 | Emergency (ER) | payer BC, SELFPAY ==
[2025-03-23 15:50] VITALS: BP 115/84; PULSE 97; RESP 24; TEMP 36.1; O2SAT 97; BMI 26.3
--- OUTSIDE RECORDS SUMMARY | 2025-03-23 17:04 | XMS_ITS | Clinical Summary ---
Author Organization [facility] Address [facility] [place] [address] Care Team Providers Care Plateman Name Role Phone Glenys Agarwal MD Unavailable + Stone Martinez MD Primary Care Provider Allergies Active AllergyReactionsCriticalityNoted DateCommentsCodeineAnaphylaxisHigh 12/11/2014CodeineHives,Nausea And Ibgciriz66/03/2020HydromorphoneItching 02/10/2020Nsaids (Non-Steroidal Anti-Inflammatory Drug)*Lyywfbm4902/10/2020 Avoids D/T Hx GBP Medications MedicationSigDispense QuantityRefillsLast FilledStart DateEnd DateStatus cyanocobalamin, vitamin B-12, (CYANOCOBALAMIN SL) Place 500 mcg under the tongue once daily.Active sertraline (ZOLOFT) 100 mg tablet Indications:DysthymiaTake 1 Tablet (100 mg) by mouth once daily. 90 Tablet ctive acetaminophen (TYLENOL EXTRA STRGTH) 500 mg tablet Indications:Acute postoperative painTake 2 Tablets (1,000 mg) by mouth every 6 hours. Max acetaminophen dose: 4000mg in 24 hrs. 90 Tablet 02/18/2023 11:42 AM CST02/18/2023ctive busPIRone (BUSPAR) 10 mg tablet Take 1 Tablet by mouth two times daily.5Active SUMAtriptan (IMITREX) 50 mg tablet Take 50 mg by mouth 2 times daily if needed for Migraine.5Active venlafaxine (EFFEXOR XR) 150 mg Extended-Release capsule Take 150 mg by mouth once daily in the morning.5Active methocarbamoL 500 mg tablet Indications:Spinal stenosis of lumbosacral regionTake 1 Tablet (500 mg) by mouth every 8 hours if needed for Muscle Spasm. 42 Tablet 7:46 AM CDT5Active ondansetron (ZOFRAN ODT) 4 mg disintegrating tablet Indications:Spinal stenosis of lumbosacral regionPlace 1 Tablet (4 mg) on the tongue every 8 hours if needed for Nausea/Vomiting. 42 Tablet 12/24/2024 7:46 AM CDT5Active sennosides-docusate (SENOKOT S) (8.6-50 mg) tablet Indications:Spinal stenosis of lumbosacral regionTake 1 Tablet by mouth once daily. 60 Tablet 12/24/2024 7:46 AM CDT5Active oxyCODONE (ROXICODONE) 5 mg immediate release tablet Indications:Spinal stenosis of lumbosacral regionTake 1-2 Tablets (5-10 mg) by mouth every 4 hours if needed for Pain. 25 Tablet 12/24/2024 1:07 PM CDT5Active lidocaine 4 % topical patch Indications:Spinal stenosis of lumbosacral regionApply to intact skin to cover most painful area for max 12hr per 24hr period. Remove previous patchbefore adding new patch. 7 Patch 12/24/2024 1:07 PM CDT5Active Active Problems ProblemNoted DateDiagnosed NbhiHimdmgywsc56/16/7538Wujafdpy03/16/2025Lumbar fxsjabqgthgrc53/16/2025ack pain02/16/2023olyarticular usfnndwaj49/10/2023Sleep apnea02/16/2023 Overview (02/16/2023): mild, does not use CPAP MRSA (methicillin resistant staph aureus) culture /25/2016 Overview (02/16/2023): abdominal wound History of gastric mricfv8201/07/2015Esophageal nzstgujjr22/16/2015 Gastroesophageal reflux disease without vweyvfudplx79/04/2015 Overview (12/11/2014): With restrictions secondary to gastric surgery. Often has yearly dilation last was June 2013 Ynbepjnibliwtq27/01/2015 Overview (02/16/2023): Due to E coli with associated sepsis Resolved Problems ProblemNoted DateDiagnosed DateResolved DateDepression, acute02/16/2023 12/23/20249491Ssecrdfaw32Intractable migraine with aura without status ctcmyjmrckf56 Encounters DateTypeDepartmentCare MishSjuijaddcwx54/08/2025 11:22 AM CSTAnesthesia Event [facility] [address] [place] [address] Freddie Eden MD 03/16/2025 10:56 AM J[employer]STING ARMHOLE BASTER - 03/16/2025 11:56 AM CSTSurgery [facility] [address] [place] [address] Delvin Khan MD ESOPHAGOGASTRODUODENOSCOPY WITH IQHFUC1503/16/2025 9:20 AM JUMPBASTING ARMHOLE BASTER - 03/16/2025 12:51 PM CSTHospital Encounter [facility] [address] [place] [address] Delvin Khan MD Discharge Disposition: Home Self Care03/16/20255446Szqevx06/16/2025 3:13 PM CDT Anesthesia Event [facility] [address] [address] Gaurang Reid CRNA Scott, Sarah, CRNA Student 12/23/2024 12:30 PM CDT - 12/23/2024 3:59 PM CDTSurgery [facility] [address] [place] [address] Freddy Arboleda MD Far lateral discectomy Levels: L3 to: L4 Side: Left12/23/2024 9:36 AM CDT - 12/24/2024 3:50 PM CDTHospital Encounter [facility] [address] [place] [phone] Freddy Arboleda MD Spinal stenosis of lumbosacral region (Primary Dx) Discharge Disposition: Home Self Care12/22/2024Travelfrom Last 3 Months Immunizations ImmunizationAdministration DatesNext DueCOVID-19 vaccine ([employer] 30mcg/0.3mL) PF, MDV1,04/20/2020,03/31/2020DTP11/22/1983Hepatitis B (Adult)06/27/2010Hepatitis B, Hcldmgsvruc44/21/2011Influenza, IIV3 (Age 6-35 mos)02/27/2013,06/06/2012,01/17/2011,01/10/2010,02/17/2008Influenza, IIV4 01/07/2022,01/07/2020,01/04/2019,01/23/2018,01/20/2017,01/31/2016,02/09/2015 Influenza, IIV4 (=>6mos) MDV1MMR08/11/1995Pneumococcal Poly,23-Valent (Pneumovax)06/22/2010TD, JESKBXUPFLT79/04/1995Td (Age >=7 Years)12/22/2012, 1994Tdap08/18/2005 Family History * Patient is adopted Medical HistoryRelationNameCommentsGood HealthDaughter 1Good HealthDaughter 2 UnknownFatherUnknownMotherUnknownSister1/2 sisterGood HealthSonRelationName StatusCommentsDaughter 1Daughter 2FatherMotherSisterSon Social History Tobacco UseTypesPacks/DayYears UsedDateSmoking Tobacco: QfhrzxMcvoliqkvv0Ndaa: 07/08/2013Smokeless Tobacco: Never Tobacco Cessation:Counseling Given: Yes Alcohol UseStandard Drinks/WeekCommentsNot Currently0 (1 standard drink = 0.6 oz pure alcohol)occPHQ-2AnswerDate RecordedPHQ-2 TOTAL MYGFX327Social ConnectionsAnswerDate RecordedFrequency of Communication with Friends and Family Financial Resource StrainAnswerDate RecordedDifficulty of Paying Living Bkzucbbs261ifficulty of Paying Living ExpensesNot on file 07/25/2022Food InsecurityAnswerDate RecordedWorried About Running Out of Food in the Last Jfte399Transportation NeedsAnswerDate RecordedLack of Transportation (Medical)Housing StabilityAnswerDate RecordedUnable to Pay for Housing in the Last Hsrp922regnantCommentsNoSex and Gender InformationValueDate RecordedSex Assigned at XwjcnTkbzre41/31/2023 11:17 AM CDT Legal IozZiwsas05/09/2015 9:55 AM CDTGender JxviavcaHaytvv52/31/2023 11:17 AM CDTSexual SolltitftwbOepgcvpb59/31/2023 11:17 AM CDT Last Filed Vital Signs Vital SignReadingTime TakenCommentsBlood Gbwlsgln048/6203/16/2025 12:25 PM JUMPBASTING ARMHOLE BASTER Fwfel653503/16/2025 12:25 PM ROCArrzgmmetny80.7 ??C (98.1 ??F)03/16/2025 11:55 AM CSTRespiratory Xxgb309705/17/2024 12:25 PM CSTOxygen Eztvlipdyh170%03/16/2025 12:25 PM CSTInhaled Oxygen Concentration--Yppaqn59.8 kg (187 lb)03/16/2025 10:16 AM AHRPhrbkk225.3 cm (5' 9)03/16/2025 10:16 AM CSTBody Mass Index27.62 03/16/2025 10:16 AM JUMPBASTING ARMHOLE BASTER Plan of Treatment Health MaintenanceDue DateLast DoneCommentsHIV for age 15-Hepatitis B series for 19+ (2 of 3 - 19+ 3-dose series), 06/27/2010 Pneumococcal series for age 6-49 (2 of 2 - PCV)Tetanus vedzzqt60, 08/18/2005, 1994, Additional history exists Lipids for age 45-75007/12/2023Mammogram for age 45-/MI (ht and wt on same day) for age 18+/, 01/31/2016Depression screening for age 12+, 03/20/2016, 01/31/2016, Additional history existsCOVID-19 vaccine series (2024- season)/07/2020, 04/20/2020, 03/31/2020Influenza Vaccine (#1)/04/2021, 02/01/2021, 01/07/2020, Additional history existsColonoscopy through age 01/04/2015Hepatitis C screening for age 18-14Psefgbpym62/12/2015Pap test for age 21-65Discontinued Medical Devices ImplantedTypeAreaManufacturerDevice IdentifierShelf Expiration DateModel / Serial / LotRod Lmbr 60x5.5mm Tsrh 3d Cvd Titnm - [id number] Implanted:Qty: 2 on 02/12/2020 by [facility] Im[facility]N/A: SpineMedtronic Spine/[id number]# / / [id number] 1-4mm 30cc Medtronic Chips Canclls Freeze Dried Implanted:Qty: 1 on 02/12/2020 by Freddy Arboleda MD at [facility] Explanted:at [facility] (Quantity not on file)N/A: Spine Medtronic Spine/Ortho08/06/[id number]# / [id number] / Connector 3d Medium Implanted:Qty: 2 on 02/12/2020 by [facility]: [id number] / / Description:CONNECTOR 3D MEDIUMBone Matrix Lg Infuse Bmp - [id number] Implanted:Qty: 1 on 02/12/2020 by [facility]: SpineMedtronic Spine/Ortho11/07/[id number]# / / [id number] Lmbr 40r69r09am 12deg Sm Sovereign Stand Alone - [id number] Implanted:Qty: 1 on 02/12/2020 by [facility]: SpineMedtronic Spine/[id number]# / / 68GWSpacer Lmbr [id number] 8 Deg Sm Sovereign Stand Alone - [id number] Implanted:Qty: 1 on 02/12/2020 by [facility]: SpineMedtronic Spine/Ortho12/22/[id number]# / / 38KMScrew Lmbr 5.5x20mm Sovereign Stand Alone - [id number] Implanted:Qty: 6 on 02/12/2020 by [facility]: SpineMedtronic Spine/[id number]# / / Set Screw Lmbr Tsrh 3dx - [id number] Implanted:Qty: 6 on 02/12/2020 by [facility]: SpineMedtronic Spine/[id number]# / / Screw Lmbr Post 6.5x35mm Tsrh 3dx Og Thin Va - [id number] Implanted:Qty: 2 on 02/12/2020 by [facility]: SpineMedtronic Spine/[id number]# / / Screw Lmbr Post 6.5x45mm Tsrh 3dx Og Thin Va - [id number] Implanted:Qty: 4 on 02/12/2020 by [facility]: SpineMedtronic Spine/[id number]# / / Connector 3d Small Implanted:Qty: 4 on 02/12/2020 by [facility]: [id number] / / Description:CONNECTOR 3D SMALLExplantedTypeAreaManufacturerDevice Identifier Shelf Expiration DateModel / Serial / LotExplant Explanted:Qty: 1 on [facility]/2023 at [facility]Description: SCREWS, SET SCREWS 3, CARMELA 1, ADAPTER 2 Procedures Procedure NamePriorityDate/TimeAssociated DiagnosisCommentsENDOTRACHEAL TUBE Bcyvchg6803/16/2025 11:44 AM JUMPBASTING ARMHOLE BASTER ENDOTRACHEAL MAPHJhtsulk12/08/2025 11:44 AM JUMPBASTING ARMHOLE BASTER PATH TISSUE YVOAZeszg96/08/2025 11:41 AM JUMPBASTING ARMHOLE BASTER ZVQUTQTFI77/08/2025 11:21 AM JUMPBASTING ARMHOLE BASTER ESOPHAGOGASTRODUODENOSCOPY WITH BIOPSYTier 3: within 90 days03/16/2025 11:12 AM JUMPBASTING ARMHOLE BASTER See MD procedure note HEMOGLOBINEarly AM12/24/2024 6:53 AM CDT GLUCOSE JRXQEPucrh96/16/2025 10:23 PM CDT XR SPINE 1 VIEW YBJYWJYRMopafiu73/16/2025 4:02 PM CDT XR SPINE 1 VIEW LWEIGLWWGgmzsjr86/16/2025 3:43 PM CDT ENDOTRACHEAL DWZAJxzvoei99/16/2025 3:36 PM CDT ENDOTRACHEAL ZBJEOibopnb52/16/2025 3:36 PM CDT LAMINECTOMY DECOMPRESSION SPINE LEVEL 01Tier 3: within 90 days12/23/2024 2:57 PM CDT HNP w/ Radiculopathy, Lumbar M51.16Chronic pain Case Notes EM 4POST, as SCAN-CARDIAC STRIP12/23/2024 12:00 AM CDT XR MAMMO TISH BILAT KAYSOPNzejvww81/04/2023 4:48 PM CDT Encounter for screening mammogram for malignant neoplasm of breast ANTI TMREgrnmwq37/12/2015 8:55 AM CDT Need for hepatitis C screening test SCAN-GJILZTWDGRW16/28/2015 12:00 AM CDT from Last 3 Months or Most Recently Relevant to Health Maintenance Results * HCHG TUBE PR1, HCHG STYLET PR1 (03/16/2025 11:44 AM JUMPBASTING ARMHOLE BASTER) Narrative Humberto Rehman CRNA - 03/16/2025 11:44 AM JUMPBASTING ARMHOLE BASTER Humberto Rehman CRNA 03/16/2025 11:44 AM Procedure: ETT Patient location during procedure: OR ETT Properties Mask Ventilation: easy Final Technique: direct laryngoscopy Type: straight Location: oral Tube Size: 7.0 mm Stylet: yes Laryngoscope Blade: Mac Blade Size: 3 Cormack-Lehane Grade View: 1 Insertion Attempts: 1 Placement Verification: auscultation, end tidal CO2, chest x-ray and symmetrical chest wall movement Secured at: 21 Measured From: lips Authorizing ProviderResult TypeResult StatusMark Ariel Eden MDANESTHESIA PX NOTE ORDERABLESFinal Result * PATH TISSUE EXAM (03/16/2025 11:41 AM JUMPBASTING ARMHOLE BASTER)ComponentValueRef RangeTest Method Analysis TimePerformed AtPathologist SignatureCase ReportPathology Report ?Case: [id number] ? Authorizing Provider: ??Delvin Khan MD ?Collected: ? 03/16/2025 1141 ? Ordering Location: ? [facility] ?Received: ?03/16/2025 1245 ? Hospital ? Pathologist: ? Cornell Morelos ? MD LINDA ? Specimen: ?Elizabethki's Ring ? 03/17/2025 10:22 AM [facility] LABORATORYFinal DiagnosisA) ESOPHAGUS, CARMEL'S RING, BIOPSY: 1. Normal esophageal squamous mucosa 2. Negative for reflux changes and eosinophilic esophagitis 3. Negative for columnar mucosa 03/17/2025 10:22 AM [facility] [address] [facility]inical InformationMsSeb Garcia is a 44 y.o. 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 It is labeled with the patient's name and designatedSchatzki's ring. Africa Rodriguez 03/16/2025 8:09 PM 03/17/2025 10:22 AM [facility]ST[facility] LABORATORYMicroscopic DescriptionThe final diagnosis is based on microscopic examination of appropriate sections of all specimens.03/17/2025 10:22 AM [facility] LABORATORYAdditional Information Interpreted at [facility] - [address] [facility] [address], [place], [place] [address]/17/2025 10:22 AM [facility]ST[facility] LABORATORYSpecimen (Source)Anatomical Location / LateralityCollection Method / VolumeCollection TimeReceived TimeBiopsy (Schatzki's Ring)03/16/2025 11:41 AM CST03/16/2025 12:45 PM JUMP[employer]STING ARMHOLE BASTER Narrative Authorizing ProviderResult TypeResult StatusRobert Jhony Khan MD PATHOLOGY/CYTOLOGYFinal ResultPerforming OrganizationAddressCity/State/ZIP Code Phone Number [facility] [address] [place] [address], * ENDOSCOPY (03/16/2025 11:21 AM JUMPBASTING ARMHOLE BASTER)Specimen (Source)Anatomical Location / LateralityCollection Method / VolumeCollection TimeReceived Time03/16/2025 11:21 AM JUMPBASTING ARMHOLE BASTER Narrative Transcriptions Delvin Khan MD - 03/16/2025 11:58 AM [facility]ST [facility] Patient Name: Rosio Garcia Procedure Date: 03/16/2025 Gender: Female Date of : 1980 Admit Type: Ambulatory Procedure: Upper GI endoscopy Proceduralist: Delvin Khan MD - [facility] Indications/Pre-Op Diagnosis: Follow-up granular cell tumor resection Medications: General Procedure Description: Risk of bleeding, infection, perforation, need for surgery and alternatives discussed. The endoscope [id number] was introduced through the mouth, and advanced to the second part of duodenum. The upper GI endoscopy was accomplished without difficulty. The patient tolerated the procedure well. Complications: No immediate complications. Estimated Blood Loss & Specimen: Minimal Findings: Esophagus - there was a dense Schatzki's ring at the GE junction;which was biopsied for disruption; no dilation was carried out. Remainderthe esophagus was normal. Specifically at 20 cm, the site of the previous granular cell tumor resection, there was no residual tumor or lesions identified. There were 2 very small inlet patches seen (not biopsied) but no other lesions. This area was photographed. Stomach - Peyton-en-Y gastric bypass surgery with unremarkable pouchand anastomosis; otherwise normal. Jejunum - normal. Impressions/Post-Op Diagnosis: Dense Schatzki's ring; biopsied for disruption No residual granular cell tumor identified Peyton-en-Y gastric bypass surgery Recommendation: Check path Repeat exam in 3 to 5 years Delvin Khan MD 03/16/2025 11:58:09 AM This report has been signed electronically. Note Initiated On: 03/16/2025 11:21 AM Authorizing ProviderResult TypeResult StatusRobert Jhony Khan MDPROCEDURE ORD Final Result * (ABNORMAL) Hemoglobin AM (12/24/2024 6:53 AM CDT)ComponentValueRef RangeTest MethodAnalysis TimePerformed AtPathologist YbwgtnylyLGCRDXDPYU17.512.0 - 16.0 g/dL12/24/2024 7:12 AM [facility]-CENTRAL LRGMLMUXSOXYP651(H) 80 - 100 fL12/24/2024 7:12 AM [facility]-CEN[facility]AL LABORATORY Specimen (Source)Anatomical Location / LateralityCollection Method / Volume Collection TimeReceived TimeBloodBLOOD SPECIMEN / UnknownVenipuncture / Dcdpzru1512/24/2024 6:53 AM CDT12/24/2024 7:00 AM CDT Narrative Authorizing ProviderResult TypeResult StatusNavid Sanford DOHEMATOLOGYFinal ResultPerforming OrganizationAddressCity/State/ZIP CodePhone Number [facility] [address] [address], [place] * (ABNORMAL) GLUCOSE METER (12/23/2024 10:23 PM CDT)ComponentValueRef RangeTest MethodAnalysis TimePerformed AtPathologist SignatureGLUCOSE QJSFO388(H)65 - 100 mg/dL12/23/2024 10:24 PM CDTALBLOWING [facility]OCK [facility]PITALCEN[facility] LAB[facility] Specimen (Source)Anatomical Location / LateralityCollection Method / Volume Collection TimeReceived TimeBloodBLOOD SPECIMEN / Wogficv8212/23/2024 10:23 PM CDT12/23/2024 10:24 PM CDT Narrative Authorizing ProviderResult TypeResult StatusTimothy Efrem Arboleda MDCHEMISTRYFinal ResultPerforming OrganizationAddressCity/State/ZIP CodePhone Number [facility] [address] [address], [place] * XR SPINE 1 VIEW PORTABLE (12/23/2024 4:02 PM CDT) Only the most recent of2 resultswithin the time period is included. Anatomical RegionLateralityModalitySpine, CERVICAL SPINE, THORACIC SPINE, LUMBAR SPINEDigital RadiographySpecimen (Source)Anatomical Location / Laterality Collection Method / VolumeCollection TimeReceived Time12/25/2024 9:30 AM CDT Narrative 12/25/2024 9:30 AM CDT For Patients: As a result of the Century Cures Act, medical imaging exams and procedure reports are released immediately into your electronic medical record. You may view this report before your referring provider. If you have questions, please contact your health care provider. INDICATION : Spinal localization. Far lateral discectomy L3-L4 TECHNIQUE : Single portable cross-table lateral view of the lumbar spine FINDINGS/IMPRESSION: Anterior and posterior spinal fusion changes at L4-S1. Posterior instrument localization of L3-4. Dictated by Chrystal Vaca MD @ Dec 25 2024 ??9:30AM (Electronically Signed) [email or web address] Procedure Note Chrystal Vaca, - 12/25/2024 For Patients: As a result of the Century Cures Act, medical imagingexams and procedure reports are released immediately into your electronicmedical record. You may view this report before your referring provider.If you have questions, please contact your health care provider. INDICATION : Spinal localization. Far lateral discectomy L3-L4 TECHNIQUE : Single portable cross-table lateral view of the lumbar spine FINDINGS/IMPRESSION: Anterior and posterior spinal fusion changes at L4-S1. Posteriorinstrument localization of L3-4. Dictated by Chrystal Vaca MD @ Dec 25 2024 9:30AM (Electronically Signed) [email or web address] Authorizing ProviderResult TypeResult StatusFreddy Arboleda MDGENERAL IMAGING Final Result * HCHG TUBE PR1, HCHG STYLET PR1 (12/23/2024 3:36 PM CDT) Narrative Ori Evans CRNA - 12/23/2024 3:36 PM CDT Ori Evans CRNA 12/23/2024 3:36 PM Procedure: ETT Patient location during procedure: OR ETT Properties Mask Ventilation: easy Final Technique: direct laryngoscopy Type: straight Location: oral Tube Size: 7.0 mm Stylet: yes Laryngoscope Blade: Burton Blade Size: 2 Cormack-Lehane Grade View: 1 Insertion Attempts: 1 Placement Verification: auscultation, end tidal CO2 and symmetrical chest wall movement Assessment: pharynx clear, dentition unchanged and atraumatic Secured at: 22 Measured From: lips Bite Block: soft Difficulty: 0 (not difficult) Authorizing ProviderResult TypeResult StatusChristian Avery Kiser MD ANESTHESIA PX NOTE ORDERABLESFinal Result * SCAN-CARDIAC STRIP (12/23/2024 12:00 AM CDT) Narrative 12/23/2024 12:00 AM CDT Ordered by an unspecified provider. Authorizing ProviderResult TypeResult StatusOther Clinical StaffOTHERFinal Result * XR MAMMO TISH BILAT SCREEN (2022 4:48 PM CDT)Anatomical RegionLaterality ModalityBREASTS, Breast Left, Breast RightBilateralMammographySpecimen (Source)Anatomical Location / LateralityCollection Method / VolumeCollection TimeReceived Time Impressions 07/12/2022 3:37 PM CDT There is no radiographic evidence for malignancy. Recommend annual mammograms. MAMMOGRAM ASSESSMENT: ??ACR 1 Negative [...] care provider. XR MAMMO TISH BILAT SCREEN [[id number]] CLINICAL HISTORY: ??This is an asymptomatic 42 [...] micro calcifications or areas of architectural distortion. Authorizing ProviderResult TypeResult StatusRandolph Reister MDMAMMOFinal Result * ANTI HCV (01/18/2015 8:55 AM CDT)ComponentValueRef RangeTest MethodAnalysis TimePerformed AtPathologist SignatureHEPATITIS C ANTIBODYNon-Reactive Non-Reactive 01/18/2015 1:43 PM CDTALCAPE [facility]-CENTRAL LABORATORYSpecimen (Source)Anatomical Location / LateralityCollection Method / VolumeCollection TimeReceived TimeBlood specimen (specimen)BLOOD SPECIMEN / UnknownVenipuncture / Tyfyjrp0001/18/2015 8:55 AM CDT1 8:55 AM CDT Narrative [facility] - 01/18/2015 1:43 PM CDT Antibodies to HCV not detected; does not exclude the possibility of exposure to HCV. Authorizing ProviderResult TypeResult StatusEfren Eng MDSEND OUTSFinal ResultPerforming OrganizationAddressCity/State/ZIP CodePhone Number [facility] [address] [place] [address], * SCAN-COLONOSCOPY (01/04/2015 12:00 AM CDT) Narrative Authorizing ProviderResult TypeResult StatusScannerOTHERFinal Result from Last 3 Months or Most Recently Relevant to Health Maintenance Additional Health Concerns InfectionOnset DateLast IndicatedMRSA Clearance Comment:Infection Control Note: Hx of MRSA 12/02/15 abdominal wound, surveillance criteria met, no need for further testing or isolation precautions. Do not delete or resolve the infection flag. /07/2019 Insurance Advance Directives * Full Code (Latest Code Status on File) Date ActivatedDate UxzajiofrxvAqffbkvt16/8/2025 10:17 AM03/16/2025 2:51 PM QuestionAnswerCommentsCode Status Discussion:* Reviewed Preferences * Full Code Date ActivatedDate InactivatedComments12/23/2024 8:30 PM12/24/2024 5:50 PMQuestion AnswerCommentsCode Status Discussion:* Reviewed Preferences * Full Code Date ActivatedDate InactivatedComments07/31/2024 9:12 AM07/31/2024 12:53 PM QuestionAnswerCommentsCode Status Discussion:* Reviewed Preferences * Full Code Date ActivatedDate CqainbreaukWgymecwo03/10/2023 3:43 PM02/18/2023 2:31 PM QuestionAnswerCommentsCode Status Discussion:* Other * Full Code Date ActivatedDate AnhrudsrpxtFqvmhuid29/5/2020 7:33 PM02/14/2020 1:48 PMQuestion AnswerCommentsCode Status Discussion:* Not Discussed * Per Existing Order Care Teams Team MemberRelationshipSpecialtyStart DateEnd Date Stone Martinez MD [address] [place] [address] PCP - GeneralInternal Ntxstmtx49/6/23 Glenys Agarwal MD [address] [place] [address] Family Hzdnmown13/16/20
--- OUTSIDE RECORDS SUMMARY | 2025-03-23 17:04 | XMS_ITS | Clinical Summary ---
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 Name Role Phone Stone Martinez MD Primary Care Provider Allergies Active AllergyReactionsCriticalityNoted DateCommentsCodeineAnaphylaxis,Hives, Nausea and LqrpmguxDdte40/17/2003 Other reaction(s): GI intolerance, HIVES, NAUSEA, VOMITING Bmieaq1402/10/2020 Other reaction(s): *Unknown Avoids D/T Hx GBP Medications MedicationSigDispense QuantityRefillsLast FilledStart DateEnd DateStatus oxyCODONE (ROXICODONE) 5 MG tablet Take 1 tablet (5 mg) by mouth every 6 hours as needed for pain 5 tablet 08/17/2020ctive lidocaine (LIDODERM) 5 % patch Place 1 patch onto the skin every 24 hours To prevent lidocaine toxicity, patient should be patch free for 12 hrs daily. 10 patch 08/17/2020ctive Immunizations ImmunizationAdministration DatesNext DueCOVID-19 MONOVALENT 12+ (Pfizer) 01/10/2021 Social History Tobacco UseTypesPacks/DayYears UsedDateSmoking Tobacco: Never AssessedAdolescent EducationAnswerDate RecordedGetting School Help NeededNot on file12/29/2022 CommentsNoSex and Gender InformationValueDate RecordedSex Assigned at NlgynQlzabj39/06/2023 10:41 AM CDTLegal FkyKidrtu29/30/2016 10:44 AM CDTGender QfwcobdeSzohip27/06/2023 10:41 AM CDTSexual TtvaoicsljgXlhdelcs50/09/2022 10:41 AM CDT Last Filed Vital Signs Vital SignReadingTime TakenCommentsBlood Trjehgrj677/6904/04/2021 11:30 PM MEDICAL DIAGNOSTIC RADIOGRAPHER Jqgxl361904/04/2021 11:30 PM DFGFksykrhsnab48.9 ??C (98.5 ??F)04/04/2021 7:18 PM CSTRespiratory Lfox135706/05/2020 10:35 PM CSTOxygen Hepnhvdbzk39%04/04/2021 10:35 PM CSTInhaled Oxygen Concentration--Esmeic27.4 kg (210 lb 6.4 oz)04/04/2021 7:11 PM CSTHeight--Body Mass Index-- Plan of Treatment Not on file Care Teams Team MemberRelationshipSpecialtyStart DateEnd Stone Martinez MD [facility] [address] [place] [address] PCP - GeneralInternal Medicine12/07/15
--- OUTSIDE RECORDS SUMMARY | 2025-03-23 17:04 | XMS_ITS | Clinical Summary ---
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 Exclusively.[facility]Seg[facility] Allergies Active AllergyReactionsCriticalityNoted KxvqHwqnbweoOyemheh79/06/2020 Medications MedicationSigDispense QuantityRefillsLast FilledStart DateEnd DateStatus diclofenac (VOLTAREN) 1 % gel Apply 2 g to skin 4 times daily as needed for Other (hand, knee, other joint pain). 100 g Active sertraline (ZOLOFT) 50 MG tablet Take 50 mg by mouth.Active venlafaxine (EFFEXORXR) 75 MG 24 hour release capsule Take 1 Capsule by mouth.01/29/2017Active cyclobenzaprine (FLEXERIL) 10 MG tablet Take 1 Tablet by mouth at bedtime as needed for Muscle Spasms. 30 Tablet Active celecoxib (CELEBREX) 100 MG capsule TAKE ONE CAPSULE DAILY WITH FOOD 30 Capsule 1Active Active Problems ProblemNoted DateDiagnosed XfyyIzvxvlfgfkbx54/13/2020Osteoarthritis of fingers of hands, zikgvnnum30/13/2020Gastric bypass status for nmogkac1607/16/2019 Bbpdtxxip15/08/2020Chronic bilateral low back pain without /08/2020 Bariatric surgery tbtjsi0009/27/2018Abdominal pain09/26/2018 Overview (07/16/2019): Added automatically from request for surgery [id number] Migraine odmawdgl56/14/2019Severe episode of recurrent major depressive disorder 04/06/2011ttention deficit hyperactivity disorder (ADHD)03/13/2007 Immunizations ImmunizationAdministration DatesNext DueHepB, Unspecified Gjcdgtanima70/21/2011 MMR08/11/1995PPSV23 (Pneumovax)06/22/2010 Social History Tobacco UseTypesPacks/DayYears UsedDateSmoking Tobacco: NeverSmokeless Tobacco: NeverAlcohol UseStandard Drinks/WeekCommentsYes0 (1 standard drink = 0.6 oz pure alcohol)CommentsUnknownSex and Gender InformationValueDate RecordedSex Assigned at BirthNot on fileLegal SjgPswlaa11/03/2020 3:02 PM CSTGender Identity Not on fileSexual OrientationNot on file Last Filed Vital Signs Vital SignReadingTime TakenCommentsBlood Ieusounx541/8204 3:01 PM CDT Ovqzo521607/21/2019 3:01 PM MHJJateeradwod79.7 ??C (98.1 ??F)07/21/2019 3:01 PM CDTRespiratory Rate--Oxygen Saturation--Inhaled Oxygen Concentration--Vvvaxw32.9 kg (207 lb)07/21/2019 3:01 PM CDTHeight--Body Mass Index-- Plan of Treatment Health MaintenanceDue DateLast DoneCommentsCervical Cancer Screening Due 1978Colon Cancer Screening Plan Due1978 5545Cjkxenuzp19/05/1979HIV Screening (Preventive Services)1994Adult Preventive Visit1996HepB Vaccine (2)DTaP/Tdap/Td Vaccine (4 - Tdap)08/19/2015 08/18/2005, 1994, 11/22/19833675Gwjqdbaljxp63/04/2024COVID-19 Vaccine (1 - 2024- season)2024Influenza Vaccine (#1)51, 01/31/2016, 02/27/2013, Additional history existsZoster/Shingles Vaccine (1 of 2)2028 Pneumococcal VaccineAged Out06/22/2010No longer eligible based on patient's age to complete this topicHep C Screening (Preventive Services)Jywvbctjj25/08/2020 HepA VaccineAged OutNo longer eligible based on patient's age to complete this topicHib VaccineAged OutNo longer eligible based on patient's age to complete this topicIPV (Polio) VaccineAged OutNo longer eligible based on patient's age to complete this topicMCV4 VaccineAged OutNo longer eligible based on patient's age to complete this topicMeningococcal B VaccineAged OutNo longer eligible based on patient's age to complete this topic Procedures Procedure NamePriorityDate/TimeAssociated DiagnosisCommentsHEPATITIS C ANTIBODY, WITH REFLEX (ANTI-HCV)Klrtpbx2607/16/2019 2:47 PM CDT Multiple joint pain from Last 3 Months or Most Recently Relevant to Health Maintenance Results * [facility] - Hepatitis C Virus Connie with Reflex In-House (07/16/2019 2:47 PM CDT) ComponentValueRef RangeTest MethodAnalysis TimePerformed AtPathologist SignatureHepatitis C AntibodyNegative (Non Reactive)Negative (Non Reactive) 07/16/2019 7:10 PM CDTMETHODIST LABORATORYComment:Antibodies to HCV not detected. Does not exclude the possiblity of exposure to HCV.Specimen (Source) Anatomical Location / LateralityCollection Method / VolumeCollection Time Received TimeBloodVenipuncture / Kxqhhnj4307/16/2019 2:47 PM CDT07/16/2019 2:47 PM CDT Narrative Authorizing ProviderResult TypeResult StatusPeZelaya MDLAB_1Final Result Performing OrganizationAddressCity/State/ZIP CodePhone Number [facility] [address] [place] [address], [facility] from Last 3 Months or Most Recently Relevant to Health Maintenance
--- NOTE | 2025-03-23 17:19 | CRLHL7_ITS ---
For Patients: As a result of the Century Cures Act, medical imaging exams and procedure reports are released immediately into your electronic medical record. You may view this report before your referring provider. If you have questions, please contact your health care provider. Indication: Sore throat, abdominal pain, status post endoscopy 1 week Technique: CT chest/abdomen/pelvis with IV contrast utilizing 80 mL Isovue 370 Comparison: CT abdomen/pelvis on September 18, 2024 and prior studies Findings: Chest: No suspicious imaged thyroid nodules. Partially imaged likely subcentimeter right thyroid nodule for which no routine follow-up imaging is needed. No thoracic lymphadenopathy. The heart is normal in size. Small pericardial effusion anteriorly. The thoracic aorta and pulmonary artery are normal in caliber. No central pulmonary embolism. No focal airspace consolidation, pleural effusion, or pneumothorax. Trace left basilar linear atelectasis/scarring. No emphysematous or fibrotic changes. No suspicious pulmonary nodules or masses. The airways are clear. Abdomen/pelvis: The liver is unremarkable. Status post cholecystectomy. No biliary ductal dilatation. The spleen, pancreas, and adrenal glands are unremarkable. Similar appearing renal cysts bilaterally. No renal calculi or hydroureteronephrosis. The bladder is unremarkable. Status post hysterectomy. No suspicious adnexal lesions. 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 No bowel obstruction or inflammation. The appendix is normal. No free air, free fluid, or abscess. No abdominopelvic lymphadenopathy. The vasculature is unremarkable. Soft tissue/musculoskeletal: No acute abnormality. Diastasis recti. Mild multilevel degenerative changes throughout the spine with redemonstration of an anterior and posterior spinal fusion construct spanning L4-S1 with L5 laminectomy. No evidence of hardware related complication Impression: 1. No CT evidence of an acute intra-abdominal or intrapelvic process. 2. 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 3. Small anterior pericardial effusion; otherwise, the thorax is unremarkable. Please note that all CT scans at this facility use dose modulation, iterative reconstruction, and/or weight-based dosing when appropriate to reduce radiation dose to as low as reasonably achievable. Dictated by Adria Becerra MD @ 03/23/2025 7:13:40 PM (Electronically Signed)
[2025-03-23 17:54] LABS: Lactate Sepsis w/Reflex* 1.0 mmol/L (0.5-1.9)
[2025-03-23 17:57] LABS: Hematocrit* 43.9 % (33.0-51.0); Hemoglobin* 14.8 gm/dL (12.0-16.0); Immature Granulocytes Abs Auto 0.00 K/uL (0.00-0.30); Immature Granulocytes Pct Auto 0.0 %; Mean Corpuscular HGB Conc 34 gm/dL (32-36); Mean Corpuscular Hemoglobin 34 pg (26-34); Mean Corpuscular Volume 100 fL (80-100); RDW Coefficient of Variation % 11.7 % (11.5-15.5); Red Blood Count* 4.40 m/uL (4.00-5.20); White Blood Count* 6.43 K/uL (4.50-11.00)
[2025-03-23 18:12] LABS: Albumin* 4.5 g/dL (3.3-5.0); Chloride* 102 mmol/L (96-114); Potassium* 4.3 mmol/L (3.6-5.1); Sodium* 138 mmol/L (135-149)
[2025-03-23 18:15] LABS: Alanine Aminotransferase* 21 U/L (4-35); Alkaline Phosphatase* 61 U/L (40-150); Anion Gap 8 mEq/L (7-15); Aspartate Amino Transferase* 27 U/L (12-35); Bilirubin Direct* 0.2 mg/dL (0.0-0.5); Bilirubin Total* 0.6 mg/dL (0.1-1.5); Blood Urea Nitrogen* 19 mg/dL (5-24); Calcium* 9.7 mg/dL (8.4-10.6); Carbon Dioxide* 28 mmol/L (20-32); Creatinine* 0.8 mg/dL (0.5-1.5); Est. Creatinine Clearance* 91.83; Estimated Glomerular Filt Rate 92 ml/min; Glucose* 114 mg/dL (60-115); Total Protein* 7.5 g/dL (6.0-8.3)
[2025-03-23 18:23] LABS: Lymphocytes Absolute Auto 1.00 K/uL (0.90-2.90); Slide Review Reflex No
[2025-03-23] MEDS: MORPHINE 4 MG/ML INJ IVP (18:38)
[2025-03-23] MEDS: ONDANSETRON 2 MG/ML inj 4 MG IVP (18:38)
[2025-03-23 18:47] VITALS: PULSE 80; O2SAT 97
[2025-03-23 19:00] VITALS: BP 126/70; PULSE 80; O2SAT 97
[2025-03-23] MEDS: PANTOPRAZOLE SODIUM 40 MG INJ IVP (19:31)
--- NOTE | 2025-03-23 19:34 | ED.GENADULT ---
HPI - General Adult General Date Seen: 03/23/25 Chief complaint: Abdominal Pain Stated complaint: Stomach pain Time Seen by Provider: 03/23/25 17:07 History of Present Illness HPI narrative: Patient is a 44-year-old woman here with abdominal pain and vomiting. 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 Dr. Khan had gone back in to make sure that it was all gone. No residual tumor was seen, she did have a Schatzki's ring which he biopsied but did not dilate. She says since the procedure she has been having problems with a sore throat, it hurts to swallow and so she has not been eating as much although she has been drinking okay. Today she was at the store, she was given a sample of bratwurst, and after that she had developed upper abdominal pain and vomiting. Vomited several times at home, although the nausea and vomiting had stopped by the time she got here. She is had a normal bowel movement at some point in the last week, not having diarrhea, no black or bloody stools. No fevers. No chest pain, shortness of breath. She is status post cholecystectomy and hysterectomy. does not smoke, does not drink with any frequency. Related Data Previous Rx's ?Medication ?Instructions ?Recorded nystatin 100,000 unit/gram topical 1 applic topical BID PRN itching 07/04/23 powder or burning perianal pain #60 grams meclizine 25 mg tablet 25 mg PO BID PRN dizziness #10 tabs 08/06/23 ondansetron 4 mg disintegrating 4 mg PO Q8H PRN nausea and 08/06/23 tablet vomiting #10 tabs sumatriptan succinate 50 mg tablet 50 mg PO ONCE PRN migraine 09/26/23 (Imitrex) headache #30 tabs venlafaxine 150 mg 150 mg PO QAM Anxiety #90 caps 04/29/24 capsule,extended release 24 hr sertraline 100 mg tablet 150 mg (1.5 x 100 mg) PO QDAY 09/29/24 Anxiety #135 tabs buspirone 10 mg tablet 10 mg PO BID #120 tabs 12/16/24 fentanyl 25 mcg/hr transdermal 1 patch transdermal Q72H #5 ea 12/01/25 patch oxycodone 10 mg tablet 10 mg PO Q8H PRN pain #60 tabs 03/16/25 Allergies Allergy/AdvReac Type Severity Reaction Status Date / Time codeine Allergy Severe hives, Verified 03/11/25 14:26 nausea, vomiting hydromorphone Allergy Mild itching Verified 03/11/25 14:26 ibuprofen Allergy Mild hx of Verified 03/11/25 14:26 gastric bypass Review of Systems Status of ROS: Reports: 10 or more systems reviewed and unremarkable except as noted in History and below [facility] Medical History Encounter for preoperative assessment ?Z01.818 - Encounter for other preprocedural examination (ICD-10) Fusion of lumbar spine ?M43.26 - Fusion of spine, lumbar region (ICD-10) Migraine headache (09/20/18) ?G43.909 - Migraine, unspecified, not intractable, without status migrainosus (ICD-10) Constipation ?K59.00 - Constipation, unspecified (ICD-10) Polyarthritis ?M13.0 - Polyarthritis, unspecified (ICD-10) Postoperative intra-abdominal abscess ?T81.43XA - Infection following a procedure, organ and space surgical site, initial encounter (ICD-10) Postoperative wound dehiscence ?T81.31XA - Disruption of external operation (surgical) wound, not elsewhere classified, initial encounter (ICD-10) Septic shock due to Escherichia coli ?A41.51 - Sepsis due to Escherichia coli [E. coli] (ICD-10) ?R65.21 - Severe sepsis with septic shock (ICD-10) Elevated liver enzymes ?R74.8 - Abnormal levels of other serum enzymes (ICD-10) MRSA (methicillin resistant staph aureus) culture positive ?Z22.322 - Carrier or suspected carrier of Methicillin resistant Staphylococcus aureus (ICD-10) Fatigue ?R53.83 - Other fatigue (ICD-10) Insomnia ?G47.00 - Insomnia, unspecified (ICD-10) Granular cell tumor ?D21.9 - Benign neoplasm of connective and other soft tissue, unspecified (ICD-10) Dysphagia ?R13.10 - Dysphagia, unspecified (ICD-10) Obstructive sleep apnea ?G47.33 - Obstructive sleep apnea (adult) (pediatric) (ICD-10) History of abdominal hernia ?Z87.19 - Personal history of other diseases of the digestive system (ICD-10) Hemorrhoids ?K64.9 - Unspecified hemorrhoids (ICD-10) Anxiety ?F41.9 - Anxiety disorder, unspecified (ICD-10) Eczema ?L30.9 - Dermatitis, unspecified (ICD-10) Depression ?F32.A - Depression, unspecified (ICD-10) Surgical History History of lumbar discectomy (12/23/24) ?Z98.890 - Other specified postprocedural states (ICD-10) History of umbilical hernia repair ?Z98.890 - Other specified postprocedural states (ICD-10) ?Z87.19 - Personal history of other diseases of the digestive system (ICD-10) History of hysterectomy ?Z90.710 - Acquired absence of both cervix and uterus (ICD-10) History of gastric bypass ?Z98.84 - Bariatric surgery status (ICD-10) History of cholecystectomy ?Z90.49 - Acquired absence of other specified parts of digestive tract (ICD-10) History of section ?Z98.891 - History of uterine scar from previous surgery (ICD-10) Social History What is your current living situation?: I presently have a place to live Problems where you live: no known problems Problems where you live details: na In the past 12 months, utilities in danger of being shut off: no In past 12 months, lack of transportation kept you from medical appts, meetings, work, or getting things needed for daily living: no In the past 12 mos, have been you worried that your food would run out before you had money to buy more?: never true In the past 12 mos, the food you bought just didn't last and you didn't have money to buy more?: never true Highest level of school completed/degree received: some college, no degree Smoking Status: Never smoker Do you use any of these nicotine containing products: None Second hand tobacco smoke exposure: No How often do you have a drink containing alcohol: monthly or less How many standard drinks containing alcohol do you have on a typical day: 1 or 2 How often do you have six or more drinks on one occasion: Never AUDIT-C Alcohol total score: 1 Non-prescribed substance use: denies use and marijuana (any form) Caffeine: Yes How often does anyone, including family, friends and others, physically hurt you: never How often does anyone, including family, friends and others, insult or talk down to you: never How often does anyone, including family, friends and others, threaten you with harm: never How often does anyone, including family, friends and others, scream or curse at you: never service: No Exam Narrative: Exam Narrative: Vital signs reviewed In general, an alert, nontoxic Been age woman. She looks comfortable, breathing easily. Head: Normocephalic, atraumatic. Eyes: Sclera clear. Pupils equal and reactive. ENT: Mucous membranes moist. Neck: Supple without adenopathy. No stridor. Heart: Regular rate and rhythm without murmur. Lungs: Clear. No increased work of breathing, crackles or wheezes. Abdomen: Abdomen is soft, little bit of mild epigastric tenderness without rebound guarding or rigidity. Abdomen is otherwise nontender. Extremities: Well perfused, pulses intact. No significant edema. Neurologic: Alert, conversant. Speech fluent, face symmetric. Moves all extremities equally. Skin: Warm, dry well perfused. Affect: Normal. Const: Vital Signs, click to edit/add: Vital Signs - 24 hr 03/23/25 15:50 03/23/25 18:47 03/23/25 19:00 Temperature 97 F L Pulse Rate 80 80 Pulse Rate [Pulse Oximeter] 97 Respiratory Rate 24 Blood Pressure 126/70 Blood Pressure [Ri ght Upper Arm] 115/84 Pulse Oximetry 97 97 97 Oxygen Delivery Me thod Room Air Course Course ED Course: Following initial evaluation, we did place an IV, she requested something for pain, wanted to stay away from Toradol and NSAIDs given her history of gastric bypass and current symptoms. She had morphine along with some Benadryl as she tends to get itchy with narcotics. She also had Zofran. She did not have any vomiting while here. She is swallowing secretions without difficulty. Diagnostic considerations would include esophageal perforation, gastritis or gastric ulcer, diverticulitis, pancreatitis, choledocholithiasis, perforated viscus among others. She had labs which are notable for a normal white blood cell count of 6.4, normal hemoglobin, normal metabolic panel, normal lactate of 1, normal LFTs, normal CRP, normal lipase. CT scan of her chest,abdomen and pelvis by my review showed no free air, no pneumomediastinum, no bowel obstruction or inflammatory changes in the abdomen. Radiology read is negative for any acute finding , they note a small anterior pericardial effusion with an otherwise unremarkable thorax. This is of unclear significance in the current clinical context. Presentation is not suggestive of pericarditis. Given normal labs, benign exam, I suggested we try trial of proton pump inhibitor, I would like her to check in with Dr. Khan tomorrow to see if he has any other thoughts. Initial history of this brought worst with then vomiting might have suggested esophageal food bolus but given that she has not had any more vomiting and is managing secretions without difficulty think that is of low likelihood. Certainly would want her to come back if she has uncontrolled vomiting or severe pain, fevers, or other worsening. Otherwise she is comfortable with discharge at this time. Gave her Protonix while here. Diagnosis: Epigastric pain. Recent endoscopy. History gastric bypass Vital Signs Vital signs: Initial Vital Signs Temperature 97 F L 03/23/25 15:50 Temperature Source Temporal Artery Scan 03/23/25 15:50 Pulse Rate 97 03/23/25 15:50 Respiratory Rate 24 03/23/25 15:50 Blood Pressure 115/84 03/23/25 15:50 Blood Pressure Mean 94 03/23/25 15:50 Blood Pressure Position Sitting 03/23/25 15:50 Pulse Oximetry 97 03/23/25 15:50 Oxygen Delivery Method Room Air 03/23/25 15:50 Vital Signs Temperature 97 F L 03/23/25 15:50 Pulse Rate 97 03/23/25 15:50 Respiratory Rate 24 03/23/25 15:50 Blood Pressure 115/84 03/23/25 15:50 Pulse Oximetry 97 03/23/25 15:50 Oxygen Delivery Method Room Air 03/23/25 15:50 Temperature 97 F L 03/23/25 15:50 Pulse Rate 80 03/23/25 19:00 Respiratory Rate 24 03/23/25 15:50 Blood Pressure 126/70 03/23/25 19:00 Pulse Oximetry 97 03/23/25 19:00 Oxygen Delivery Method Room Air 03/23/25 15:50 Medications Administered Medications: Generic Name Dose Route Start Last Admin Trade Name Tigist PRN Reason Stop Dose Admin Pantoprazole Sodium 40 mg 03/23/25 19:18 03/23/25 19:31 Pantoprazole Sodium 40 Mg Inj IVP 03/23/25 19:19 40 mg ONCE ONE Administration Discontinued Medications Generic Name Dose Route Start Last Admin Trade Name Tigist PRN Reason Stop Dose Admin Diphenhydramine HCl 25 mg 03/23/25 17:20 03/23/25 18:38 Diphenhydramine 50 Mg/Ml Inj IVP 03/23/25 17:21 25 mg ONCE ONE Administration Sodium Chloride 1,000 mls @ 1,000 mls/hr 03/23/25 17:30 03/23/25 19:31 0.9 % Sodium Chloride 1000 Ml IV 03/23/25 18:29 Infused .Q1H CLAIRE Infusion Morphine Sulfate 4 mg 03/23/25 17:20 03/23/25 18:38 Morphine 4 Mg/Ml Inj IVP 03/23/25 17:21 4 mg ONCE ONE Administration Ondansetron HCl 4 mg 03/23/25 17:20 03/23/25 18:38 Ondansetron 2 Mg/Ml Inj IVP 03/23/25 17:21 4 mg ONCE ONE Administration Medical Decision Making Lab Data Lab results reviewed: Yes I reviewed the patient's lab results Labs: Lab Results 03/23/25 Range/Units 17:38 WBC 6.43 (4.50-11.00) K/uL RBC 4.40 (4.00-5.20) m/uL Hgb 14.8 (12.0-16.0) gm/dL Hct 43.9 (33.0-51.0) % MCV 100 (80-100) fL MCH 34 (26-34) pg MCHC 34 (32-36) gm/dL RDW Coeff of Reyes 11.7 (11.5-15.5) % Plt Count 216 (140-440) K/uL Neut % (Auto) 81.7 H (42.0-72.0) % Lymph % (Auto) 14.8 L (20-44) % [place] % (Auto) 3.0 (0.0-11.0) % Eos % (Auto) 0.2 (0.0-7.0) % Baso % (Auto) 0.3 (0.0-3.0) % Neut # (Auto) 5.30 (1.7-7.0) K/uL Lymph # (Auto) 1.00 (0.90-2.90) K/uL [place] # (Auto) 0.20 (0.00-0.90) K/UL Eos # (Auto) 0.01 (0.00-0.50) K/uL Baso # (Auto) 0.02 (0.00-0.30) K/uL Abs Immat Gran (auto) 0.00 (0.00-0.30) K/uL Imm/Tot Granulo (auto) 0.0 % Sodium 138 (135-149) mmol/L Potassium 4.3 (3.6-5.1) mmol/L Chloride 102 (96-114) mmol/L Carbon Dioxide 28 (20-32) mmol/L Anion Gap 8 (7-15) mEq/L BUN 19 (5-24) mg/dL Creatinine 0.8 (0.5-1.5) mg/dL Estimated Creat Clear 91.83 Estimated GFR 92 ml/min Glucose 114 (60-115) mg/dL Lactate 1.0 (0.5-1.9) mmol/L Calcium 9.7 (8.4-10.6) mg/dL Total Bilirubin 0.6 (0.1-1.5) mg/dL Direct Bilirubin 0.2 (0.0-0.5) mg/dL AST 27 (12-35) U/L ALT 21 (4-35) U/L Alkaline Phosphatase 61 (40-150) U/L C-Reactive Protein < 0.5 L (0.5-1.0) mg/dL Total Protein 7.5 (6.0-8.3) g/dL Albumin 4.5 (3.3-5.0) g/dL Lipase 47 (23-300) U/L Imaging Data CT Chest/Ab/Pelvis: Attestation: I have reviewed the pertinent imaging results. Radiologist's impression: Patient: JESSICA ALVAREZ Facility: [facility] Site . Site : 1980 Study: CT-Chest/Abd/Pelvis W/IV-03/23/2025 5:59:40 PM Ordering Physician: Janis Mcpherson Final Report: Indication: Sore throat, abdominal pain, status post endoscopy 1 week Technique: CT chest/abdomen/pelvis with IV contrast utilizing 80 mL Isovue 370 Comparison: CT abdomen/pelvis on September 18, 2024 and prior studies Findings: Chest: No suspicious imaged thyroid nodules. Partially imaged likely subcentimeter right thyroid nodule for which no routine follow-up imaging is needed. No thoracic lymphadenopathy. The heart is normal in size. Small pericardial effusion anteriorly. The thoracic aorta and pulmonary artery are normal in caliber. No central pulmonary embolism. No focal airspace consolidation, pleural effusion, or pneumothorax. Trace left basilar linear atelectasis/scarring. No emphysematous or fibrotic changes. No suspicious pulmonary nodules or masses. The airways are clear. Abdomen/pelvis: The liver is unremarkable. Status post cholecystectomy. No biliary ductal dilatation. The spleen, pancreas, and adrenal glands are unremarkable. Similar appearing renal cysts bilaterally. No renal calculi or hydroureteronephrosis. The bladder is unremarkable. Status post hysterectomy. No suspicious adnexal lesions. 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 No bowel obstruction or inflammation. The appendix is normal. No free air, free fluid, or abscess. No abdominopelvic lymphadenopathy. The vasculature is unremarkable. Soft tissue/musculoskeletal: No acute abnormality. Diastasis recti. Mild multilevel degenerative changes throughout the spine with redemonstration of an anterior and posterior spinal fusion construct spanning L4-S1 with L5 laminectomy. No evidence of hardware related complication Impression: 1. No CT evidence of an acute intra-abdominal or intrapelvic process. 2. 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 3. Small anterior pericardial effusion; otherwise, the thorax is unremarkable. Please note that all CT scans at this facility use dose modulation, iterative reconstruction, and/or weight-based dosing when appropriate to reduce radiation dose to as low as reasonably achievable. Dictated by Adria Becerra MD @ 03/23/2025 7:13:40 PM Discharge Plan Discharge Clinical Impression: Abdominal pain Patient Disposition: Home, Self-Care Condition: Improved Instructions: Abdominal Pain (ED) Additional Instructions: Your test today are normal including blood work and CT scans of your chest abdomen and pelvis. No clear cause is found here symptoms. You do have a stricture, and this increases your risk for esophageal food impaction, but at this time, does not appear that you have a complete impaction. Please call Dr. Khan tomorrow to review your symptoms and see if they have additional recommendations. If you find yourself unable to swallow saliva, uncontrolled vomiting, high fevers, severe uncontrolled pain, return to the ER at any time. I would recommend a trial of proton pump inhibitors, omeprazole 40 mg daily. This can be purchased over the counter. See primary care if symptoms persist. Prescriptions: No Action nystatin 100,000 unit/gram powder 1 applic topical BID PRN (Reason: itching or burning perianal pain) Qty: 60 0RF meclizine 25 mg tablet 25 mg PO BID PRN (Reason: dizziness) Qty: 10 0RF ondansetron 4 mg tablet,disintegrating 4 mg PO Q8H PRN (Reason: nausea and vomiting) Qty: 10 0RF sumatriptan succinate [Imitrex] 50 mg tablet 50 mg PO ONCE PRN (Reason: migraine headache) Qty: 30 0RF buspirone 10 mg tablet 10 mg PO BID Qty: 120 2RF venlafaxine 150 mg capsule,extended release 24hr 150 mg PO QAM Qty: 90 3RF sertraline 100 mg tablet 150 mg PO QDAY Qty: 135 1RF fentanyl 25 mcg/hr patch 72 hour 1 patch transdermal Q72H Qty: 5 0RF oxycodone 10 mg tablet 10 mg PO Q8H PRN (Reason: pain) Qty: 60 0RF Follow Up/Referrals: Stone Martinez MD [Primary Care Provider, Internal Medicine] Stand Alone Forms: [employer] Interactive Info Instructions
== END 2025-03-23 19:45 | disposition home or self-care (01) ==
PROVIDERS: Emergency Provider Emergency Medicine; PCP Internal Medicine
DX: R10.13 Epigastric pain (principal); Z98.84 Bariatric surgery status
CPT/HCPCS: 36415; 71260; 74177; 80048; 80076; 83605; 83690; 85025; 86140; 96361; 96374; 96375; 99284; 99285; J1200; J2270; J2405; J2470; J7030; Q9967

== ENCOUNTER 2025-03-24 14:22 | Emergency (ER) | payer BC, SELFPAY ==
[2025-03-24] VITALS (15 sets, daily range): BP systolic 113–139; BP diastolic 55–79; PULSE 74–95; RESP 18; TEMP 36.1; O2SAT 95–98
--- OUTSIDE RECORDS SUMMARY | 2025-03-24 14:25 | XMS_ITS | Clinical Summary ---
Author Organization [facility] Address [address] [place] [address] Care Team Providers Care Dramatic Critic Name Role Phone Unavailable Primary Care Provider Unavailabl e Source Comments You are receiving this document as you are listed as the primary care provider,follow-up provider, or the patient has been referred to you for consultation.This is in compliance with the Medicare andH[facility] Community Hospitalcaid EHR Incentive Program,which states Providers who transition their patient to another setting of careor provider of care or refers their patient to another provider of care shouldprovide summary care record for each transition of care or referral. [email or web address] Allergies Active AllergyReactionsCriticalityNoted YukvWeciprjqKmylese75/06/2020 Medications MedicationSigDispense QuantityRefillsLast FilledStart DateEnd DateStatus diclofenac [...] 30 Capsule 1Active Active Problems ProblemNoted DateDiagnosed LrcjRcwzpnfpxswd00/13/2020Osteoarthritis of fingers of hands, qraxbwujt07/13/2020Gastric bypass status for tzcjybn9407/16/2019 Dnkfdkbkp44/08/2020Chronic bilateral low back pain without vjhgfcer84/08/2020 Bariatric surgery nqyirl5209/27/2018Abdominal pain09/26/2018 Overview (07/16/2019): Added automatically from request for surgery [id number] Migraine bcqqaydv26/14/2019Severe episode of recurrent major depressive disorder 04/06/2011ttention deficit hyperactivity disorder (ADHD)03/13/2007 Immunizations ImmunizationAdministration DatesNext DueHepB, Unspecified Qxznnhuzcul94/21/2011 MMR08/11/1995PPSV23 (Pneumovax)06/22/2010 Social History Tobacco UseTypesPacks/DayYears UsedDateSmoking Tobacco: NeverSmokeless Tobacco: NeverAlcohol UseStandard Drinks/WeekCommentsYes0 (1 standard drink = 0.6 oz pure alcohol)CommentsUnknownSex and Gender InformationValueDate RecordedSex Assigned at BirthNot on fileLegal UemTuyxes36/03/2020 3:02 PM CSTGender Identity Not on fileSexual OrientationNot on file Last Filed Vital Signs Vital SignReadingTime TakenCommentsBlood Leuwwjsz996/8204 3:01 PM CDT Mxafs797707/21/2019 3:01 PM CHBXfumpvavlii37.7 ??C (98.1 ??F)07/21/2019 3:01 PM CDTRespiratory Rate--Oxygen Saturation--Inhaled Oxygen Concentration--Cqecnt65.9 kg (207 lb)07/21/2019 3:01 PM CDTHeight--Body Mass Index-- Plan of Treatment Health MaintenanceDue DateLast DoneCommentsCervical Cancer Screening Due 1978Colon Cancer Screening Plan Due1980 7607Osqjzvzqi70/05/1979HIV Screening (Preventive Services)1994Adult Preventive Visit1996HepB Vaccine (2)DTaP/Tdap/Td Vaccine (4 - Tdap)08/19/2015 08/18/2005, 1994, 11/22/19833451Mnzdpaopzbh89/04/2024COVID-19 Vaccine (1 - 2024- season)2024Influenza Vaccine (#1)51, 01/31/2016, 02/27/2013, Additional history existsZoster/Shingles Vaccine (1 of 2)2028 Pneumococcal VaccineAged Out06/22/2010No longer eligible based on patient's age to complete this topicHep C Screening (Preventive Services)Pyvlwwmoe47/08/2020 HepA VaccineAged OutNo longer eligible based on [...] Procedure NamePriorityDate/TimeAssociated DiagnosisCommentsHEPATITIS C ANTIBODY, WITH REFLEX (ANTI-HCV)Zrigacz4307/16/2019 2:47 PM CDT Multiple joint pain from [...] Method / VolumeCollection Time Received TimeBloodVenipuncture / Twotwxb4907/16/2019 2:47 PM CDT07/16/2019 2:47 PM CDT Narrative Authorizing ProviderResult TypeResult StatusPeZelaya MDLAB_1Final Result Performing OrganizationAddressCity/State/ZIP CodePhone Number [facility] [address] [place] [address], [facility] from Last 3 Months or Most Recently Relevant to Health Maintenance
--- OUTSIDE RECORDS SUMMARY | 2025-03-24 14:25 | XMS_ITS | Clinical Summary ---
Author Organization [facility] Address [address] [place] [id number] Care Team Providers Care Political Science Faculty Member Name Role Phone Stone Martinez MD Primary Care Provider Allergies Active AllergyReactionsCriticalityNoted DateCommentsCodeineAnaphylaxis,Hives, Nausea and UfigexoeXown09/17/2003 Other reaction(s): GI intolerance, HIVES, NAUSEA, VOMITING Crtybw9102/10/2020 Other reaction(s): *Unknown Avoids D/T Hx GBP [...] CommentsNoSex and Gender InformationValueDate RecordedSex Assigned at CxscvMnojsu40/06/2023 10:41 AM CDTLegal KgfDqobor16/30/2016 10:44 AM CDTGender HoatccbkPsezvb19/06/2023 10:41 AM CDTSexual XzdwcydlrcwLtpztspu60/09/2022 10:41 AM CDT Last Filed Vital Signs Vital SignReadingTime TakenCommentsBlood Gtsggcix944/6904/04/2021 11:30 PM TITLE SUPERVISOR Rqodz842804/04/2021 11:30 PM GASGlizmqdrjnk68.9 ??C (98.5 ??F)04/04/2021 7:18 PM CSTRespiratory Agwu571506/05/2020 10:35 PM CSTOxygen Kmiyludurl11%04/04/2021 10:35 PM CSTInhaled Oxygen Concentration--Rkkocn11.4 kg (210 lb 6.4 oz)04/04/2021 7:11 PM CSTHeight--Body Mass Index-- Plan of Treatment Not on file Care Teams Team MemberRelationshipSpecialtyStart DateEnd Stone Martinez MD [facility] [address] [place] [address] PCP - GeneralInternal Medicine12/07/15
--- OUTSIDE RECORDS SUMMARY | 2025-03-24 14:25 | XMS_ITS | Clinical Summary ---
Author Organization [employer] [facility] Address [facility] [place] [address] Care Team Providers Care Energy Conservation Engineer Name Role Phone Glenys Agarwal MD Unavailable + Stone Martinez MD Primary Care Provider [phone] Allergies Active AllergyReactionsCriticalityNoted DateCommentsCodeineAnaphylaxisHigh 12/11/2014CodeineHives,Nausea And Sbknidky87/03/2020HydromorphoneItching 02/10/2020Nsaids (Non-Steroidal Anti-Inflammatory Drug)*Nzwvzoe8102/10/2020 Avoids D/T Hx GBP Medications MedicationSigDispense QuantityRefillsLast [...] 1:07 PM CDT5Active Active Problems ProblemNoted DateDiagnosed EqqaWcuwqsjxae33/16/2371Tozzehep48/16/2025Lumbar poyzfxfcbhxlz76/16/2025ack pain02/16/2023olyarticular /10/2023Sleep apnea02/16/2023 Overview (02/16/2023): mild, does not use CPAP MRSA (methicillin resistant staph aureus) culture ehadggcv86/25/2016 Overview (02/16/2023): abdominal wound History of gastric vsbhoq8101/07/2015Esophageal njtrloyie85/16/2015 Gastroesophageal reflux disease without gghqeskwmzt86/04/2015 Overview (12/11/2014): With restrictions secondary to gastric surgery. Often has yearly dilation last was June 2013 Vvefdqzrkrnsdv92/01/2015 Overview (02/16/2023): Due to E coli with associated sepsis Resolved Problems ProblemNoted DateDiagnosed DateResolved DateDepression, acute02/16/2023 12/23/20248003Hrzckzmyt72Intractable migraine with aura without status bcqsrjpnarz83 Encounters DateTypeDepartmentCare SunrJbgireeugzu43/08/2025 11:22 AM CSTAnesthesia Event [facility] [address] [place] [address] Freddie Eden MD 03/16/2025 10:56 AM REDUCING MACHINE OPERATOR - 03/16/2025 11:56 AM CSTSurgery [facility] [address] [place] [address] Delvin Khan MD ESOPHAGOGASTRODUODENOSCOPY WITH LDSXNR6803/16/2025 9:20 AM REDUCING MACHINE OPERATOR - 03/16/2025 12:51 PM CSTHospital Encounter [facility] [address] [place] [address] Delvin Khan MD Discharge Disposition: Home Self Care03/16/20259748Vvvewl21/16/2025 3:13 PM CDT Anesthesia Event [facility] [address] [address] Gaurang Reid CRNA Scott, Sarah, CRNA Student 12/23/2024 12:30 PM CDT - 12/23/2024 3:59 PM CDTSurgery [facility] [address] [place] [address] Freddy Arboleda MD Far lateral discectomy Levels: L3 to: L4 Side: Left12/23/2024 9:36 AM CDT - 12/24/2024 3:50 PM CDTHospital Encounter [facility] [address] [place] [phone] Freddy Arboleda MD Spinal stenosis of lumbosacral region (Primary Dx) Discharge Disposition: Home Self Carefrom Last 3 Months Immunizations ImmunizationAdministration DatesNext DueCOVID-19 vaccine (ZeroCater-BioNTUpstream 30mcg/0.3mL) PF, MDV1,04/20/2020,03/31/2020DTP11/22/1983Hepatitis B (Adult)06/27/2010Hepatitis B, Imtuwhnguup89/21/2011Influenza, IIV3 (Age 6-35 mos)02/27/2013,06/06/2012,01/17/2011,01/10/2010,02/17/2008Influenza, IIV4 01/07/2022,01/07/2020,01/04/2019,01/23/2018,01/20/2017,01/31/2016,02/09/2015 Influenza, IIV4 (=>6mos) MDV1MMR08/11/1995Pneumococcal Poly,23-Valent (Pneumovax)06/22/2010TD, XEHJEQOTXNH31/04/1995Td (Age >=7 Years)12/22/2012, 1994Tdap08/18/2005 Family History * Patient is adopted Medical HistoryRelationNameCommentsGood HealthDaughter 1Good HealthDaughter 2 UnknownFatherUnknownMotherUnknownSister1/2 sisterGood HealthSonRelationName StatusCommentsDaughter 1Daughter 2FatherMotherSisterSon Social History Tobacco UseTypesPacks/DayYears UsedDateSmoking Tobacco: LmnxbhJverthbozf6Tclw: 07/08/2013Smokeless Tobacco: Never Tobacco Cessation:Counseling Given: Yes Alcohol UseStandard Drinks/WeekCommentsNot Currently0 (1 standard drink = 0.6 oz pure alcohol)occPHQ-2AnswerDate RecordedPHQ-2 TOTAL BEKFF401/19/2023Social ConnectionsAnswerDate RecordedFrequency of Communication with Friends and Family Financial Resource StrainAnswerDate RecordedDifficulty of Paying Living Gutiksnj326ifficulty of Paying Living ExpensesNot on file 07/25/2022Food InsecurityAnswerDate RecordedWorried About Running Out of Food in the Last Vkxu439Transportation NeedsAnswerDate RecordedLack of Transportation (Medical)Housing StabilityAnswerDate RecordedUnable to Pay for Housing in the Last Fdsk554regnantCommentsNoSex and Gender InformationValueDate RecordedSex Assigned at ZsjmqRnhnrr58/31/2023 11:17 AM CDT Legal HylPurzcr80/09/2015 9:55 AM CDTGender IclmvwaiYjvzkl34/31/2023 11:17 AM CDTSexual DtlhgilnowyWdkhreeu93/31/2023 11:17 AM CDT Last Filed Vital Signs Vital SignReadingTime TakenCommentsBlood Xqdlsetf688/6203/16/2025 12:25 PM REDUCING MACHINE OPERATOR Mrxld819703/16/2025 12:25 PM UZQNuunqafdyex79.7 ??C (98.1 ??F)03/16/2025 11:55 AM CSTRespiratory Ozmj175405/17/2024 12:25 PM CSTOxygen Sdefyvoudg117%03/16/2025 12:25 PM CSTInhaled Oxygen Concentration--Sybhpb75.8 kg (187 lb)03/16/2025 10:16 AM EHSVnyxao479.3 cm (5' 9)03/16/2025 10:16 AM CSTBody Mass Index27.62 03/16/2025 10:16 AM REDUCING MACHINE OPERATOR Plan of Treatment Health MaintenanceDue DateLast DoneCommentsHIV for age 15-Hepatitis B series for 19+ (2 of 3 - 19+ 3-dose series), 06/27/2010 Pneumococcal series for age 6-49 (2 of 2 - PCV)Tetanus ubstxfs08, 08/18/2005, 1994, Additional history exists Lipids for age 45-7504/04/2024Mammogram for age 45-/MI (ht and wt on same day) for age 18+/, 01/31/2016Depression screening for age 12+/, 03/20/2016, 01/31/2016, Additional history existsCOVID-19 vaccine series (2024- season)/07/2020, 04/20/2020, 03/31/2020Influenza Vaccine (#1)/04/2021, 02/01/2021, 01/07/2020, Additional history existsColonoscopy through age 01/04/2015Hepatitis C screening for age 18-47Wmwteceln01/12/2015Pap test for age 21-65Discontinued Medical Devices ImplantedTypeAreaManufacturerDevice IdentifierShelf Expiration DateModel / Serial / LotRod Lmbr 60x5.5mm Tsrh 3d Cvd Titnm - [id number] Implanted:Qty: 2 on 02/12/2020 [facility] ImplantsN/A: SpineMedtronic Spine/[id number]# / / [id number] 1-4mm 30cc Medtronic Chips Canclls Freeze Dried Implanted:Qty: 1 on 02/12/2020 by Freddy Arboleda MD at [facility] Explanted:at [facility] (Quantity not on file)N/A: Spine Medtronic Spine/[id number]# / [id number] / Connector 3d Medium Implanted:Qty: 2 on 02/12/2020 by [facility]: [id number] / / Description:CONNECTOR 3D MEDIUMBone Matrix Lg Infuse Bmp - [id number] Implanted:Qty: 1 on 02/12/2020 by [facility]: SpineMedtronic Spine/[id number]# / / [id number] Lmbr 02h65f07um 12deg Sm Sovereign Stand Alone - [id number] Implanted:Qty: 1 on 02/12/2020 by [facility]: SpineMedtronic Spine/[id number]# / / 68GWSpacer Lmbr 57n77q45at 8 Deg Sm Sovereign Stand Alone - [id number] Implanted:Qty: 1 on 02/12/2020 by [facility]: SpineMedtronic Spine/[id number]# / / 38KMScrew Lmbr 5.5x20mm Sovereign Stand Alone - [id number] Implanted:Qty: 6 on 02/12/2020 by [facility]: SpineMedtronic Spine/[id number]# / / Set Screw Lmbr Tsrh 3dx - [id number] Implanted:Qty: 6 on 02/12/2020 by [facility]: SpineMedtronic Spine/[id number]# / / Screw Lmbr Post 6.5x35mm Tsrh 3dx Og Thin Va - [id number] Implanted:Qty: 2 on 02/12/2020 by [facility]: SpineMedtronic Spine/[id number]# / / Screw Lmbr Post 6.5x45mm Tsrh 3dx Og Thin Va - [id number] Implanted:Qty: 4 on 02/12/2020 by [facility]: SpineMedtronic Spine/[id number]# / / Connector 3d Small Implanted:Qty: 4 on 02/12/2020 by [facility]: [id number] / / Description:CONNECTOR 3D SMALLExplantedTypeAreaManufacturerDevice Identifier Shelf Expiration DateModel / Serial / LotExplant Explanted:Qty: 1 on [facility]/16/2023 [facility] CenterDescription: SCREWS, SET SCREWS 3, CARMELA 1, ADAPTER 2 Procedures Procedure NamePriorityDate/TimeAssociated DiagnosisCommentsENDOTRACHEAL TUBE Kqxzewk9103/16/2025 11:44 AM REDUCING MACHINE OPERATOR ENDOTRACHEAL EEVBQdnwvrb84/08/2025 11:44 AM REDUCING MACHINE OPERATOR PATH TISSUE WEBSGrbiu36/08/2025 11:41 AM REDUCING MACHINE OPERATOR LKASTXJSC16/08/2025 11:21 AM REDUCING MACHINE OPERATOR ESOPHAGOGASTRODUODENOSCOPY WITH BIOPSYTier 3: within 90 days03/16/2025 11:12 AM REDUCING MACHINE OPERATOR See MD procedure note HEMOGLOBINEarly AM12/24/2024 6:53 AM CDT GLUCOSE OEHQXAidqj82/16/2025 10:23 PM CDT XR SPINE 1 VIEW MKNOPGAVItxyyba19/16/2025 4:02 PM CDT XR SPINE 1 VIEW LVSVVHAJFndfawb88/16/2025 3:43 PM CDT ENDOTRACHEAL AXJMHmyostp59/16/2025 3:36 PM CDT ENDOTRACHEAL NUPVLjhoamh14/16/2025 3:36 PM CDT LAMINECTOMY DECOMPRESSION SPINE LEVEL 01Tier 3: within 90 days12/23/2024 2:57 PM CDT HNP w/ Radiculopathy, Lumbar M51.16Chronic pain Case Notes EM 4POST, as SCAN-CARDIAC STRIP12/23/2024 12:00 AM CDT XR MAMMO TISH BILAT OBAPPMDylwudw26/04/2023 4:48 PM CDT Encounter for screening mammogram for malignant neoplasm of breast ANTI YTFNxavyco37/12/2015 8:55 AM CDT Need for hepatitis C screening test SCAN-WPYCIPLDLIB78/28/2015 12:00 AM CDT from Last 3 Months or Most Recently Relevant to Health Maintenance Results * HCHG TUBE PR1, HCHG STYLET PR1 (03/16/2025 11:44 AM REDUCING MACHINE OPERATOR) Narrative Humberto Rehman CRNA - 03/16/2025 11:44 AM REDUCING MACHINE OPERATOR Humberto Rehman CRNA 03/16/2025 11:44 AM Procedure: [...] * PATH TISSUE EXAM (03/16/2025 11:41 AM REDUCING MACHINE OPERATOR)ComponentValueRef RangeTest Method Analysis TimePerformed AtPathologist SignatureCase ReportPathology Report ?Case: [id number] ? Authorizing Provider: ??Delvin Khan MD ?Collected: ? 03/16/2025 1141 ? Ordering Location: ? [facility] ?Received: ?03/16/2025 1245 ? Hospital ? Pathologist: ? Cornell Morelos ? MD LINDA ? Specimen: ?Schatzki's Ring ? 03/17/2025 10:22 AM [facility] LABORATORYFinal DiagnosisA) ESOPHAGUS, SCHATZKI'S RING, BIOPSY: 1. Normal esophageal squamous mucosa 2. Negative for reflux changes and eosinophilic esophagitis 3. Negative for columnar mucosa 03/17/2025 10:22 AM [facility] at [address] [facility] Hospitalinical InformationMsSeb Garcia is a 44 y.o. 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 It is labeled with the patient's name and designatedSchatzki's ring. Africa Rodriguez 03/16/2025 8:09 PM 03/17/2025 10:22 AM [facility] LABORATORYMicroscopic DescriptionThe final diagnosis is based on microscopic examination of appropriate sections of all specimens.03/17/2025 10:22 AM [facility] LABORATORYAdditional Information Interpreted at [facility] - [address] [facility] [address], [place], [place] [address]/17/2025 10:22 AM [facility] LABORATORYSpecimen (Source)Anatomical Location / LateralityCollection Method / VolumeCollection TimeReceived TimeBiopsy (Schatzki's Ring)03/16/2025 11:41 AM CST03/16/2025 12:45 PM REDUCING MACHINE OPERATOR Narrative Authorizing ProviderResult TypeResult StatusRobert Jhony Khan MD PATHOLOGY/CYTOLOGYFinal ResultPerforming OrganizationAddressCity/State/ZIP Code Phone Number [facility] [address] [place] [address], * ENDOSCOPY (03/16/2025 11:21 AM REDUCING MACHINE OPERATOR)Specimen (Source)Anatomical Location / LateralityCollection Method / VolumeCollection TimeReceived Time03/16/2025 11:21 AM REDUCING MACHINE OPERATOR Narrative Transcriptions Delvin Khan MD - 03/16/2025 11:58 AM [facility] Patient Name: Rosio Garcia Procedure Date: 03/16/2025 Gender: Female Date of : 1980 Admit Type: Ambulatory Procedure: Upper GI endoscopy Proceduralist: Delvin Khan MD - [facility] Indications/Pre-Op Diagnosis: Follow-up granular cell tumor resection Medications: General Procedure Description: Risk of bleeding, infection, perforation, need for surgery and alternatives discussed. The endoscope [id number] was introduced through the mouth, and advanced [...] 6:53 AM CDT)ComponentValueRef RangeTest MethodAnalysis TimePerformed AtPathologist TbxwbaaazEBSIQQNDSQ30.512.0 - 16.0 g/dL12/24/2024 7:12 AM [facility]AL ELNWGHANTFLJT565(H) 80 - 100 fL12/24/2024 7:12 AM [facility] Specimen (Source)Anatomical Location / LateralityCollection Method / Volume Collection TimeReceived TimeBloodBLOOD SPECIMEN / UnknownVenipuncture / Iqkwrxy4312/24/2024 6:53 AM CDT12/24/2024 7:00 AM CDT Narrative Authorizing ProviderResult TypeResult StatusNavid Estharabadi DOHEMATOLOGYFinal ResultPerforming OrganizationAddressCity/State/ZIP CodePhone Number [facility] [address] [address], * (ABNORMAL) GLUCOSE METER (12/23/2024 10:23 PM CDT)ComponentValueRef RangeTest MethodAnalysis TimePerformed AtPathologist SignatureGLUCOSE YCQEK630(H)65 - 100 mg/dL12/23/2024 10:24 PM CDTALSWAIN [facility]EN[facility] Specimen (Source)Anatomical Location / LateralityCollection Method / Volume Collection TimeReceived TimeBloodBLOOD SPECIMEN / Cgndcki0212/23/2024 10:23 PM CDT12/23/2024 10:24 PM CDT Narrative Authorizing ProviderResult TypeResult StatusTimothy Efrem Arboleda MDCHEMISTRYFinal ResultPerforming OrganizationAddressCity/State/ZIP CodePhone Number [facility] [address] [address], * XR SPINE 1 VIEW PORTABLE (12/23/2024 [...] @ Dec 25 2024 ??9:30AM (Electronically Signed) [email or web address] Procedure Note Chrystal Vaca, - 12/25/2024 For [...] L3-4. Dictated by Chrystal Vaca MD @ Sep 2024 9:30AM (Electronically Signed) [email or web address] [place] Authorizing ProviderResult TypeResult StatusFreddy Arboleda MDGENERAL IMAGING [...] care provider. XR MAMMO TISH BILAT SCREEN [[id number]] CLINICAL HISTORY: ??This is an asymptomatic 42 [...] SignatureHEPATITIS C ANTIBODYNon-Reactive Non-Reactive 01/18/2015 1:43 PM CDTALCOMM[facility]-CENTRAL LABORATORYSpecimen (Source)Anatomical Location / LateralityCollection Method / VolumeCollection TimeReceived TimeBlood specimen (specimen)BLOOD SPECIMEN / UnknownVenipuncture / Lnncuqr3401/18/2015 8:55 AM CDT1 8:55 AM CDT Narrative [facility] - 01/18/2015 1:43 PM CDT Antibodies to HCV not detected; does not exclude the possibility of exposure to HCV. Authorizing ProviderResult TypeResult StatusEfren Eng MDSEND OUTSFinal ResultPerforming OrganizationAddressCity/State/ZIP CodePhone Number [facility] [address] [place] [address], * SCAN-COLONOSCOPY (01/04/2015 12:00 AM CDT) Narrative [...] (Latest Code Status on File) Date ActivatedDate RpikbfgvvwnZyvupoth37/8/2025 10:17 AM03/16/2025 2:51 PM QuestionAnswerCommentsCode Status Discussion:* Reviewed Preferences * Full Code Date ActivatedDate InactivatedComments12/23/2024 8:30 PM12/24/2024 5:50 PMQuestion AnswerCommentsCode Status Discussion:* Reviewed Preferences * Full Code Date ActivatedDate InactivatedComments07/31/2024 9:12 AM07/31/2024 12:53 PM QuestionAnswerCommentsCode Status Discussion:* Reviewed Preferences * Full Code Date ActivatedDate FtryruifhvtZlipymuw12/10/2023 3:43 PM02/18/2023 2:31 PM QuestionAnswerCommentsCode Status Discussion:* Other * Full Code Date ActivatedDate ZvrvslfnzukHdppsgpm82/5/2020 7:33 PM02/14/2020 1:48 PMQuestion AnswerCommentsCode Status Discussion:* Not Discussed * Per Existing Order Care Teams Team MemberRelationshipSpecialtyStart DateEnd Date Stone Martinez MD [address] [place] [address] PCP - GeneralInternal Anpkwbux34/6/23 Glenys Agarwal MD [address] [place] [address] Family Uevyplzi45/16/20
--- NOTE | 2025-03-24 15:20 | ED_ITS ---
HPI - General Adult General Chief complaint: Nausea/Vomiting Stated complaint: Throwing up everything Time Seen by Provider: 03/24/25 15:05 Source: patient Mode of arrival: ambulatory Limitations: no limitations History of Present Illness HPI narrative: 44-year-old female presenting today with vomiting and abdominal discomfort. About 2 weeks ago patient had a repeat EGD with a biopsy done for a follow-up of a neuroendocrine tumor. Apparently she did have a Schatzki ring that was biopsy but not dilated. She states that she has been having some mild sore throat and discomfort since the procedure however in the last 24 hours she has been unable to swallow any fluids or food. She had a piece of brown worse yesterday which she throughout and she has not been able to stop keep down anything by mouth since then. She is managing her own secretions but states that even sips of water come right back up. If she is not trying to swallow something then she is not vomiting, vomiting only occurs when she tries to swallow food or liquids. Related Data Previous Rx's ?Medication ?Instructions ?Recorded nystatin 100,000 unit/gram topical 1 applic topical BI D PRN itching 07/04/23 powder or burning perianal pain #60 grams meclizine 25 mg tablet 25 mg PO BID PRN dizziness # 10 tabs 08/06/23 ondansetron 4 mg disintegrating 4 mg PO Q8H PRN nausea and 08/06/23 tablet vomiting #10 tabs sumatriptan succinate 50 mg tablet 50 mg PO ONCE PRN m igraine 09/26/23 (Imitrex) headache #30 tabs venlafaxine 150 mg 150 mg PO QAM Anxiety #90 ca ps 04/29/24 capsule,extended release 24 hr sertraline 100 mg tablet 150 mg (1.5 x 100 mg) PO QDA Y 09/29/24 Anxiety #135 tabs buspirone 10 mg tablet 10 mg PO BID #120 tabs 12/16 fentanyl 25 mcg/hr transdermal 1 patch transdermal Q72 H #5 ea 03/09/25 patch oxycodone 10 mg tablet 10 mg PO Q8H PRN pain #60 ta bs 03/16/25 Allergies Allergy/AdvReac Type Severity Reaction Status Date / Time codeine Allergy Severe hives, Verified 03/24/25 14:42 nausea, vomiting hydromorphone Allergy Mild itching Verified 03/24/25 14:42 ibuprofen Allergy Mild hx of Verified 03/24/25 14:42 gastric bypass Review of Systems Status of ROS: Reports: 10 or more systems reviewed and unremarkable except as noted in History and below [facility] Medical History Encounter for preoperative assessment ?Z01.818 - Encounter for other preprocedural examination (ICD-10) Fusion of lumbar spine ?M43.26 - Fusion of spine, lumbar region (ICD-10) Migraine headache (09/20/18) ?G43.909 - Migraine, unspecified, not intractable, without status migrainosus (ICD-10) Constipation ?K59.00 - Constipation, unspecified (ICD-10) Polyarthritis ?M13.0 - Polyarthritis, unspecified (ICD-10) Postoperative intra-abdominal abscess ?T81.43XA - Infection following a procedure, organ and space surgical site, initial encounter (ICD-10) Postoperative wound dehiscence ?T81.31XA - Disruption of external operation (surgical) wound, not elsewhere classified, initial encounter (ICD-10) Septic shock due to Escherichia coli ?A41.51 - Sepsis due to Escherichia coli [E. coli] (ICD-10) ?R65.21 - Severe sepsis with septic shock (ICD-10) Elevated liver enzymes ?R74.8 - Abnormal levels of other serum enzymes (ICD-10) MRSA (methicillin resistant staph aureus) culture positive ?Z22.322 - Carrier or suspected carrier of Methicillin resistant Staphylococcus aureus (ICD-10) Fatigue ?R53.83 - Other fatigue (ICD-10) Insomnia ?G47.00 - Insomnia, unspecified (ICD-10) Granular cell tumor ?D21.9 - Benign neoplasm of connective and other soft tissue, unspecified (ICD-10) Dysphagia ?R13.10 - Dysphagia, unspecified (ICD-10) Obstructive sleep apnea ?G47.33 - Obstructive sleep apnea (adult) (pediatric) (ICD-10) History of abdominal hernia ?Z87.19 - Personal history of other diseases of the digestive system (ICD-10) Hemorrhoids ?K64.9 - Unspecified hemorrhoids (ICD-10) Anxiety ?F41.9 - Anxiety disorder, unspecified (ICD-10) Eczema ?L30.9 - Dermatitis, unspecified (ICD-10) Depression ?F32.A - Depression, unspecified (ICD-10) Surgical History History of lumbar discectomy (12/23/24) ?Z98.890 - Other specified postprocedural states (ICD-10) History of umbilical hernia repair ?Z98.890 - Other specified postprocedural states (ICD-10) ?Z87.19 - Personal history of other diseases of the digestive system (ICD-10) History of hysterectomy ?Z90.710 - Acquired absence of both cervix and uterus (ICD-10) History of gastric bypass ?Z98.84 - Bariatric surgery status (ICD-10) History of cholecystectomy ?Z90.49 - Acquired absence of other specified parts of digestive tract (ICD- 10) History of section ?Z98.891 - History of uterine scar from previous surgery (ICD-10) Social History What is your current living situation?: I presently have a place to live Problems where you live: no known problems Problems where you live details: na In the past 12 months, utilities in danger of being shut off: no In past 12 months, lack of transportation kept you from medical appts, meetings, work, or getting things needed for daily living: no In the past 12 mos, have been you worried that your food would run out before you had money to buy more?: never true In the past 12 mos, the food you bought just didn't last and you didn't have money to buy more?: never true Highest level of school completed/degree received: some college, no degree Smoking Status: Never smoker Do you use any of these nicotine containing products: None Second hand tobacco smoke exposure: No How often do you have a drink containing alcohol: monthly or less How many standard drinks containing alcohol do you have on a typical day: 1 or 2 How often do you have six or more drinks on one occasion: Never AUDIT-C Alcohol total score: 1 Non-prescribed substance use: denies use and marijuana (any form) Caffeine: Yes How often does anyone, including family, friends and others, physically hurt you : never How often does anyone, including family, friends and others, insult or talk down to you: never How often does anyone, including family, friends and others, threaten you with harm: never How often does anyone, including family, friends and others, scream or curse at you: never service: No Exam Narrative: Exam Narrative: Well-nourished well-developed patient, appears slightly uncomfortable. Alert and oriented. Answers questions appropriately. Mood and affect are appropriate. Thoughts are goal oriented and rational. No tangential or magical thinking noted. Patient speaks in full sentences without needing to catch her breath. HEENT: Normocephalic atraumatic. Pupils are equally round reactive to light. Extraocular muscles are intact. Conjunctivae are moist without any icterus noted. Moist mucous membranes. Cardiovascular: Heart is regular rate and rhythm. Lungs: Clear to auscultation bilaterally no wheezes rhonchi or rales are appreciated. Patient takes deep breaths without any discomfort. Abdomen: Soft and nontender nondistended with normal bowel sounds. Skin: Well perfused without any obvious rashes. Const: Vital Signs, click to edit/add: Vital Signs - 24 hr 03/24/25 14:37 03/24/25 15:59 03/24/25 16:00 Temperature 97 F L Pulse Rate 77 77 Pulse Rate [Right Pulse Oximeter] 78 Respiratory Rate 18 Blood Pressure Blood Pressure [Ri ght Upper Arm] 139/79 Pulse Oximetry 98 97 96 Oxygen Delivery Me thod Room Air 03/24/25 16:02 03/24/25 16:02 Temperature Pulse Rate 78 78 Pulse Rate [Right Pulse Oximeter] Respiratory Rate Blood Pressure 130/55 L 130/55 L Blood Pressure [Ri ght Upper Arm] Pulse Oximetry 97 97 Oxygen Delivery Me thod Course Course ED Course: IV established and patient was started on normal saline, Zofran and fentanyl for pain. Reviewed labs and imaging from yesterday. I did speak to KB Rosario at [facility] who recommended the patient be transferred. Spoke to Dr. Maciel, hospitalist who accepts the patient for transfer. Vital Signs Vital signs: Initial Vital Signs Temperature 97 F L 03/24/25 14:37 Temperature Source Temporal Artery Scan 03/24/25 14:37 Pulse Rate 78 03/24/25 14:37 Pulse Rhythm Regular 03/24/25 14:37 Pulse Strength 3+ Normal 03/24/25 14:37 Respiratory Rate 18 03/24/25 14:37 Blood Pressure 139/79 03/24/25 14:37 Blood Pressure Mean 99 03/24/25 14:37 Blood Pressure Position Sitting 03/24/25 14:37 Pulse Oximetry 98 03/24/25 14:37 Oxygen Delivery Method Room Air 03/24/25 14:37 Vital Signs Temperature 97 F L 03/24/25 14:37 Pulse Rate 78 03/24/25 14:37 Respiratory Rate 18 03/24/25 14:37 Blood Pressure 139/79 03/24/25 14:37 Pulse Oximetry 98 03/24/25 14:37 Oxygen Delivery Method Room Air 03/24/25 14:37 Temperature 97 F L 03/24/25 14:37 Pulse Rate 78 03/24/25 16:02 Respiratory Rate 18 03/24/25 14:37 Blood Pressure 130/55 L 03/24/25 16:02 Pulse Oximetry 97 03/24/25 16:02 Oxygen Delivery Method Room Air 03/24/25 14:37 Medical Decision Making [facility] Narrative Medical decision making narrative: 44-year-old female with an esophageal stricture, inability to swallow liquids or foods, history of esophageal tumor. Patient will be transferred for further management. Discharge Plan Discharge Clinical Impression: Obstruction of esophagus Patient Disposition: [facility] Condition: Stable Prescriptions: No Action nystatin 100,000 unit/gram powder 1 applic topical BID PRN (Reason: itching or burning perianal pain) Qty: 60 0RF meclizine 25 mg tablet 25 mg PO BID PRN (Reason: dizziness) Qty: 10 0RF ondansetron 4 mg tablet,disintegrating 4 mg PO Q8H PRN (Reason: nausea and vomiting) Qty: 10 0RF sumatriptan succinate [Imitrex] 50 mg tablet 50 mg PO ONCE PRN (Reason: migraine headache) Qty: 30 0RF buspirone 10 mg tablet 10 mg PO BID Qty: 120 2RF venlafaxine 150 mg capsule,extended release 24hr 150 mg PO QAM Qty: 90 3RF sertraline 100 mg tablet 150 mg PO QDAY Qty: 135 1RF fentanyl 25 mcg/hr patch 72 hour 1 patch transdermal Q72H Qty: 5 0RF oxycodone 10 mg tablet 10 mg PO Q8H PRN (Reason: pain) Qty: 60 0RF Stand Alone Forms: MyHealth Info Instructions
[2025-03-24] MEDS: ONDANSETRON 2 MG/ML inj 4 MG IVP (16:00)
[2025-03-24] MEDS: MORPHINE 4 MG/ML INJ IVP (16:49)
[2025-03-24] MEDS: METOCLOPRAMIDE HCL 5 MG/ML INJ 10 MG IVP (16:49)
== END 2025-03-24 18:41 | disposition short-term general hospital (02) ==
PROVIDERS: Emergency Provider Family Medicine; PCP Internal Medicine
DX: K22.2 Esophageal obstruction (principal); Z98.84 Bariatric surgery status; Z85.01 Personal history of malignant neoplasm of esophagus
CPT/HCPCS: 96361; 96374; 96375; 99284; 99285; J2270; J2405; J2765; J3010; J7030

== ENCOUNTER 2025-03-24 18:10 | Outpatient (CLI) | payer BC, SELFPAY | END 2025-03-24 18:11 | disposition home or self-care (01) | LOC: AMB 03-27 14:09 | PROVIDERS: PCP Internal Medicine; Visit Provider Emergency Medicine | DX: K22.2 Esophageal obstruction (principal) | CPT/HCPCS: A0425; A0427 ==